=== PATIENT | male | born 1950 | race Caucasian/White ===

== ENCOUNTER 2023-04-08 16:13 | Inpatient (IN) | payer MEDICAID, SELFPAY ==
[2023-04-08] VITALS (58 sets, daily range): BP systolic 104–176; BP diastolic 55–101; PULSE 79–123; RESP 11–35; TEMP 36.7; O2SAT 87–96; BMI 36.9
--- NOTE | 2023-04-08 16:15 | W.ED.ABDPA2 ---
HPI - Abdominal Pain General: Stated Complaint: abd pain,nausea Time Seen by Provider: 04/08/23 16:14 Source: patient Mode of arrival: EMS History of Present Illness: MD elicited complaint: abdominal pain Pertinent past history: none Discharge Plan Discharge Condition: Stable Referrals: Romario Bojorquez, VETERINARY TECHNICIAN INSTRUCTOR-C [Primary Care Provider] - Loco Post MD [Family Provider] - Coding Level of Care Code ED Public Health Engineer for Eli Mishra
--- NOTE | 2023-04-08 16:23 | XRR_ITS ---
PROCEDURE INFORMATION: Exam: XR Left Foot Exam date and time: 04/08/2023 4:48 PM Age: 73 years old Clinical indication: Pain; Foot; Left TECHNIQUE: Imaging protocol: Radiologic exam of the left foot. Views: 3 or more views. COMPARISON: No relevant prior studies available. FINDINGS: Bones/joints: No acute fracture or other acute osseous abnormality. No acute joint abnormality demonstrated. Soft tissues: The soft tissues are unremarkable as demonstrated. XR/XR foot LT min 3V* [id number] IMPRESSION: No acute abnormality demonstrated.
--- NOTE | 2023-04-08 16:41 | W.ED.GENADLT ---
HPI - General Adult General: Chief complaint: General Medical Stated complaint: abd pain,nausea Time Seen by Provider: 04/08/23 16:14 Source: patient Mode of arrival: ambulatory History of Present Illness: 73-year-old male presents to the emergency room via EMS. He has been living in a hotel room for an extended period time he comes in today stating that for the last month he is generally not felt well he has felt numb everywhere. He says he thinks he has mold in his lungs he has an injury to the first and second toes left foot his nails are significantly overgrown. He denies chest or abdominal pain at this time. No fever sweats or chills blood sugar on the field was in excess of 500 Onset (ago): month(s) (1) Associated symptoms: Reports malaise; Deny chest pain, confusion, cough, diaphoresis, decreased appetite, dyspnea, fevers/chills, headache(s), nausea, rash, palpitations, seizures, short of breath, syncope, vomiting or weakness Review of Systems Const: Reports: fatigue and malaise; Denies: fever(s), chills or diaphoresis ENMT: Denies: throat pain, ear or mastoid pain, nasal discharge or nasal congestion Card: Denies: chest pain, palpitations or syncope Resp: Denies: dyspnea GI: Reports: abdominal pain; Denies: nausea or vomiting : Denies: flank pain, dysuria, urinary frequency or urinary urgency Skin/Breast: Denies: rash Neuro: Denies: headache(s) or confusion [facility] ED PFSH: Social History (Updated 04/09/23 @ 06:03 by Roman Calvert DO) Smoking and tobacco status: current every day smoker Physical Exam Const: GENERAL APPEARANCE: cooperative and comfortable ORIENTATION/CONSCIOUSNESS: Yes awake, Yes oriented to person, Yes oriented to place and Yes oriented to time HENMT: COMMON NORMALS: normocephalic, atraumatic and hearing grossly normal bilaterally HEAD & SCALP: normocephalic and atraumatic Resp: COMMON NORMALS: normal respiratory effort, No retractions, No use of accessory muscles and clear to auscultation bilaterally AUSCULTATION: clear to auscultation bilaterally Cardio: COMMON NORMALS: regular rate, regular rhythm and No murmurs present (Cardio) RATE: regular rate RHYTHM: regular rhythm GI: COMMON NORMALS: Soft to palpation and No hepatosplenomegaly present AUSCULTATION: Yes normoactive bowel sounds PALPATION: Yes Soft to palpation, No Tenderness to palpation present (GI), No Guarding due to palpation present (GI) and Yes No hepatosplenomegaly present Extremity: COMMON NORMALS: capillary refill normal, no clubbing, cyanosis or edema, no calf tenderness and no pedal edema OTHER: For second and third toe the left foot are red and inflamed there is some blood coming from underneath the leading edge of the nail. Toenails are significantly hypertrophic. There are some lymphangitic streaking and no diabetic foot ulcers. Neuro: SENSORIUM/ORIENTATION: Yes oriented to person, Yes oriented to place and Yes oriented to time Skin: COMMON NORMALS: no rashes or lesions noted GENERAL SKIN EXAM: no rashes or lesions noted Course Vital Signs: Vital signs: Vital Signs Temperature 98.0 F 04/08/23 22:10 Pulse Rate 66 04/09/23 06:00 Respiratory Rate 17 04/09/23 06:00 Blood Pressure 115/62 04/09/23 06:00 Pulse Oximetry 92 04/09/23 06:00 Oxygen Delivery Me thod Room Air 04/08/23 19:43 MDM - General Adult Medical Decision Making Blood gas does not show acidosis however patient does have ketones in his severe hyperglycemia. He is at the borderline of DKA and has a significant anion gap. Patient will be admitted for DKA he was given fluids here and insulin bolus and drip initiated discussed with hospitalist orders written. Additionally the first second and third toes are indurated reddened show signs of cellulitis will start IV antibiotics no ulcer noted there is some blood underneath the left great toenail Medical Records I reviewed the patient's medical records. Lab Data I reviewed the patient's lab results. 04/09/23 02:39 04/09/23 02:39 Radiology Impressions Foot X-Ray 04/08/23 16:23 IMPRESSION: No acute abnormality demonstrated. Chest X-Ray 04/08/23 17:26 IMPRESSION: 1. The lungs are hyperinflated, consistent with COPD. 2. No acute abnormality demonstrated. Laboratory Results WBC 8.63 10^3/uL (3.29-11.43) 04/08/23 16:37 RBC 4.59 10^6/uL (3.85-5.65) 04/08/23 16:37 Hgb 13.10 g/dL (11.27-16.99) 04/08/23 16:37 Hct 40.1 % (37-53) 04/08/23 16:37 MCV 87.4 fl (82-101) 04/08/23 16:37 MCH 28.5 pg (27-33) 04/08/23 16:37 MCHC 32.7 g/dL (30-55) 04/08/23 16:37 RDW 15.9 % (12.1-15.1) H 04/08/23 16:37 Plt Count 242 10^3/cmm (157-399) 04/08/23 16:37 MPV 11.6 fL (7.4-10.4) H 04/08/23 16:37 Neut % (Auto) 73.3 % 04/08/23 16:37 Lymph % (Auto) 15.9 % 04/08/23 16:37 [place] % (Auto) 8.1 % 04/08/23 16:37 Eos % (Auto) 0.5 % 04/08/23 16:37 Baso % (Auto) 0.9 % 04/08/23 16:37 Neut # (Auto) 6.33 10^3/uL (1.8-7.7) 04/08/23 16:37 Lymph # (Auto) 1.4 10^3/uL (0.8-4.8) 04/08/23 16:37 [place] # (Auto) 0.7 10^3/uL (0.2-0.9) 04/08/23 16:37 Eos # (Auto) 0.0 10^3/uL (0.0-0.8) 04/08/23 16:37 Baso # (Auto) 0.1 10^3/uL (0.0-0.1) 04/08/23 16:37 Nucleated RBC % (auto) 0 % 04/08/23 16:37 Nucleated RBCs # 0.0 /100WBC 04/08/23 16:37 Specimen Type Arterial 04/08/23 16:31 Sample Site Brachial, right 04/08/23 16:31 ABG pH 7.42 (7.35-7.45) 04/08/23 16:31 ABG pCO2 32.6 mmHg (35-45) L 04/08/23 16:31 ABG pO2 73.9 mmHg (80.0-100.0) L 04/08/23 16:31 ABG HCO3 21.2 mmol/L (22-26) L 04/08/23 16:31 ABG O2 Saturation 95.6 04/08/23 16:31 ABG Base Excess -2.5 mmol/L (-2.0-2.0) L 04/08/23 16:31 Neville Test N/a 04/08/23 16:31 A-a O2 Gradient 4.5 mmHg (5-10) L 04/08/23 16:31 Hematocrit 39.9 % (42-52) L 04/08/23 16:31 Hgb O2 Saturation 94.2 % (95-100) L 04/08/23 16:31 Carboxyhemoglobin 1.2 %THgb (0.4-20.1) 04/08/23 16:31 Methemoglobin 0.3 % (0.4-1.5) L 04/08/23 16:31 Total Hemoglobin 13.0 g/dL (14-18) L 04/08/23 16:31 Sodium 133.0 mmol/L (131-143) 04/08/23 16:31 Potassium 4.7 mmol/L (3.5-5.0) 04/08/23 16:31 Glucose 640.0 mg/dL (70-115) H 04/08/23 16:31 Ionized Calcium 1.3 mmol/L (1.1-1.4) 04/08/23 16:31 O2 Delivery Device Room air 04/08/23 16:31 FiO2 21.0 % 04/08/23 16:31 Career Technical Counselor ID glc 04/08/23 16:31 Sodium 129 mmol/L (136-145) L 04/08/23 16:37 Potassium 4.7 mmol/L (3.5-5.1) 04/08/23 16:37 Chloride 85 mmol/L (98-107) L 04/08/23 16:37 Carbon Dioxide 19 mmol/L (22-29) L 04/08/23 16:37 Anion Gap 29.7 (5-19) H 04/08/23 16:37 BUN 27 mg/dL (8-23) H 04/08/23 16:37 Creatinine 1.0 mg/dL (0.7-1.2) 04/08/23 16:37 GFR Calculation Not Reportable 04/08/23 16:37 Glucose 634 mg/dL (65-115) H* 04/08/23 16:37 Estimat Average Glucose 372 04/08/23 16:37 Hemoglobin A1c 14.6 % (4.0-6.0) H 04/08/23 16:37 Calculated Osmolality 303 mOsm/kg (285-295) H 04/08/23 16:37 Lactic Acid 1.8 mmol/L (0.5-2.2) 04/08/23 16:37 Calcium 10.0 mg/dL (8.5-10.5) 04/08/23 16:37 Total Bilirubin 0.5 mg/dL (0.15-1.2) 04/08/23 16:37 AST 12 U/L (0-40) 04/08/23 16:37 ALT 14 U/L (0-41) 04/08/23 16:37 Alkaline Phosphatase 185 U/L (40-130) H 04/08/23 16:37 NT-Pro-B Natriuret Pep 197 pg/mL (0-125) H 04/08/23 16:37 Total Protein 7.9 g/dL (6.6-8.7) 04/08/23 16:37 Albumin 3.8 g/dL (3.5-5.2) 04/08/23 16:37 Globulin 4.1 g/dL (1.3-4.6) 04/08/23 16:37 Lipase 71 U/L (13-60) H 04/08/23 16:37 Urine Color Yellow (Yellow) 04/08/23 17:00 Urine Appearance Clear (CLEAR) 04/08/23 17:00 Urine pH 5 (5-7) 04/08/23 17:00 Ur Specific [place] 1.010 (1.005-1.030) 04/08/23 17:00 Urine Protein Neg (Negative) 04/08/23 17:00 Urine Glucose (UA) 4+ (Normal) H 04/08/23 17:00 Urine Ketones 3+ (Negative) H 04/08/23 17:00 Urine Blood Neg (Negative) 04/08/23 17:00 Urine Nitrate Negative (Negative) 04/08/23 17:00 Urine Bilirubin Neg (Negative) 04/08/23 17:00 Urine Urobilinogen Norm mg/dL (Negative) 04/08/23 17:00 Ur Leukocyte Esterase Negative (Negative) 04/08/23 17:00 Serum Ketones Positive (Negative) H 04/08/23 16:37 Discharge Plan Discharge Patient Disposition: Admitted As Inpatient Admit Provider: Heather Rushing Clinical Impression: Diabetic keto-acidosis, Cellulitis of foot, Uncontrolled diabetes mellitus Condition: Stable Coding Level of Care Code ED Fountain Worker for Eli Mishra
[2023-04-08 16:43] LABS: ABG PCO2 32.6 mmHg (35-45); ABG PH Result 7.42 (7.35-7.45); Alveolar-Arterial Oxygen Gradi 4.5 mmHg (5-10); Arterial Blood Gas Hematocrit 39.9 % (42-52); Base Excess ABG -2.5 mmol/L (-2.0-2.0); Blood Gas Operator Identificat glc; Blood Gas Sample Site Brachial, right; Blood Gas Sample Type Arterial; Carboxyhemoglobin 1.2 %THgb (0.4-20.1); HCO3 ABG 21.2 mmol/L (22-26); HGB O2 Sat 94.2 % (95-100); Ionized Calcium Level - ABG 1.3 mmol/L (1.1-1.4); Methemoglobin 0.3 % (0.4-1.5); Oxygen Device ROOM AIR; Oxygen Saturation ABG 95.6; PO2 ABG 73.9 mmHg (80.0-100.0); Potassium Level - ABG 4.7 mmol/L (3.5-5.0)
[2023-04-08 16:53] LABS: Ketone (Acetest) Serum Positive (Negative)
[2023-04-08 16:55] LABS: Basophils # 0.1 10^3/uL (0.0-0.1); Basophils % 0.9 %; Eosinophils % 0.5 %; Hematocrit 40.1 % (37-53); Lymphocytes # 1.4 10^3/uL (0.8-4.8); Lymphocytes % 15.9 %; Mean Corpuscular HGB Conc 32.7 g/dL (30-55); Mean Corpuscular Hemoglobin 28.5 pg (27-33); Mean Corpuscular Volume 87.4 fl (82-101); Mean Platelet Volume 11.6 fL (7.4-10.4); Monocytes # 0.7 10^3/uL (0.2-0.9); Monocytes % 8.1 %; Neutrophils # 6.33 10^3/uL (1.8-7.7); Neutrophils % 73.3 %; Nucleated Red Blood Cells % 0 %; Platelet Count 242 10^3/cmm (157-399); Red Blood Count 4.59 10^6/uL (3.85-5.65); Red Cell Distribution Width 15.9 % (12.1-15.1); White Blood Count 8.63 10^3/uL (3.29-11.43)
[2023-04-08 17:04] LABS: Lactic Sepsis W/Reflex 1.8 mmol/L (0.5-2.2)
[2023-04-08 17:05] LABS: Add Urine Microscopic? NO; Charge for UA Resulting for Rev
--- NOTE | 2023-04-08 17:10 | ECG_ITS ---
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 Measurements Intervals P[place] Rate: 88 P: 64 CA: 144 QRS: 5 QRSD: 86 T: 61 QT: 357 QTc: 433 Interpretive Statements SINUS RHYTHM LOW QRS VOLTAGE [QRS DEFLECTION < 0.5/1.0 mV IN LIMB/CHEST LEADS] Compared to ECG 02/11/2015 01:18:29 Sinus tachycardia no longer present Electronically Signed On 04-08-2023 21:24:20 CDT by Nehemiah Campbell M.D. [email or web address] [email or web address]/store/[id number]
[2023-04-08 17:14] LABS: Alanine Aminotransferase 14 U/L (0-41); Albumin Level 3.8 g/dL (3.5-5.2); Alkaline Phosphatase 185 U/L (40-130); Anion Gap 29.7 (5-19); Aspartate Amino Transferase 12 U/L (0-40); Blood Urea Nitrogen 27 mg/dL (8-23); Carbon Dioxide 19 mmol/L (22-29); Chloride 85 mmol/L (98-107); Globulin 4.1 g/dL (1.3-4.6); Lipase 71 U/L (13-60); NT Pro B Type Natriuretic Pept 197 pg/mL (0-125); Osmolality Calculated 303 mOsm/kg (285-295); Potassium 4.7 mmol/L (3.5-5.1); Sodium 129 mmol/L (136-145); Total Bilirubin 0.5 mg/dL (0.15-1.2); Total Protein 7.9 g/dL (6.6-8.7)
--- NOTE | 2023-04-08 17:15 | PC.NURSE ---
ems started 1L NS, continued infusion per physician order
[2023-04-08 17:17] LABS: Bilirubin Urine Neg (Negative); Blood Urine Neg (Negative); Glucose Urine UA 4+ (Normal); Ketones Urine 3+ (Negative); Leukocyte Esterase Urine Negative (Negative); Nitrate Urine Negative (Negative); Protein Urine Neg (Negative); Urine Appearance Clear (CLEAR); Urine Color Yellow (Yellow); Urobilinogen Urine Norm (Negative); pH Urine 5 (5-7)
[2023-04-08 17:19] LABS: Glucose 634 mg/dL (65-115)
--- NOTE | 2023-04-08 17:26 | XRR_ITS ---
PROCEDURE INFORMATION: Exam: XR Chest Exam date and time: 04/08/2023 7:14 PM Age: 73 years old Clinical indication: Cough TECHNIQUE: Imaging protocol: Radiologic exam of the chest. Views: 1 view. COMPARISON: No relevant prior studies available. FINDINGS: Lungs: The lungs are hyperinflated, consistent with COPD. No consolidative pulmonary infiltrates are noted. Pleural spaces: No pleural effusion. No pneumothorax. Heart/Mediastinum: No cardiomegaly. Bones/joints: Unremarkable. XR/XR chest 1V portable [id number] IMPRESSION: 1. The lungs are hyperinflated, consistent with COPD. 2. No acute abnormality demonstrated.
--- NOTE | 2023-04-08 17:33 | PM.HP ---
Providers/Chief Complaint Admitting Physician: Heather Rushing MD Primary Care Provider: Romario Bojorquez, GAS TURBINE POWERPLANT MECHANIC-C Chief Complaint: abd pain,nausea History of Present Illness Pillo Dyer Sr is a 73 year old male who denies any known past medical history, however has not seen a physician in over 3 years. He presented to the emergency room today with 2 to 3 weeks of generalized malaise fatigue and a persistent cough. Patient thought he had mold in his lungs as he has been living in a motel which appears to be infested with it. He stubbed his toe 2 to 3 days ago against a wall and it has been bleeding and turning red ever since. In the emergency room he was found to have evidence of DKA with blood glucose greater than 600, anion gap and urine ketones. Denies any known history of diabetes mellitus, but it has never been checked either. Denies any sputum production hemoptysis chest pain or dyspnea. He is saturating 96% on room air. States that his stomach has not been feeling well. Review of Systems General: Reports: 10 or more systems reviewed and unremarkable except in HPI and below Const: Denies: fever(s), chills or body aches Eyes: Denies: change in vision, blurry vision or photophobia ENMT: Reports: hoarseness; Denies: throat pain, enlarged tonsils, odynophagia or nasal congestion Card: Denies: chest pain, palpitations, irregular heart rhythm, edema, swelling of feet/ankles, lightheadedness, pre-syncope, dyspnea on exertion or orthopnea Resp: Denies: dyspnea, productive cough, non-productive cough, wheezing, stridor, pain on inspiration, change in phlegm color, hemoptysis or chest congestion GI: Denies: abdominal pain, nausea, vomiting, hematemesis, coffee ground emesis, dysphagia, heartburn, diarrhea, constipation, GI cramping, change in stool character, hematochezia or melena : Denies: flank pain, dysuria, urinary frequency, urinary urgency, urinary hesitancy or hematuria Musc: Denies: neck pain, back pain, extremity pain, joint swelling, joint warmth or deformity Neuro: Denies: headache(s), numbness in extremities, weakness in extremities, sensory changes, difficulty walking, frequent falls, dizziness, vertigo, behavioral changes, Slurred speech present or seizure-like activity Psych: Denies: anxiety, depression, suicidal ideation or homicidal ideation Endo: Denies: polyuria, polydipsia, tired all the time, cold intolerance or hot flashes Gio/Lymph: Denies: easy bruising or easy bleeding Medications/Allergies Home Medications Medication Instructions Recorded Confirmed Last Taken Type No Known Home Medications 04/09/23 04/09/23 Unknown History Allergies Allergy/AdvReac Type Severity Reaction Status Date / Time No Known Allergies Allergy Verified 04/08/23 16:28 PFSH Acute PFSH: Social History Smoking and tobacco status: current every day smoker Vitals/I&O/Wt Last Vital Signs Temp 98.0 F 04/08/23 16:20 Pulse 85 04/08/23 16:20 Resp 28 H 04/08/23 16:20 BP 146/83 04/08/23 16:20 Pulse Ox 94 04/08/23 16:20 O2 Del Method Room Air 04/08/23 16:20 Weight last 48 hrs Weight 127.006 kg Physical Exam Narrative: General: No acute distress, AO x3 HEENT: PERRLA, pupils bilaterally equal and reactive, pallors not present Chest: Normal vesicular breath sounds, no added sounds, equal good air entry bilaterally CVS: S1-S2 regular, no murmurs, no tachycardia, no gallops, no rubs Abdomen: Soft, nontender, no organomegaly, bowel sounds present Neuro: No focal deficits, no facial deformity, AO x3, power 5/5 in all limbs Data 04/09/23 02:39 04/09/23 08:00 Other data: Radiology Impressions Foot X-Ray 04/08/23 16:23 IMPRESSION: No acute abnormality demonstrated. Chest X-Ray 04/08/23 17:26 IMPRESSION: 1. The lungs are hyperinflated, consistent with COPD. 2. No acute abnormality demonstrated. Laboratory Results WBC 9.92 10^3/uL (3.29-11.43) 04/09/23 02:39 RBC 4.47 10^6/uL (3.85-5.65) 04/09/23 02:39 Hgb 12.70 g/dL (11.27-16.99) 04/09/23 02:39 Hct 39.4 % (37-53) 04/09/23 02:39 MCV 88.1 fl (82-101) 04/09/23 02:39 MCH 28.4 pg (27-33) 04/09/23 02:39 MCHC 32.2 g/dL (30-55) 04/09/23 02:39 RDW 15.9 % (12.1-15.1) H 04/09/23 02:39 Plt Count 226 10^3/cmm (157-399) 04/09/23 02:39 MPV 10.8 fL (7.4-10.4) H 04/09/23 02:39 Neut % (Auto) 71.8 % 04/09/23 02:39 Lymph % (Auto) 17.4 % 04/09/23 02:39 [place] % (Auto) 8.3 % 04/09/23 02:39 Eos % (Auto) 0.8 % 04/09/23 02:39 Baso % (Auto) 0.6 % 04/09/23 02:39 Neut # (Auto) 7.12 10^3/uL (1.8-7.7) 04/09/23 02:39 Lymph # (Auto) 1.7 10^3/uL (0.8-4.8) 04/09/23 02:39 Rich # (Auto) 0.8 10^3/uL (0.2-0.9) 04/09/23 02:39 Eos # (Auto) 0.1 10^3/uL (0.0-0.8) 04/09/23 02:39 Baso # (Auto) 0.1 10^3/uL (0.0-0.1) 04/09/23 02:39 Nucleated RBC % (auto) 0 % 04/09/23 02:39 Nucleated RBCs # 0.0 /100WBC 04/09/23 02:39 Specimen Type Arterial 04/08/23 16:31 Sample Site Brachial, right 04/08/23 16:31 ABG pH 7.42 (7.35-7.45) 04/08/23 16:31 ABG pCO2 32.6 mmHg (35-45) L 04/08/23 16:31 ABG pO2 73.9 mmHg (80.0-100.0) L 04/08/23 16:31 ABG HCO3 21.2 mmol/L (22-26) L 04/08/23 16:31 ABG O2 Saturation 95.6 04/08/23 16:31 ABG Base Excess -2.5 mmol/L (-2.0-2.0) L 04/08/23 16:31 Neville Test N/a 04/08/23 16:31 A-a O2 Gradient 4.5 mmHg (5-10) L 04/08/23 16:31 Hematocrit 39.9 % (42-52) L 04/08/23 16:31 Hgb O2 Saturation 94.2 % (95-100) L 04/08/23 16:31 Carboxyhemoglobin 1.2 %THgb (0.4-20.1) 04/08/23 16:31 Methemoglobin 0.3 % (0.4-1.5) L 04/08/23 16:31 Total Hemoglobin 13.0 g/dL (14-18) L 04/08/23 16:31 Sodium 133.0 mmol/L (131-143) 04/08/23 16:31 Potassium 4.7 mmol/L (3.5-5.0) 04/08/23 16:31 Glucose 640.0 mg/dL (70-115) H 04/08/23 16:31 Ionized Calcium 1.3 mmol/L (1.1-1.4) 04/08/23 16:31 O2 Delivery Device Room air 04/08/23 16:31 FiO2 21.0 % 04/08/23 16:31 Prenatal Genetic Counselor ID glc 04/08/23 16:31 Sodium 139 mmol/L (136-145) 04/09/23 08:00 Potassium 3.2 mmol/L (3.5-5.1) L 04/09/23 08:00 Chloride 102 mmol/L (98-107) 04/09/23 08:00 Carbon Dioxide 25 mmol/L (22-29) 04/09/23 08:00 Anion Gap 15.2 (5-19) 04/09/23 08:00 BUN 18 mg/dL (8-23) 04/09/23 08:00 Creatinine 0.8 mg/dL (0.7-1.2) 04/09/23 08:00 GFR Calculation Not Reportable 04/09/23 08:00 Glucose 160 mg/dL (65-115) H 04/09/23 08:00 POC Glucose 245 mg/dL (70-110) H 04/09/23 08:09 Estimat Average Glucose 372 04/08/23 16:37 Hemoglobin A1c 14.6 % (4.0-6.0) H 04/08/23 16:37 Calculated Osmolality 293 mOsm/kg (285-295) 04/09/23 08:00 Lactic Acid 1.8 mmol/L (0.5-2.2) 04/08/23 16:37 Calcium 8.5 mg/dL (8.5-10.5) 04/09/23 08:00 Phosphorus 2.6 mg/dL (2.5-4.5) 04/09/23 08:00 Magnesium 1.7 mg/dL (1.7-2.3) 04/09/23 08:00 Total Bilirubin 0.4 mg/dL (0.15-1.2) 04/09/23 08:00 AST 16 U/L (0-40) 04/09/23 08:00 ALT 12 U/L (0-41) 04/09/23 08:00 Alkaline Phosphatase 108 U/L (40-130) 04/09/23 08:00 NT-Pro-B Natriuret Pep 197 pg/mL (0-125) H 04/08/23 16:37 Total Protein 6.5 g/dL (6.6-8.7) L 04/09/23 08:00 Albumin 3.3 g/dL (3.5-5.2) L 04/09/23 08:00 Globulin 3.2 g/dL (1.3-4.6) 04/09/23 08:00 Lipase 71 U/L (13-60) H 04/08/23 16:37 Urine Color Yellow (Yellow) 04/08/23 17:00 Urine Appearance Clear (CLEAR) 04/08/23 17:00 Urine pH 5 (5-7) 04/08/23 17:00 Ur Specific [place] 1.010 (1.005-1.030) 04/08/23 17:00 Urine Protein Neg (Negative) 04/08/23 17:00 Urine Glucose (UA) 4+ (Normal) H 04/08/23 17:00 Urine Ketones 3+ (Negative) H 04/08/23 17:00 Urine Blood Neg (Negative) 04/08/23 17:00 Urine Nitrate Negative (Negative) 04/08/23 17:00 Urine Bilirubin Neg (Negative) 04/08/23 17:00 Urine Urobilinogen Norm mg/dL (Negative) 04/08/23 17:00 Ur Leukocyte Esterase Negative (Negative) 04/08/23 17:00 Serum Ketones Positive (Negative) H 04/08/23 16:37 A&P Assessment and plan (1) Diabetic keto-acidosis: Diabetic ketoacidosis: As evidenced by blood glucose more than 600, positive urine ketones, anion gap of 29.7 Start patient on insulin drip as per DKA/HHS protocol with target blood sugars between 100-130 normal saline at 75 cc/h. We will switch to D5 NS once blood sugar less than 250. Monitor BMP every 6 hours. Once potassium less than 4 we will add 20 mg of potassium to IV fluids. Monitor saturations. Maintain over 90%. Transition to sliding scale and long-acting insulin once anion gap resolves. Check HbA1c (2) Cellulitis of foot: After sustaining injury by hitting her foot accidentally against a wall 3 to 4 days ago Currently on vancomycin and Zosyn empirically which we will continue. Monitor for improvement X-ray without any signs of cellulitis Plan Chronic cough: Check CXR , suspect COPD, patient is an ex smoker. No fever. Abx for cellulitis to cover for possible PNA while waiting for CXR Currently living in [facility] ? homeless vs by choice. Case management consult to assess living situation DVT ppx: lovenox PUD ppx: Protonix Attestations Medical Necessity Statement*: Greater than 2 midnight admission is anticipated for management of diabetic ketoacidosis and cellulitis of the foot, need for insulin drip and IV antibiotics Coding Level of Care Code Acute Code for Chg Fwd High MDM includes number and complexity of problems actively addressed during encounter, amount and/or complexity of data reviewed/ordered and described risk of complication, morbidity or mortality of management as documented Diagnoses Diabetic keto-acidosis E11.10 Cellulitis of foot L03.119
[2023-04-08 18:33] LABS: Alanine Aminotransferase 13 U/L (0-41); Albumin Level 3.8 g/dL (3.5-5.2); Alkaline Phosphatase 177 U/L (40-130); Aspartate Amino Transferase 12 U/L (0-40); Blood Urea Nitrogen 26 mg/dL (8-23); Calcium 9.8 mg/dL (8.5-10.5); Carbon Dioxide 21 mmol/L (22-29); Chloride 87 mmol/L (98-107); Osmolality Calculated 304 mOsm/kg (285-295); Sodium 132 mmol/L (136-145); Total Bilirubin 0.5 mg/dL (0.15-1.2); Total Protein 7.8 g/dL (6.6-8.7)
[2023-04-08] MEDS: enoxaparin 40 mg/0.4 mL Syringe SUBCUT (18:33)
[2023-04-08 18:35] LABS: Anion Gap 28.9 (5-19); Potassium 4.9 mmol/L (3.5-5.1)
[2023-04-08 18:36] LABS: Glucose 553 mg/dL (65-115)
[2023-04-08] MEDS: piperacillin-tazobactam 3.375 GM in sodium chloride 0.9% (plus) 50 ML IV (18:36)
[2023-04-08] MEDS: ondansetron 2 mg/ML SDV 2 mL 4 MG IVP ×2 (19:19→20:47)
[2023-04-08] MEDS: insulin regular-human 250 UNIT in sodium chloride 0.9% 250 ML 11.11 UNIT IV (19:41)
[2023-04-08] MEDS: sodium chloride 0.9% 1,000 ML 75 ML IV (20:20)
[2023-04-08] MEDS: vancomycin 1,500 MG/300 ML PIGGYBACK 200 MG IV (20:20)
[2023-04-08 20:28] LABS: Glucose Point of Care 475 mg/dL (70-110)
[2023-04-08 21:50] LABS: Glucose Point of Care 290 mg/dL (70-110)
[2023-04-08 23:06] LABS: Glucose Point of Care 204 mg/dL (70-110)
[2023-04-08 23:16] LABS: Estmated Average Glucose 372; Hemoglobin A1C 14.6 % (4.0-6.0)
[2023-04-08] MEDS: acetaminophen 325 mg Tablet 650 MG PO (23:50)
[2023-04-08] MEDS: promethazine 25 mg/mL SDV 1 mL IM (23:50)
[2023-04-08 23:54] LABS: Glucose Point of Care 556 mg/dL (70-110)
[2023-04-08 23:54] LABS: Glucose Point of Care 478 mg/dL (70-110)
[2023-04-08 23:55] LABS: Glucose Point of Care 87 mg/dL (70-110)
[2023-04-08 23:59] LABS: Blood Urea Nitrogen 23 mg/dL (8-23); Calcium 9.8 mg/dL (8.5-10.5); Carbon Dioxide 23 mmol/L (22-29); Osmolality Calculated 294 mOsm/kg (285-295); Potassium 3.5 mmol/L (3.5-5.1); Sodium 139 mmol/L (136-145)
[2023-04-09] VITALS (110 sets, daily range): BP systolic 97–147; BP diastolic 54–93; PULSE 0–131; RESP 11–28; TEMP 36.7–36.8; O2SAT 79–96
[2023-04-09] MEDS: dextrose 5%-sod chloride 0.45% 1,000 ML 60 ML IV
[2023-04-09 00:07] LABS: Anion Gap 22.5 (5-19); Chloride 97 mmol/L (98-107); Glucose 146 mg/dL (65-115); Phosphorus 2.3 mg/dL (2.5-4.5)
--- NOTE | 2023-04-09 00:10 | PC.NURSE ---
While the time it took to clarify order for dextrose IV fluids, patient sugar dropped to 87. Doctor notified for dextrose order when sugar hit below 250. Dr wanted to start IV dextrose if the patients next sugar was still trending downward. Patients next sugar was 87. Insulin drip paused and D5- 1/2 NS started at 60 mls an hour per doctors orders.
[2023-04-09 00:55] LABS: Glucose Point of Care 108 mg/dL (70-110)
[2023-04-09 01:54] LABS: Glucose Point of Care 272 mg/dL (70-110)
[2023-04-09] MEDS: piperacillin-tazobactam 3.375 GM in sodium chloride 0.9% (plus) 50 ML IV ×3 (02:20→20:22)
[2023-04-09 03:02] LABS: Glucose Point of Care 130 mg/dL (70-110)
[2023-04-09 03:04] LABS: Basophils # 0.1 10^3/uL (0.0-0.1); Basophils % 0.6 %; Eosinophils # 0.1 10^3/uL (0.0-0.8); Eosinophils % 0.8 %; Hematocrit 39.4 % (37-53); Lymphocytes # 1.7 10^3/uL (0.8-4.8); Lymphocytes % 17.4 %; Mean Corpuscular HGB Conc 32.2 g/dL (30-55); Mean Corpuscular Hemoglobin 28.4 pg (27-33); Mean Corpuscular Volume 88.1 fl (82-101); Mean Platelet Volume 10.8 fL (7.4-10.4); Monocytes # 0.8 10^3/uL (0.2-0.9); Monocytes % 8.3 %; Neutrophils # 7.12 10^3/uL (1.8-7.7); Neutrophils % 71.8 %; Nucleated Red Blood Cells % 0 %; Platelet Count 226 10^3/cmm (157-399); Red Blood Count 4.47 10^6/uL (3.85-5.65); Red Cell Distribution Width 15.9 % (12.1-15.1); White Blood Count 9.92 10^3/uL (3.29-11.43)
[2023-04-09 03:25] LABS: Alanine Aminotransferase 13 U/L (0-41); Albumin Level 3.7 g/dL (3.5-5.2); Alkaline Phosphatase 130 U/L (40-130); Anion Gap 20.5 (5-19); Aspartate Amino Transferase 15 U/L (0-40); Blood Urea Nitrogen 22 mg/dL (8-23); Calcium 9.2 mg/dL (8.5-10.5); Carbon Dioxide 24 mmol/L (22-29); Chloride 97 mmol/L (98-107); Globulin 3.6 g/dL (1.3-4.6); Glucose 138 mg/dL (65-115); Magnesium 1.9 mg/dL (1.7-2.3); Osmolality Calculated 292 mOsm/kg (285-295); Phosphorus 3.6 mg/dL (2.5-4.5); Potassium 3.5 mmol/L (3.5-5.1); Sodium 138 mmol/L (136-145); Total Bilirubin 0.3 mg/dL (0.15-1.2); Total Protein 7.3 g/dL (6.6-8.7)
[2023-04-09 03:59] LABS: Glucose Point of Care 119 mg/dL (70-110)
[2023-04-09] MEDS: TRAMadol 50 mg Tablet PO (04:34)
[2023-04-09 05:02] LABS: Glucose Point of Care 182 mg/dL (70-110)
[2023-04-09] MEDS: vancomycin 1,500 MG/300 ML PIGGYBACK 200 MG IV ×2 (05:43→18:04)
[2023-04-09 06:08] LABS: Glucose Point of Care 243 mg/dL (70-110)
[2023-04-09 06:41] LABS: Glucose Point of Care 260 mg/dL (70-110)
[2023-04-09 08:14] LABS: Glucose Point of Care 245 mg/dL (70-110)
[2023-04-09 08:36] LABS: Alanine Aminotransferase 12 U/L (0-41); Albumin Level 3.3 g/dL (3.5-5.2); Alkaline Phosphatase 108 U/L (40-130); Anion Gap 15.2 (5-19); Aspartate Amino Transferase 16 U/L (0-40); Blood Urea Nitrogen 18 mg/dL (8-23); Calcium 8.5 mg/dL (8.5-10.5); Carbon Dioxide 25 mmol/L (22-29); Chloride 102 mmol/L (98-107); Globulin 3.2 g/dL (1.3-4.6); Glucose 160 mg/dL (65-115); Magnesium 1.7 mg/dL (1.7-2.3); Osmolality Calculated 293 mOsm/kg (285-295); Phosphorus 2.6 mg/dL (2.5-4.5); Potassium 3.2 mmol/L (3.5-5.1); Sodium 139 mmol/L (136-145); Total Bilirubin 0.4 mg/dL (0.15-1.2); Total Protein 6.5 g/dL (6.6-8.7)
[2023-04-09 09:59] LABS: Chol HDL Ratio 7.52 mg/dL (1.0-5.00); Cholesterol 203 mg/dL (0-200); HDL Cholesterol 27 mg/dL (60-100); Triglycerides 569 mg/dL (0-150)
[2023-04-09 10:12] LABS: LDL Cholesterol Direct 80 mg/dL (0-100)
[2023-04-09] MEDS: pantoprazole DR 40 mg Tablet PO (11:06)
[2023-04-09] MEDS: lidocaine 1% 5 ML in potassium chloride premix 100 ML 26.25 ML IV (11:06)
[2023-04-09] MEDS: insulin glargine 100 units/1 mL 10 UNIT SUBCUT (11:07)
[2023-04-09] MEDS: ipratropium-albuterol 3 mL Neb INHALATION ×2 (13:18→21:00)
[2023-04-09 13:26] LABS: Glucose Point of Care 157 mg/dL (70-110)
--- NOTE | 2023-04-09 13:49 | PC.NURSE ---
Patient from ICU 04/09/2023 at 1350 Wallet with patient. 3-100.00 dollar bills, 1-20, 1-5, 4-1 dollar bills. Priya put in [employer] system
[2023-04-09 14:42] LABS: SARS Covid-2 Antigen negative (Negative)
--- NOTE | 2023-04-09 14:49 | PM.PN ---
Subjective Subjective: Patient's anion gap has now closed. He continues to complain of overall he is feeling generalized weak. He is afebrile. Hemodynamically stable. Chest x-ray without any consolidation. Medications: Reviewed: Yes Vitals/I&O/Wt Last Vital Signs Temp 98.0 F 04/08/23 22:10 Pulse 72 04/09/23 13:21 Resp 16 04/09/23 13:18 BP 121/75 04/09/23 08:25 Pulse Ox 94 04/09/23 13:18 O2 Del Method Nasal Cannula 04/09/23 13:55 O2 Flow Rate 2 04/09/23 13:18 04/08/23 04/09/23 04/09/23 22:59 06:59 14:59 Intake Total 401.838 / 401.838 360.936 / 762.774 Output Total 400 / 400 400 / 400 Balance 401.838 / 401.838 -39.064 / 362.774 -400 / -400 Weight last 48 hrs Weight 110.677 kg Weight 127.006 kg Physical Exam Narrative: General: No acute distress, AO x3 HEENT: PERRLA, pupils bilaterally equal and reactive, pallors not present Chest: Normal vesicular breath sounds, no added sounds, equal good air entry bilaterally CVS: S1-S2 regular, no murmurs, no tachycardia, no gallops, no rubs Abdomen: Soft, nontender, no organomegaly, bowel sounds present Neuro: No focal deficits, no facial deformity, AO x3, power 5/5 in all limbs Data 04/09/23 02:39 04/09/23 08:00 Micro: Microbiology 04/08/23 18:14 Blood Culture - Preliminary Blood SPECIMEN COLLECTED 04/08/23 17:58 Blood Culture - Preliminary Blood SPECIMEN COLLECTED A&P Assessment and plan (1) Diabetic keto-acidosis: Diabetic ketoacidosis: As evidenced by blood glucose more than 600, positive urine ketones, anion gap of 29.7 Anion gap now resolved transition to lantus 10 U daily and sliding scale start carb consistent diet HbA1c at 14, consitent with uncontrolled DM (2) Cellulitis of foot: After sustaining injury by hitting her foot accidentally against a wall 3 to 4 days ago Currently on vancomycin and Zosyn empirically which we will continue. Monitor for improvement X-ray without any signs of osteomyelitis Plan Chronic cough: CXR , suspect COPD with hyperinflated chest No consolidation patient is an ex smoker. No fever. Start duoneb every 6 hrs schedule, will need inhalers at discharge Transfer out of ICU to medical floor DVT ppx: lovenox PUD ppx: Protonix Attestations Medical Necessity Statement*: transfer to med/surg now that DKA resolved. Continue abx for cellulitis Coding Level of Care Code Acute Code for Chg Fwd Diagnoses Diabetic keto-acidosis E11.10 Cellulitis of foot L03.119
[2023-04-09 15:27] LABS: Troponin(5th) Baseline 21 ng/L (0-15)
--- NOTE | 2023-04-09 15:40 | ECG_ITS ---
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 Measurements Intervals [place] Rate: 85 P: 21 SD: 152 QRS: 80 QRSD: 89 T: 25 QT: 364 QTc: 433 Interpretive Statements SINUS RHYTHM LOW QRS VOLTAGE IN PRECORDIAL LEADS [QRS DEFLECTION < 1.0 mV IN CHEST LEADS] Compared to ECG 04/08/2023 17:10:42 No significant changes Electronically Signed On 04-09-2023 17:21:36 CDT by Nehemiah Campbell M.D. [email or web address] regional hospitalPlanet Labsmarietta [facility].[employer]/store/OM/[id number]
[2023-04-09 16:27] LABS: D Dimer 2.75 ug/mLFEU (0-0.59)
[2023-04-09 16:28] LABS: Troponin 5 2HR 21.34 ng/L (0-15)
[2023-04-09 16:29] LABS: Troponin 5 2HR Delta 0.34 ABS# (0-10)
--- NOTE | 2023-04-09 17:09 | ECG_ITS ---
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 Measurements Intervals [place] Rate: 89 P: 0 [place]: 174 QRS: 85 QRSD: 87 T: 34 QT: 360 QTc: 439 Interpretive Statements SINUS RHYTHM LOW QRS VOLTAGE IN PRECORDIAL LEADS [QRS DEFLECTION < 1.0 mV IN CHEST LEADS] Compared to ECG 04/09/2023 15:40:35 No significant changes Electronically Signed On 04-09-2023 17:24:24 CDT by Nehemiah Campbell M.D. [id number]
[2023-04-09 17:46] LABS: Glucose Point of Care 507 mg/dL (70-110)
[2023-04-09 17:46] LABS: Glucose Point of Care 450 mg/dL (70-110)
[2023-04-09 17:47] LABS: Glucose Point of Care 446 mg/dL (70-110)
[2023-04-09] MEDS: insulin lispro 100 unit/1 mL SUBCUT ×2 (18:03→21:22)
[2023-04-09] MEDS: insulin lispro 100 unit/1 mL 10 UNIT SUBCUT (18:03)
[2023-04-09] MEDS: enoxaparin 40 mg/0.4 mL Syringe SUBCUT (18:04)
[2023-04-09] MEDS: atorvastatin 40 mg Tablet PO (20:21)
[2023-04-09] MEDS: acetaminophen 325 mg Tablet 650 MG PO (20:22)
[2023-04-09 20:47] LABS: Glucose Point of Care 297 mg/dL (70-110)
--- NOTE | 2023-04-09 21:06 | ECG_ITS ---
[facility] Test Date: 2023-04-09 Pat Name: Pillo Dyer Department: Room: 261 Gender: Male [employer]: : 1950 Requested By: Heather Rushing Order Number: [id number] Reading MD: Darren Staton M.D. Measurements Intervals [place] Rate: 81 P: 60 NM: 173 QRS: -19 QRSD: 85 T: 37 QT: 359 QTc: 417 Interpretive Statements SINUS RHYTHM LOW QRS VOLTAGE IN PRECORDIAL LEADS [QRS DEFLECTION < 1.0 mV IN CHEST LEADS] Compared to ECG 04/09/2023 17:09:34 No significant changes Electronically Signed On 04-10-2023 13:59:21 CDT by Darren Staton M.D. [id number]
[2023-04-10] VITALS (17 sets, daily range): BP systolic 112–153; BP diastolic 74–92; PULSE 68–89; RESP 15–20; TEMP 36.3–36.8; O2SAT 82–98
[2023-04-10] MEDS: ipratropium-albuterol 3 mL Neb INHALATION ×4 (01:54→19:43)
[2023-04-10] MEDS: acetaminophen 325 mg Tablet 650 MG PO ×3 (03:06→17:09)
[2023-04-10] MEDS: piperacillin-tazobactam 3.375 GM in sodium chloride 0.9% (plus) 50 ML IV ×3 (03:07→22:31)
[2023-04-10 05:09] LABS: Basophils # 0.1 10^3/uL (0.0-0.1); Basophils % 1.1 %; Eosinophils # 0.2 10^3/uL (0.0-0.8); Eosinophils % 3.3 %; Hematocrit 36.3 % (37-53); Lymphocytes # 1.1 10^3/uL (0.8-4.8); Lymphocytes % 20.8 %; Mean Corpuscular HGB Conc 31.1 g/dL (30-55); Mean Corpuscular Hemoglobin 28.3 pg (27-33); Mean Corpuscular Volume 90.8 fl (82-101); Mean Platelet Volume 10.8 fL (7.4-10.4); Monocytes # 0.6 10^3/uL (0.2-0.9); Monocytes % 11.2 %; Neutrophils # 3.33 10^3/uL (1.8-7.7); Neutrophils % 60.9 %; Nucleated Red Blood Cells % 0 %; Platelet Count 171 10^3/cmm (157-399); Red Cell Distribution Width 16.3 % (12.1-15.1); White Blood Count 5.47 10^3/uL (3.29-11.43)
[2023-04-10 05:30] LABS: Alanine Aminotransferase 11 U/L (0-41); Alkaline Phosphatase 101 U/L (40-130); Anion Gap 15.8 (5-19); Aspartate Amino Transferase 18 U/L (0-40); Blood Urea Nitrogen 15 mg/dL (8-23); Carbon Dioxide 23 mmol/L (22-29); Chloride 102 mmol/L (98-107); Globulin 2.6 g/dL (1.3-4.6); Glucose 294 mg/dL (65-115); Osmolality Calculated 296 mOsm/kg (285-295); Potassium 3.8 mmol/L (3.5-5.1); Sodium 137 mmol/L (136-145); Total Bilirubin 0.3 mg/dL (0.15-1.2); Total Protein 5.6 g/dL (6.6-8.7)
[2023-04-10 05:37] LABS: Vancomycin Trough 17.2 ug/mL (10-15)
[2023-04-10] MEDS: vancomycin 1,500 MG/300 ML PIGGYBACK 200 MG IV ×2 (06:47→17:08)
[2023-04-10 07:11] LABS: Glucose Point of Care 379 mg/dL (70-110)
[2023-04-10] MEDS: pantoprazole DR 40 mg Tablet PO (08:21)
[2023-04-10] MEDS: insulin lispro 100 unit/1 mL SUBCUT ×2 (08:22→11:43)
[2023-04-10] MEDS: insulin glargine 100 units/1 mL 10 UNIT SUBCUT ×2 (08:28→13:23)
[2023-04-10 11:33] LABS: Glucose Point of Care 429 mg/dL (70-110)
--- NOTE | 2023-04-10 13:07 | CTR_ITS ---
PROCEDURE INFORMATION: Exam: CTA Chest With Contrast Exam date and time: 04/10/2023 1:46 PM Age: 73 years old Clinical indication: Shortness of breath; Additional info: Evaluate for pe, chest pain, new oxygen requirement, elevated d dimer TECHNIQUE: Imaging protocol: Computed tomographic angiography of the chest with contrast. Exam focused on the arteries. 3D rendering (Not supervised by radiologist): MIP and/or 3D reconstructed images were created by the technologist. Radiation optimization: All CT scans at this facility use at least one of these dose optimization techniques: automated exposure control; mA and/or kV adjustment per patient size (includes targeted exams where dose is matched to clinical indication); or iterative reconstruction. Contrast material: OMNI 350; Contrast volume: 78 ml; Contrast route: INTRAVENOUS (IV); REPORTING DATA: Count of CT and Cardiac NM exams in prior 12 months: This patient has received 0 known CTs and 0 known cardiac nuclear medicine studies in the 12 months prior to the current study. COMPARISON: CR (CHEST, ) 04/08/2023 7:14 PM RADIATION DOSE METRICS: Total DLP (mGy-cm): 422.41 FINDINGS: Pulmonary arteries: Normal. No pulmonary emboli. Aorta: Unremarkable. No aortic aneurysm. No aortic dissection. Lungs: There is probable atelectasis/scar in the lungs. No lung mass or significant consolidation. Pleural spaces: Unremarkable. No pneumothorax. No pleural effusion. Heart: Unremarkable. No cardiomegaly. No pericardial effusion. Lymph nodes: Unremarkable. No enlarged lymph nodes. Bones/joints: Degenerative change is identified in the spine. There is no evidence for acute fracture or malalignment. Soft tissues: Unremarkable. CT/CT angio chest PE protcl [id number] IMPRESSION: There is no evidence for a pulmonary artery embolus.
[2023-04-10] MEDS: iohexol 350 mg/mL 500 mL Btl (per mL) IV (13:50)
[2023-04-10 16:37] LABS: Glucose Point of Care 357 mg/dL (70-110)
[2023-04-10] MEDS: insulin lispro 100 unit/1 mL 10 UNIT SUBCUT (17:08)
[2023-04-10] MEDS: enoxaparin 40 mg/0.4 mL Syringe SUBCUT (17:08)
--- NOTE | 2023-04-10 17:16 | P.PN_ITS ---
Subjective Subjective: Desats to 88% intermittently. Afebrile, hemodynamically stable. DKA remains resolved but blood sugars continue to be uncontrolled in the 300-400 range. D- dimer returned elevated CTA to evaluate for PE has been ordered Medications: Reviewed: Yes Vitals/I&O/Wt Last Vital Signs Temp 97.6 F 04/10/23 16:48 Pulse 75 04/10/23 16:48 Resp 18 04/10/23 16:48 BP 149/84 04/10/23 16:48 Pulse Ox 97 04/10/23 16:48 O2 Del Method Room Air 04/10/23 16:48 O2 Flow Rate 2 04/10/23 14:51 04/10/23 04/10/23 04/10/23 06:59 14:59 22:59 Intake Total 50 / 1937.48 1310 / 1310 50 / 1360 Output Total 300 / 1300 Balance -250 / 637.48 1310 / 1310 50 / 1360 Weight last 48 hrs Weight 113.2 kg Weight 110.677 kg Physical Exam Narrative: General: No acute distress, AO x3 HEENT: PERRLA, pupils bilaterally equal and reactive, pallors not present Chest: Normal vesicular breath sounds, no added sounds, equal good air entry bilaterally CVS: S1-S2 regular, no murmurs, no tachycardia, no gallops, no rubs Abdomen: Soft, nontender, no organomegaly, bowel sounds present Neuro: No focal deficits, no facial deformity, AO x3, power 5/5 in all limbs Data 04/10/23 04:50 04/10/23 04:50 Micro: Microbiology 04/08/23 18:14 Blood Culture - Preliminary Blood NEGATIVE TO DATE 04/08/23 17:58 Blood Culture - Preliminary Blood NEGATIVE TO DATE A&P Assessment and plan (1) Diabetic keto-acidosis: Diabetic ketoacidosis: As evidenced by blood glucose more than 600, positive urine ketones, anion gap of 29.7 Anion gap now resolved transition to lantus 10 U daily and sliding scale start carb consistent diet HbA1c at 14, consitent with uncontrolled DM (2) Cellulitis of foot: After sustaining injury by hitting her foot accidentally against a wall 3 to 4 days ago Currently on vancomycin and Zosyn empirically which we will continue. Monitor for improvement X-ray without any signs of osteomyelitis Plan Chronic cough: CXR , suspect COPD with hyperinflated chest No consolidation patient is an ex smoker. No fever. Start duoneb every 6 hrs schedule, will need inhalers at discharge. DVT ppx: lovenox PUD ppx: Protonix Plan for today: Patient continues to complain of intermittent chest pain, D- dimer returned elevated, troponin series was without significant delta. check CT A for PE. Increase lantus to 20 U daily, 10 units pre meal insulin. Last 24 hr insulin requirement 56U Attestations Medical Necessity Statement*: Ct today. Increase lantus, add pre emal insulin Coding Level of Care Code Acute Code for Chg Fwd Diagnoses Diabetic keto-acidosis E11.10 Cellulitis of foot L03.119
[2023-04-10] MEDS: calcium carbonate 500 mg Chew Tablet PO (17:57)
[2023-04-10 20:54] LABS: Glucose Point of Care 364 mg/dL (70-110)
[2023-04-10] MEDS: atorvastatin 40 mg Tablet PO (22:32)
[2023-04-11] VITALS (14 sets, daily range): BP systolic 130–168; BP diastolic 78–93; PULSE 68–94; RESP 16–18; TEMP 36.5–36.7; O2SAT 90–98
[2023-04-11] MEDS: acetaminophen 325 mg Tablet 650 MG PO ×2 (02:15→09:30)
[2023-04-11] MEDS: ipratropium-albuterol 3 mL Neb INHALATION ×4 (02:27→19:34)
[2023-04-11] MEDS: vancomycin 1,500 MG/300 ML PIGGYBACK 200 MG IV (06:32)
[2023-04-11 06:44] LABS: Glucose Point of Care 405 mg/dL (70-110)
[2023-04-11 06:44] LABS: Glucose Point of Care > 600 mg/dL (70-110)
[2023-04-11] MEDS: insulin lispro 100 unit/1 mL 10 UNIT SUBCUT (06:54)
[2023-04-11 07:42] LABS: Glucose Point of Care 348 mg/dL (70-110)
[2023-04-11] MEDS: piperacillin-tazobactam 3.375 GM in sodium chloride 0.9% (plus) 50 ML IV (08:56)
[2023-04-11] MEDS: pantoprazole DR 40 mg Tablet PO ×2 (08:56→17:44)
[2023-04-11] MEDS: insulin glargine 100 units/1 mL 20 UNIT SUBCUT (09:27)
[2023-04-11 11:22] LABS: Glucose Point of Care 367 mg/dL (70-110)
[2023-04-11 11:36] LABS: Basophils # 0.1 10^3/uL (0.0-0.1); Basophils % 0.9 %; Eosinophils # 0.2 10^3/uL (0.0-0.8); Eosinophils % 2.2 %; Hematocrit 39.5 % (37-53); Lymphocytes # 1.2 10^3/uL (0.8-4.8); Lymphocytes % 18.4 %; Mean Corpuscular HGB Conc 31.1 g/dL (30-55); Mean Corpuscular Hemoglobin 28.5 pg (27-33); Mean Corpuscular Volume 91.6 fl (82-101); Mean Platelet Volume 11.3 fL (7.4-10.4); Monocytes # 0.7 10^3/uL (0.2-0.9); Monocytes % 10.6 %; Neutrophils # 4.45 10^3/uL (1.8-7.7); Neutrophils % 66.4 %; Nucleated Red Blood Cells % 0 %; Platelet Count 183 10^3/cmm (157-399); Red Blood Count 4.31 10^6/uL (3.85-5.65); Red Cell Distribution Width 16.5 % (12.1-15.1)
[2023-04-11] MEDS: insulin lispro 100 unit/1 mL SUBCUT ×3 (11:36→21:42)
[2023-04-11] MEDS: insulin glargine 100 units/1 mL 10 UNIT SUBCUT (11:37)
[2023-04-11 12:06] LABS: Alanine Aminotransferase 13 U/L (0-41); Albumin Level 3.7 g/dL (3.5-5.2); Alkaline Phosphatase 117 U/L (40-130); Blood Urea Nitrogen 8 mg/dL (8-23); Calcium 8.5 mg/dL (8.5-10.5); Carbon Dioxide 21 mmol/L (22-29); Chloride 100 mmol/L (98-107); Globulin 2.7 g/dL (1.3-4.6); Glucose 339 mg/dL (65-115); Lipase 59 U/L (13-60); Osmolality Calculated 292 mOsm/kg (285-295); Sodium 135 mmol/L (136-145); Total Bilirubin 0.3 mg/dL (0.15-1.2); Total Protein 6.4 g/dL (6.6-8.7)
[2023-04-11 12:12] LABS: Anion Gap 18.1 (5-19); Potassium 4.1 mmol/L (3.5-5.1)
[2023-04-11 12:13] LABS: Aspartate Amino Transferase 18 U/L (0-40)
[2023-04-11] MEDS: morphine 4 mg/mL SDV 1 mL 2 MG IVP ×3 (12:25→21:47)
--- NOTE | 2023-04-11 12:54 | PM.CONSULT ---
Providers/Reason For Consult Consulting Physician/Specialty*: Dr. Quentin Joaquin, DO/General surgery Reason for Consult*: Incarcerated umbilical hernia Attending Physician: Heather Rushing MD Primary Care Provider: DASHA Kahn History of Present Illness History of Present Illness Pillo Dyer Sr is a 73 year old male who originally presented to the hospital in [facility] with cellulitis of his foot. He was found to have an incarcerated umbilical hernia and general surgery was consulted for this. He denies any nausea or emesis. He reports that he has diffuse abdominal pain which has been consistent for the last 3 to 4 years. Palpation makes the pain worse. Nothing makes pain better. The pain does not radiate. Denies any hematochezia and/or melena. He is passing flatus and having bowel movements. He reports that his hernia has been present in its current form for at least 2 to 3 years. Review of Systems General: Reports: 10 or more systems reviewed and unremarkable except in HPI and below Medications/Allergies Home Medications Medication Instructions Recorded Confirmed Last Taken Type No Known Home Medications 04/09/23 04/09/23 Unknown History Allergies Allergy/AdvReac Type Severity Reaction Status Date / Time No Known Allergies Allergy Verified 04/08/23 16:28 Current Medications Generic Name Dose Route Start Last Admin Trade Name Freq PRN Reason Stop Dose Admin Acetaminophen 650 mg 04/08/23 17:26 04/11/23 09:30 Acetaminophen 325 Mg Tablet PO 650 mg Q6H PRN Administration MILD PAIN Albuterol/Ipratropium 3 ml 04/09/23 14:00 04/11/23 07:49 Ipratropium-Albuterol 3 Ml Neb INHALATION 3 ml Q6H.RESP TAYA Administration Atorvastatin Calcium 40 mg 04/09/23 21:00 04/10/23 22:32 Atorvastatin 40 Mg Tablet PO 40 mg BEDTIME TAYA Administration Calcium Carbonate 500 mg 04/10/23 17:37 04/10/23 17:57 Calcium Carbonate 500 Mg Chew Tablet PO 500 mg Q6H PRN Administration INDIGESTION Enoxaparin Sodium 40 mg 04/08/23 17:30 04/10/23 17:08 Enoxaparin 40 Mg/0.4 Ml Syringe SUBCUT 40 mg Q24H TAYA Administration Piperacillin Sod/Tazobactam 50 mls @ 12.5 mls/hr 04/08/23 19:00 04/11/23 08:56 Sod 3.375 gm/ Sodium Chloride IV 12.5 mls/hr Q8H TAYA Administration Protocol Vancomycin/PEG/NADA/Lysine/Water 1,500 mg in 300 mls @ 200 mls/hr 04/09/23 06:00 04/11/23 09:14 Vancocin IV Infused Q12H TAYA Infusion Insulin Human Lispro 0 unit 04/11/23 12:00 04/11/23 11:36 Insulin Lispro 100 Unit/1 Ml SUBCUT 16 unit WM&BEDTIME TAYA Administration Protocol Morphine Sulfate 2 mg 04/11/23 11:07 04/11/23 12:25 Morphine 4 Mg/Ml Sdv 1 Ml IVP 2 mg Q4H PRN Administration SEVERE PAIN Ondansetron HCl 4 mg 04/08/23 17:26 04/08/23 20:47 Ondansetron 2 Mg/Ml Sdv 2 Ml IVP 4 mg Q6H PRN Administration NAUSEA AND VOMITING Promethazine HCl 25 mg 04/08/23 23:45 04/08/23 23:50 Promethazine 25 Mg/Ml Sdv 1 Ml IM 25 mg ONCE PRN Administration NAUSEA PFSH Acute PFSH: Social History Smoking and tobacco status: current every day smoker Vitals/I&O/Wt Last Vital Signs Temp 98.0 F 04/11/23 11:56 Pulse 82 04/11/23 11:56 Resp 16 04/11/23 12:25 BP 167/91 04/11/23 11:56 Pulse Ox 96 04/11/23 11:56 O2 Del Method Nasal Cannula 04/11/23 11:56 O2 Flow Rate 2 04/11/23 08:00 04/10/23 04/11/23 04/11/23 22:59 06:59 14:59 Intake Total 600 / 1910 50 / 1960 1140 / 1140 Output Total 400 / 400 Balance 200 / 1510 50 / 1560 1140 / 1140 Weight last 48 hrs Weight 246 lb 2 oz Weight 249 lb 9 oz Physical Exam Narrative: General : Patient is well developed , no acute distress, oriented x3 Head : Normal cephalic, a-traumatic. Ears : Pinnae and external canal are normal. Hearing is normal. Eyes : PERRLA, Sclera and injection are normal. No conjunctival discharge. Nose : Mucous membranes are without erythema. Throat : buccal mucosa is normal, gums are without significant recession or hypertrophy. Lungs : Equal chest rise bilaterally, no use of accessory muscles, trachea is midline. Cor : Rate and rhythm are normal. Abdomen : Soft, ND, NT, no g/r, there is an incarcerated umbilical hernia containing omentum without overlying erythema or other signs of strangulation Extremities : No edema, no cyanosis or clubbing, dorsalis pedis pulses are present bilaterally, non-tender to palpation of calves. Upper extremities are normal bilaterally. Back : non-tender to palpation, no CVA tenderness. Neuro : CN II - XII intact, Upper and lower extremities have equal and full strength Data 04/11/23 11:28 04/11/23 11:28 A&P Assessment and plan (1) Incarcerated umbilical hernia: Plan He has no signs of bowel obstruction or bowel in his hernia. I recommend follow-up in my office in 2 weeks to schedule elective umbilical hernia repair. Medical management per hospitalist. Coding Level of Care Code 97193 Diagnoses Incarcerated umbilical hernia K42.0
--- NOTE | 2023-04-11 15:20 | PM.PN ---
Subjective Subjective: Fingersticks continue to be uncontrolled. Cellulitis is improved over his foot. He is complaining of abdominal pain today. Initially he said to me that he hurts all over pain is radiating into his back. Noticed today that his umbilical hernia is not able to be reduced. He has been belching. He just reported to the nurse that he used to be taking oxycodone 10 mg 3 times daily for many years but then was lost to follow-up in the pain clinic and has recently been buying medication from the street. Medications: Reviewed: Yes Vitals/I&O/Wt Last Vital Signs Temp 98.0 F 04/11/23 11:56 Pulse 79 04/11/23 14:00 Resp 18 04/11/23 14:00 BP 167/91 04/11/23 11:56 Pulse Ox 98 04/11/23 14:00 O2 Del Method Nasal Cannula 04/11/23 14:00 O2 Flow Rate 2 04/11/23 14:00 04/11/23 04/11/23 04/11/23 06:59 14:59 22:59 Intake Total 50 / 1960 1140 / 1140 Balance 50 / 1560 1140 / 1140 Weight last 48 hrs Weight 111.64 kg Weight 113.2 kg Physical Exam Narrative: General: No acute distress, AO x3 HEENT: PERRLA, pupils bilaterally equal and reactive, pallors not present Chest: Normal vesicular breath sounds, no added sounds, equal good air entry bilaterally CVS: S1-S2 regular, no murmurs, no tachycardia, no gallops, no rubs Abdomen: Soft, nontender, no organomegaly, bowel sounds present Neuro: No focal deficits, no facial deformity, AO x3, power 5/5 in all limbs Data 04/11/23 11:28 04/11/23 11:28 A&P Assessment and plan (1) Diabetic keto-acidosis: DKA, resolved Patient is currently on sliding scale Lantus insulin. Increase Lantus to 30 units at bedtime. Change sliding scale to high-dose insulin Fingetstick still continue to be uncontrolled. Anion gap remains closed. (2) Cellulitis of foot: After sustaining injury by hitting her foot accidentally against a wall 3 to 4 days ago Received treatment with vancomycin and Zosyn empirically X-ray without any signs of osteomyelitis Cellulitis is now resolved, will transition to oral antibiotics to complete course (3) Abdominal pain: Appears to be a somewhat chronic problem, however increased today. Patient relates additional history today that he used to follow with pain management and was on oxycodone 10 mg 3 times a day however was then subsequently lost to follow-up he has been intermittently obtaining oxycodone from other sources. He would like his opiates to be restarted. Lipase has normalized, unlikely pancreatitis Abdominal exam is overall benign except for a previously reducible hernia over the umbilicus with which I am unable to reduce today. We will consult general surgery for the same. (4) Hernia: (5) Chest pain: now resolved CTA negative for PE EKg an dtroponin series not consistent with [place] Chets pain resolved today Plan Chronic cough: CXR , suspect COPD with hyperinflated chest No consolidation patient is an ex smoker. No fever. Start duoneb every 6 hrs schedule, will need inhalers at discharge. DVT ppx: lovenox PUD ppx: Protonix Attestations Medical Necessity Statement*: surgical assessment for hernia, uncontrolled fingerstick Coding Level of Care Code Acute Code for Chg Fwd Diagnoses Diabetic keto-acidosis E11.10 Cellulitis of foot L03.119 Abdominal pain R10.9 Hernia K46.9 Chest pain R07.9
[2023-04-11 16:28] LABS: Glucose Point of Care 377 mg/dL (70-110)
[2023-04-11] MEDS: cefUROXime 250 mg Tablet 500 MG PO (17:43)
[2023-04-11] MEDS: enoxaparin 40 mg/0.4 mL Syringe SUBCUT (17:43)
[2023-04-11 20:53] LABS: Glucose Point of Care 376 mg/dL (70-110)
[2023-04-11] MEDS: atorvastatin 40 mg Tablet PO (21:43)
[2023-04-12] VITALS (20 sets, daily range): BP systolic 101–164; BP diastolic 53–92; PULSE 62–92; RESP 15–18; TEMP 36.3–36.7; O2SAT 90–97
[2023-04-12] MEDS: oxyCODONE 5 mg IR Tab/Cap PO ×4 (00:56→22:16)
[2023-04-12] MEDS: morphine 4 mg/mL SDV 1 mL 2 MG IVP ×2 (02:49→09:46)
[2023-04-12] MEDS: ipratropium-albuterol 3 mL Neb INHALATION ×4 (03:02→19:35)
[2023-04-12 05:40] LABS: Basophils # 0.1 10^3/uL (0.0-0.1); Basophils % 1.6 %; Eosinophils # 0.2 10^3/uL (0.0-0.8); Eosinophils % 3.2 %; Hematocrit 36.8 % (37-53); Lymphocytes # 1.7 10^3/uL (0.8-4.8); Lymphocytes % 29.7 %; Mean Corpuscular Hemoglobin 28.4 pg (27-33); Mean Corpuscular Volume 91.8 fl (82-101); Mean Platelet Volume 10.9 fL (7.4-10.4); Monocytes # 0.6 10^3/uL (0.2-0.9); Monocytes % 11.1 %; Neutrophils # 2.92 10^3/uL (1.8-7.7); Neutrophils % 51.6 %; Nucleated Red Blood Cells % 0 %; Platelet Count 179 10^3/cmm (157-399); Red Blood Count 4.01 10^6/uL (3.85-5.65); Red Cell Distribution Width 16.8 % (12.1-15.1); White Blood Count 5.66 10^3/uL (3.29-11.43)
[2023-04-12 05:59] LABS: Alanine Aminotransferase 11 U/L (0-41); Albumin Level 3.2 g/dL (3.5-5.2); Alkaline Phosphatase 91 U/L (40-130); Anion Gap 12.3 (5-19); Aspartate Amino Transferase 15 U/L (0-40); Blood Urea Nitrogen 7 mg/dL (8-23); Calcium 8.1 mg/dL (8.5-10.5); Carbon Dioxide 25 mmol/L (22-29); Chloride 105 mmol/L (98-107); Globulin 2.8 g/dL (1.3-4.6); Glucose 220 mg/dL (65-115); Osmolality Calculated 293 mOsm/kg (285-295); Potassium 3.3 mmol/L (3.5-5.1); Sodium 139 mmol/L (136-145); Total Bilirubin 0.3 mg/dL (0.15-1.2)
[2023-04-12 06:30] LABS: Glucose Point of Care 253 mg/dL (70-110)
[2023-04-12] MEDS: pantoprazole DR 40 mg Tablet PO ×2 (08:23→17:39)
[2023-04-12] MEDS: cefUROXime 250 mg Tablet 500 MG PO ×2 (08:23→18:16)
[2023-04-12] MEDS: insulin glargine 100 units/1 mL 30 UNIT SUBCUT (08:23)
[2023-04-12] MEDS: insulin lispro 100 unit/1 mL SUBCUT ×4 (08:24→20:57)
[2023-04-12 11:13] LABS: Glucose Point of Care 333 mg/dL (70-110)
--- NOTE | 2023-04-12 11:39 | CT_ITS ---
WS: [id number] CT ABDOMEN AND PELVIS NONCONTRAST HISTORY: abdominal pain, umbilical hernia TECHNIQUE: Imaging performed through the abdomen and pelvis. Coronal and sagittal reformats are submi tted. All CT scans at [facility] use at least one of these dose optimization techniques: auto mated exposure control; mA and/or kV adjustment per patient size (includes targeted exams where dose is matched to clinical indication); or iterative reconstruction. DLP: 1154.75 mGy.cm COMPARISON: None available. Lower thorax: Mild dependent changes at the RIGHT lung base. No pneumonia. Normal size heart. Small h iatal hernia. Liver: Normal size liver. No mass or bile duct dilatation. Gallbladder: Normal gallbladder. No pericholecystic fluid or cholelithiasis. No gallbladder wall thic kening. Pancreas: Several calcifications at the pancreatic head near the common bile duct. There is no upper obstruction of the common bile duct. These are probably related to prior episodes of pancreatitis. No pancreatic duct dilatation. Spleen: Normal. Adrenal glands: Normal. No mass. Right kidney: Normal size kidney with no mass or hydronephrosis. Left kidney: Normal size kidney with no mass or hydronephrosis. Aorta: Atherosclerotic plaque scattered throughout the aorta. 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 Nonrup tured mild aortic aneurysm. No free fluid, intraperitoneal air or significant lymphadenopathy. GI tract: Normal noncontrast imaging of the stomach, small bowel and colon. No obstruction or wall th ickening. Normal appendix. Abdominal wall: Moderate ventral abdominal wall hernia at the level of the umbilicus. Hernia contains fat only. Orifice of the hernia is approximately 2.2 cm. There is a very tiny amount of stranding wi thin the omental fat which could represent some very mild necrosis. No GI tract obstruction. Pelvis: Heavy prostate gland calcifications. No free fluid or adenopathy. Osseous structures: Straightening and slight reversal the normal cervical lordosis. Mild anterior wed ging of L2 and L3. No acute fractures. 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 IMPRESSION: 1. No acute abdominal or pelvic abnormalities. 2. Moderate ventral abdominal wall hernia at the level of the umbilicus. Hernia contains omental fat only. Very mild stranding within the omental fat. This may represent early changes of fat necrosis. 3. No GI tract obstruction. 4. No ascites or adenopathy.
--- NOTE | 2023-04-12 16:04 | P.PN_ITS ---
Subjective Subjective: Patient was seen this morning, he reports diffuse abdominal pain, he does tell me that the area of his umbilical hernia site does not hurt him, but he is hurting more everywhere he tells me, he had a bowel movement last night, no nausea, no vomiting, no fevers, no chills, we had extensive discussion about his living conditions, he lives currently out of a motel, he is newly diagnosed diabetic, we discussed possible placement at shelter facility, he is agreeable if it is in therapies very, we had extensive discussion about his drug use he does report about a week ago he took some pills off the street, he said that they were oxycodone, he also reports IV drug use, roughly about a week ago Vitals/I&O/Wt Last Vital Signs Temp 97.4 F L 04/12/23 15:55 Pulse 76 04/12/23 15:55 Resp 18 04/12/23 15:55 BP 149/81 04/12/23 15:55 Pulse Ox 93 04/12/23 15:55 O2 Del Method Room Air 04/12/23 15:55 O2 Flow Rate 2 04/12/23 03:02 04/12/23 04/12/23 04/12/23 06:59 14:59 22:59 Intake Total 530 / 2390 840 / 840 Output Total 0 / 0 250 / 250 Balance 530 / 2390 590 / 590 Weight last 48 hrs Weight 114.577 kg Weight 111.64 kg Physical Exam Const: COMMON NORMALS: no acute distress and patient oriented x3 Resp: COMMON NORMALS: normal respiratory effort, No retractions, No use of accessory muscles and clear to auscultation bilaterally AUSCULTATION: clear to auscultation bilaterally Cardio: COMMON NORMALS: regular rate, regular rhythm, S1 normal heart sound present and S2 normal heart sound present RATE: regular rate RHYTHM: regular rhythm HEART SOUNDS: S1 normal heart sound present and S2 normal heart sound present GI: COMMON NORMALS: Normal to inspection, nondistended, normoactive bowel sounds present and non-tender OTHER: Abdominal wall hernia, reducible, very scant overlying skin changes Extremity: COMMON NORMALS: no pedal edema Neuro: COMMON NORMALS: patient oriented x3 Psych: COMMON NORMALS: mental status grossly normal Data 04/12/23 05:13 04/12/23 05:13 A&P Assessment and plan (1) Diabetic keto-acidosis: DKA, resolved Patient is currently on sliding scale Lantus insulin. Increase Lantus to 30 units at bedtime. High-dose sliding scale Fingetstick still continue to be uncontrolled. Anion gap remains closed. (2) Cellulitis of foot: After sustaining injury by hitting her foot accidentally against a wall 3 to 4 days ago Received treatment with vancomycin and Zosyn empirically X-ray without any signs of osteomyelitis Cellulitis is now resolved, continue cefuroxime (3) Abdominal pain: Appears to be a somewhat chronic problem, however increased today. Patient relates additional history today that he used to follow with pain management and was on oxycodone 10 mg 3 times a day however was then subsequently lost to follow-up he has been intermittently obtaining oxycodone from other sources. Lipase has normalized, unlikely pancreatitis Abdominal exam is overall benign except for a previously hernia over the umbilicus, able to reduce it, but due to persistent pain order CT scan (4) Hernia: (5) Chest pain: now resolved CTA negative for PE EKg an dtroponin series not consistent with [place] Chets pain resolved today (6) IV drug user: - Patient reports obtaining oxycodone off the street, also reports IV drug use Plan Chronic cough: CXR , suspect COPD with hyperinflated chest No consolidation patient is an ex smoker. No fever. Start duoneb every 6 hrs schedule, will need inhalers at discharge. DVT ppx: lovenox PUD ppx: Protonix Attestations Medical Necessity Statement*: Patient requires hospitalization for hyperglycemia, now with elevated blood sugars requiring blood sugar titration, now with abdominal pain, requiring abdominal CT, has a umbilical hernia Diagnoses Diabetic keto-acidosis E11.10 Cellulitis of foot L03.119 Abdominal pain R10.9 Hernia K46.9 Chest pain R07.9 IV drug user F19.90
[2023-04-12 16:23] LABS: Glucose Point of Care 252 mg/dL (70-110)
[2023-04-12] MEDS: enoxaparin 40 mg/0.4 mL Syringe SUBCUT (17:39)
[2023-04-12 20:27] LABS: Glucose Point of Care 347 mg/dL (70-110)
[2023-04-12] MEDS: atorvastatin 40 mg Tablet PO (20:54)
[2023-04-13] VITALS (18 sets, daily range): BP systolic 120–170; BP diastolic 70–93; PULSE 67–90; RESP 15–22; TEMP 36.4–36.6; O2SAT 92–96
[2023-04-13] MEDS: oxyCODONE 5 mg IR Tab/Cap PO ×3 (04:28→20:18)
[2023-04-13 06:10] LABS: Basophils % 0.8 %; Eosinophils # 0.2 10^3/uL (0.0-0.8); Eosinophils % 3.2 %; Hematocrit 33.8 % (37-53); Lymphocytes # 1.4 10^3/uL (0.8-4.8); Lymphocytes % 28.8 %; Mean Corpuscular Hemoglobin 28.6 pg (27-33); Mean Corpuscular Volume 89.7 fl (82-101); Mean Platelet Volume 11.7 fL (7.4-10.4); Monocytes # 0.7 10^3/uL (0.2-0.9); Monocytes % 14.2 %; Neutrophils # 2.38 10^3/uL (1.8-7.7); Neutrophils % 50.5 %; Nucleated Red Blood Cells % 0 %; Platelet Count 208 10^3/cmm (157-399); Red Blood Count 3.77 10^6/uL (3.85-5.65); White Blood Count 4.72 10^3/uL (3.29-11.43)
[2023-04-13] MEDS: morphine 4 mg/mL SDV 1 mL 2 MG IVP (06:23)
[2023-04-13 06:33] LABS: Anion Gap 12.4 (5-19); Blood Urea Nitrogen 7 mg/dL (8-23); Calcium 8.2 mg/dL (8.5-10.5); Carbon Dioxide 25 mmol/L (22-29); Chloride 103 mmol/L (98-107); Glucose 249 mg/dL (65-115); Osmolality Calculated 290 mOsm/kg (285-295); Potassium 3.4 mmol/L (3.5-5.1); Sodium 137 mmol/L (136-145)
[2023-04-13 06:34] LABS: Glucose Point of Care 286 mg/dL (70-110)
[2023-04-13 07:14] LABS: SARS Covid-2 Antigen negative (Negative)
[2023-04-13] MEDS: ipratropium-albuterol 3 mL Neb INHALATION ×3 (08:18→20:26)
[2023-04-13] MEDS: cefUROXime 250 mg Tablet 500 MG PO ×2 (08:43→17:51)
[2023-04-13] MEDS: insulin glargine 100 units/1 mL 30 UNIT SUBCUT (08:43)
[2023-04-13] MEDS: pantoprazole DR 40 mg Tablet PO ×2 (08:43→17:50)
[2023-04-13] MEDS: insulin lispro 100 unit/1 mL SUBCUT ×3 (08:43→17:49)
--- NOTE | 2023-04-13 11:07 | PM.CONSULT ---
Providers/Reason For Consult Consulting Physician/Specialty*: General surgery Reason for Consult*: Abdominal pain Attending Physician: Sidney Patel MD Primary Care Provider: DASHA Kahn History of Present Illness History of Present Illness Pillo Dyer Sr is a 73 year old male who is known to the surgery service after being evaluated by my colleague Dr. Joaquin for a umbilical hernia. During his evaluation umbilical hernia was reducible and the patient was complaining of abdominal pain on the abdomen and the hernia site. No evidence of obstruction. In the last 24 to 48 hours patient has continued to complain of abdominal pain, he states that the hernia has been there for about 2 to 3 years, he has noted minimal skin changes other than that nothing acute. He states that he does not have nausea, vomiting no changes in bowel movements he still having gas and bowel movements last one this morning. Endorses pain more in the epigastrium region than in the periumbilical region. Medications/Allergies Home Medications Medication Instructions Recorded Confirmed Last Taken Type No Known Home Medications 04/09/23 04/09/23 Unknown History Allergies Allergy/AdvReac Type Severity Reaction Status Date / Time No Known Allergies Allergy Verified 04/08/23 16:28 Current Medications Generic Name Dose Route Start Last Admin Trade Name Freq PRN Reason Stop Dose Admin Acetaminophen 650 mg 04/08/23 17:26 04/11/23 09:30 Acetaminophen 325 Mg Tablet PO 650 mg Q6H PRN Administration MILD PAIN Albuterol/Ipratropium 3 ml 04/09/23 14:00 04/13/23 08:18 Ipratropium-Albuterol 3 Ml Neb INHALATION 3 ml Q6H.RESP TAYA Administration Atorvastatin Calcium 40 mg 04/09/23 21:00 04/12/23 20:54 Atorvastatin 40 Mg Tablet PO 40 mg BEDTIME TAYA Administration Calcium Carbonate 500 mg 04/10/23 17:37 04/10/23 17:57 Calcium Carbonate 500 Mg Chew Tablet PO 500 mg Q6H PRN Administration INDIGESTION Cefuroxime Axetil 500 mg 04/11/23 18:00 04/13/23 08:43 Cefuroxime 250 Mg Tablet PO 500 mg BID TAYA Administration Protocol Enoxaparin Sodium 40 mg 04/08/23 17:30 04/12/23 17:39 Enoxaparin 40 Mg/0.4 Ml Syringe SUBCUT 40 mg Q24H TAYA Administration Insulin Glargine 30 unit 04/12/23 09:00 04/13/23 08:43 Insulin Glargine 100 Units/1 Ml SUBCUT 30 unit DAILY TAYA Administration Insulin Human Lispro 0 unit 04/11/23 12:00 04/13/23 08:43 Insulin Lispro 100 Unit/1 Ml SUBCUT 12 unit WM&BEDTIME TAYA Administration Protocol Ondansetron HCl 4 mg 04/08/23 17:26 04/08/23 20:47 Ondansetron 2 Mg/Ml Sdv 2 Ml IVP 4 mg Q6H PRN Administration NAUSEA AND VOMITING Pantoprazole Sodium 40 mg 04/11/23 18:00 04/13/23 08:[address] 40 Mg Tablet PO 40 mg BID TAYA Administration Promethazine HCl 25 mg 04/08/23 23:45 04/08/23 23:50 Promethazine 25 Mg/Ml Sdv 1 Ml IM 25 mg ONCE PRN Administration NAUSEA PFSH Acute PFSH: Social History Smoking and tobacco status: current every day smoker Vitals/I&O/Wt Last Vital Signs Temp 97.5 F L 04/13/23 08:00 Pulse 81 04/13/23 08:21 Resp 16 04/13/23 08:19 BP 143/82 04/13/23 08:00 Pulse Ox 93 04/13/23 08:19 O2 Del Method Room Air 04/13/23 08:19 O2 Flow Rate 2 04/12/23 20:00 04/12/23 04/13/23 04/13/23 22:59 06:59 14:59 Intake Total 480 / 1320 120 / 1440 480 / 480 Balance 480 / 1070 120 / 1190 480 / 480 Weight last 48 hrs Weight 252 lb 9.6 oz Physical Exam Narrative: Abdominal exam shows a umbilical hernia which appears to contain fat, hernia appears to be incarcerated, the fascial defect appears to measure about 2 cm. Remainder of the abdominal exam is benign, no evidence of peritoneal signs no evidence of any other significant changes. Data 04/13/23 05:09 04/13/23 05:09 A&P Assessment and plan (1) Incarcerated umbilical hernia: This patient was admitted with DKA and poorly controlled diabetes who was noted to have an umbilical hernia and significant abdominal pain. We were asked to evaluate him for this reason. He was recently evaluated by my colleague Dr. Joaquin who stated that no need for additional surgical intervention is needed at this time and recommended follow-up in the clinic. And during my evaluation additional information and inform about CT scan of the abdomen and pelvis has been obtained. CT scan is negative for evidence of intra-abdominal pathology there is a umbilical hernia containing fat, no evidence of bowel in the hernia no evidence of a small bowel obstruction. Physical exam is pretty unremarkable there is tenderness when you try to reduce the hernia which is expected. I have discussed with the patient the multiple possibilities of management including the immediate repair of the hernia, at the time after discussion we have agreed on watchful waiting and monitoring of his abdominal pain, he can receive pain regimen as guided by hospitalist team, if pain is under control he can follow-up in the clinic with Dr. Joaquin for possible umbilical hernia repair as stated in his previous note. I will continue to follow and update the plan as needed. Consider trending lactate levels to ensure they remain stable. Coding Level of Care Code Acute Code for Chg Fwd Diagnoses Incarcerated umbilical hernia K42.0
[2023-04-13 11:19] LABS: Glucose Point of Care 278 mg/dL (70-110)
--- NOTE | 2023-04-13 14:27 | P.PN_ITS ---
Subjective Subjective: Patient was seen this morning, he continues to have abdominal pain, around his umbilicus, in the left lower quadrant, no fevers, no chills, no nausea, no vomiting, reports a bowel movement yesterday, Vitals/I&O/Wt Last Vital Signs Temp 97.7 F 04/13/23 11:45 Pulse 75 04/13/23 13:30 Resp 15 04/13/23 13:30 BP 131/80 04/13/23 11:45 Pulse Ox 96 04/13/23 13:30 O2 Del Method Room Air 04/13/23 13:30 O2 Flow Rate 2 04/12/23 20:00 04/12/23 04/13/23 04/13/23 22:59 06:59 14:59 Intake Total 480 / 1320 120 / 1440 840 / 840 Balance 480 / 1070 120 / 1190 840 / 840 Weight last 48 hrs Weight 114.577 kg Physical Exam Const: COMMON NORMALS: no acute distress and patient oriented x3 Resp: COMMON NORMALS: normal respiratory effort, No retractions, No use of accessory muscles and clear to auscultation bilaterally AUSCULTATION: clear to auscultation bilaterally Cardio: COMMON NORMALS: regular rate, regular rhythm, S1 normal heart sound present and S2 normal heart sound present RATE: regular rate RHYTHM: regular rhythm HEART SOUNDS: S1 normal heart sound present and S2 normal heart sound present GI: COMMON NORMALS: Normal to inspection, nondistended, normoactive bowel sounds present OTHER: abdominal , umbilicus hernia, overlying skin changes, non reducibile Extremity: COMMON NORMALS: no pedal edema Neuro: COMMON NORMALS: patient oriented x3 Psych: COMMON NORMALS: mental status grossly normal Data 04/13/23 05:09 04/13/23 05:09 A&P Assessment and plan (1) Diabetic keto-acidosis: DKA, resolved Patient is currently on sliding scale Lantus insulin. Increase Lantus to 30 units at bedtime. High-dose sliding scale Fingetstick still continue to be uncontrolled. Anion gap remains closed. (2) Cellulitis of foot: After sustaining injury by hitting her foot accidentally against a wall 3 to 4 days ago Received treatment with vancomycin and Zosyn empirically X-ray without any signs of osteomyelitis Cellulitis is now resolved, continue cefuroxime (3) Abdominal pain: Appears to be a somewhat chronic problem, however increased today. Patient relates additional history today that he used to follow with pain management and was on oxycodone 10 mg 3 times a day however was then subsequen tly lost to follow-up he has been intermittently obtaining oxycodone from other sources. Lipase has normalized, unlikely pancreatitis abdominal ct shows IMPRESSION: 1.? No acute abdominal or pelvic abnormalities. 2.? Moderate ventral abdominal wall hernia at the level of the umbilicus. Hernia contains omental fat only. Very mild stranding within the omental fat. This may represent early changes of fat necrosis. 3.? No GI tract obstruction. 4.? No ascites or adenopathy. -patient abdominal hernia has overlying skin changes, is not reducible this am, patient continues to complain of pain, will consult (4) Hernia: (5) Chest pain: now resolved CTA negative for PE EKg an dtroponin series not consistent with [place] Chets pain resolved today (6) IV drug user: - Patient reports obtaining oxycodone off the street, also reports IV drug use Plan Chronic cough: CXR , suspect COPD with hyperinflated chest No consolidation patient is an ex smoker. No fever. Start duoneb every 6 hrs schedule, will need inhalers at discharge. DVT ppx: lovenox PUD ppx: Protonix Attestations Medical Necessity Statement*: patient requires hospitalization for persistent abdominal pain for ventral cesia ia, will consult surgery today, pain control Diagnoses Diabetic keto-acidosis E11.10 Cellulitis of foot L03.119 Abdominal pain R10.9 Hernia K46.9 Chest pain R07.9 IV drug user F19.90
[2023-04-13 15:20] LABS: Lactate (Lactic Acid level) 3.1 mmol/L (0.5-2.2)
[2023-04-13 16:11] LABS: Glucose Point of Care 260 mg/dL (70-110)
[2023-04-13] MEDS: enoxaparin 40 mg/0.4 mL Syringe SUBCUT (17:48)
[2023-04-13] MEDS: sodium chloride 0.9% 1,000 ML 75 ML IV (17:49)
[2023-04-13] MEDS: atorvastatin 40 mg Tablet PO (20:18)
[2023-04-13 21:44] LABS: Glucose Point of Care 186 mg/dL (70-110)
[2023-04-13] MEDS: acetaminophen 325 mg Tablet 650 MG PO (23:16)
[2023-04-14] VITALS (8 sets, daily range): BP systolic 158–166; BP diastolic 80–96; PULSE 65–83; RESP 16–20; TEMP 36.4–36.7; O2SAT 92–95
[2023-04-14] MEDS: ipratropium-albuterol 3 mL Neb INHALATION (01:35)
[2023-04-14] MEDS: oxyCODONE 5 mg IR Tab/Cap PO ×2 (04:00→12:32)
[2023-04-14] MEDS: sodium chloride 0.9% 1,000 ML 75 ML IV (04:01)
[2023-04-14 04:54] LABS: Basophils % 0.9 %; Eosinophils # 0.1 10^3/uL (0.0-0.8); Eosinophils % 2.1 %; Hematocrit 35.7 % (37-53); Lymphocytes # 1.4 10^3/uL (0.8-4.8); Lymphocytes % 29.8 %; Mean Corpuscular HGB Conc 31.4 g/dL (30-55); Mean Corpuscular Hemoglobin 28.9 pg (27-33); Mean Platelet Volume 10.8 fL (7.4-10.4); Monocytes # 0.7 10^3/uL (0.2-0.9); Monocytes % 14.8 %; Neutrophils # 2.36 10^3/uL (1.8-7.7); Neutrophils % 50.7 %; Nucleated Red Blood Cells % 0 %; Platelet Count 223 10^3/cmm (157-399); Red Blood Count 3.88 10^6/uL (3.85-5.65); Red Cell Distribution Width 17.2 % (12.1-15.1); White Blood Count 4.66 10^3/uL (3.29-11.43)
[2023-04-14 05:18] LABS: Anion Gap 13.5 (5-19); Blood Urea Nitrogen 4 mg/dL (8-23); Calcium 8.1 mg/dL (8.5-10.5); Carbon Dioxide 23 mmol/L (22-29); Chloride 104 mmol/L (98-107); Glucose 210 mg/dL (65-115); Osmolality Calculated 287 mOsm/kg (285-295); Potassium 3.5 mmol/L (3.5-5.1); Sodium 137 mmol/L (136-145)
[2023-04-14 05:22] LABS: Lactate (Lactic Acid level) 1.9 mmol/L (0.5-2.2)
[2023-04-14 07:25] LABS: Glucose Point of Care 237 mg/dL (70-110)
[2023-04-14] MEDS: pantoprazole DR 40 mg Tablet PO (08:52)
[2023-04-14] MEDS: cefUROXime 250 mg Tablet 500 MG PO (08:52)
[2023-04-14] MEDS: insulin lispro 100 unit/1 mL SUBCUT ×2 (09:38→11:47)
[2023-04-14] MEDS: insulin glargine 100 units/1 mL 30 UNIT SUBCUT (09:39)
--- NOTE | 2023-04-14 10:06 | PM.PN ---
Vitals/I&O/Wt Last Vital Signs Temp 97.5 F L 04/14/23 07:31 Pulse 71 04/14/23 08:00 Resp 16 04/14/23 08:00 BP 162/80 04/14/23 07:31 Pulse Ox 94 04/14/23 08:00 O2 Del Method Room Air 04/14/23 08:00 O2 Flow Rate 2 04/14/23 08:00 04/13/23 04/14/23 04/14/23 22:59 06:59 14:59 Intake Total 480 / 1320 815 / 2135 Balance 480 / 1320 815 / 2135 Data 04/14/23 04:47 04/14/23 04:47 Micro: Microbiology 04/08/23 18:14 Blood Culture - Final Blood NO GROWTH AFTER 5 DAYS 04/08/23 17:58 Blood Culture - Final Blood NO GROWTH AFTER 5 DAYS Coding Level of Care Code Acute Code for Chg Fwd Diagnoses
--- NOTE | 2023-04-14 10:35 | P.DS_ITS ---
Discharge Providers Date of Admission: 04/08/23 17:28 Date of Discharge: April 14, 2023 Attending Provider at Admission: Heather Rushing MD Attending Provider at Discharge: Sidney Patel MD Primary Care Provider: DASHA Kahn Diagnoses at Discharge Discharge Diagnosis (1) Diabetic keto-acidosis: Status: Acute (2) Cellulitis of foot: Status: Acute (3) Abdominal pain: Status: Acute (4) Hernia: Status: Acute (5) Chest pain: Status: Acute (6) IV drug user: Status: Acute Reason for Visit Reason for Visit: abd pain,nausea Hospital Course Hospital Course Pillo Dyer Sr is a 73 year old male who denies any known past medical history, however has not seen a physician in over 3 years.? He presented to the emergency room today with 2 to 3 weeks of generalized malaise fatigue and a persistent cough.? Patient thought he had mold in his lungs as he has been living in a motel which appears to be infested with it. He stubbed his toe 2 to 3 days ago against a wall and it has been bleeding and turning red ever since. In the emergency room he was found to have evidence of DKA with blood glucose greater than 600, anion gap and urine ketones.? Denies any known history of diabetes mellitus, but it has never been checked either. Denies any sputum production hemoptysis chest pain or dyspnea.? He is saturating 96% on room air.? States that his stomach has not been feeling well. This is a 73-year-old male with newly diagnosed type 2 diabetes mellitus, admitted to [facility] for DKA, managed in ICU, anion gap closed, overall clinically improved, moved to medical floors, discharged on Lantus 30 units every morning, with a low-dose sliding scale, discharged to [facility] facility For his cellulitis of his foot, received IV antibiotics, overall clinically improved, discharged on p.o. antibiotics For his abdominal pain, he was found to have a moderate ventral abdominal wall hernia, CT scan, no obstruction or incarceration, general surgery was consulted, due to recurrent pain, required inpatient monitoring, general surgery who reduced the hernia, pain control, pain overall improved, having bowel movements on discharge, no nausea, no vomiting will be discharged with close follow-up with general surgery as outpatient for surgical consideration. Physical Exam Const: COMMON NORMALS: no acute distress and patient oriented x3 Resp: COMMON NORMALS: normal respiratory effort, No retractions, No use of accessory muscles and clear to auscultation bilaterally AUSCULTATION: clear to auscultation bilaterally Cardio: COMMON NORMALS: regular rate, regular rhythm, S1 normal heart sound present and S2 normal heart sound present RATE: regular rate RHYTHM: regular rhythm HEART SOUNDS: S1 normal heart sound present and S2 normal heart sound present GI: OTHER: Abdomen soft, nondistended, good bowel sounds in all 4 quadrants, no significant tenderness to palpation, umbilical hernia, no overlying skin changes, reducible Extremity: COMMON NORMALS: no pedal edema Neuro: COMMON NORMALS: patient oriented x3 Psych: COMMON NORMALS: mental status grossly normal Discharge Data Studies Completed and Pending Completed Studies During Hospitalization Category Date Time Status CT abdomen pelvis wo con [id number] Stat Cat Scan 04/12/23 11:39 Completed CTA PE [CT angio chest PE protcl [id number]] Routine Cat Scan 04/10/23 13:07 Completed XR chest 1V portable [id number] Routine Exams 04/08/23 17:26 Completed XR foot LT min 3V* [id number] Stat Exams 04/08/23 16:23 Completed Pending at discharge Category Date Time Status Basic Metabolic Panel AM LABS Lab 04/15/23 04:00 Ordered Complete Blood Count w/Auto AM LABS Lab 04/15/23 04:00 Ordered Lactate (Lactic Acid level) AM LABS Lab 04/15/23 04:00 Ordered Lactate (Lactic Acid level) AM LABS Lab 04/16/23 04:00 Ordered Radiology Impressions Foot X-Ray 04/08/23 16:23 IMPRESSION: No acute abnormality demonstrated. Chest X-Ray 04/08/23 17:26 IMPRESSION: 1. The lungs are hyperinflated, consistent with COPD. 2. No acute abnormality demonstrated. Chest CTA 04/10/23 13:07 IMPRESSION: There is no evidence for a pulmonary artery embolus. Laboratory Results WBC 4.66 10^3/uL (3.29-11.43) 04/14/23 04:47 RBC 3.88 10^6/uL (3.85-5.65) 04/14/23 04:47 Hgb 11.20 g/dL (11.27-16.99) L 04/14/23 04:47 Hct 35.7 % (37-53) L 04/14/23 04:47 MCV 92.0 fl (82-101) 04/14/23 04:47 MCH 28.9 pg (27-33) 04/14/23 04:47 MCHC 31.4 g/dL (30-55) 04/14/23 04:47 RDW 17.2 % (12.1-15.1) H 04/14/23 04:47 Plt Count 223 10^3/cmm (157-399) 04/14/23 04:47 MPV 10.8 fL (7.4-10.4) H 04/14/23 04:47 Neut % (Auto) 50.7 % 04/14/23 04:47 Lymph % (Auto) 29.8 % 04/14/23 04:47 [place]oard % (Auto) 14.8 % 04/14/23 04:47 Eos % (Auto) 2.1 % 04/14/23 04:47 Baso % (Auto) 0.9 % 04/14/23 04:47 Neut # (Auto) 2.36 10^3/uL (1.8-7.7) 04/14/23 04:47 Lymph # (Auto) 1.4 10^3/uL (0.8-4.8) 04/14/23 04:47 [place]oard # (Auto) 0.7 10^3/uL (0.2-0.9) 04/14/23 04:47 Eos # (Auto) 0.1 10^3/uL (0.0-0.8) 04/14/23 04:47 Baso # (Auto) 0.0 10^3/uL (0.0-0.1) 04/14/23 04:47 Nucleated RBC % (auto) 0 % 04/14/23 04:47 Nucleated RBCs # 0.0 /100WBC 04/14/23 04:47 D-Dimer 2.75 ug/mLFEU (0-0.59) H 04/09/23 16:03 Specimen Type Arterial 04/08/23 16:31 Sample Site Brachial, right 04/08/23 16:31 ABG pH 7.42 (7.35-7.45) 04/08/23 16:31 ABG pCO2 32.6 mmHg (35-45) L 04/08/23 16:31 ABG pO2 73.9 mmHg (80.0-100.0) L 04/08/23 16:31 ABG HCO3 21.2 mmol/L (22-26) L 04/08/23 16:31 ABG O2 Saturation 95.6 04/08/23 16:31 ABG Base Excess -2.5 mmol/L (-2.0-2.0) L 04/08/23 16:31 Neville Test N/a 04/08/23 16:31 A-a O2 Gradient 4.5 mmHg (5-10) L 04/08/23 16:31 Hematocrit 39.9 % (42-52) L 04/08/23 16:31 Hgb O2 Saturation 94.2 % (95-100) L 04/08/23 16:31 Carboxyhemoglobin 1.2 %THgb (0.4-20.1) 04/08/23 16:31 Methemoglobin 0.3 % (0.4-1.5) L 04/08/23 16:31 Total Hemoglobin 13.0 g/dL (14-18) L 04/08/23 16:31 Sodium 133.0 mmol/L (131-143) 04/08/23 16:31 Potassium 4.7 mmol/L (3.5-5.0) 04/08/23 16:31 Glucose 640.0 mg/dL (70-115) H 04/08/23 16:31 Ionized Calcium 1.3 mmol/L (1.1-1.4) 04/08/23 16:31 O2 Delivery Device Room air 04/08/23 16:31 FiO2 21.0 % 04/08/23 16:31 [employer] ID [email or web address] 04/08/23 16:31 Sodium 137 mmol/L (136-145) 04/14/23 04:47 Potassium 3.5 mmol/L (3.5-5.1) 04/14/23 04:47 Chloride 104 mmol/L (98-107) 04/14/23 04:47 Carbon Dioxide 23 mmol/L (22-29) 04/14/23 04:47 Anion Gap 13.5 (5-19) 04/14/23 04:47 BUN 4 mg/dL (8-23) L 04/14/23 04:47 Creatinine 0.7 mg/dL (0.7-1.2) 04/14/23 04:47 GFR Calculation Not Reportable 04/14/23 04:47 Glucose 210 mg/dL (65-115) H 04/14/23 04:47 POC Glucose 237 mg/dL (70-110) H 04/14/23 06:55 Estimat Average Glucose 372 04/08/23 16:37 Hemoglobin A1c 14.6 % (4.0-6.0) H 04/08/23 16:37 Calculated Osmolality 287 mOsm/kg (285-295) 04/14/23 04:47 Lactic Acid 1.8 mmol/L (0.5-2.2) 04/08/23 16:37 Lactate 1.9 mmol/L (0.5-2.2) 04/14/23 04:47 Calcium 8.1 mg/dL (8.5-10.5) L 04/14/23 04:47 Phosphorus 2.6 mg/dL (2.5-4.5) 04/09/23 08:00 Magnesium 1.7 mg/dL (1.7-2.3) 04/09/23 08:00 Total Bilirubin 0.3 mg/dL (0.15-1.2) 04/12/23 05:13 AST 15 U/L (0-40) 04/12/23 05:13 ALT 11 U/L (0-41) 04/12/23 05:13 Alkaline Phosphatase 91 U/L (40-130) 04/12/23 05:13 Troponin T Baseline 21 ng/L (0-15) H 04/09/23 14:37 Troponin T 120 Minute 21.34 ng/L (0-15) H 04/09/23 16:03 Delta Troponin T 0.34 ABS# (0-10) 04/09/23 16:03 Troponin T Hi Sens 6Hr 23.50 ng/L (0-15) H 04/09/23 20:55 Troponin T Hi Sens 6Hr Delta 2.50 ng/L (0-12) 04/09/23 20:55 NT-Pro-B Natriuret Pep 197 pg/mL (0-125) H 04/08/23 16:37 Total Protein 6.0 g/dL (6.6-8.7) L 04/12/23 05:13 Albumin 3.2 g/dL (3.5-5.2) L 04/12/23 05:13 Globulin 2.8 g/dL (1.3-4.6) 04/12/23 05:13 Triglycerides 569 mg/dL (0-150) H 04/09/23 08:00 Cholesterol 203 mg/dL (0-200) H 04/09/23 08:00 LDL Cholesterol Direct 80 mg/dL (0-100) 04/09/23 08:00 LDL Cholesterol, Calc Not Reportable 04/09/23 08:00 HDL Cholesterol 27 mg/dL (60-100) L 04/09/23 08:00 LDL/HDL Ratio Not Reportable 04/09/23 08:00 Cholesterol/HDL Ratio 7.52 mg/dL (1.0-5.00) H 04/09/23 08:00 Lipase 59 U/L (13-60) 04/11/23 11:28 Urine Color Yellow (Yellow) 04/08/23 17:00 Urine Appearance Clear (CLEAR) 04/08/23 17:00 Urine pH 5 (5-7) 04/08/23 17:00 Ur Specific [place] 1.010 (1.005-1.030) 04/08/23 17:00 Urine Protein Neg (Negative) 04/08/23 17:00 Urine Glucose (UA) 4+ (Normal) H 04/08/23 17:00 Urine Ketones 3+ (Negative) H 04/08/23 17:00 Urine Blood Neg (Negative) 04/08/23 17:00 Urine Nitrate Negative (Negative) 04/08/23 17:00 Urine Bilirubin Neg (Negative) 04/08/23 17:00 Urine Urobilinogen Norm mg/dL (Negative) 04/08/23 17:00 Ur Leukocyte Esterase Negative (Negative) 04/08/23 17:00 Vancomycin Trough 17.2 ug/mL (10-15) H 04/10/23 04:50 Serum Ketones Positive (Negative) H 04/08/23 16:37 SARS-CoV-2 Ag (Rapid) negative (Negative) 04/13/23 06:30 Vitals Last Vital Signs Temp 97.5 F L 04/14/23 07:31 Pulse 71 04/14/23 08:00 Resp 16 04/14/23 08:00 BP 162/80 04/14/23 07:31 Pulse Ox 94 04/14/23 08:00 O2 Del Method Room Air 04/14/23 08:00 O2 Flow Rate 2 04/14/23 08:00 Discharge Plan Discharge Patient Disposition: Xfer SNF Condition: Stable Prescriptions: New atorvastatin 40 mg Tablet 40 mg PO BEDTIME 30 Days Qty: 30 0RF cefuroxime axetil 250 mg Tablet 500 mg PO BID 3 Days Qty: 12 0RF docusate sodium 100 mg Capsule 100 mg PO BID PRN (Reason: constipation) 30 Days Qty: 60 0RF oxycodone 5 mg Tablet 5 mg PO Q8H PRN (Reason: Moderate Pain) 5 Days Qty: 15 0RF Basaglar KwikPen U-100 Insulin 100 unit/mL (3 mL) insulin pen 30 unit SUBCUT QAM 30 Days Qty: 9 0RF Novolog FlexPen U-100 Insulin 100 unit/mL (3 mL) insulin pen See Rx Instructions .ROUTE .COMPLEX Qty: 15 0RF Rx Instructions: inject subcut, three times daily after meals based on sliding scale provided Discharge Orders: Discharge Order (Routine); Ordered 04/14/23 Ordered By: Sidney Patel Other Ambulatory Orders: DME: Oxygen (Order) Location: None Selected Ordered By: Heather Rushing Referrals: [facility] [place]Outside] Quentin Joaquin DO [Physician] - 2 weeks (We have notified your physician's clinic of the need for a follow-up appointment to be scheduled. If you have not heard from them within the next 2 business days, please call them directly. You may also reach out to our territory manager general sales at [phone] and she can assist you.) Carissa Gillette MD [Physician] - 04/15/23 2:00 pm Discharge Diet: Diabetic Discharge Activity: Resume usual activity Patient Instructions: Opioid Safety Activity Restrictions/Additional Instructions: -Okay to discharge you on Lantus 30 units every morning -Please monitor your blood sugars closely -Monitor your blood sugars 3 times daily as after meals -Please record your blood sugars, and a blood sugar log -For your NovoLog -Please inject blood sugar after meals based on sliding scale provided -Do not inject insulin if you do not eat as hypoglycemia kills -This is a NovoLog sliding scale -Insulin sliding ?fingerstick? Insulin ?141-180?0 units/sq 181-220?2 units/sq ?221-260?4 units/sq ?261-300 6 units/sq ?301-350?8 units/sq ?351-400 10 units/sq ?401-450?12 units/sq >450? 14units/sq -If your blood sugar is greater than 500 go to the emergency room -If your blood sugar is less than 60 or at anytime you feel lightheaded or dizzy or diaphoretic or have chest palpitations check your blood sugar, and eat a hard candy or drink orange juice and go immediately to the emergency room -Remember hypoglycemia kills, so if his blood sugar is less than 60 we have to increase it by taking in a sugary meal such as a hard candy or orange juice and go to the emergency room -If you have any questions please call us where here to help Discharge Attestations Time Spent in Discharge Care*: greater than 30 min Quality Metrics Clinical Quality Measures [ No reported AMI, CVA or VTE this stay] Coding Level of Care Code Acute Code for Chg Fwd Diagnoses Diabetic keto-acidosis E11.10 Cellulitis of foot L03.119 Abdominal pain R10.9 Hernia K46.9 Chest pain R07.9 IV drug user F19.90
[2023-04-14] MEDS: acetaminophen 325 mg Tablet 650 MG PO (10:57)
[2023-04-14 11:26] LABS: Glucose Point of Care 252 mg/dL (70-110)
--- NOTE | 2023-04-14 15:28 | PC.NURSE ---
Belongings. Patients plastic bag with his wallet left sealed placed in yellow snf envelope. Pt informed where it is at.
== END 2023-04-14 14:30 | disposition skilled nursing facility (03) | DRG 638 ==
LOC: ER 18:00 → ICU 18:13 → MEDSURG 04-09 13:41
PROVIDERS: Admitting Provider Student in an Organized Health Care Education/Training Program; Emergency Provider Family Medicine; PCP Nurse Practitioner; Visit Provider Family Medicine
DX: E11.10 Type 2 diabetes mellitus with ketoacidosis without coma (principal); K42.0 Umbilical hernia with obstruction, without gangrene; L03.116 Cellulitis of left lower limb; F17.200 Nicotine dependence, unspecified, uncomplicated; J44.9 Chronic obstructive pulmonary disease, unspecified; Z59.01 Sheltered homelessness
CPT/HCPCS: 36415; 36416; 36600; 71045; 71275; 73630; 74176; 80048; 80051; 80053; 80061; 80202; 81003; 82009; 82330; 82805; 82962; 83036; 83605; 83690; 83721; 83735; 83880; 84100; 84484; 85025; 85378; 87040; 87426; 93005; 94640; 94760; 96365; 96372; 96376; 99285; J1650; J1815; J2270; J2405; J2543; J2550; J3370; J3480; J7030; J7050; J7799; Q9967

== ENCOUNTER 2023-10-12 11:07 | Emergency (ER) | payer MEDICAID, SELFPAY ==
[2023-10-12] VITALS (9 sets, daily range): BP systolic 146–196; BP diastolic 84–110; PULSE 66–81; RESP 16; TEMP 36.6; O2SAT 91–99; BMI 45.5
--- NOTE | 2023-10-12 11:09 | ECG_ITS ---
[facility] Test Date: 2023-10-12 Pat Name: Pillo Dyer Department: Room: Gender: Male Data Control Clerk: : 1950 Requested By: Nir Spicer Order Number: [id number] Adrián MD: Nehemiah Campbell M.D. Measurements Intervals [place] Rate: 76 P: 75 DE: 196 QRS: -5 QRSD: 84 T: 63 QT: 396 QTc: 448 Interpretive Statements SINUS RHYTHM WITH OCCASIONAL VENTRICULAR PREMATURE COMPLEXES LOW QRS VOLTAGE IN PRECORDIAL LEADS [QRS DEFLECTION < 1.0 mV IN CHEST LEADS] POSSIBLE ANTERIOR MYOCARDIAL INFARCTION , PROBABLY OLD [30 ms Q WAVE IN V3/V4, OR R < 0.2 mV IN V4] Compared to ECG 04/09/2023 21:06:43 Ventricular premature complex(es) now present Myocardial infarct finding now present Electronically Signed On 10-12-2023 23:05:40 CDT by Nehemiah Campbell M.D. [id number]
--- NOTE | 2023-10-12 11:09 | XRR_ITS ---
PROCEDURE INFORMATION: Exam: XR Chest Exam date and time: 10/12/2023 11:39 AM Age: 73 years old Clinical indication: Other: Pain; Additional info: Chest pain TECHNIQUE: Imaging protocol: Radiologic exam of the chest. Views: 1 view. COMPARISON: CT angio chest PE protcl [id number] 04/10/2023 1:46 PM FINDINGS: Lungs: Unremarkable. No consolidation. Pleural spaces: Unremarkable. No pleural effusion. No pneumothorax. Heart/Mediastinum: Unremarkable. No cardiomegaly. Bones/joints: Mild multilevel spondylosis. A few mild vertebral body compression deformities are not obviously changed. XR/XR chest 1V portable [id number] IMPRESSION: No acute disease.
--- NOTE | 2023-10-12 11:22 | ED_ITS ---
HPI - Chest Pain 2 General: Chief Complaint: Chest Pain Stated Complaint: Chest pain Time Seen by Provider: 10/12/23 11:09 History of Present Illness: Patient presents to the ER by EMS with complaints of chest pain. This is sternal that radiates up to his right neck. Patient said this started about 830 this morning. Patient called EMS they gave him 3 and 24 mg aspirin, 4 mg Zofran and 3 nitros on route which reduced his pain from a 9 to about a 3 upon arrival. Patient was placed on 4 L of oxygen to keep sat up in the 90s. Patient said he does have oxygen that he uses occasionally but not all the time. During my physical exam patient said his pain was 0. Patient is in no acute distress and nontoxic appearance. Pain was reproducible with palpation across the chest wall. Per the patient does not have a cardiac history, has never had a heart attack or no stents. Patient is a insulin-dependent diabetic. Review of Systems 2 General: Reports: 10 or more systems reviewed and unremarkable except in HPI and below PFSH ED 2 PFSH: Social History Smoking and tobacco/nicotine status: current every day tobacco/nicotine user Physical Exam 2 Const: COMMON NORMALS: no acute distress, average body habitus, patient oriented x3, no limitations, healthy appearing, alert and well nourished HENMT: COMMON NORMALS: normocephalic, atraumatic, hearing grossly normal bilaterally, external ears normal, Normal external nose present, moist oral mucous membranes and oropharynx normal HEAD & SCALP: normocephalic and atraumatic NOSE: Normal external nose present EXTERNAL EAR: Yes external ears normal Eye: COMMON NORMALS: Equal, round and reactive pupils present, EOMs intact bilaterally, conjunctivae normal and no scleral icterus CONJUNCTIVA: Yes conjunctivae normal PUPIL: Yes Equal, round and reactive pupils present Neck/C-Spine: COMMON NORMALS: full ROM, no lymphadenopathy, supple, no meningeal signs, no JVD and Thyroid normal THYROID: Thyroid normal Chest: COMMONS NORMALS: normal inspection of the chest; negative for normal palpation of entire chest wall (Reproduce chest pain) Resp: COMMON NORMALS: normal respiratory effort, No use of accessory muscles and clear to auscultation bilaterally AUSCULTATION: clear to auscultation bilaterally Cardio: COMMON NORMALS: no JVD, regular rate, regular rhythm, S1 normal heart sound present, S2 normal heart sound present, No gallops present (Cardio), No clicks present (Cardio), No murmurs present (Cardio) and No rub (Cardio) R ATE: regular rate RHYTHM: regular rhythm HEART SOUNDS: S1 normal heart sound present and S2 normal heart sound present GI: COMMON NORMALS: Normal to inspection, nondistended, normoactive bowel sounds present (Positive umbilical hernia noted), Soft to palpation, non-tender, No hepatosplenomegaly present and no masses PALPATION: Yes Soft to palpation and Yes No hepatosplenomegaly present Extremity: NARRATIVE EXTREMITY EXAM: 1+ bilateral pitting edema Neuro: COMMON NORMALS: patient oriented x3 SENSORIUM/ORIENTATION: Yes alert MENINGEAL SIGNS: Yes no meningeal signs Course 2 Vital Signs: Vital signs: Vital Signs Temperature 97.8 F 10/12/23 11:11 Pulse Rate 80 10/12/23 15:44 Respiratory Rate 16 10/12/23 11:11 Blood Pressure 177/85 10/12/23 15:44 Pulse Oximetry 93 10/12/23 15:44 Oxygen Delivery Me thod Nasal Cannula 10/12/23 15:00 Oxygen Flow Rate 4 10/12/23 11:11 MDM - Chest Pain Medical Decision Making Patient presents to the ED are with complaints of chest pain. Patient was worked up in the chest pain fashion. This included serial EKGs, serial enzymes, lab work chest x-ray, patient's troponins showed a baseline in 9 to hour of 8.5 roughly for delta of 0.5. Patient was given 10 mg of hydralazine and his IV to help bring his blood pressure down. Patient is on 5 mg of amlodipine we will increase this to 10 mg and have them recheck his blood pressure daily at the longterm. Differential Diagnosis Unlikely acute massive pulmonary embolism, acute respiratory failure, acute myocardial infarction, cardiac arrest or sudden cardiac Medical Records I reviewed the patient's medical records. Lab Data I reviewed the patient's lab results. 10/12/23 11:39 10/12/23 11:39 Radiology Impressions Chest X-Ray 10/12/23 11:09 IMPRESSION: No acute disease. Laboratory Results WBC 6.07 10^3/uL (3.29-11.43) 10/12/23 11:39 RBC 4.44 10^6/uL (3.85-5.65) 10/12/23 11:39 Hgb 13.10 g/dL (11.27-16.99) 10/12/23 11:39 Hct 43.0 % (37-53) 10/12/23 11:39 MCV 96.8 fl (82-101) 10/12/23 11:39 MCH 29.5 pg (27-33) 10/12/23 11:39 MCHC 30.5 g/dL (30-55) 10/12/23 11:39 RDW 13.4 % (12.1-15.1) 10/12/23 11:39 Plt Count 211 10^3/cmm (157-399) 10/12/23 11:39 MPV 10.4 fL (7.4-10.4) 10/12/23 11:39 Neut % (Auto) 53.9 % 10/12/23 11:39 Lymph % (Auto) 30.5 % 10/12/23 11:39 [place] % (Auto) 12.5 % 10/12/23 11:39 Eos % (Auto) 2.1 % 10/12/23 11:39 Baso % (Auto) 0.7 % 10/12/23 11:39 Neut # (Auto) 3.27 10^3/uL (1.8-7.7) 10/12/23 11:39 Lymph # (Auto) 1.9 10^3/uL (0.8-4.8) 10/12/23 11:39 [place] # (Auto) 0.8 10^3/uL (0.2-0.9) 10/12/23 11:39 Eos # (Auto) 0.1 10^3/uL (0.0-0.8) 10/12/23 11:39 Baso # (Auto) 0.0 10^3/uL (0.0-0.1) 10/12/23 11:39 Nucleated RBC % (auto) 0 % 10/12/23 11:39 Nucleated RBCs # 0.0 /100WBC 10/12/23 11:39 Sodium 141 mmol/L (136-145) 10/12/23 11:39 Potassium 3.7 mmol/L (3.5-5.1) 10/12/23 11:39 Chloride 104 mmol/L (98-107) 10/12/23 11:39 Carbon Dioxide 28 mmol/L (22-29) 10/12/23 11:39 Anion Gap 12.7 (5-19) 10/12/23 11:39 BUN 16 mg/dL (8-23) 10/12/23 11:39 Creatinine 0.8 mg/dL (0.7-1.2) 10/12/23 11:39 GFR Calculation Not Reportable 10/12/23 11:39 Glucose 106 mg/dL (65-115) 10/12/23 11:39 Calculated Osmolality 294 mOsm/kg (285-295) 10/12/23 11:39 Calcium 8.5 mg/dL (8.5-10.5) 10/12/23 11:39 Total Bilirubin 0.3 mg/dL (0.15-1.2) 10/12/23 11:39 AST 15 U/L (0-40) 10/12/23 11:39 ALT 13 U/L (0-41) 10/12/23 11:39 Alkaline Phosphatase 143 U/L (40-130) H 10/12/23 11:39 Troponin T Baseline 9 ng/L (0-15) 10/12/23 11:39 Troponin T 120 Minute 8.47 ng/L (0-15) 10/12/23 13:47 Delta Troponin T -0.53 ABS# (0-10) L 10/12/23 13:47 Total Protein 7.5 g/dL (6.6-8.7) 10/12/23 11:39 Albumin 3.8 g/dL (3.5-5.2) 10/12/23 11:39 Globulin 3.7 g/dL (1.3-4.6) 10/12/23 11:39 All radiology interpretation(s) finalized by discharge EKG Data EKG 1: I personally reviewed and interpreted this EKG as follows: EKG interpretation date: 10/12/23 EKG interpretation time: 11:12 Interpretation: Ventricular rate 76 bpm, CT interval 196, QRS duration 84, QTc of 427, sinus rhythm occasional PVC EKG 2: I personally reviewed and interpreted this EKG as follows: EKG interpretation date: 10/12/23 EKG interpretation time: 11:48 Prior EKG tracings: available for review Interpretation: Ventricular rate 75 bpm, CT interval 187, QRS duration 94, QTc of 436, sinus rhythm Discharge Plan Discharge Patient Disposition: Home Clinical Impression: Atypical chest pain Hypertension Qualifiers: Hypertension type: unspecified Qualified Code(s): I10 - Essential (primary) hypertension Condition: Stable Prescriptions: New amlodipine 10 mg tablet 10 mg PO DAILY Qty: 30 0RF Discontinued amlodipine 5 mg tablet 5 mg PO DAILY No Action insulin aspart U-100 [Novolog FlexPen U-100 Insulin] 100 unit/mL (3 mL) insulin pen See Rx Instructions .ROUTE .COMPLEX Qty: 15 0RF Rx Instructions: inject subcut, three times daily after meals based on sliding scale: bs 141- 180=0 units, 181-220=2 units, 221-260=4 units, 261-300=6 units, 301-350=8 units, 351-400=10 units, 401-450=12 units, if > 450=14 units. celecoxib 200 mg capsule 200 mg PO BID atorvastatin 40 mg tablet 40 mg PO BEDTIME tramadol 50 mg tablet 100 mg PO TID PRN (Reason: Pain) pantoprazole 40 mg tablet,delayed release (DR/EC) 40 mg PO DAILY trazodone 150 mg tablet 150 mg PO BEDTIME duloxetine 20 mg capsule,delayed release(DR/EC) 20 mg PO DAILY acetaminophen 500 mg Tablet 1,000 mg PO Q6H PRN (Reason: pain or elevated temp) Chloraseptic Aerosol,[place] 5 spray MUCOUS MEMBRANE Q2H PRN (Reason: Sore Throat) docusate sodium 100 mg Capsule 100 mg PO BID PRN (Reason: constipaton) Basaglar KwikPen U-100 Insulin 100 unit/mL (3 mL) insulin pen 30 unit SUBCUT QAM Discharge Orders: Discharge ED (Routine); Ordered 10/12/23 Ordered By: Nir Spicer Referrals: Roamrio Bojorquez, [employer]RO[employer]ING AGENT-C [Nurse Practitioner] - 1 week Patient Instructions: Chest Pain (ED), Hypertension (ED) Activity Restrictions/Additional Instructions: Your chest pain workup in ER did not show any acute coronary cause of your pain. Is thought to be noncardiac in nature. However your blood pressure was extremely high. You are given medicine to bring it down. We will increase your amlodipine from 5 mg to 10 mg. Please have the longterm check your blood pressure at least once a day. If your chest pain returns please feel free to return to the ER. Coding Level of Care Code ED Frame Polisher for Eli Mishra
[2023-10-12 11:46] LABS: Basophils % 0.7 %; Eosinophils # 0.1 10^3/uL (0.0-0.8); Eosinophils % 2.1 %; Lymphocytes # 1.9 10^3/uL (0.8-4.8); Lymphocytes % 30.5 %; Mean Corpuscular HGB Conc 30.5 g/dL (30-55); Mean Corpuscular Hemoglobin 29.5 pg (27-33); Mean Corpuscular Volume 96.8 fl (82-101); Mean Platelet Volume 10.4 fL (7.4-10.4); Monocytes # 0.8 10^3/uL (0.2-0.9); Monocytes % 12.5 %; Neutrophils # 3.27 10^3/uL (1.8-7.7); Neutrophils % 53.9 %; Nucleated Red Blood Cells % 0 %; Platelet Count 211 10^3/cmm (157-399); Red Blood Count 4.44 10^6/uL (3.85-5.65); Red Cell Distribution Width 13.4 % (12.1-15.1); White Blood Count 6.07 10^3/uL (3.29-11.43)
--- NOTE | 2023-10-12 11:48 | ECG_ITS ---
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 Measurements Intervals [place] Rate: 75 P: 78 OK: 187 QRS: -14 QRSD: 94 T: 43 QT: 407 QTc: 455 Interpretive Statements SINUS RHYTHM LOW QRS VOLTAGE IN PRECORDIAL LEADS [QRS DEFLECTION < 1.0 mV IN CHEST LEADS] POSSIBLE ANTERIOR MYOCARDIAL INFARCTION , PROBABLY OLD [30 ms Q WAVE IN V3/V4, OR R < 0.2 mV IN V4] Compared to ECG 10/12/2023 11:12:21 Ventricular premature complex(es) no longer present Myocardial infarct finding still present Electronically Signed On 10-12-2023 23:21:04 CDT by Nehemiah Campbell M.D. [id number]
--- NOTE | 2023-10-12 11:51 | PC.PHAR ---
PT IS FROM [facility]. 10/12/23
[2023-10-12 12:17] LABS: Alanine Aminotransferase 13 U/L (0-41); Albumin Level 3.8 g/dL (3.5-5.2); Alkaline Phosphatase 143 U/L (40-130); Anion Gap 12.7 (5-19); Aspartate Amino Transferase 15 U/L (0-40); Blood Urea Nitrogen 16 mg/dL (8-23); Calcium 8.5 mg/dL (8.5-10.5); Carbon Dioxide 28 mmol/L (22-29); Chloride 104 mmol/L (98-107); Creatinine Clr Calc Pharmacy 126.6554; Globulin 3.7 g/dL (1.3-4.6); Glucose 106 mg/dL (65-115); Osmolality Calculated 294 mOsm/kg (285-295); Potassium 3.7 mmol/L (3.5-5.1); Sodium 141 mmol/L (136-145); Total Bilirubin 0.3 mg/dL (0.15-1.2); Total Protein 7.5 g/dL (6.6-8.7)
[2023-10-12 12:18] LABS: Troponin(5th) Baseline 9 ng/L (0-15)
[2023-10-12] MEDS: ketorolac 30 mg/mL INJ IVP (14:27)
[2023-10-12 14:33] LABS: Troponin 5 2HR 8.47 ng/L (0-15)
[2023-10-12 14:40] LABS: Troponin 5 2HR Delta -0.53 ABS# (0-10)
[2023-10-12] MEDS: hyDRALAzine 20 mg/mL INJ 1 mL 10 MG IVP (15:06)
== END 2023-10-12 17:23 | disposition home or self-care (01) ==
PROVIDERS: Emergency Provider Emergency Medicine; PCP Internal Medicine
DX: R07.89 Other chest pain (principal); I10 Essential (primary) hypertension; Z79.4 Long term (current) use of insulin; Z72.0 Tobacco use
CPT/HCPCS: 36415; 71045; 80053; 84484; 85025; 93005; 96374; 96375; 99285; J0360; J1885

== ENCOUNTER 2023-12-26 09:52 | Inpatient (IN) | payer MEDICARE, MEDICAID, SELFPAY ==
[2023-12-26] VITALS (20 sets, daily range): BP systolic 131–166; BP diastolic 77–89; PULSE 70–96; RESP 17–24; TEMP 36.3–36.6; O2SAT 86–95; BMI 36.9
--- NOTE | 2023-12-26 09:57 | ECG_ITS ---
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 Measurements Intervals [place] Rate: 69 P: 66 HI: 197 QRS: 18 QRSD: 88 T: 43 QT: 402 QTc: 433 Interpretive Statements SINUS RHYTHM LOW QRS VOLTAGE IN PRECORDIAL LEADS [QRS DEFLECTION < 1.0 mV IN CHEST LEADS] POSSIBLE ANTERIOR MYOCARDIAL INFARCTION , PROBABLY OLD [30 ms Q WAVE IN V3/V4, OR R < 0.2 mV IN V4] Compared to ECG 10/12/2023 11:48:34 No significant changes Electronically Signed On 12-27-2023 8:32:52 CDT by Nehemiah Campbell M.D. [id number] f
--- NOTE | 2023-12-26 10:09 | XRR_ITS ---
PROCEDURE INFORMATION: Exam: XR Chest Exam date and time: 12/26/2023 10:50 AM Age: 73 years old Clinical indication: Shortness of breath; Additional info: SOB, hypoxia TECHNIQUE: Imaging protocol: Radiologic exam of the chest. Views: 1 view. COMPARISON: CR (CHEST, ) 10/12/2023 11:39 AM FINDINGS: Lungs: Bibasilar atelectasis. Bilateral apical fibrotic changes. Pleural spaces: Unremarkable. No pleural effusion. No pneumothorax. Heart/Mediastinum: Unremarkable. No cardiomegaly. Vasculature: Unfolding of the thoracic aorta. Bones/joints: Mild degenerative disease of bilateral acromioclavicular joints. Chronic fracture of the posterior arch of the right 7th rib. XR/XR chest 1V portable [id number] IMPRESSION: Bibasilar airspace opacities that might represent atelectasis versus early infiltrates.
--- NOTE | 2023-12-26 10:17 | ED_ITS ---
HPI - SOB/Dyspnea 2 General: Chief Complaint: Shortness of Breath/Dyspnea Stated Complaint: SOB Time Seen by Provider: 12/26/23 09:59 Source: patient, EMS and RN notes reviewed Mode of arrival: EMS Limitations: no limitations History of Present Illness: HPI Narrative: Patient arrives via EMS from [facility]. Complaining of shortness of breath and chest heaviness starting Wednesday and getting worst the past 2 to 3 days. Patient was placed on 4 L nasal cannula yesterday but does not normally wear any O2. He was also given 125 Solu-Medrol and an albuterol treatment and route. Appears he also had a DuoNeb treatment based on senior living documentation before he left there. On arrival here his sats are 86% on room air and he is requiring 10 L simple mask to maintain O2 sat. MD elicited complaint: shortness of breath Related Data: Home oxygen amount: none Review of Systems 2 General: Reports: 10 or more systems reviewed and unremarkable except in HPI and below PFSH ED 2 PFSH: Medical History Insomnia GERD (gastroesophageal reflux disease) Type 2 diabetes mellitus Hyperlipidemia COPD (chronic obstructive pulmonary disease) Social History Smoking and tobacco/nicotine status: current every day tobacco/nicotine user Physical Exam 2 Const: COMMON NORMALS: no acute distress, average body habitus, patient oriented x3, healthy appearing, alert and well nourished GENERAL APPEARANCE: well kempt and well developed HENMT: COMMON NORMALS: normocephalic, atraumatic, external ears normal and moist oral mucous membranes HEAD & SCALP: normocephalic and atraumatic E XTERNAL EAR: Yes external ears normal Eye: COMMON NORMALS: Equal, round and reactive pupils present, EOMs intact bilaterally and conjunctivae normal CONJUNCTIVA: Yes conjunctivae normal P UPIL: Yes Equal, round and reactive pupils present Neck/C-Spine: COMMON NORMALS: full ROM, no lymphadenopathy and supple Chest: CHEST: Yes Symmetrical chest wall rise and No Surgical scars present (Chest) Resp: COMMON NORMALS: No retractions EFFORT & INSPECTION: Yes symmetric chest movement, Yes tachypneic, Yes respiratory distress (mild), Yes labored, Yes Actively coughing and Yes uses accessory muscles AUSCULTATION: other (diminished L base with rales throughout and occasional rhonch,...) OTHER: expiratory wheeze Cardio: COMMON NORMALS: regular rate, regular rhythm, S1 normal heart sound present, S2 normal heart sound present, No gallops present (Cardio), No clicks present (Cardio), No murmurs present (Cardio) and No rub (Cardio) RATE: r egular rate RHYTHM: regular rhythm HEART SOUNDS: S1 normal heart sound present, S2 normal heart sound present and no murmurs PERIPHERAL PULSES: o ther (Radial pulses 2+ and symmetric) GI: COMMON NORMALS: Soft to palpation, non-tender and no masses INSPECTION: No abdominal distension PALPATION: Yes Soft to palpation, No Guarding due to palpation present (GI) and No Rebound tenderness present : COMMON NORMALS: Yes no CVA tenderness BLADDER/KIDNEY EXAM: Yes no CVA tenderness Back/Pelvis: COMMON NORMALS: no CVA tenderness Extremity: COMMON NORMALS: normal to inspection, full ROM, capillary refill normal and no clubbing, cyanosis or edema Neuro: COMMON NORMALS: patient oriented x3 SENSORIUM/ORIENTATION: Yes alert Psych: APPEARANCE: Yes well kempt Skin: COMMON NORMALS: no rashes or lesions noted, no wounds, turgor normal and no jaundice GENERAL SKIN EXAM: no rashes or lesions noted and turgor normal Course 2 Vital Signs: Vital signs: Vital Signs Temperature 97.8 F 12/26/23 21:01 Pulse Rate 84 12/26/23 21:01 Respiratory Rate 22 H 12/26/23 21:01 Blood Pressure 166/84 12/26/23 21:01 Pulse Oximetry 94 12/26/23 21:01 Oxygen Delivery Me thod Nasal Cannula 12/26/23 21:01 Oxygen Flow Rate 10 12/26/23 20:32 Fraction of Inspir ed Oxygen 50 12/26/23 20:35 MDM - SOB/Dyspnea Medical Decision Making Patient having acute hypoxic respiratory failure with cough no known fever. No elevated BNP some infiltrate on x-ray suspect pneumonia however Pro-Chang is negative could be viral etiology. Given age and comorbidities will get D-dimer to rule out PE as well. D-dimer was elevated so CTA PE was done. No PE reviewed on CT on my read. Radiology read concurs. Patient does have bilateral lower lobe atelectasis and possible pneumonia as having increased O2 needs the patient be admitted to the hospital discussed with Dr. Ellie Stevens. Differential Diagnosis Likely acute exacerbation of chronic obstructive airways disease, congestive heart failure, community acquired pneumonia and pulmonary embolism Medical Records I reviewed the patient's medical records. Lab Data I reviewed the patient's lab results. 12/26/23 10:40 12/26/23 10:40 Labs/Radiology: Radiology Impressions Chest X-Ray 12/26/23 10:09 IMPRESSION: Bibasilar airspace opacities that might represent atelectasis versus early infiltrates. Chest CTA 12/26/23 12:53 IMPRESSION: 1. No definite pulmonary embolus. 2. Bilateral lower lobe atelectasis/segmental collapse. Laboratory Results WBC 5.32 10^3/uL (3.29-11.43) 12/26/23 10:40 RBC 4.76 10^6/uL (3.85-5.65) 12/26/23 10:40 Hgb 14.10 g/dL (11.27-16.99) 12/26/23 10:40 Hct 46.4 % (37-53) 12/26/23 10:40 MCV 97.5 fl (82-101) 12/26/23 10:40 MCH 29.6 pg (27-33) 12/26/23 10:40 MCHC 30.4 g/dL (30-55) 12/26/23 10:40 RDW 12.9 % (12.1-15.1) 12/26/23 10:40 Plt Count 144 10^3/cmm (157-399) L 12/26/23 10:40 MPV 11.3 fL (7.4-10.4) H 12/26/23 10:40 Neut % (Auto) 77.0 % 12/26/23 10:40 Lymph % (Auto) 15.2 % 12/26/23 10:40 [place] % (Auto) 6.8 % 12/26/23 10:40 Eos % (Auto) 0.4 % 12/26/23 10:40 Baso % (Auto) 0.4 % 12/26/23 10:40 Neut # (Auto) 4.10 10^3/uL (1.8-7.7) 12/26/23 10:40 Lymph # (Auto) 0.8 10^3/uL (0.8-4.8) 12/26/23 10:40 [place] # (Auto) 0.4 10^3/uL (0.2-0.9) 12/26/23 10:40 Eos # (Auto) 0.0 10^3/uL (0.0-0.8) 12/26/23 10:40 Baso # (Auto) 0.0 10^3/uL (0.0-0.1) 12/26/23 10:40 Nucleated RBC % (auto) 0 % 12/26/23 10:40 Nucleated RBCs # 0.0 /100WBC 12/26/23 10:40 D-Dimer 1.55 ug/mLFEU (0-0.59) H 12/26/23 12:10 Specimen Type Arterial 12/26/23 10:29 Sample Site Radial, left 12/26/23 10:29 ABG pH 7.34 (7.35-7.45) L 12/26/23 10:29 ABG pCO2 55.6 mmHg (35-45) H 12/26/23 10:29 ABG pO2 62.8 mmHg (80.0-100.0) L 12/26/23 10:29 ABG HCO3 30.3 mmol/L (22-26) H 12/26/23 10:29 ABG Base Excess 3.1 mmol/L (-2.0-2.0) H 12/26/23 10:29 Neville Test Pos 12/26/23 10:29 Hematocrit 43.0 % (42-52) 12/26/23 10:29 Hgb O2 Saturation 88.9 % (95-100) L 12/26/23 10:29 Carboxyhemoglobin 0.5 %THgb (0.4-20.1) 12/26/23 10:29 Methemoglobin 0.7 % (0.4-1.5) 12/26/23 10:29 Total Hemoglobin 14.0 g/dL (14-18) 12/26/23 10:29 O2 Delivery Device Oxy mask 12/26/23 10:29 O2 Liters/Min 10.0 % 12/26/23 10:29 Member Services Representative ID Amh 12/26/23 10:29 Sodium 138 mmol/L (136-145) 12/26/23 10:40 Potassium 3.6 mmol/L (3.5-5.1) 12/26/23 10:40 Chloride 101 mmol/L (98-107) 12/26/23 10:40 Carbon Dioxide 22 mmol/L (22-29) 12/26/23 10:40 Anion Gap 18.6 (5-19) 12/26/23 10:40 BUN 11 mg/dL (8-23) 12/26/23 10:40 Creatinine 0.9 mg/dL (0.7-1.2) 12/26/23 10:40 GFR Calculation Not Reportable 12/26/23 10:40 Glucose 200 mg/dL (65-115) H 12/26/23 10:40 Estimat Average Glucose 166 12/26/23 10:40 Hemoglobin A1c 7.4 % (4.0-6.0) H 12/26/23 10:40 Calculated Osmolality 291 mOsm/kg (285-295) 12/26/23 10:40 Lactic Acid 1.8 mmol/L (0.5-2.2) 12/26/23 10:40 Calcium 8.6 mg/dL (8.5-10.5) 12/26/23 10:40 Total Bilirubin 0.2 mg/dL (0.15-1.2) 12/26/23 10:40 AST 21 U/L (0-40) 12/26/23 10:40 ALT 15 U/L (0-41) 12/26/23 10:40 Alkaline Phosphatase 153 U/L (40-130) H 12/26/23 10:40 Troponin T Baseline 9 ng/L (0-15) 12/26/23 10:40 Troponin T 120 Minute 9.33 ng/L (0-15) 12/26/23 12:10 Delta Troponin T 0.33 ABS# (0-10) 12/26/23 12:10 NT-Pro-B Natriuret Pep < 36 pg/mL (0-125) 12/26/23 10:40 Total Protein 7.9 g/dL (6.6-8.7) 12/26/23 10:40 Albumin 3.8 g/dL (3.5-5.2) 12/26/23 10:40 Globulin 4.1 g/dL (1.3-4.6) 12/26/23 10:40 Procalcitonin 0.07 ng/mL (0-0.5) 12/26/23 10:40 All radiology interpretation(s) finalized by discharge ED provider radiology interpretation(s): Chest x-ray reviewed, some basilar infiltrate versus atelectasis possibly. EKG Data EKG 1: I personally reviewed and interpreted this EKG as follows: EKG Interpretation Date: 12/26/23 EKG interpretation time: 10:05 Interpretation: Sinus rate of 69, no prolonged intervals, no ST elevation, very mild ST depression only in lead V2. No conjugate changes. EKG 2: I personally reviewed and interpreted this EKG as follows: EKG Interpretation Date: 12/26/23 EKG interpretation time: 12:30 Prior EKG tracings: available for review Interpretation: Sinus rate 75, no prolonged intervals, no ST elevation or depression. Discharge Plan Discharge Patient Disposition: Admitted As Inpatient Admit Provider: Suzi Stevens Clinical Impression: Acute respiratory failure with hypoxia and hypercapnia, Community acquired pneumonia Condition: Stable Coding Level of Care Code ED Cat Tender for Eli Mishra
[2023-12-26] MEDS: ipratropium-albuterol 3 mL Neb 6 ML INHALATION (10:22)
[2023-12-26 10:40] LABS: ABG PCO2 55.6 mmHg (35-45); ABG PH Result 7.34 (7.35-7.45); Base Excess ABG 3.1 mmol/L (-2.0-2.0); Blood Gas Allen Test Pos; Blood Gas Operator Identificat AMH; Blood Gas Sample Site Radial, left; Blood Gas Sample Type Arterial; Carboxyhemoglobin 0.5 %THgb (0.4-20.1); HCO3 ABG 30.3 mmol/L (22-26); HGB O2 Sat 88.9 % (95-100); Methemoglobin 0.7 % (0.4-1.5); Oxygen Device OXY MASK; PO2 ABG 62.8 mmHg (80.0-100.0)
[2023-12-26 10:46] LABS: Basophils % 0.4 %; Eosinophils % 0.4 %; Hematocrit 46.4 % (37-53); Lymphocytes # 0.8 10^3/uL (0.8-4.8); Lymphocytes % 15.2 %; Mean Corpuscular HGB Conc 30.4 g/dL (30-55); Mean Corpuscular Hemoglobin 29.6 pg (27-33); Mean Corpuscular Volume 97.5 fl (82-101); Mean Platelet Volume 11.3 fL (7.4-10.4); Monocytes # 0.4 10^3/uL (0.2-0.9); Monocytes % 6.8 %; Nucleated Red Blood Cells % 0 %; Platelet Count 144 10^3/cmm (157-399); Red Blood Count 4.76 10^6/uL (3.85-5.65); Red Cell Distribution Width 12.9 % (12.1-15.1); White Blood Count 5.32 10^3/uL (3.29-11.43)
[2023-12-26 11:07] LABS: Slide Review Slide Review Perform; Troponin(5th) Baseline 9 ng/L (0-15)
[2023-12-26 11:11] LABS: Lactic Sepsis W/Reflex 1.8 mmol/L (0.5-2.2)
[2023-12-26 11:20] LABS: NT Pro B Type Natriuretic Pept < 36 pg/mL (0-125); Procalcitonin 0.07 ng/mL (0-0.5)
[2023-12-26 11:31] LABS: Alanine Aminotransferase 15 U/L (0-41); Albumin Level 3.8 g/dL (3.5-5.2); Alkaline Phosphatase 153 U/L (40-130); Aspartate Amino Transferase 21 U/L (0-40); Blood Urea Nitrogen 11 mg/dL (8-23); Calcium 8.6 mg/dL (8.5-10.5); Carbon Dioxide 22 mmol/L (22-29); Chloride 101 mmol/L (98-107); Globulin 4.1 g/dL (1.3-4.6); Glucose 200 mg/dL (65-115); Osmolality Calculated 291 mOsm/kg (285-295); Sodium 138 mmol/L (136-145); Total Bilirubin 0.2 mg/dL (0.15-1.2); Total Protein 7.9 g/dL (6.6-8.7)
[2023-12-26 11:34] LABS: Anion Gap 18.6 (5-19); Potassium 3.6 mmol/L (3.5-5.1)
--- NOTE | 2023-12-26 12:29 | ECG_ITS ---
[facility] Test Date: 2023-12-26 Pat Name: Pillo Dyer Department: Room: Gender: Male Regulatory Assistant: : 1950 Requested By: Royce Richardson Order Number: [id number] Sampson MD: Nehemiah Campbell M.D. Measurements Intervals [place] Rate: 75 P: 0 ME: 0 QRS: 11 QRSD: 91 T: 17 QT: 400 QTc: 449 Interpretive Statements SUPRAVENTRICULAR RHYTHM LOW QRS VOLTAGE IN PRECORDIAL LEADS [QRS DEFLECTION < 1.0 mV IN CHEST LEADS] POSSIBLE ANTERIOR MYOCARDIAL INFARCTION , PROBABLY OLD [30 ms Q WAVE IN V3/V4, OR R < 0.2 mV IN V4] ABNORMAL RHYTHM ECG Compared to ECG 12/26/2023 09:57:01 Supraventricular rhythm now present Sinus rhythm no longer present Myocardial infarct finding still present Electronically Signed On 12-27-2023 8:38:07 CDT by Nehemiah Campbell M.D. [id number]
[2023-12-26 12:39] LABS: D Dimer 1.55 ug/mLFEU (0-0.59)
[2023-12-26 12:44] LABS: Troponin 5 2HR 9.33 ng/L (0-15); Troponin 5 2HR Delta 0.33 ABS# (0-10)
--- NOTE | 2023-12-26 12:53 | CTR_ITS ---
PROCEDURE INFORMATION: Exam: CTA Chest With Contrast Exam date and time: 12/26/2023 1:36 PM Age: 73 years old Clinical indication: Shortness of breath; Additional info: Hypoxia, elevated d-dimer, TECHNIQUE: Imaging protocol: Computed tomographic angiography of the chest with contrast. Exam focused on the arteries. 3D rendering (Not supervised by radiologist): MIP and/or 3D reconstructed images were created by the technologist. Radiation optimization: All CT scans at this facility use at least one of these dose optimization techniques: automated exposure control; mA and/or kV adjustment per patient size (includes targeted exams where dose is matched to clinical indication); or iterative reconstruction. Contrast material: OMNI 350; Contrast volume: 81 ml; Contrast route: INTRAVENOUS (IV); COMPARISON: CT angio chest PE protcl [id number] 04/10/2023 1:46 PM RADIATION DOSE METRICS: Total DLP (mGy-cm): 587.11 FINDINGS: Pulmonary arteries: Normal. No pulmonary emboli. Aorta: Calcified atheromas in the aortic arch. Lungs: Atelectatic changes both lower lobes. No acute infiltrates. Pleural spaces: Unremarkable. No pneumothorax. No pleural effusion. Heart: Unremarkable. No cardiomegaly. No pericardial effusion. Lymph nodes: Unremarkable. No enlarged lymph nodes. Diaphragm: Small hiatal hernia. Bones/joints: Multilevel chronic compression deformities of the thoracic spine vertebrae, unchanged compared to prior study. Fracture deformity of posterior arch of the right 7th rib. Soft tissues: Unremarkable. CT/CT angio chest PE protcl [id number] IMPRESSION: 1. No definite pulmonary embolus. 2. Bilateral lower lobe atelectasis/segmental collapse.
[2023-12-26] MEDS: iohexol 350 mg/mL 500 mL Btl (per mL) IV (13:38)
[2023-12-26] MEDS: piperacillin-tazobactam 3.375 GM in sodium chloride 0.9% (plus) 50 ML IV (14:49)
--- NOTE | 2023-12-26 15:28 | P.HP_ITS ---
Providers/Chief Complaint 2 Admitting Physician: Suzi Stevens MD Primary Care Provider: Iain Nguyễn MD Chief Complaint: SOB History of Present Illness Pillo Dyer Sr is a 73 year old male with COPD, hypertension, hyperlipidemia, type 2 diabetes mellitus, GERD and insomnia presenting with shortness of breath and chest heaviness. His symptoms started on Wednesday and progressively worsened. He does not wear oxygen at baseline and was placed on 4 L/min O2 at his [facility] yesterday. He continues to be hypoxic and was sent to the ER. He is currently on 10 L/min O2. He was given albuterol neb and Solu-Medrol and route. Troponin was normal x 2 and EKG did not show any did not show any acute ischemic changes. His D-dimer was elevated. CTA chest showed no definitive pulmonary embolus and bilateral lower lobe atelectasis/segmental collapse. ABG showed mild hypercarbia. His WBC, lactic acid and procalcitonin were normal. Review of Systems 2 General: Reports: 10 or more systems reviewed and unremarkable except in HPI and below Medications/Allergies Home Medications Medication Instructions Recorded Confirmed Last Taken Type insulin aspart U-100 100 unit/mL See Rx Instructions .Route 04/14/23 10/12/23 Unknown Rx (3 mL) subcutaneous pen (Novolog .COMPLEX #15 mL FlexPen U-100 Insulin aspart) acetaminophen 500 mg tablet 1,000 mg PO Q6H PRN pain or 10/12/23 10/12/23 Unknown History elevated temp amlodipine 10 mg tablet 10 mg PO DAILY #30 tabs 10/12/23 Unknown Rx atorvastatin 40 mg tablet 40 mg PO BEDTIME 10/12/23 10/12/23 Unknown History celecoxib 200 mg capsule 200 mg PO BID 10/12/23 10/12/23 Unknown History docusate sodium 100 mg capsule 100 mg PO BID PRN constipaton 10/12/23 10/12/23 Unknown History duloxetine 20 mg capsule,delayed 20 mg PO DAILY 10/12/23 10/12/23 Unknown History release insulin glargine 100 unit/mL (3 30 unit SUBCUT QAM 10/12/23 10/12/23 Unknown History mL) subcutaneous pen (Basaglar KwikPen U-100 Insulin) pantoprazole 40 mg tablet,delayed 40 mg PO DAILY 10/12/23 10/12/23 Unknown History release phenol-phenolate sodium mucosal 5 spray mucous membrane Q2H PRN 10/12/23 10/12/23 Unknown History aerosol spray Sore Throat tramadol 50 mg tablet 100 mg PO TID PRN Pain 10/12/23 10/12/23 Unknown History trazodone 150 mg tablet 150 mg PO BEDTIME 10/12/23 10/12/23 Unknown History Allergies Allergy/AdvReac Type Severity Reaction Status Date / Time No Known Allergies Allergy Verified 12/26/23 10:05 PFSH Acute 2 PFSH: Medical History Insomnia GERD (gastroesophageal reflux disease) Type 2 diabetes mellitus Hyperlipidemia COPD (chronic obstructive pulmonary disease) Social History Smoking and tobacco/nicotine status: current every day tobacco/nicotine user Vitals/I&O/Wt Last Vital Signs Temp 97.8 F 12/26/23 10:03 Pulse 70 12/26/23 12:08 Resp 20 H 12/26/23 10:50 BP 131/77 12/26/23 12:08 Pulse Ox 92 12/26/23 12:08 O2 Del Method Oxymask 12/26/23 12:08 O2 Flow Rate 10 12/26/23 10:50 Weight last 48 hrs Weight 127.006 kg Physical Exam 2 Narrative: GEN: Respiratory distress Neuro: Alert oriented x 3, no focal neurodeficits HEENT: Normocephalic, atraumatic, PERRLA, EOMI Neck: Supple, no JVD Cardio: S1, S2, regular rate and rhythm, no murmur, rub or gallop Lungs: Increased work of breathing, diminished breath sounds at the bases Abdomen: Soft, nontender, nondistended, normal bowel sounds Extremity: No edema Data 12/26/23 10:40 12/26/23 10:40 A&P Assessment and plan (1) Acute respiratory failure with hypoxia and hypercapnia: (2) COPD exacerbation: (3) Hyperlipidemia: (4) Type 2 diabetes mellitus: (5) GERD (gastroesophageal reflux disease): (6) Insomnia: Plan Acute hypoxic and hypercarbic respiratory failure COPD exacerbation ? He is afebrile and has normal WBC, lactic acid and procalcitonin levels ? CT chest showed Bilateral lower lobe atelectasis/segmental collapse ? No home oxygen; currently on 10 L/min O2 ? Will place on BiPAP ? Solu-Medrol 40 mg every 6 hours, DuoNebs 4 times daily and budesonide every 12 hours ? Monitor O2 sats and wean oxygen as tolerated ? Telemetry monitoring Type 2 diabetes mellitus ? A1c was 14.6% on 04/08/2023; will repeat ? Continue Lantus and sliding scale lispro ? Monitor glucose and adjust regimen as needed Essential hypertension ? BP stable ? Continue home amlodipine Hyperlipidemia ? Continue atorvastatin Chronic insomnia ? Trazodone as needed at bedtime GERD ? Continue Protonix Attestations 2 Medical Necessity Statement*: Patient requires inpatient hospitalization for BiPAP therapy, IV steroids, neb treatments. I expect him to be hospitalized for more than 2 midnights. Coding Level of Care Code 04878 Diagnoses Acute respiratory failure with hypoxia and hypercapnia J96.01; J96.02 COPD exacerbation J44.1 Hyperlipidemia E78.5 Type 2 diabetes mellitus E11.9 GERD (gastroesophageal reflux disease) K21.9 Insomnia G47.00
--- NOTE | 2023-12-26 16:13 | ECG_ITS ---
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 Measurements Intervals [place] Rate: 82 P: 28 ME: 194 QRS: 7 QRSD: 93 T: 41 QT: 392 QTc: 459 Interpretive Statements SINUS RHYTHM LOW QRS VOLTAGE IN PRECORDIAL LEADS [QRS DEFLECTION < 1.0 mV IN CHEST LEADS] POSSIBLE ANTERIOR MYOCARDIAL INFARCTION , PROBABLY OLD [30 ms Q WAVE IN V3/V4, OR R < 0.2 mV IN V4] INFERIOR MYOCARDIAL INFARCTION , PROBABLY OLD [40+ ms Q WAVE AND/OR ST/T ABNORMALITY IN II/aVF] Compared to ECG 12/26/2023 12:29:18 Supraventricular rhythm no longer present Myocardial infarct finding still present Electronically Signed On 12-27-2023 8:38:33 CDT by Nehemiah Campbell M.D. [id number]
[2023-12-26] MEDS: ipratropium-albuterol 3 mL Neb INHALATION ×2 (16:33→20:23)
[2023-12-26 17:09] LABS: Estmated Average Glucose 166; Hemoglobin A1C 7.4 % (4.0-6.0)
[2023-12-26 17:57] LABS: Glucose Point of Care 207 mg/dL (70-110)
--- NOTE | 2023-12-26 18:05 | USCV_ITS ---
ManishaPillo Age: 73 Gender: M : 1950 Exam Date: 12/26/2023 18:48 Ordering Phys: Suzi Stevens MD Technologist: Shan Ragland Exam Location: [facility] Indication: elevated troponin BP: 140 / 87 HR: 91 Rhythm: Sinus Technical Quality: Adequate MEASUREMENTS (Male / Female) Normal Values 2D ECHO LV Diastolic Diameter PLAX 2.5 cm 4.2 - 5.9 / 3.9 - 5.3 cm IVS Diastolic Thickness 1.4 cm 0.6 - 1.0 / 0.6 - 0.9 cm IVS Systolic Thickness 1.3 cm LVPW Diastolic Thickness 2.1 cm 0.6 - 1.0 / 0.6 - 0.9 cm LVPW Systolic Thickness 2.5 cm LVOT Diameter 2.0 cm LV Ejection Fraction 2D Teich 62.0 % LV Ejection Fraction MOD 2C 72.6 % LV Ejection Fraction 2C AL 72.5 % LA Diameter 4.2 cm RA Systolic Volume 4C AL 36.7 ml RA Systolic Volume 4C MOD 38.1 ml LA Sys Volume AL 43.8 cm cubed LA Sys Volume Index AL 16.8 cm cubed/m squared Aorta at Sinotubular Diameter 2.3 cm M-MODE LA Ao Ratio MM 0.9 AV Cusp Separation MM 2.2 cm DOPPLER AV Peak Velocity 145.0 cm/s AV Area Cont Eq vti 2.8 cm squared AV Area Cont Eq pk 2.7 cm squared MV Peak Velocity 133.0 cm/s MV Area PHT 6.1 cm squared Mitral E to A Ratio 0.5 TR Peak Velocity 126.0 cm/s TR Peak Gradient 6.4 mmHg TR Mean Velocity 105.0 cm/s TR Mean Gradient 4.6 mmHg TR Velocity Time Integral 24.3 cm PV Peak Velocity 117.0 cm/s RV Ejection Time 0.3 s FINDINGS Left Ventricle Normal left ventricular size and systolic function, EF 72%.no regional wall motion abnormalities. Grade I/IV diastolic dysfunction (abnormal relaxation filling pattern), normal to mildly elevated filling pressures. Right Ventricle The right ventricle is normal in size and function. Right Atrium The right atrium is normal in size. Left Atrium Mildly increased left atrial size. Mitral Valve No gross abnormalities noted Aortic Valve No gross abnormalities noted Tricuspid Valve No gross abnormalities noted Pulmonic Valve Pulmonic valve not well visualized. Pericardium Normal pericardium without effusion. Aorta Normal ascending aorta dimension. IVC Inferior vena cava not visualized. CONCLUSIONS Normal left ventricular size and systolic function, EF 72%.no regional wall motion abnormalities. Grade I/IV diastolic dysfunction (abnormal relaxation filling pattern), normal to mildly elevated filling pressures. Mildly increased left atrial size. No gross valvular abnormalities noted There is no pericardial effusion. No similar previous studies are available for comparison Dr Nehemiah Campbell MD [facility] (Electronically Signed) Final Date: 27 Dec 2023 10:51 S
[2023-12-26] MEDS: enoxaparin 80 mg/0.8 mL Syringe 130 MG SUBCUT (18:51)
[2023-12-26] MEDS: insulin lispro 100 unit/1 mL SUBCUT ×2 (18:51→21:38)
[2023-12-26] MEDS: methylPREDNISolone sod succ 40 mg/mL INJ IVP ×2 (18:52→23:11)
[2023-12-26] MEDS: aspirin 81 mg Chew Tablet 324 MG PO (18:52)
--- NOTE | 2023-12-26 19:13 | P.CONIM_ITS ---
Providers/Reason For Consult 2 Consulting Physician/Specialty*: KACEY Campbell MD/cardiology Reason for Consult*: Patient with elevated troponin T Requesting Physician: Dr. Stevens Attending Physician: Suzi Stevens MD Primary Care Provider: Iain Nguyễn MD History of Present Illness History of Present Illness Pillo Dyer Sr is a 73 year old male with a history of type 2 diabetes, dyslipidemia, COPD and obesity, he is present with complaints of progressive shortness of breath for last 3 days. He was found to have an elevated troponin T with a Significant delta. Cardiology consult is requested for further cardiac evaluation and recommendations. This patient apparently has no previous history for any coronary disease, myocardial infarction or congestive heart failure. He is a retirement resident for the last 8 months or so. Since last Wednesday, he been having shortness of breath and a dry cough. Occasionally he brings out whitish sputum. The shortness of breath has started to slowly getting worse. He also was found to have oxygen desaturation. He was brought to the emergency room for further evaluation and management. He also has been complaining of tight feeling in the chest intermittently. No chest pain as such. Patient is somewhat vague about this symptom. He has been having no fever or chills. No significant orthopnea or PND. He was recently admitted to hospital with uncontrolled diabetes. He was sent to the retirement for this reason. At the time of my examination, patient is somewhat short of breath. Not any distress. Denies any chest pain. His initial troponin T was 9. The 2-hour delta was 9 and the 6-hour delta was 546. This patient has a history of smoking abuse a pack a day for 50 years or so. He quit smoking few years ago. He has no history for alcohol abuse or any other substance abuse. He may have gained around 80 pounds in the last 5 years. He has been in the retirement for the last 8 months. He has 3 living children but they are estranged. His few years ago. No significant family history of coronary atherosclerotic heart diseas. Review of Systems 2 Narrative: CONSTITUTIONAL: No fever or chills. EYES: No blurring of vision or other visual disturbances lately. ENT: No hoarseness of voice, auditory disturbances or sore throat. CARDIOVASCULAR: As mentioned above. RESPIRATORY: As mentioned above. GASTROINTESTINAL: No hematemesis or melena. GENITOURINARY: No dysuria or hematuria. INTEGUMENTARY: No skin rashes or history of skin cancer. NEURO: No transient ischemic attacks or amaurosis. PSYCHIATRIC: No history of psychosis or major depression. HEMATOLOGIC: No bleeding disorders or significant anemia. ENDOCRINE: Uncontrolled diabetes as mentioned above. MUSCULOSKELETAL: No recent joint pain or swelling. ALLERGY/IMMUNOLOGY: As mentioned above. Medications/Allergies Home Medications Medication Instructions Recorded Confirmed Last Taken Type insulin aspart U-100 100 unit/mL See Rx Instructions .Route 04/14/23 10/12/23 Unknown Rx (3 mL) subcutaneous pen (Novolog .COMPLEX #15 mL FlexPen U-100 Insulin aspart) acetaminophen 500 mg tablet 1,000 mg PO Q6H PRN pain or 10/12/23 10/12/23 Unknown History elevated temp amlodipine 10 mg tablet 10 mg PO DAILY #30 tabs 10/12/23 Unknown Rx atorvastatin 40 mg tablet 40 mg PO BEDTIME 10/12/23 10/12/23 Unknown History celecoxib 200 mg capsule 200 mg PO BID 10/12/23 10/12/23 Unknown History docusate sodium 100 mg capsule 100 mg PO BID PRN constipaton 10/12/23 10/12/23 Unknown History duloxetine 20 mg capsule,delayed 20 mg PO DAILY 10/12/23 10/12/23 Unknown History release insulin glargine 100 unit/mL (3 30 unit SUBCUT QAM 10/12/23 10/12/23 Unknown History mL) subcutaneous pen (Basaglar KwikPen U-100 Insulin) pantoprazole 40 mg tablet,delayed 40 mg PO DAILY 10/12/23 10/12/23 Unknown History release phenol-phenolate sodium mucosal 5 spray mucous membrane Q2H PRN 10/12/23 10/12/23 Unknown History aerosol spray Sore Throat tramadol 50 mg tablet 100 mg PO TID PRN Pain 10/12/23 10/12/23 Unknown History trazodone 150 mg tablet 150 mg PO BEDTIME 10/12/23 10/12/23 Unknown History Allergies Allergy/AdvReac Type Severity Reaction Status Date / Time No Known Allergies Allergy Verified 12/26/23 10:05 Current Medications Generic Name Dose Route Start Last Admin Trade Name Freq PRN Reason Stop Dose Admin Albuterol/Ipratropium 3 ml 12/26/23 16:00 12/26/23 16:33 Ipratropium-Albuterol 3 Ml Neb INHALATION 3 ml QID.RESPIRATORY TAYA Administration Enoxaparin Sodium 130 mg 12/26/23 18:45 12/26/23 18:51 Enoxaparin 80 Mg/0.8 Ml Syringe SUBCUT 130 mg Q12H TAYA Administration Insulin Human Lispro 0 unit 12/26/23 18:00 12/26/23 18:51 Insulin Lispro 100 Unit/1 Ml SUBCUT 8 unit WM&BEDTIME TAYA Administration Protocol Methylprednisolone Sodium Succinate 40 mg 12/26/23 18:00 12/26/23 18:52 Methylprednisolone Sod Succ 40 Mg/Ml Inj IVP 40 mg Q6H TAYA Administration PFSH Acute 2 PFSH: Medical History Insomnia GERD (gastroesophageal reflux disease) Type 2 diabetes mellitus Hyperlipidemia COPD (chronic obstructive pulmonary disease) Social History Smoking and tobacco/nicotine status: current every day tobacco/nicotine user Vitals/I&O/Wt Last Vital Signs Temp 97.3 F L 12/26/23 16:00 Pulse 88 12/26/23 18:00 Resp 17 12/26/23 16:34 BP 140/87 12/26/23 16:00 Pulse Ox 93 12/26/23 18:00 O2 Del Method High Flow Nasal Cannula 12/26/23 18:00 O2 Flow Rate 11 12/26/23 18:00 FiO2 50 12/26/23 17:57 12/26/23 12/26/23 12/26/23 06:59 14:59 22:59 Intake Total 286 / 286 Balance 286 / 286 Weight last 48 hrs Weight 289 lb Weight 280 lb Physical Exam 2 Narrative: GENERAL: The patient is alert and oriented times three. Not in any acute distress. Obese. HEENT: No significant pallor, icterus or lymphadenopathy.Oral cavity: There are no mucous membrane lesions. NECK: Trachea appears to be central. No masses noted. No JVD or thyromegaly appreciated. RESPIRATORY: Chest is symmetrical. No intercostals muscle retraction or any accessory muscle activation. There is no chest wall tenderness. Breath sounds are heard bilaterally. Bilateral coarse crackles with occasional expiratory wheezing. No evidence of consolidation. BREASTS: Deferred. HEART: The heart sounds are normal. No S3 or S4. No significant murmurs. No pericardial rub ABDOMEN: No vessel pulsations or distention. No tenderness. No organomegaly appreciated. Bowel sounds are normally heard. : Deferred. RECTAL: Deferred. LYMPHATIC: No lymphadenopathy noted in the neck. EXTREMITIES: No edema or cyanosis. No clubbing. MUSCULOSKELETAL: No acute joint deformities or swelling SKIN: There are no significant rashes or ecchymosis NEUROPSYCHIATRIC: The patient is alert and oriented x3. Appears to be in a good mood. No tremors or rigidity noted. Data 12/27/23 02:17 12/27/23 02:17 Other Labs: Laboratory Last Values WBC 5.32 10^3/uL (3.29-11.43) 12/26/23 10:40 RBC 4.76 10^6/uL (3.85-5.65) 12/26/23 10:40 Hgb 14.10 g/dL (11.27-16.99) 12/26/23 10:40 Hct 46.4 % (37-53) 12/26/23 10:40 MCV 97.5 fl (82-101) 12/26/23 10:40 MCH 29.6 pg (27-33) 12/26/23 10:40 MCHC 30.4 g/dL (30-55) 12/26/23 10:40 RDW 12.9 % (12.1-15.1) 12/26/23 10:40 Plt Count 144 10^3/cmm (157-399) L 12/26/23 10:40 MPV 11.3 fL (7.4-10.4) H 12/26/23 10:40 Neut % (Auto) 77.0 % 12/26/23 10:40 Lymph % (Auto) 15.2 % 12/26/23 10:40 [place] % (Auto) 6.8 % 12/26/23 10:40 Eos % (Auto) 0.4 % 12/26/23 10:40 Baso % (Auto) 0.4 % 12/26/23 10:40 Neut # (Auto) 4.10 10^3/uL (1.8-7.7) 12/26/23 10:40 Lymph # (Auto) 0.8 10^3/uL (0.8-4.8) 12/26/23 10:40 [place] # (Auto) 0.4 10^3/uL (0.2-0.9) 12/26/23 10:40 Eos # (Auto) 0.0 10^3/uL (0.0-0.8) 12/26/23 10:40 Baso # (Auto) 0.0 10^3/uL (0.0-0.1) 12/26/23 10:40 Nucleated RBC % (auto) 0 % 12/26/23 10:40 Nucleated RBCs # 0.0 /100WBC 12/26/23 10:40 D-Dimer 1.55 ug/mLFEU (0-0.59) H 12/26/23 12:10 Specimen Type Arterial 12/26/23 10:29 Sample Site Radial, left 12/26/23 10:29 ABG pH 7.34 (7.35-7.45) L 12/26/23 10:29 ABG pCO2 55.6 mmHg (35-45) H 12/26/23 10:29 ABG pO2 62.8 mmHg (80.0-100.0) L 12/26/23 10:29 ABG HCO3 30.3 mmol/L (22-26) H 12/26/23 10:29 ABG Base Excess 3.1 mmol/L (-2.0-2.0) H 12/26/23 10:29 [place]ille Test Pos 12/26/23 10:29 Hematocrit 43.0 % (42-52) 12/26/23 10:29 Hgb O2 Saturation 88.9 % (95-100) L 12/26/23 10:29 Carboxyhemoglobin 0.5 %THgb (0.4-20.1) 12/26/23 10:29 Methemoglobin 0.7 % (0.4-1.5) 12/26/23 10:29 Total Hemoglobin 14.0 g/dL (14-18) 12/26/23 10:29 O2 Delivery Device Oxy mask 12/26/23 10:29 O2 Liters/Min 10.0 % 12/26/23 10:29 Stranding Supervisor ID [id number] 12/26/23 10:29 Sodium 138 mmol/L (136-145) 12/26/23 10:40 Potassium 3.6 mmol/L (3.5-5.1) 12/26/23 10:40 Chloride 101 mmol/L (98-107) 12/26/23 10:40 Carbon Dioxide 22 mmol/L (22-29) 12/26/23 10:40 Anion Gap 18.6 (5-19) 12/26/23 10:40 BUN 11 mg/dL (8-23) 12/26/23 10:40 Creatinine 0.9 mg/dL (0.7-1.2) 12/26/23 10:40 GFR Calculation Not Reportable 12/26/23 10:40 Glucose 200 mg/dL (65-115) H 12/26/23 10:40 POC Glucose 207 mg/dL (70-110) H 12/26/23 16:37 Estimat Average Glucose 166 12/26/23 10:40 Hemoglobin A1c 7.4 % (4.0-6.0) H 12/26/23 10:40 Calculated Osmolality 291 mOsm/kg (285-295) 12/26/23 10:40 Lactic Acid 1.8 mmol/L (0.5-2.2) 12/26/23 10:40 Calcium 8.6 mg/dL (8.5-10.5) 12/26/23 10:40 Total Bilirubin 0.2 mg/dL (0.15-1.2) 12/26/23 10:40 AST 21 U/L (0-40) 12/26/23 10:40 ALT 15 U/L (0-41) 12/26/23 10:40 Alkaline Phosphatase 153 U/L (40-130) H 12/26/23 10:40 Troponin T Baseline 9 ng/L (0-15) 12/26/23 10:40 Troponin T 120 Minute 9.33 ng/L (0-15) 12/26/23 12:10 Delta Troponin T 0.33 ABS# (0-10) 12/26/23 12:10 Troponin T Hi Sens 6Hr 555.0 ng/L (0-15) H 12/26/23 16:51 Troponin T Hi Sens 6Hr Delta 546.0 ng/L (0-12) H* 12/26/23 16:51 NT-Pro-B Natriuret Pep < 36 pg/mL (0-125) 12/26/23 10:40 Total Protein 7.9 g/dL (6.6-8.7) 12/26/23 10:40 Albumin 3.8 g/dL (3.5-5.2) 12/26/23 10:40 Globulin 4.1 g/dL (1.3-4.6) 12/26/23 10:40 Procalcitonin 0.07 ng/mL (0-0.5) 12/26/23 10:40 EKG 1: My Interpretation: Normal sinus rhythm with poor R wave progression. Features of old inferior wall myocardial infarction. Some nonspecific ST-T changes. A&P Assessment and plan (1) Elevated troponin: Patient is a. Features consistent with a non-ST elevation myocardial infarction. Hemodynamically seems to be stable. An echocardiogram would be helpful to evaluate LV function and rule out any other pathology. Patient may be treated with subcu Lovenox, beta-rafael, aspirin, statin drugs and other symptomatic measures. (2) Hyperlipidemia: He was started on Lipitor 40 mg p.o. now and daily. Qualifiers: Hyperlipidemia type: mixed hyperlipidemia Qualified Code(s): E78.2 - Mixed hyperlipidemia (3) Type 2 diabetes mellitus: The blood sugar is elevated. Management as per the primary. Qualifiers: Diabetes mellitus complication status: without complication Diabetes mellitus fpc insulin use: without superintendent [employer] use Qualified Code(s): E11.9 - Type 2 diabetes mellitus without complications (4) Acute respiratory failure with hypoxia and hypercapnia: Patient is on bronchodilator treatment. Management as per the primary. (5) Elevated blood pressure reading: Metoprolol 25 mg p.o. twice daily. Also may be started on Nitropaste 1 inch every 6 hours 20 chest wall. Plan I may start the patient on a Plavix 300 mg p.o. now followed by 75 mg p.o. daily. Patient may benefit from a cardiac catheterization. However we would like to see his respiratory status stable before going ahead with the angiogram. Based on the clinical progress and the results of the above, further recommendations will be made Thank you for the opportunity to evaluate this patient and make these recommendations Consult Attestations 2 Medical Necessity Statement: Patient requires continued hospital stay for close monitoring and further management Coding Level of Care Code 68472 Diagnoses Elevated troponin R79.89 Mixed hyperlipidemia E78.2 Hyperlipidemia type: mixed hyperlipidemia Type 2 diabetes mellitus without complication, without long-term current use of insulin E11.9 Diabetes mellitus complication status: without complication Diabetes mellitus fpc insulin use: without fpc use Acute respiratory failure with hypoxia and hypercapnia J96.01; J96.02 Elevated blood pressure reading R03.0
[2023-12-26] MEDS: atorvastatin 40 mg Tablet PO (20:57)
[2023-12-26] MEDS: TRAMadol 50 mg Tablet 100 MG PO (20:57)
[2023-12-26] MEDS: FUROsemide 10 mg/mL SDV 4mL 40 MG IVP (20:57)
[2023-12-26] MEDS: potassium chloride ER 20 mEq Tablet PO (20:57)
[2023-12-26 20:59] LABS: Glucose Point of Care 277 mg/dL (70-110)
[2023-12-26] MEDS: morphine 4 mg/mL SDV 1 mL IVP (23:11)
[2023-12-27] VITALS (14 sets, daily range): BP systolic 121–157; BP diastolic 71–89; PULSE 74–105; RESP 15–22; TEMP 36.3–36.9; O2SAT 90–99; BMI 37.2
[2023-12-27 03:56] LABS: Basophils % 0.3 %; Eosinophils % 0.3 %; Lymphocytes # 0.5 10^3/uL (0.8-4.8); Lymphocytes % 13.5 %; Mean Corpuscular HGB Conc 32.2 g/dL (30-55); Mean Corpuscular Hemoglobin 29.9 pg (27-33); Mean Corpuscular Volume 92.8 fl (82-101); Mean Platelet Volume 11.7 fL (7.4-10.4); Monocytes # 0.1 10^3/uL (0.2-0.9); Monocytes % 2.8 %; Neutrophils # 3.27 10^3/uL (1.8-7.7); Neutrophils % 82.8 %; Nucleated Red Blood Cells % 0 %; Platelet Count 101 10^3/cmm (157-399); Red Blood Count 6.25 10^6/uL (3.85-5.65); Red Cell Distribution Width 12.8 % (12.1-15.1); White Blood Count 3.94 10^3/uL (3.29-11.43)
[2023-12-27 04:14] LABS: Albumin Level 4.3 g/dL (3.5-5.2); Blood Urea Nitrogen 16 mg/dL (8-23); Calcium 9.6 mg/dL (8.5-10.5); Carbon Dioxide 25 mmol/L (22-29); Chloride 101 mmol/L (98-107); Magnesium 2.3 mg/dL (1.7-2.3); Sodium 142 mmol/L (136-145)
[2023-12-27 04:43] LABS: Anion Gap 19.7 (5-19); Potassium 4.7 mmol/L (3.5-5.1)
[2023-12-27 04:44] LABS: Phosphorus 1.8 mg/dL (2.5-4.5)
[2023-12-27 04:54] LABS: Glucose 155 mg/dL (65-115)
[2023-12-27] MEDS: enoxaparin 80 mg/0.8 mL Syringe 130 MG SUBCUT ×2 (05:42→17:44)
[2023-12-27] MEDS: methylPREDNISolone sod succ 40 mg/mL INJ IVP ×3 (05:43→20:37)
[2023-12-27] MEDS: insulin glargine 100 units/1 mL 30 UNIT SUBCUT (05:43)
[2023-12-27] MEDS: TRAMadol 50 mg Tablet 100 MG PO (06:03)
[2023-12-27] MEDS: acetaminophen 325 mg Tablet 650 MG PO (06:03)
[2023-12-27 06:20] LABS: Glucose Point of Care 179 mg/dL (70-110)
--- NOTE | 2023-12-27 07:32 | P.PN_ITS ---
Subjective 2 Subjective: Patient is still requiring high flow oxygen of 11 L. No chest pain. Shortness of breath is slightly improving. No fever or chills. No chest pain. No significant arrhythmias on the monitor. Medications: Medication Review Details: Current Medications Acetaminophen (Acetaminophen 325 Mg Tablet) 650 mg PO Q6H PRN PRN Reason: MILD PAIN Last Admin: 12/27/23 06:03 Dose: 650 mg Acetaminophen (Acetaminophen 650 Mg Supp) 650 mg ND Q6H PRN PRN Reason: FEVER Albuterol/Ipratropium (Ipratropium-Albuterol 3 Ml Neb) 3 ml INHALATION QID.RESPIRATORY [facility] Last Admin: 12/26/23 20:23 Dose: 3 ml Amlodipine Besylate (Amlodipine 10 Mg Tablet) 10 mg PO DAILY [facility] Aspirin (Aspirin 81 Mg Ec Tablet) 81 mg PO DAILY [facility] Atorvastatin Calcium (Atorvastatin 40 Mg Tablet) 40 mg PO BEDTIME [facility] Last Admin: 12/26/23 20:57 Dose: 40 mg Clopidogrel Bisulfate (Clopidogrel 300 Mg Tablet) 300 mg PO ONCE ONE Stop: 12/27/23 07:31 Clopidogrel Bisulfate (Clopidogrel 75 Mg Tablet) 75 mg PO DAILY [facility] Docusate Sodium (Docusate Sodium 100 Mg Capsule) 100 mg PO BID PRN PRN Reason: constipaton Duloxetine HCl (Duloxetine 20 Mg Capsule) 20 mg PO DAILY [facility] Enoxaparin Sodium (Enoxaparin 80 Mg/0.8 Ml Syringe) 130 mg SUBCUT Q12H [facility] Last Admin: 12/27/23 05:42 Dose: 130 mg Dextrose (D5w) 500 mls @ 0 mls/hr IV ONCE PRN; Protocol PRN Reason: Adult Acute Hypoglycemia Prot Dextrose (D10w) 125 mls @ 750 mls/hr IV PRN PRN; Protocol PRN Reason: Adult Acute Hypoglycemia Nursing Protocol Dextrose (D10w) 250 mls @ 1,000 mls/hr IV PRN PRN; Protocol PRN Reason: Adult Acute Hypoglycemia Nursing Protocol Insulin Glargine (Insulin Glargine 100 Units/1 Ml) 30 unit SUBCUT QAM [facility] Last Admin: 12/27/23 05:43 Dose: 30 unit Insulin Human Lispro (Insulin Lispro 100 Unit/1 Ml) 0 unit SUBCUT WM&BEDTIME [facility]; Protocol Last Admin: 12/26/23 21:38 Dose: 12 unit Methylprednisolone Sodium Succinate (Methylprednisolone Sod Succ 40 Mg/Ml Inj) 40 mg IVP Q6H [facility] Last Admin: 12/27/23 05:43 Dose: 40 mg Pantoprazole Sodium (Pantoprazole Dr 40 Mg Tablet) 40 mg PO DAILY [facility] Tramadol HCl (Tramadol 50 Mg Tablet) 100 mg PO TID PRN PRN Reason: Pain Last Admin: 12/27/23 06:03 Dose: 100 mg Trazodone HCl (Trazodone 150 Mg Tablet) 150 mg PO BEDTIME PRN PRN Reason: sleep Vitals/I&O/Wt Last Vital Signs Temp 97.3 F L 12/27/23 03:56 Pulse 85 12/27/23 06:00 Resp 21 H 12/27/23 00:00 BP 145/88 12/27/23 03:56 Pulse Ox 99 12/27/23 03:56 O2 Del Method Nasal Cannula 12/27/23 03:56 O2 Flow Rate 10 12/26/23 20:32 FiO2 50 12/26/23 20:35 12/26/23 12/27/23 12/27/23 22:59 06:59 14:59 Intake Total 286 / 286 Output Total 400 / 400 700 / 1100 Balance -114 / -114 -700 / -814 Weight last 48 hrs Weight 282 lb Weight 282 lb Weight 289 lb Weight 280 lb Physical Exam 2 Narrative: GENERAL: The patient is alert and oriented times three. Not in any acute distress. Obese. HEENT: No significant pallor, icterus or lymphadenopathy.Oral cavity: There are no mucous membrane lesions. NECK: Trachea appears to be central. No masses noted. No JVD or thyromegaly appreciated. RESPIRATORY: Chest is symmetrical. No intercostals muscle retraction or any accessory muscle activation. There is no chest wall tenderness. Breath sounds are heard bilaterally. Bilateral coarse crackles with occasional expiratory wheezing. No evidence of consolidation. BREASTS: Deferred. HEART: The heart sounds are normal. No S3 or S4. No significant murmurs. No pericardial rub ABDOMEN: No vessel pulsations or distention. No tenderness. No organomegaly appreciated. Bowel sounds are normally heard. : Deferred. RECTAL: Deferred. LYMPHATIC: No lymphadenopathy noted in the neck. EXTREMITIES: No edema or cyanosis. No clubbing. MUSCULOSKELETAL: No acute joint deformities or swelling SKIN: There are no significant rashes or ecchymosis NEUROPSYCHIATRIC: The patient is alert and oriented x3. Appears to be in a good mood. No tremors or rigidity noted. Data 12/27/23 02:17 12/27/23 02:17 Other Labs: Laboratory Last Values WBC 3.94 10^3/uL (3.29-11.43) 12/27/23 02:17 RBC 6.25 10^6/uL (3.85-5.65) H 12/27/23 02:17 Hgb 18.70 g/dL (11.27-16.99) H D 12/27/23 02:17 Hct 58.0 % (37-53) H 12/27/23 02:17 MCV 92.8 fl (82-101) 12/27/23 02:17 MCH 29.9 pg (27-33) 12/27/23 02:17 MCHC 32.2 g/dL (30-55) D 12/27/23 02:17 RDW 12.8 % (12.1-15.1) 12/27/23 02:17 Plt Count 101 10^3/cmm (157-399) L 12/27/23 02:17 MPV 11.7 fL (7.4-10.4) H 12/27/23 02:17 Neut % (Auto) 82.8 % 12/27/23 02:17 Lymph % (Auto) 13.5 % 12/27/23 02:17 Barnes % (Auto) 2.8 % 12/27/23 02:17 Eos % (Auto) 0.3 % 12/27/23 02:17 Baso % (Auto) 0.3 % 12/27/23 02:17 Neut # (Auto) 3.27 10^3/uL (1.8-7.7) 12/27/23 02:17 Lymph # (Auto) 0.5 10^3/uL (0.8-4.8) L 12/27/23 02:17 Barnes # (Auto) 0.1 10^3/uL (0.2-0.9) L 12/27/23 02:17 Eos # (Auto) 0.0 10^3/uL (0.0-0.8) 12/27/23 02:17 Baso # (Auto) 0.0 10^3/uL (0.0-0.1) 12/27/23 02:17 Nucleated RBC % (auto) 0 % 12/27/23 02:17 Nucleated RBCs # 0.0 /100WBC 12/27/23 02:17 D-Dimer 1.55 ug/mLFEU (0-0.59) H 12/26/23 12:10 Specimen Type Arterial 12/26/23 10:29 Sample Site Radial, left 12/26/23 10:29 ABG pH 7.34 (7.35-7.45) L 12/26/23 10:29 ABG pCO2 55.6 mmHg (35-45) H 12/26/23 10:29 ABG pO2 62.8 mmHg (80.0-100.0) L 12/26/23 10:29 ABG HCO3 30.3 mmol/L (22-26) H 12/26/23 10:29 ABG Base Excess 3.1 mmol/L (-2.0-2.0) H 12/26/23 10:29 Neville Test Pos 12/26/23 10:29 Hematocrit 43.0 % (42-52) 12/26/23 10:29 Hgb O2 Saturation 88.9 % (95-100) L 12/26/23 10:29 Carboxyhemoglobin 0.5 %THgb (0.4-20.1) 12/26/23 10:29 Methemoglobin 0.7 % (0.4-1.5) 12/26/23 10:29 Total Hemoglobin 14.0 g/dL (14-18) 12/26/23 10:29 O2 Delivery Device Oxy mask 12/26/23 10:29 O2 Liters/Min 10.0 % 12/26/23 10:29 Entry Level Mechanical Engineer ID [id number] 12/26/23 10:29 Sodium 142 mmol/L (136-145) 12/27/23 02:17 Potassium 4.7 mmol/L (3.5-5.1) 12/27/23 02:17 Chloride 101 mmol/L (98-107) 12/27/23 02:17 Carbon Dioxide 25 mmol/L (22-29) 12/27/23 02:17 Anion Gap 19.7 (5-19) H 12/27/23 02:17 BUN 16 mg/dL (8-23) 12/27/23 02:17 Creatinine 1.1 mg/dL (0.7-1.2) 12/27/23 02:17 GFR Calculation Not Reportable 12/27/23 02:17 Glucose 155 mg/dL (65-115) H 12/27/23 02:17 POC Glucose 179 mg/dL (70-110) H 12/27/23 06:16 Estimat Average Glucose 166 12/26/23 10:40 Hemoglobin A1c 7.4 % (4.0-6.0) H 12/26/23 10:40 Calculated Osmolality 291 mOsm/kg (285-295) 12/26/23 10:40 Lactic Acid 1.8 mmol/L (0.5-2.2) 12/26/23 10:40 Calcium 9.6 mg/dL (8.5-10.5) 12/27/23 02:17 Phosphorus 1.8 mg/dL (2.5-4.5) L 12/27/23 02:17 Magnesium 2.3 mg/dL (1.7-2.3) 12/27/23 02:17 Total Bilirubin 0.2 mg/dL (0.15-1.2) 12/26/23 10:40 AST 21 U/L (0-40) 12/26/23 10:40 ALT 15 U/L (0-41) 12/26/23 10:40 Alkaline Phosphatase 153 U/L (40-130) H 12/26/23 10:40 Troponin T Baseline 9 ng/L (0-15) 12/26/23 10:40 Troponin T 120 Minute 9.33 ng/L (0-15) 12/26/23 12:10 Delta Troponin T 0.33 ABS# (0-10) 12/26/23 12:10 Troponin T Hi Sens 6Hr 555.0 ng/L (0-15) H 12/26/23 16:51 Troponin T Hi Sens 6Hr Delta 546.0 ng/L (0-12) H* 12/26/23 16:51 NT-Pro-B Natriuret Pep < 36 pg/mL (0-125) 12/26/23 10:40 Total Protein 7.9 g/dL (6.6-8.7) 12/26/23 10:40 Albumin 4.3 g/dL (3.5-5.2) 12/27/23 02:17 Globulin 4.1 g/dL (1.3-4.6) 12/26/23 10:40 Procalcitonin 0.07 ng/mL (0-0.5) 12/26/23 10:40 A&P Assessment and plan (1) Elevated troponin: Most likely related to [id number] myocardial infarction, type I. Hemodynamically seems to be stable. Currently has no chest pain. Will continue the Lovenox aspirin and Plavix. Other medications also may be continued. (2) Hyperlipidemia: May continue on the current dose of the Lipitor. Qualifiers: Hyperlipidemia type: mixed hyperlipidemia Qualified Code(s): E78.2 - Mixed hyperlipidemia (3) Type 2 diabetes mellitus: The blood sugar seems to be under control. May continue on the current management. Qualifiers: Diabetes mellitus complication status: without complication Diabetes mellitus usp insulin use: without watermelon harvesting supervisor use Qualified Code(s): E11.9 - Type 2 diabetes mellitus without complications (4) Acute respiratory failure with hypoxia and hypercapnia: Patient is on bronchodilator treatment. Management as per the primary. (5) Elevated blood pressure reading: The blood pressure is slightly elevated today. May continue on the metoprolol. I may add isosorbide mononitrate 30 mg p.o. now 1 day Continue on the other medications Plan Based on the clinical progress, further recommendations will be made. Patient may benefit from a cardiac catheterization. We will wait till the respiratory status becomes stable. Attestations 2 Medical Necessity Statement*: Patient requires continued hospital stay for close monitoring and further management Coding Level of Care Code 33997 Diagnoses Elevated troponin R79.89 Mixed hyperlipidemia E78.2 Hyperlipidemia type: mixed hyperlipidemia Type 2 diabetes mellitus without complication, without long-term current use of insulin E11.9 Diabetes mellitus complication status: without complication Diabetes mellitus watermelon harvesting supervisor insulin use: without watermelon harvesting supervisor use Acute respiratory failure with hypoxia and hypercapnia J96.01; J96.02 Elevated blood pressure reading R03.0
[2023-12-27] MEDS: ipratropium-albuterol 3 mL Neb INHALATION ×4 (07:36→20:16)
[2023-12-27] MEDS: clopidogrel 300 mg Tablet PO (08:24)
[2023-12-27] MEDS: duloxetine 20 mg Capsule PO (08:25)
[2023-12-27] MEDS: aspirin 81 mg EC Tablet PO (08:25)
[2023-12-27] MEDS: pantoprazole DR 40 mg Tablet PO (08:25)
[2023-12-27] MEDS: amlodipine 10 mg Tablet PO (08:25)
[2023-12-27] MEDS: insulin lispro 100 unit/1 mL SUBCUT ×4 (08:26→21:46)
[2023-12-27 11:31] LABS: Glucose Point of Care 254 mg/dL (70-110)
[2023-12-27] MEDS: metoprolol tartrate 25 mg Tablet PO ×2 (11:40→20:37)
--- NOTE | 2023-12-27 16:22 | P.PN_ITS ---
Subjective 2 Subjective: Denies any chest pain today. Noted to have bilateral wheezing on exam. Oxygen requirement at 8 L/min today. Medications: Reviewed: Yes Medication Review Details: Current Medications Acetaminophen (Acetaminophen 325 Mg Tablet) 650 mg PO Q6H PRN PRN Reason: MILD PAIN Last Admin: 12/27/23 06:03 Dose: 650 mg Acetaminophen (Acetaminophen 650 Mg Supp) 650 mg IA Q6H PRN PRN Reason: FEVER Albuterol/Ipratropium (Ipratropium-Albuterol 3 Ml Neb) 3 ml INHALATION QID.RESPIRATORY [facility] Last Admin: 12/26/23 20:23 Dose: 3 ml Amlodipine Besylate (Amlodipine 10 Mg Tablet) 10 mg PO DAILY [facility] Aspirin (Aspirin 81 Mg Ec Tablet) 81 mg PO DAILY [facility] Atorvastatin Calcium (Atorvastatin 40 Mg Tablet) 40 mg PO BEDTIME [facility] Last Admin: 12/26/23 20:57 Dose: 40 mg Clopidogrel Bisulfate (Clopidogrel 300 Mg Tablet) 300 mg PO ONCE ONE Stop: 12/27/23 07:31 Clopidogrel Bisulfate (Clopidogrel 75 Mg Tablet) 75 mg PO DAILY [facility] Docusate Sodium (Docusate Sodium 100 Mg Capsule) 100 mg PO BID PRN PRN Reason: constipaton Duloxetine HCl (Duloxetine 20 Mg Capsule) 20 mg PO DAILY [facility] Enoxaparin Sodium (Enoxaparin 80 Mg/0.8 Ml Syringe) [address] [facility] Last Admin: 12/27/23 05:42 Dose: 130 mg Dextrose (D5w) 500 mls @ 0 mls/hr IV ONCE PRN; Protocol PRN Reason: Adult Acute Hypoglycemia Prot Dextrose (D10w) 125 mls @ 750 mls/hr IV PRN PRN; Protocol PRN Reason: Adult Acute Hypoglycemia Nursing Protocol Dextrose (D10w) 250 mls @ 1,000 mls/hr IV PRN PRN; Protocol PRN Reason: Adult Acute Hypoglycemia Nursing Protocol Insulin Glargine (Insulin Glargine 100 Units/1 Ml) [address] [facility] Last Admin: 12/27/23 05:43 Dose: 30 unit Insulin Human Lispro (Insulin Lispro 100 Unit/1 Ml) 0 unit SUBCUT WM&BEDTIME [facility]; Protocol Last Admin: 12/26/23 21:38 Dose: 12 unit Methylprednisolone Sodium Succinate (Methylprednisolone Sod Succ 40 Mg/Ml Inj) 40 mg IVP Q6H [facility] Last Admin: 12/27/23 05:43 Dose: 40 mg Pantoprazole Sodium (Pantoprazole Dr 40 Mg Tablet) 40 mg PO DAILY [facility] Tramadol HCl (Tramadol 50 Mg Tablet) 100 mg PO TID PRN PRN Reason: Pain Last Admin: 12/27/23 06:03 Dose: 100 mg Trazodone HCl (Trazodone 150 Mg Tablet) 150 mg PO BEDTIME PRN PRN Reason: sleep Vitals/I&O/Wt Last Vital Signs Temp 97.8 F 12/27/23 11:21 Pulse 94 12/27/23 16:10 Resp 18 12/27/23 16:10 BP 140/81 12/27/23 11:21 Pulse Ox 93 12/27/23 16:10 O2 Del Method High Flow Nasal Cannula 12/27/23 16:10 O2 Flow Rate 8 12/27/23 16:10 FiO2 50 12/26/23 20:35 12/27/23 12/27/23 12/27/23 06:59 14:59 22:59 Intake Total 476 / 476 Output Total 980 / 1380 770 / 770 Balance -980 / -1094 -294 / -294 Weight last 48 hrs Weight 127.913 kg Weight 127.913 kg Weight 131.088 kg Weight 127.006 kg Physical Exam 2 Narrative: General: No acute distress, AO x3 HEENT: PERRLA, pupils bilaterally equal and reactive, pallors not present Chest: Scattered wheezing to auscultation bilaterally all areas. CVS: S1-S2 regular, no murmurs, no tachycardia, no gallops, no rubs Abdomen: Soft, nontender, no organomegaly, bowel sounds present Neuro: No focal deficits, no facial deformity, AO x3, power 5/5 in all limbs Extremities: Healthy surgical dressing present on the right hip, mild tenderness, soft no erythema. Data 12/27/23 02:17 12/27/23 02:17 A&P Assessment and plan (1) Acute respiratory failure with hypoxia and hypercapnia: (2) COPD exacerbation: (3) Hyperlipidemia: Qualifiers: Hyperlipidemia type: mixed hyperlipidemia Qualified Code(s): E78.2 - Mixed hyperlipidemia (4) Type 2 diabetes mellitus: Qualifiers: Diabetes mellitus dedicated intermodal truck driver insulin use: without dedicated intermodal truck driver use Diabetes mellitus complication status: without complication Qualified Code(s): E11.9 - Type 2 diabetes mellitus without complications (5) GERD (gastroesophageal reflux disease): (6) Insomnia: Plan Acute hypoxic and hypercarbic respiratory failure COPD exacerbation ? He is afebrile and has normal WBC, lactic acid and procalcitonin levels ? CT chest showed Bilateral lower lobe atelectasis/segmental collapse ? No home oxygen; currently on 10 L/min O2 ? Will place on BiPAP ? Solu-Medrol 40 mg every 6 hours, DuoNebs 4 times daily and budesonide every 12 hours ? Monitor O2 sats and wean oxygen as tolerated ? Telemetry monitoring Type 2 diabetes mellitus ? A1c was 14.6% on 04/08/2023; will repeat ? Continue Lantus and sliding scale lispro ? Monitor glucose and adjust regimen as needed Essential hypertension ? BP stable ? Continue home amlodipine Hyperlipidemia ? Continue atorvastatin Chronic insomnia ? Trazodone as needed at bedtime GERD ? Continue Protonix Plan for today December 27, 2023. Oxygen requirement slightly improved at 8 L/min today. Continues to have scattered bilateral wheezing. Steroids dose adjusted to 40 mg IV every 8 hours from IV every 6 hours. Add budesonide inhalation twice daily. Lasix 20 mg IV today. Per review of snf records patient takes Lasix 20 mg p.o. every day, will resume home dosing currently. Plan for cardiac cath tentatively tomorrow if he is able to tolerate laying flat and improved from a respiratory standpoint. Add Imdur 30 mg p.o. daily for better blood pressure management. Currently blood pressure ranging between 1 40-1 66 systolic. Attestations 2 Medical Necessity Statement*: Plan coronary angiogram once stable from a respiratory standpoint. Add Imdur for better blood pressure management. Add budesonide and IV diuresis today. Coding Level of Care Code Acute Code for Chg Fwd High MDM includes number and complexity of problems actively addressed during encounter, amount and/or complexity of data reviewed/ordered and described risk of complication, morbidity or mortality of management as documented Diagnoses Acute respiratory failure with hypoxia and hypercapnia J96.01; J96.02 COPD exacerbation J44.1 Mixed hyperlipidemia E78.2 Hyperlipidemia type: mixed hyperlipidemia Type 2 diabetes mellitus without complication, without long-term current use of insulin E11.9 Diabetes mellitus intermediate insulin use: without dedicated intermodal truck driver use Diabetes mellitus complication status: without complication GERD (gastroesophageal reflux disease) K21.9 Insomnia G47.00
[2023-12-27] MEDS: calcium carbonate 500 mg Chew Tablet 1000 MG PO (16:40)
[2023-12-27] MEDS: isosorbide mononitrate ER 30 mg Tablet PO (16:41)
[2023-12-27] MEDS: morphine 4 mg/mL SDV 1 mL 2 MG IVP (16:41)
[2023-12-27] MEDS: FUROsemide 10 mg/mL SDV 2mL 20 MG IVP (16:41)
[2023-12-27 16:51] LABS: Glucose Point of Care 184 mg/dL (70-110)
[2023-12-27] MEDS: budesonide 0.5 mg/2 mL Neb INHALATION (20:16)
[2023-12-27] MEDS: atorvastatin 40 mg Tablet PO (20:37)
[2023-12-27 21:28] LABS: Glucose Point of Care 193 mg/dL (70-110)
[2023-12-28] VITALS (16 sets, daily range): BP systolic 121–142; BP diastolic 74–77; PULSE 65–103; RESP 16–22; TEMP 36.5–37.2; O2SAT 90–97
[2023-12-28 03:28] LABS: Basophils % 0.1 %; Hematocrit 41.2 % (37-53); Lymphocytes # 0.8 10^3/uL (0.8-4.8); Lymphocytes % 5.9 %; Mean Corpuscular HGB Conc 31.3 g/dL (30-55); Mean Corpuscular Hemoglobin 29.7 pg (27-33); Mean Corpuscular Volume 94.7 fl (82-101); Mean Platelet Volume 11.2 fL (7.4-10.4); Monocytes # 0.7 10^3/uL (0.2-0.9); Monocytes % 4.9 %; Neutrophils # 12.24 10^3/uL (1.8-7.7); Neutrophils % 88.7 %; Nucleated Red Blood Cells % 0 %; Platelet Count 229 10^3/cmm (157-399); Red Blood Count 4.35 10^6/uL (3.85-5.65); Red Cell Distribution Width 13.2 % (12.1-15.1)
[2023-12-28 03:57] LABS: Alanine Aminotransferase 13 U/L (0-41); Albumin Level 3.9 g/dL (3.5-5.2); Alkaline Phosphatase 118 U/L (40-130); Anion Gap 14.2 (5-19); Aspartate Amino Transferase 13 U/L (0-40); Blood Urea Nitrogen 31 mg/dL (8-23); Calcium 8.8 mg/dL (8.5-10.5); Carbon Dioxide 29 mmol/L (22-29); Chloride 104 mmol/L (98-107); Creatinine Clr Calc Pharmacy 75.7054; Globulin 3.8 g/dL (1.3-4.6); Glucose 144 mg/dL (65-115); Osmolality Calculated 305 mOsm/kg (285-295); Potassium 4.2 mmol/L (3.5-5.1); Sodium 143 mmol/L (136-145); Total Bilirubin 0.2 mg/dL (0.15-1.2); Total Protein 7.7 g/dL (6.6-8.7)
[2023-12-28] MEDS: methylPREDNISolone sod succ 40 mg/mL INJ IVP ×2 (05:12→13:32)
[2023-12-28] MEDS: enoxaparin 80 mg/0.8 mL Syringe 130 MG SUBCUT (06:12)
[2023-12-28] MEDS: insulin glargine 100 units/1 mL 30 UNIT SUBCUT (06:13)
[2023-12-28] MEDS: budesonide 0.5 mg/2 mL Neb INHALATION ×2 (07:33→20:40)
[2023-12-28] MEDS: ipratropium-albuterol 3 mL Neb INHALATION ×4 (07:34→20:40)
[2023-12-28 07:49] LABS: Glucose Point of Care 168 mg/dL (70-110)
--- NOTE | 2023-12-28 08:23 | P.PN_ITS ---
Subjective 2 Subjective: Patient is complaining of nausea and vomiting this morning. Not feeling that well. Shortness of breath is somewhat better. Currently he is on oxygen, 6 L/min by nasal cannula. Still has no chest pain. No fever or chills. Medications: Medication Review Details: Current Medications Acetaminophen (Acetaminophen 650 Mg Supp) 650 mg [place] Q6H PRN PRN Reason: FEVER Albuterol/Ipratropium (Ipratropium-Albuterol 3 Ml Neb) 3 ml INHALATION QID.RESPIRATORY TAYA Last Admin: 12/28/23 07:34 Dose: 3 ml Amlodipine Besylate (Amlodipine 10 Mg Tablet) 10 mg PO DAILY TAYA Last Admin: 12/27/23 08:25 Dose: 10 mg Aspirin (Aspirin 81 Mg Ec Tablet) 81 mg PO DAILY TAYA Last Admin: 12/27/23 08:25 Dose: 81 mg Atorvastatin Calcium (Atorvastatin 40 Mg Tablet) 40 mg PO BEDTIME TAYA Last Admin: 12/27/23 20:37 Dose: 40 mg Budesonide (Budesonide 0.5 Mg/2 Ml Neb) 0.5 mg INHALATION BID.RESPIRATORY [facility] Last Admin: 12/28/23 07:33 Dose: 0.5 mg Calcium Carbonate (Calcium Carbonate 500 Mg Chew Tablet) 1,000 mg PO Q6H PRN PRN Reason: INDIGESTION Last Admin: 12/27/23 16:40 Dose: 1,000 mg Clopidogrel Bisulfate (Clopidogrel 75 Mg Tablet) 75 mg PO DAILY [facility] Docusate Sodium (Docusate Sodium 100 Mg Capsule) 100 mg PO BID PRN PRN Reason: constipaton Duloxetine HCl (Duloxetine 20 Mg Capsule) 20 mg PO DAILY [facility] Last Admin: 12/27/23 08:25 Dose: 20 mg Enoxaparin Sodium (Enoxaparin 80 Mg/0.8 Ml Syringe) 130 mg SUBCUT Q12H TAYA Last Admin: 12/28/23 06:12 Dose: 130 mg Furosemide (Furosemide 20 Mg Tablet) 20 mg PO DAILY@0800 TAYA Dextrose (D5w) 500 mls @ 0 mls/hr IV ONCE PRN; Protocol PRN Reason: Adult Acute Hypoglycemia Prot Dextrose (D10w) 125 mls @ 750 mls/hr IV PRN PRN; Protocol PRN Reason: Adult Acute Hypoglycemia Nursing Protocol Dextrose (D10w) 250 mls @ 1,000 mls/hr IV PRN PRN; Protocol PRN Reason: Adult Acute Hypoglycemia Nursing Protocol Insulin Glargine (Insulin Glargine 100 Units/1 Ml) 30 unit SUBCUT QAM [facility] Last Admin: 12/28/23 06:13 Dose: 30 unit Insulin Human Lispro (Insulin Lispro 100 Unit/1 Ml) 0 unit SUBCUT WM&BEDTIME [facility]; Protocol Last Admin: 12/27/23 21:46 Dose: 8 unit Isosorbide Mononitrate (Isosorbide Mononitrate Er 30 Mg Tablet) 30 mg PO DAILY [facility] Last Admin: 12/27/23 16:41 Dose: 30 mg Methylprednisolone Sodium Succinate (Methylprednisolone Sod Succ 40 Mg/Ml Inj) 40 mg IVP Q8H [facility] Last Admin: 12/28/23 05:12 Dose: 40 mg Metoprolol Tartrate (Metoprolol Tartrate 25 Mg Tablet) 25 mg PO BID@0900,2100 [facility] Last Admin: 12/27/23 20:37 Dose: 25 mg Morphine Sulfate (Morphine 4 Mg/Ml Sdv 1 Ml) 2 mg IVP Q4H PRN PRN Reason: SEVERE PAIN Last Admin: 12/27/23 16:41 Dose: 2 mg Pantoprazole Sodium (Pantoprazole Dr 40 Mg Tablet) 40 mg PO DAILY [facility] Last Admin: 12/27/23 08:25 Dose: 40 mg Tramadol HCl (Tramadol 50 Mg Tablet) 100 mg PO TID PRN PRN Reason: Pain Last Admin: 12/27/23 06:03 Dose: 100 mg Trazodone HCl (Trazodone 150 Mg Tablet) 150 mg PO BEDTIME PRN PRN Reason: sleep Vitals/I&O/Wt Last Vital Signs Temp 97.7 F 12/28/23 07:50 Pulse 77 12/28/23 07:50 Resp 20 H 12/28/23 07:50 BP 142/76 12/28/23 07:50 Pulse Ox 92 12/28/23 07:50 O2 Del Method Nasal Cannula 12/28/23 07:50 O2 Flow Rate 7 12/28/23 07:34 FiO2 50 12/26/23 20:35 12/27/23 12/28/23 12/28/23 22:59 06:59 14:59 Intake Total 540 / 1016 100 / 1116 Output Total 650 / 1420 200 / 1620 Balance -110 / -404 -100 / -504 Weight last 48 hrs Weight 280 lb Weight 280 lb Weight 282 lb Weight 282 lb Weight 289 lb Weight 280 lb Physical Exam 2 Narrative: GENERAL: The patient is alert and oriented times three. Not in any acute distress. Obese. HEENT: No significant pallor, icterus or lymphadenopathy.Oral cavity: There are no mucous membrane lesions. NECK: Trachea appears to be central. No masses noted. No JVD or thyromegaly appreciated. RESPIRATORY: Chest is symmetrical. No intercostals muscle retraction or any accessory muscle activation. There is no chest wall tenderness. Breath sounds are heard bilaterally. Bilateral coarse crackles with occasional expiratory wheezing. No evidence of consolidation. BREASTS: Deferred. HEART: The heart sounds are normal. No S3 or S4. No significant murmurs. No pericardial rub ABDOMEN: No vessel pulsations or distention. No tenderness. No organomegaly appreciated. Bowel sounds are normally heard. : Deferred. RECTAL: Deferred. LYMPHATIC: No lymphadenopathy noted in the neck. EXTREMITIES: No edema or cyanosis. No clubbing. MUSCULOSKELETAL: No acute joint deformities or swelling SKIN: There are no significant rashes or ecchymosis NEUROPSYCHIATRIC: The patient is alert and oriented x3. Appears to be in a good mood. No tremors or rigidity noted. Data 12/28/23 02:26 12/28/23 02:26 Micro: Laboratory Last Values WBC 13.80 10^3/uL (3.29-11.43) H 12/28/23 02: RBC 4.35 10^6/uL (3.85-5.65) 12/28/23 02:26 Hgb 12.90 g/dL (11.27-16.99) 12/28/23 02:26 Hct 41.2 % (37-53) 12/28/23 02: MCV 94.7 fl (82-101) 12/28/23 02: MCH 29.7 pg (27-33) 12/28/23 02: MCHC 31.3 g/dL (30-55) 12/28/23 02: RDW 13.2 % (12.1-15.1) 12/28/23 02:26 Plt Count 229 10^3/cmm (157-399) D 12/28/23 02:26 MPV 11.2 fL (7.4-10.4) H 12/28/23 02: Neut % (Auto) 88.7 % 12/28/23 02: Lymph % (Auto) 5.9 % 12/28/23 02: Wallace % (Auto) 4.9 % 12/28/23 02: Eos % (Auto) 0.0 % 12/28/23 02: Baso % (Auto) 0.1 % 12/28/23 02: Neut # (Auto) 12.24 10^3/uL (1.8-7.7) H 12/28/23 02: Lymph # (Auto) 0.8 10^3/uL (0.8-4.8) 12/28/23 02: Wallace # (Auto) 0.7 10^3/uL (0.2-0.9) 12/28/23 02: Eos # (Auto) 0.0 10^3/uL (0.0-0.8) 12/28/23 02: Baso # (Auto) 0.0 10^3/uL (0.0-0.1) 12/28/23 02: Nucleated RBC % (auto) 0 % 12/28/23 02: Nucleated RBCs # 0.0 /100WBC 12/28/23 02: D-Dimer 1.55 ug/mLFEU (0-0.59) H 12/26/23 12:10 Specimen Type Arterial 12/26/23 10:29 Sample Site Radial, left 12/26/23 10:29 ABG pH 7.34 (7.35-7.45) L 12/26/23 10:29 ABG pCO2 55.6 mmHg (35-45) H 12/26/23 10:29 ABG pO2 62.8 mmHg (80.0-100.0) L 12/26/23 10:29 ABG HCO3 30.3 mmol/L (22-26) H 12/26/23 10:29 ABG Base Excess 3.1 mmol/L (-2.0-2.0) H 12/26/23 10:29 Neville Test Pos 12/26/23 10:29 Hematocrit 43.0 % (42-52) 12/26/23 10:29 Hgb O2 Saturation 88.9 % (95-100) L 12/26/23 10:29 Carboxyhemoglobin 0.5 %THgb (0.4-20.1) 12/26/23 10:29 Methemoglobin 0.7 % (0.4-1.5) 12/26/23 10:29 Total Hemoglobin 14.0 g/dL (14-18) 12/26/23 10:29 O2 Delivery Device Oxy mask 12/26/23 10:29 O2 Liters/Min 10.0 % 12/26/23 10:29 Press Operator Apprentice ID Amh 12/26/23 10:29 Sodium 143 mmol/L (136-145) 12/28/23 02:26 Potassium 4.2 mmol/L (3.5-5.1) 12/28/23 02:26 Chloride 104 mmol/L (98-107) 12/28/23 02:26 Carbon Dioxide 29 mmol/L (22-29) 12/28/23 02:26 Anion Gap 14.2 (5-19) 12/28/23 02:26 BUN 31 mg/dL (8-23) H 12/28/23 02:26 Creatinine 1.2 mg/dL (0.7-1.2) 12/28/23 02:26 GFR Calculation Not Reportable 12/28/23 02:26 Glucose 144 mg/dL (65-115) H 12/28/23 02:26 POC Glucose 168 mg/dL (70-110) H 12/28/23 07:44 Estimat Average Glucose 166 12/26/23 10:40 Hemoglobin A1c 7.4 % (4.0-6.0) H 12/26/23 10:40 Calculated Osmolality 305 mOsm/kg (285-295) H 12/28/23 02:26 Lactic Acid 1.8 mmol/L (0.5-2.2) 12/26/23 10:40 Calcium 8.8 mg/dL (8.5-10.5) 12/28/23 02:26 Phosphorus 1.8 mg/dL (2.5-4.5) L 12/27/23 02:17 Magnesium 2.3 mg/dL (1.7-2.3) 12/27/23 02:17 Total Bilirubin 0.2 mg/dL (0.15-1.2) 12/28/23 02:26 AST 13 U/L (0-40) 12/28/23 02:26 ALT 13 U/L (0-41) 12/28/23 02:26 Alkaline Phosphatase 118 U/L (40-130) 12/28/23 02:26 Troponin T Baseline 9 ng/L (0-15) 12/26/23 10:40 Troponin T 120 Minute 9.33 ng/L (0-15) 12/26/23 12:10 Delta Troponin T 0.33 ABS# (0-10) 12/26/23 12:10 Troponin T Hi Sens 6Hr 555.0 ng/L (0-15) H 12/26/23 16:51 Troponin T Hi Sens 6Hr Delta 546.0 ng/L (0-12) H* 12/26/23 16:51 NT-Pro-B Natriuret Pep < 36 pg/mL (0-125) 12/26/23 10:40 Total Protein 7.7 g/dL (6.6-8.7) 12/28/23 02:26 Albumin 3.9 g/dL (3.5-5.2) 12/28/23 02:26 Globulin 3.8 g/dL (1.3-4.6) 12/28/23 02:26 Procalcitonin 0.07 ng/mL (0-0.5) 12/26/23 10:40 A&P Assessment and plan (1) Elevated troponin: Patient has a history nonresolution myocardial infarction. Clinically seems to be stable. No chest pain. Shortness of breath seems to be improving (2) Hyperlipidemia: May continue on the current dose of the Lipitor. Qualifiers: Hyperlipidemia type: mixed hyperlipidemia Qualified Code(s): E78.2 - Mixed hyperlipidemia (3) Type 2 diabetes mellitus: The blood sugar seems to be under control. May continue on the current management. Qualifiers: Diabetes mellitus complication status: without complication Diabetes mellitus mcc insulin use: without mcc use Qualified Code(s): E11.9 - Type 2 diabetes mellitus without complications (4) Acute respiratory failure with hypoxia and hypercapnia: Patient is on bronchodilator treatment. Management as per the primary. (5) Elevated blood pressure reading: The blood pressure is in the normal range. Plan We may wait till the respiratory and the GI complaints are properly addressed. Patient has no chest pain. Hemodynamically seems to be stable. 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
[2023-12-28] MEDS: aspirin 81 mg EC Tablet PO (08:51)
[2023-12-28] MEDS: amlodipine 10 mg Tablet PO (08:52)
[2023-12-28] MEDS: insulin lispro 100 unit/1 mL SUBCUT ×3 (08:52→21:52)
[2023-12-28] MEDS: pantoprazole DR 40 mg Tablet PO ×2 (08:52→17:44)
[2023-12-28] MEDS: clopidogrel 75 mg Tablet PO (08:52)
[2023-12-28] MEDS: FUROsemide 20 mg Tablet PO (08:52)
[2023-12-28] MEDS: duloxetine 20 mg Capsule PO (08:52)
[2023-12-28] MEDS: isosorbide mononitrate ER 30 mg Tablet PO (08:52)
[2023-12-28] MEDS: metoprolol tartrate 25 mg Tablet PO ×2 (08:52→21:10)
--- NOTE | 2023-12-28 09:18 | PC.CHAP ---
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 compressor station operator visit [] Patient/Family/Request visit [] Outpatient visit [] Follow-up visit [] Physician referral [] Code/Alert [] Routine visit [] Staff referral [] Actively dying [x] Patient sleeping [] Family support [] [] Out of room [] Palliative care [] [] Receiving care in room [] Pre-surgical visit [] Trauma [] Long length of stay [] ICU visit [] Other: Relational/Emotional Strength [] Patient feels connected with others/family/visitors/staff [] Distress [] Loneliness/isolation [] Abandonment Spirituality of Patient [] Person of Cathryn [] Attends Alevism of their Cathryn [] Believes in Prayer [] Reads Bible or Confucianist materials [] There are Spiritual issues to be addressed [place] Interventions [] Prayer [] Active listening [] Non-anxious presence [] Spiritual/emotional support [] Crisis/trauma care [] Spiritual counseling [] Bereavement support [] Provided bereavement packet [] Provided Bible/devotional materials [] Provided toy/stuffed animal, coloring book to patient or family member [] Provided Communion [] Anointing/[place] [] Salvation [] Completed spiritual assessment [] Other: Impact on Illness or Injury [] Angry [] Fearful [] Anxious [] Often cries [] Exhaustion [] Unable to work [] Unable to attend oriental orthodox [] Unable to walk/stand [] Unable to read [] Unable to drive [] Unable to eat/drink [] Unable to sleep [] Unable to be with family [] Patient intubated [] Other: Summary Time spent with patient
[2023-12-28 09:46] LABS: Troponin T (5th) Once 8 ng/L (0-15)
[2023-12-28] MEDS: calcium carbonate 500 mg Chew Tablet 1000 MG PO (09:56)
[2023-12-28] MEDS: morphine 4 mg/mL SDV 1 mL 2 MG IVP ×3 (11:14→21:10)
[2023-12-28 12:18] LABS: Glucose Point of Care 172 mg/dL (70-110)
[2023-12-28] MEDS: ondansetron 2 mg/ML SDV 2 mL 4 MG IVP ×2 (12:24→13:31)
--- NOTE | 2023-12-28 15:10 | CTR_ITS ---
PROCEDURE INFORMATION: Exam: CT Abdomen And Pelvis Without Contrast Exam date and time: 12/28/2023 4:00 PM Age: 73 years old Clinical indication: Vomiting; Abdominal pain; Generalized; Additional info: Abdominal pain, abdominal pain, vomiting, increased distension - concern for TECHNIQUE: Imaging protocol: Computed tomography of the abdomen and pelvis without contrast. Radiation optimization: All CT scans at this facility use at least one of these dose optimization techniques: automated exposure control; mA and/or kV adjustment per patient size (includes targeted exams where dose is matched to clinical indication); or iterative reconstruction. COMPARISON: CT abdomen pelvis con [id number] 04/12/2023 11:57 AM RADIATION DOSE METRICS: Total DLP (mGy-cm): 1258 FINDINGS: Lungs: Mild centrilobular opacities in the right lower lobe. Left base atelectasis. Liver: Normal. No mass. Gallbladder and bile ducts: Small stones in the gallbladder. No visible wall thickening. The bile ducts are normal. Pancreas: Benign coarse calcifications in the pancreas, consistent with prior calcific pancreatitis. No evidence of acute pancreatitis. Spleen: Normal. No splenomegaly. Adrenal glands: Normal. No mass. Kidneys and ureters: Small right renal cyst, Hounsfield units less than 20. No follow-up imaging is recommended. The kidneys are otherwise unremarkable. No calculus or hydronephrosis. Stomach and bowel: Unremarkable. No obstruction. No mucosal thickening. Appendix: The appendix is not visualized. No secondary signs of appendicitis. Intraperitoneal space: Unremarkable. No free air. No significant fluid collection. Vasculature: Mild calcified arterial plaque. 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 Lymph nodes: Unremarkable. No enlarged lymph nodes. Urinary bladder: Unremarkable as visualized. Reproductive: Coarse prostate calcifications. Bones/joints: Degenerative changes and curvature of the thoracolumbar spine. Stable chronic T9, T10, L1, L2, and L3 compression fractures. No acute fracture. Old left rib fractures. Soft tissues: Small fat containing right inguinal hernia. 7.6 cm fat containing umbilical hernia. Multiple regions of stranding and gas bubbles in the anterior abdominal wall, consistent with medication injection sites. CT/CT abdomen pelvis con [id number] IMPRESSION: 1. No acute findings. 2. Cholelithiasis. 3. Mild centrilobular opacities in the right lung base could represent infectious bronchiolitis. COMMENTS: Consistent with the [employer]'s Incidental Findings Committee white paper (J Am Lionel Radiol 2018): Any incidental renal lesion less than 1 cm or classified as too small to characterize, or any incidental cystic renal lesion characterized as simple-appearing, is likely benign. No follow-up imaging is recommended for these lesions per consensus recommendations based on imaging criteria.
[2023-12-28] MEDS: lidocaine 2% viscous 15 ML, aluminum-mag hydrox-simethicon 30 ML, sucralfate oral liq 1 GM PO (15:32)
--- NOTE | 2023-12-28 16:17 | PC.NURSE ---
off unit to ct scan
--- NOTE | 2023-12-28 16:46 | P.PN_ITS ---
Subjective 2 Subjective: Oxygen requirement down to 6 L/min. This afternoon developed acute onset abdominal pain with multiple episodes of nausea. Denies any chest pain. Increasing leukocytosis, suspect that this is related to high-dose steroid use. No fever or chills. Medications: Reviewed: Yes Medication Review Details: Current Medications Acetaminophen (Acetaminophen 650 Mg Supp) 650 mg [place] Q6H PRN PRN Reason: FEVER Albuterol/Ipratropium (Ipratropium-Albuterol 3 Ml Neb) 3 ml INHALATION QID.RESPIRATORY TAYA Last Admin: 12/28/23 07:34 Dose: 3 ml Amlodipine Besylate (Amlodipine 10 Mg Tablet) 10 mg PO DAILY TAYA Last Admin: 12/27/23 08:25 Dose: 10 mg Aspirin (Aspirin 81 Mg Ec Tablet) 81 mg PO DAILY [facility]AYA Last Admin: 12/27/23 08:25 Dose: 81 mg Atorvastatin Calcium (Atorvastatin 40 Mg Tablet) 40 mg PO BEDTIME TAYA Last Admin: 12/27/23 20:37 Dose: 40 mg Budesonide (Budesonide 0.5 Mg/2 Ml Neb) 0.5 mg INHALATION BID.RESPIRATORY [facility] Last Admin: 12/28/23 07:33 Dose: 0.5 mg Calcium Carbonate (Calcium Carbonate 500 Mg Chew Tablet) 1,000 mg PO Q6H PRN PRN Reason: INDIGESTION Last Admin: 12/27/23 16:40 Dose: 1,000 mg Clopidogrel Bisulfate (Clopidogrel 75 Mg Tablet) 75 mg PO DAILY [facility] Docusate Sodium (Docusate Sodium 100 Mg Capsule) 100 mg PO BID PRN PRN Reason: constipaton Duloxetine HCl (Duloxetine 20 Mg Capsule) 20 mg PO DAILY [facility] Last Admin: 12/27/23 08:25 Dose: 20 mg Enoxaparin Sodium (Enoxaparin 80 Mg/0.8 Ml Syringe) 130 mg SUBCUT Q12H TAYA Last Admin: 12/28/23 06:12 Dose: 130 mg Furosemide (Furosemide 20 Mg Tablet) 20 mg PO DAILY@0800 TAYA Dextrose (D5w) 500 mls @ 0 mls/hr IV ONCE PRN; Protocol PRN Reason: Adult Acute Hypoglycemia Prot Dextrose (D10w) 125 mls @ 750 mls/hr IV PRN PRN; Protocol PRN Reason: Adult Acute Hypoglycemia Nursing Protocol Dextrose (D10w) 250 mls @ 1,000 mls/hr IV PRN PRN; Protocol PRN Reason: Adult Acute Hypoglycemia Nursing Protocol Insulin Glargine (Insulin Glargine 100 Units/1 Ml) 30 unit SUBCUT QAM [facility] Last Admin: 12/28/23 06:13 Dose: 30 unit Insulin Human Lispro (Insulin Lispro 100 Unit/1 Ml) 0 unit SUBCUT WM&BEDTIME [facility]; Protocol Last Admin: 12/27/23 21:46 Dose: 8 unit Isosorbide Mononitrate (Isosorbide Mononitrate Er 30 Mg Tablet) 30 mg PO DAILY [facility] Last Admin: 12/27/23 16:41 Dose: 30 mg Methylprednisolone Sodium Succinate (Methylprednisolone Sod Succ 40 Mg/Ml Inj) 40 mg IVP Q8H [facility] Last Admin: 12/28/23 05:12 Dose: 40 mg Metoprolol Tartrate (Metoprolol Tartrate 25 Mg Tablet) 25 mg PO BID@0900,2100 [facility] Last Admin: 12/27/23 20:37 Dose: 25 mg Morphine Sulfate (Morphine 4 Mg/Ml Sdv 1 Ml) 2 mg IVP Q4H PRN PRN Reason: SEVERE PAIN Last Admin: 12/27/23 16:41 Dose: 2 mg Pantoprazole Sodium (Pantoprazole Dr 40 Mg Tablet) 40 mg PO DAILY [facility] Last Admin: 12/27/23 08:25 Dose: 40 mg Tramadol HCl (Tramadol 50 Mg Tablet) 100 mg PO TID PRN PRN Reason: Pain Last Admin: 12/27/23 06:03 Dose: 100 mg Trazodone HCl (Trazodone 150 Mg Tablet) 150 mg PO BEDTIME PRN PRN Reason: sleep Vitals/I&O/Wt Last Vital Signs Temp 98.3 F 12/28/23 11:41 Pulse 74 12/28/23 15:20 Resp 19 H 12/28/23 15:17 BP 130/77 12/28/23 11:41 Pulse Ox 94 12/28/23 15:20 O2 Del Method BiPAP 12/28/23 15:17 O2 Flow Rate 5 12/28/23 11:22 FiO2 50 12/28/23 15:20 12/28/23 12/28/23 12/28/23 06:59 14:59 22:59 Intake Total 100 / 1116 352 / 352 Output Total 200 / 1620 Balance -100 / -504 352 / 352 Weight last 48 hrs Weight 127.006 kg Weight 127.006 kg Weight 127.913 kg Weight 127.913 kg Physical Exam 2 Narrative: General: No acute distress, AO x3 HEENT: PERRLA, pupils bilaterally equal and reactive, pallors not present Chest: Scattered wheezing to auscultation bilaterally all areas. CVS: S1-S2 regular, no murmurs, no tachycardia, no gallops, no rubs Abdomen: Soft, nontender, no organomegaly, bowel sounds present Neuro: No focal deficits, no facial deformity, AO x3, power 5/5 in all limbs Extremities: Healthy surgical dressing present on the right hip, mild tenderness, soft no erythema. Data 12/28/23 02:26 12/28/23 02:26 A&P Assessment and plan (1) Acute respiratory failure with hypoxia and hypercapnia: (2) COPD exacerbation: (3) Hyperlipidemia: Qualifiers: Hyperlipidemia type: mixed hyperlipidemia Qualified Code(s): E78.2 - Mixed hyperlipidemia (4) Type 2 diabetes mellitus: Qualifiers: Diabetes mellitus assisted insulin use: without terminal operations supervisor use Diabetes mellitus complication status: without complication Qualified Code(s): E11.9 - Type 2 diabetes mellitus without complications (5) GERD (gastroesophageal reflux disease): (6) Insomnia: Plan Acute hypoxic and hypercarbic respiratory failure COPD exacerbation ? He is afebrile and has normal WBC, lactic acid and procalcitonin levels ? CT chest showed Bilateral lower lobe atelectasis/segmental collapse ? No home oxygen; currently on 10 L/min O2 ? Will place on BiPAP ? Solu-Medrol 40 mg every 6 hours, DuoNebs 4 times daily and budesonide every 12 hours ? Monitor O2 sats and wean oxygen as tolerated ? Telemetry monitoring Type 2 diabetes mellitus ? A1c was 14.6% on 04/08/2023; will repeat ? Continue Lantus and sliding scale lispro ? Monitor glucose and adjust regimen as needed Essential hypertension ? BP stable ? Continue home amlodipine Hyperlipidemia ? Continue atorvastatin Chronic insomnia ? Trazodone as needed at bedtime GERD ? Continue Protonix Plan for today December 27, 2023. Oxygen requirement slightly improved at 8 L/min today. Continues to have scattered bilateral wheezing. Steroids dose adjusted to 40 mg IV every 8 hours from IV every 6 hours. Add budesonide inhalation twice daily. Lasix 20 mg IV today. Per review of correction records patient takes Lasix 20 mg p.o. every day, will resume home dosing currently. Plan for cardiac cath tentatively tomorrow if he is able to tolerate laying flat and improved from a respiratory standpoint. Add Imdur 30 mg p.o. daily for better blood pressure management. Currently blood pressure ranging between 1 40-1 66 systolic. Plan for today December 28, 2023. Oxygen requirement improving at 6 L/min today. Complaining of abdominal pain. States that he has been belching more than usual. Liver function stable today. Mildly tender to palpation in the left lower quadrant. No diarrhea. He was constipated earlier. Also had a few episodes of vomiting this afternoon. CT of the abdomen and pelvis has been ordere to assess for Sbo. He has an umbilical hernia, no signs of incarceration or strangulation currently. It is easily reducible. No pain to palpation over the hernia site. Interim development of leukocytosis with suspected is related to use of high-dose steroids. Reduced dose of steroids to methylprednisolone 40 mg IV every 24 hours today. No localizing signs or symptoms of infection at this time. CTA chest taken on December 25 was negative for any PE. There was some bilateral lower lobe atelectasis noted. No gross pneumonia. Will check UA and blood culture to complete infectious evaluation given leukocytosis. Cardiac cath unable to be proceeded with today. Continue Lovenox, aspirin, Plavix for medical management in the interim. Attestations 2 Medical Necessity Statement*: CT of the abdomen and pelvis today given abdominal pain. Evaluate for any possible underlying infection given leukocytosis. Still pending cardiac cath. Taper down steroids. 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
[2023-12-28 17:58] LABS: Glucose Point of Care 162 mg/dL (70-110)
[2023-12-28] MEDS: enoxaparin 150 mg/mL Syringe 130 MG SUBCUT (18:20)
[2023-12-28] MEDS: atorvastatin 40 mg Tablet PO (21:10)
[2023-12-28 21:34] LABS: Glucose Point of Care 191 mg/dL (70-110)
[2023-12-28] MEDS: TRAMadol 50 mg Tablet 100 MG PO (21:56)
[2023-12-29] VITALS (16 sets, daily range): BP systolic 91–143; BP diastolic 68–84; PULSE 62–100; RESP 17–26; TEMP 36.6–36.9; O2SAT 89–98
[2023-12-29] MEDS: morphine 4 mg/mL SDV 1 mL 2 MG IVP ×4 (01:30→20:47)
[2023-12-29 04:16] LABS: Basophils % 0.1 %; Hematocrit 38.4 % (37-53); Lymphocytes # 0.9 10^3/uL (0.8-4.8); Lymphocytes % 7.3 %; Mean Corpuscular HGB Conc 31.3 g/dL (30-55); Mean Corpuscular Hemoglobin 29.8 pg (27-33); Mean Corpuscular Volume 95.3 fl (82-101); Monocytes % 7.8 %; Neutrophils # 10.84 10^3/uL (1.8-7.7); Neutrophils % 84.3 %; Nucleated Red Blood Cells % 0 %; Platelet Count 230 10^3/cmm (157-399); Red Blood Count 4.03 10^6/uL (3.85-5.65); Red Cell Distribution Width 13.2 % (12.1-15.1); White Blood Count 12.87 10^3/uL (3.29-11.43)
[2023-12-29 04:45] LABS: Alanine Aminotransferase 11 U/L (0-41); Albumin Level 3.9 g/dL (3.5-5.2); Alkaline Phosphatase 106 U/L (40-130); Anion Gap 15.2 (5-19); Aspartate Amino Transferase 16 U/L (0-40); Blood Urea Nitrogen 33 mg/dL (8-23); Calcium 9.2 mg/dL (8.5-10.5); Carbon Dioxide 29 mmol/L (22-29); Chloride 105 mmol/L (98-107); Creatinine Clr Calc Pharmacy 82.2853; Glucose 106 mg/dL (65-115); Osmolality Calculated 308 mOsm/kg (285-295); Potassium 4.2 mmol/L (3.5-5.1); Sodium 145 mmol/L (136-145); Total Bilirubin 0.3 mg/dL (0.15-1.2); Total Protein 6.9 g/dL (6.6-8.7)
[2023-12-29] MEDS: enoxaparin 150 mg/mL Syringe 130 MG SUBCUT ×2 (06:10→17:46)
[2023-12-29] MEDS: insulin glargine 100 units/1 mL 30 UNIT SUBCUT (06:10)
[2023-12-29 06:21] LABS: Glucose Point of Care 117 mg/dL (70-110)
[2023-12-29] MEDS: budesonide 0.5 mg/2 mL Neb INHALATION ×2 (08:16→20:33)
[2023-12-29] MEDS: ipratropium-albuterol 3 mL Neb INHALATION ×4 (08:16→20:33)
[2023-12-29] MEDS: FUROsemide 20 mg Tablet PO (09:56)
[2023-12-29] MEDS: metoprolol tartrate 25 mg Tablet PO ×2 (09:56→20:48)
[2023-12-29] MEDS: isosorbide mononitrate ER 30 mg Tablet PO (09:56)
[2023-12-29] MEDS: aspirin 81 mg EC Tablet PO (09:56)
[2023-12-29] MEDS: pantoprazole DR 40 mg Tablet PO ×2 (09:56→17:47)
[2023-12-29] MEDS: amlodipine 10 mg Tablet PO (09:56)
[2023-12-29] MEDS: clopidogrel 75 mg Tablet PO (09:56)
[2023-12-29] MEDS: duloxetine 20 mg Capsule PO (09:56)
--- NOTE | 2023-12-29 10:28 | PC.CHAP ---
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 [] Patient/Family/Request visit [] Outpatient visit [] Follow-up visit [] Physician referral [] Code/Alert [] Routine visit [] Staff referral [] Actively dying [] Patient sleeping [] Family support [] [] Out of room [] Palliative care [] [] Receiving care in room [] Pre-surgical visit [] Trauma [] Long length of stay [] ICU visit [] Other: Relational/Emotional Strength [] Patient feels connected with others/family/visitors/staff [] Distress [] Loneliness/isolation [] Abandonment Spirituality of Patient [] Person of Cathryn [] Attends Mormonism of their Cathryn [] Believes in Prayer [] Reads Bible or Shinto materials [] There are Spiritual issues to be addressed [place] Interventions [x] Prayer [] Active listening [] Non-anxious presence [] Spiritual/emotional support [] Crisis/trauma care [] Spiritual counseling [] Bereavement support [] Provided bereavement packet [] Provided Bible/devotional materials [] Provided toy/stuffed animal, coloring book to patient or family member [] Provided Communion [] Anointing/[place] [] Salvation [] Completed spiritual assessment [] Other: Impact on Illness or Injury [] Angry [] Fearful [] Anxious [] Often cries [] Exhaustion [] Unable to work [] Unable to attend anglican [] Unable to walk/stand [] Unable to read [] Unable to drive [] Unable to eat/drink [] Unable to sleep [] Unable to be with family [] Patient intubated [] Other: Summary Time spent with patient 1 min
[2023-12-29 12:00] LABS: Glucose Point of Care 101 mg/dL (70-110)
--- NOTE | 2023-12-29 12:05 | PC.SOCIAL ---
IMM Update pg 2 of IMM updated and reviewed w/ patient. Copy provided and copy dated, initialed and placed in chart.
--- NOTE | 2023-12-29 12:54 | PM.PN ---
Subjective Subjective: Patient has some improvement of the symptoms today. He was tested positive for metapneumovirus. Denies any chest pain. Continues to have some shortness of breath. Medications: Medication Review Details: Current Medications Acetaminophen (Acetaminophen 650 Mg Supp) 650 mg SD Q6H PRN PRN Reason: FEVER Albuterol/Ipratropium (Ipratropium-Albuterol 3 Ml Neb) 3 ml INHALATION QID.RESPIRATORY [facility] Last Admin: 12/29/23 11:47 Dose: 3 ml Amlodipine Besylate (Amlodipine 10 Mg Tablet) 10 mg PO DAILY [facility] Last Admin: 12/29/23 09:56 Dose: 10 mg Aspirin (Aspirin 81 Mg Ec Tablet) 81 mg PO DAILY [facility] Last Admin: 12/29/23 09:56 Dose: 81 mg Atorvastatin Calcium (Atorvastatin 40 Mg Tablet) 40 mg PO BEDTIME [facility] Last Admin: 12/28/23 21:10 Dose: 40 mg Budesonide (Budesonide 0.5 Mg/2 Ml Neb) 0.5 mg INHALATION BID.RESPIRATORY [facility] Last Admin: 12/29/23 08:16 Dose: 0.5 mg Calcium Carbonate (Calcium Carbonate 500 Mg Chew Tablet) 1,000 mg PO Q6H PRN PRN Reason: INDIGESTION Last Admin: 12/28/23 09:56 Dose: 1,000 mg Clopidogrel Bisulfate (Clopidogrel 75 Mg Tablet) 75 mg PO DAILY [facility] Last Admin: 12/29/23 09:56 Dose: 75 mg Docusate Sodium (Docusate Sodium 100 Mg Capsule) 100 mg PO BID PRN PRN Reason: constipaton Duloxetine HCl (Duloxetine 20 Mg Capsule) 20 mg PO DAILY [facility] Last Admin: 12/29/23 09:56 Dose: 20 mg Enoxaparin Sodium (Enoxaparin 150 Mg/Ml Syringe) 130 mg SUBCUT Q12H [facility] Last Admin: 12/29/23 06:10 Dose: 130 mg Furosemide (Furosemide 20 Mg Tablet) 20 mg PO DAILY@0800 [facility] Last Admin: 12/29/23 09:56 Dose: 20 mg Dextrose (D5w) 500 mls @ 0 mls/hr IV ONCE PRN; Protocol PRN Reason: Adult Acute Hypoglycemia Prot Dextrose (D10w) 125 mls @ 750 mls/hr IV PRN PRN; Protocol PRN Reason: Adult Acute Hypoglycemia Nursing Protocol Dextrose (D10w) 250 mls @ 1,000 mls/hr IV PRN PRN; Protocol PRN Reason: Adult Acute Hypoglycemia Nursing Protocol Insulin Glargine (Insulin Glargine 100 Units/1 Ml) 30 unit SUBCUT QAM [facility] Last Admin: 12/29/23 06:10 Dose: 30 unit Insulin Human Lispro (Insulin Lispro 100 Unit/1 Ml) 0 unit SUBCUT WM&BEDTIME [facility]; Protocol Last Admin: 12/29/23 12:20 Dose: Not Given Isosorbide Mononitrate (Isosorbide Mononitrate Er 30 Mg Tablet) 30 mg PO DAILY [facility] Last Admin: 12/29/23 09:56 Dose: 30 mg Methylprednisolone Sodium Succinate (Methylprednisolone Sod Succ 40 Mg/Ml Inj) 40 mg IVP Q24H [facility] Metoprolol Tartrate (Metoprolol Tartrate 25 Mg Tablet) 25 mg PO BID@0900,2100 [facility] Last Admin: 12/29/23 09:56 Dose: 25 mg Morphine Sulfate (Morphine 4 Mg/Ml Sdv 1 Ml) 2 mg IVP Q4H PRN PRN Reason: SEVERE PAIN Last Admin: 12/29/23 11:23 Dose: 2 mg Pantoprazole Sodium (Pantoprazole Dr 40 Mg Tablet) 40 mg PO BID [facility] Last Admin: 12/29/23 09:56 Dose: 40 mg Tramadol HCl (Tramadol 50 Mg Tablet) 100 mg PO TID PRN PRN Reason: Pain Last Admin: 12/28/23 21:56 Dose: 100 mg Trazodone HCl (Trazodone 150 Mg Tablet) 150 mg PO BEDTIME PRN PRN Reason: sleep Vitals/I&O/Wt Last Vital Signs Temp 97.9 F 12/29/23 11:28 Pulse 62 12/29/23 11:50 Resp 22 H 12/29/23 11:50 BP 116/68 12/29/23 11:28 Pulse Ox 92 12/29/23 11:50 O2 Del Method Nasal Cannula 12/29/23 11:50 O2 Flow Rate 5 12/29/23 11:50 FiO2 50 12/28/23 15:20 12/28/23 12/29/23 12/29/23 22:59 06:59 14:59 Intake Total 236 / 588 Output Total 300 / 300 700 / 1000 200 / 200 Balance -64 / 288 -700 / -412 -200 / -200 Weight last 48 hrs Weight 278 lb 7 oz Weight 280 lb Weight 280 lb Physical Exam Narrative: GENERAL: The patient is alert and oriented times three. Not in any acute distress. Obese. HEENT: No significant pallor, icterus or lymphadenopathy.Oral cavity: There are no mucous membrane lesions. NECK: Trachea appears to be central. No masses noted. No JVD or thyromegaly appreciated. RESPIRATORY: Chest is symmetrical. No intercostals muscle retraction or any accessory muscle activation. There is no chest wall tenderness. Breath sounds are heard bilaterally. Bilateral coarse crackles with occasional expiratory wheezing. No evidence of consolidation. BREASTS: Deferred. HEART: The heart sounds are normal. No S3 or S4. No significant murmurs. No pericardial rub ABDOMEN: No vessel pulsations or distention. No tenderness. No organomegaly appreciated. Bowel sounds are normally heard. : Deferred. RECTAL: Deferred. LYMPHATIC: No lymphadenopathy noted in the neck. EXTREMITIES: No edema or cyanosis. No clubbing. MUSCULOSKELETAL: No acute joint deformities or swelling SKIN: There are no significant rashes or ecchymosis NEUROPSYCHIATRIC: The patient is alert and oriented x3. Appears to be in a good mood. No tremors or rigidity noted. Data 12/29/23 03:39 12/29/23 03:39 Other Labs: Laboratory Last Values WBC 12.87 10^3/uL (3.29-11.43) H 12/29/23 03:39 RBC 4.03 10^6/uL (3.85-5.65) 12/29/23 03:39 Hgb 12.00 g/dL (11.27-16.99) 12/29/23 03:39 Hct 38.4 % (37-53) 12/29/23 03:39 MCV 95.3 fl (82-101) 12/29/23 03:39 MCH 29.8 pg (27-33) 12/29/23 03:39 MCHC 31.3 g/dL (30-55) 12/29/23 03:39 RDW 13.2 % (12.1-15.1) 12/29/23 03:39 Plt Count 230 10^3/cmm (157-399) 12/29/23 03:39 MPV 11.0 fL (7.4-10.4) H 12/29/23 03:39 Neut % (Auto) 84.3 % 12/29/23 03:39 Lymph % (Auto) 7.3 % 12/29/23 03:39 Swisher % (Auto) 7.8 % 12/29/23 03:39 Eos % (Auto) 0.0 % 12/29/23 03:39 Baso % (Auto) 0.1 % 12/29/23 03:39 Neut # (Auto) 10.84 10^3/uL (1.8-7.7) H 12/29/23 03:39 Lymph # (Auto) 0.9 10^3/uL (0.8-4.8) 12/29/23 03:39 Swisher # (Auto) 1.0 10^3/uL (0.2-0.9) H 12/29/23 03:39 Eos # (Auto) 0.0 10^3/uL (0.0-0.8) 12/29/23 03:39 Baso # (Auto) 0.0 10^3/uL (0.0-0.1) 12/29/23 03:39 Nucleated RBC % (auto) 0 % 12/29/23 03:39 Nucleated RBCs # 0.0 /100WBC 12/29/23 03:39 D-Dimer 1.55 ug/mLFEU (0-0.59) H 12/26/23 12:10 Specimen Type Arterial 12/26/23 10:29 Sample Site Radial, left 12/26/23 10:29 ABG pH 7.34 (7.35-7.45) L 12/26/23 10:29 ABG pCO2 55.6 mmHg (35-45) H 12/26/23 10:29 ABG pO2 62.8 mmHg (80.0-100.0) L 12/26/23 10:29 ABG HCO3 30.3 mmol/L (22-26) H 12/26/23 10:29 ABG Base Excess 3.1 mmol/L (-2.0-2.0) H 12/26/23 10:29 Neville Test Pos 12/26/23 10:29 Hematocrit 43.0 % (42-52) 12/26/23 10:29 Hgb O2 Saturation 88.9 % (95-100) L 12/26/23 10:29 Carboxyhemoglobin 0.5 %THgb (0.4-20.1) 12/26/23 10:29 Methemoglobin 0.7 % (0.4-1.5) 12/26/23 10:29 Total Hemoglobin 14.0 g/dL (14-18) 12/26/23 10:29 O2 Delivery Device Oxy mask 12/26/23 10:29 O2 Liters/Min 10.0 % 12/26/23 10:29 Hand Box Folder ID [id number] 12/26/23 10:29 Sodium 145 mmol/L (136-145) 12/29/23 03:39 Potassium 4.2 mmol/L (3.5-5.1) 12/29/23 03:39 Chloride 105 mmol/L (98-107) 12/29/23 03:39 Carbon Dioxide 29 mmol/L (22-29) 12/29/23 03:39 Anion Gap 15.2 (5-19) 12/29/23 03:39 BUN 33 mg/dL (8-23) H 12/29/23 03:39 Creatinine 1.1 mg/dL (0.7-1.2) 12/29/23 03:39 GFR Calculation Not Reportable 12/29/23 03:39 Glucose 106 mg/dL (65-115) 12/29/23 03:39 POC Glucose 101 mg/dL (70-110) 12/29/23 11:26 Estimat Average Glucose 166 12/26/23 10:40 Hemoglobin A1c 7.4 % (4.0-6.0) H 12/26/23 10:40 Calculated Osmolality 308 mOsm/kg (285-295) H 12/29/23 03:39 Lactic Acid 1.8 mmol/L (0.5-2.2) 12/26/23 10:40 Calcium 9.2 mg/dL (8.5-10.5) 12/29/23 03:39 Phosphorus 1.8 mg/dL (2.5-4.5) L 12/27/23 02:17 Magnesium 2.3 mg/dL (1.7-2.3) 12/27/23 02:17 Total Bilirubin 0.3 mg/dL (0.15-1.2) 12/29/23 03:39 AST 16 U/L (0-40) 12/29/23 03:39 ALT 11 U/L (0-41) 12/29/23 03:39 Alkaline Phosphatase 106 U/L (40-130) 12/29/23 03:39 Troponin T 5th Gen ng/L 8 ng/L (0-15) 12/28/23 02:26 Troponin T Baseline 9 ng/L (0-15) 12/26/23 10:40 Troponin T 120 Minute 9.33 ng/L (0-15) 12/26/23 12:10 Delta Troponin T 0.33 ABS# (0-10) 12/26/23 12:10 Troponin T Hi Sens 6Hr 555.0 ng/L (0-15) H 12/26/23 16:51 Troponin T Hi Sens 6Hr Delta 546.0 ng/L (0-12) H* 12/26/23 16:51 NT-Pro-B Natriuret Pep < 36 pg/mL (0-125) 12/26/23 10:40 Total Protein 6.9 g/dL (6.6-8.7) 12/29/23 03:39 Albumin 3.9 g/dL (3.5-5.2) 12/29/23 03:39 Globulin 3.0 g/dL (1.3-4.6) 12/29/23 03:39 Procalcitonin 0.07 ng/mL (0-0.5) 12/26/23 10:40 Micro: Microbiology 12/29/23 03:39 Blood Culture - Preliminary Blood SPECIMEN COLLECTED 12/29/23 03:35 Blood Culture - Preliminary Blood SPECIMEN COLLECTED A&P Assessment and plan (1) Elevated troponin: We may consider cardiac catheterization tomorrow. Continue on the current medication for the time being. (2) Hyperlipidemia: May continue on the current dose of the Lipitor. Qualifiers: Hyperlipidemia type: mixed hyperlipidemia Qualified Code(s): E78.2 - Mixed hyperlipidemia (3) Type 2 diabetes mellitus: The blood sugar seems to be under control. May continue on the current management. Qualifiers: Diabetes mellitus complication status: without complication Diabetes mellitus fpc insulin use: without superintendent [employer] use Qualified Code(s): E11.9 - Type 2 diabetes mellitus without complications (4) Acute respiratory failure with hypoxia and hypercapnia: Overall status seems to be stable. Oxygenation has significantly improved. Will reevaluate in the morning. Consider possible cardiac catheterization tomorrow. (5) Elevated blood pressure reading: The blood pressure is in the normal range. May continue on the current medications. Plan Based on the patient clinical progress and evaluation in the morning, we will make a decision on the angiogram timing. Attestations Medical Necessity Statement*: Patient requires continued hospital stay for close monitoring and further management Coding Level of Care Code Acute Code for Chg Fwd Diagnoses Elevated troponin R79.89 Mixed hyperlipidemia E78.2 Hyperlipidemia type: mixed hyperlipidemia Type 2 diabetes mellitus without complication, without long-term current use of insulin E11.9 Diabetes mellitus complication status: without complication Diabetes mellitus fpc insulin use: without fpc use Acute respiratory failure with hypoxia and hypercapnia J96.01; J96.02 Elevated blood pressure reading R03.0
--- NOTE | 2023-12-29 13:23 | PC.NURSE ---
Provider ordered lidocaine patch for patients back pain.
[2023-12-29] MEDS: lidocaine 5% Patch 1 PATCH TOPICAL ×2 (13:45→20:53)
[2023-12-29] MEDS: methylPREDNISolone sod succ 40 mg/mL INJ IVP (13:45)
[2023-12-29 14:43] LABS: Adenovirus Not Detected (NOT DETECT); Chlamydia Pneumoniae Not Detected (NOT DETECT); Coronavirus 229E,HKU1,NL63,OC4 Not Detected (NOT DETECT); Human Metapneumovirus Detected (NOT DETECT); Human Rhinovirus/Enterovirus Not Detected (NOT DETECT); Influenza A Not Detected (NOT DETECT); Influenza A H1 Not Detected (NOT DETECT); Influenza A H1-2009 Not Detected (NOT DETECT); Influenza A H3 Not Detected (NOT DETECT); Influenza B Not Detected (NOT DETECT); Mycoplasma Pneumoniae Not Detected (NOT DETECT); Parainfluenza Virus Type 1 Not Detected (NOT DETECT); Parainfluenza Virus Type 2 Not Detected (NOT DETECT); Parainfluenza Virus Type 3 Not Detected (NOT DETECT); Parainfluenza Virus Type 4 Not Detected (NOT DETECT); Respiratory Syncytial Virus A Not Detected (NOT DETECT); Respiratory Syncytial Virus B Not Detected (NOT DETECT); SARS-COV-2 Not Detected (NOT DETECT)
[2023-12-29 16:41] LABS: Glucose Point of Care 127 mg/dL (70-110)
--- NOTE | 2023-12-29 17:17 | P.PN_ITS ---
Subjective 2 Subjective: RVP obtained today showed + metapneumovirus which would explain payient's symptom severity. CT Abd/pelvis no acute pathology. abdominal pain and nausea resolved today Medications: Reviewed: Yes Medication Review Details: Current Medications Acetaminophen (Acetaminophen 650 Mg Supp) 650 mg SC Q6H PRN PRN Reason: FEVER Albuterol/Ipratropium (Ipratropium-Albuterol 3 Ml Neb) 3 ml INHALATION QID.RESPIRATORY [facility] Last Admin: 12/29/23 11:47 Dose: 3 ml Amlodipine Besylate (Amlodipine 10 Mg Tablet) 10 mg PO DAILY [facility] Last Admin: 12/29/23 09:56 Dose: 10 mg Aspirin (Aspirin 81 Mg Ec Tablet) 81 mg PO DAILY [facility] Last Admin: 12/29/23 09:56 Dose: 81 mg Atorvastatin Calcium (Atorvastatin 40 Mg Tablet) 40 mg PO BEDTIME [facility] Last Admin: 12/28/23 21:10 Dose: 40 mg Budesonide (Budesonide 0.5 Mg/2 Ml Neb) 0.5 mg INHALATION BID.RESPIRATORY [facility] Last Admin: 12/29/23 08:16 Dose: 0.5 mg Calcium Carbonate (Calcium Carbonate 500 Mg Chew Tablet) 1,000 mg PO Q6H PRN PRN Reason: INDIGESTION Last Admin: 12/28/23 09:56 Dose: 1,000 mg Clopidogrel Bisulfate (Clopidogrel 75 Mg Tablet) 75 mg PO DAILY [facility] Last Admin: 12/29/23 09:56 Dose: 75 mg Docusate Sodium (Docusate Sodium 100 Mg Capsule) 100 mg PO BID PRN PRN Reason: constipaton Duloxetine HCl (Duloxetine 20 Mg Capsule) 20 mg PO DAILY [facility] Last Admin: 12/29/23 09:56 Dose: 20 mg Enoxaparin Sodium (Enoxaparin 150 Mg/Ml Syringe) 130 mg SUBCUT Q12H [facility] Last Admin: 12/29/23 06:10 Dose: 130 mg Furosemide (Furosemide 20 Mg Tablet) 20 mg PO DAILY@0800 [facility] Last Admin: 12/29/23 09:56 Dose: 20 mg Dextrose (D5w) 500 mls @ 0 mls/hr IV ONCE PRN; Protocol PRN Reason: Adult Acute Hypoglycemia Prot Dextrose (D10w) 125 mls @ 750 mls/hr IV PRN PRN; Protocol PRN Reason: Adult Acute Hypoglycemia Nursing Protocol Dextrose (D10w) 250 mls @ 1,000 mls/hr IV PRN PRN; Protocol PRN Reason: Adult Acute Hypoglycemia Nursing Protocol Insulin Glargine (Insulin Glargine 100 Units/1 Ml) 30 unit SUBCUT QAM [facility] Last Admin: 12/29/23 06:10 Dose: 30 unit Insulin Human Lispro (Insulin Lispro 100 Unit/1 Ml) 0 unit SUBCUT WM&BEDTIME [facility]; Protocol Last Admin: 12/29/23 12:20 Dose: Not Given Isosorbide Mononitrate (Isosorbide Mononitrate Er 30 Mg Tablet) 30 mg PO DAILY [facility] Last Admin: 12/29/23 09:56 Dose: 30 mg Methylprednisolone Sodium Succinate (Methylprednisolone Sod Succ 40 Mg/Ml Inj) 40 mg IVP Q24H [facility] Metoprolol Tartrate (Metoprolol Tartrate 25 Mg Tablet) 25 mg PO BID@0900,2100 [facility] Last Admin: 12/29/23 09:56 Dose: 25 mg Morphine Sulfate (Morphine 4 Mg/Ml Sdv 1 Ml) 2 mg IVP Q4H PRN PRN Reason: SEVERE PAIN Last Admin: 12/29/23 11:23 Dose: 2 mg Pantoprazole Sodium (Pantoprazole Dr 40 Mg Tablet) 40 mg PO BID [facility] Last Admin: 12/29/23 09:56 Dose: 40 mg Tramadol HCl (Tramadol 50 Mg Tablet) 100 mg PO TID PRN PRN Reason: Pain Last Admin: 12/28/23 21:56 Dose: 100 mg Trazodone HCl (Trazodone 150 Mg Tablet) 150 mg PO BEDTIME PRN PRN Reason: sleep Vitals/I&O/Wt Last Vital Signs Temp 98.1 F 12/29/23 16:00 Pulse 70 12/29/23 16:00 Resp 26 H 12/29/23 16:19 BP 91/78 12/29/23 16:00 Pulse Ox 90 12/29/23 16:19 O2 Del Method Nasal Cannula 12/29/23 16:00 O2 Flow Rate 5 12/29/23 15:58 FiO2 50 12/28/23 15:20 12/29/23 12/29/23 12/29/23 06:59 14:59 22:59 Intake Total 240 / 240 Output Total 700 / 1000 200 / 200 Balance -700 / -412 40 / 40 Weight last 48 hrs Weight 126.297 kg Weight 127.006 kg Weight 127.006 kg Physical Exam 2 Narrative: General: No acute distress, AO x3 HEENT: PERRLA, pupils bilaterally equal and reactive, pallors not present Chest: Scattered wheezing to auscultation bilaterally all areas. CVS: S1-S2 regular, no murmurs, no tachycardia, no gallops, no rubs Abdomen: Soft, nontender, no organomegaly, bowel sounds present Neuro: No focal deficits, no facial deformity, AO x3, power 5/5 in all limbs Data 12/30/23 04:00 12/30/23 04:00 Micro: Microbiology 12/29/23 03:39 Blood Culture - Preliminary Blood SPECIMEN COLLECTED 12/29/23 03:35 Blood Culture - Preliminary Blood SPECIMEN COLLECTED A&P Assessment and plan (1) Acute respiratory failure with hypoxia and hypercapnia: (2) COPD exacerbation: (3) Hyperlipidemia: Qualifiers: Hyperlipidemia type: mixed hyperlipidemia Qualified Code(s): E78.2 - Mixed hyperlipidemia (4) Type 2 diabetes mellitus: Qualifiers: Diabetes mellitus intermodal customer service insulin use: without intermodal customer service use Diabetes mellitus complication status: without complication Qualified Code(s): E11.9 - Type 2 diabetes mellitus without complications (5) GERD (gastroesophageal reflux disease): (6) Insomnia: Plan Acute hypoxic and hypercarbic respiratory failure COPD exacerbation ? He is afebrile and has normal WBC, lactic acid and procalcitonin levels ? CT chest showed Bilateral lower lobe atelectasis/segmental collapse ? No home oxygen; currently on 10 L/min O2 ? Will place on BiPAP ? Solu-Medrol 40 mg every 6 hours, DuoNebs 4 times daily and budesonide every 12 hours ? Monitor O2 sats and wean oxygen as tolerated ? Telemetry monitoring Type 2 diabetes mellitus ? A1c was 14.6% on 04/08/2023; will repeat ? Continue Lantus and sliding scale lispro ? Monitor glucose and adjust regimen as needed Essential hypertension ? BP stable ? Continue home amlodipine Hyperlipidemia ? Continue atorvastatin Chronic insomnia ? Trazodone as needed at bedtime GERD ? Continue Protonix Plan for today December 27, 2023. Oxygen requirement slightly improved at 8 L/min today. Continues to have scattered bilateral wheezing. Steroids dose adjusted to 40 mg IV every 8 hours from IV every 6 hours. Add budesonide inhalation twice daily. Lasix 20 mg IV today. Per review of fpc records patient takes Lasix 20 mg p.o. every day, will resume home dosing currently. Plan for cardiac cath tentatively tomorrow if he is able to tolerate laying flat and improved from a respiratory standpoint. Add Imdur 30 mg p.o. daily for better blood pressure management. Currently blood pressure ranging between 1 40-1 66 systolic. Plan for today December 28, 2023. Oxygen requirement improving at 6 L/min today. Complaining of abdominal pain. States that he has been belching more than usual. Liver function stable today. Mildly tender to palpation in the left lower quadrant. No diarrhea. He was constipated earlier. Also had a few episodes of vomiting this afternoon. CT of the abdomen and pelvis has been ordere to assess for Sbo. He has an umbilical hernia, no signs of incarceration or strangulation currently. It is easily reducible. No pain to palpation over the hernia site. Interim development of leukocytosis with suspected is related to use of high-dose steroids. Reduced dose of steroids to methylprednisolone 40 mg IV every 24 hours today. No localizing signs or symptoms of infection at this time. CTA chest taken on December 25 was negative for any PE. There was some bilateral lower lobe atelectasis noted. No gross pneumonia. Will check UA and blood culture to complete infectious evaluation given leukocytosis. Cardiac cath unable to be proceeded with today. Continue Lovenox, aspirin, Plavix for medical management in the interim. Plan for today December 29, 2023 02 requirements improving to between 4-5 lpm. Abdominal pain and nausea resolved today. CT abd/pelvis without acute pathology- notes cholelithiasis which may be symptomatic- outpatient surgical referral in a few months for the same.CT chest additionally shows bronchiolitis. Checked RVP today- positive for hMPV- this would explain patient's severity of symptoms. COPD ex likely trigerred by acute viral illness. Currently improving 02 requirements- start ceftriaxone and azithromycin for probablity of superadded bacterial infection.Reduce steroids to prednisone 40mg po daily. Cath deferred today. continued medical mgmt for NSTEMI for now. Attestations 2 Medical Necessity Statement*: add abx, CT with bronchiolitis, taper steroids. Coding Level of Care Code Acute Code for Chg Fwd High MDM includes number and complexity of problems actively addressed during encounter, amount and/or complexity of data reviewed/ordered and described risk of complication, morbidity or mortality of management as documented Diagnoses Acute respiratory failure with hypoxia and hypercapnia J96.01; J96.02 COPD exacerbation J44.1 Mixed hyperlipidemia E78.2 Hyperlipidemia type: mixed hyperlipidemia Type 2 diabetes mellitus without complication, without long-term current use of insulin E11.9 Diabetes mellitus intermodal customer service insulin use: without m[facility]p use Diabetes mellitus complication status: without complication GERD (gastroesophageal reflux disease) K21.9 Insomnia G47.00
[2023-12-29] MEDS: cefTRIAXone 1,000 MG in sodium chloride 0.9% (plus) 50 ML 100 MG IV (17:47)
[2023-12-29 18:14] LABS: Add Urine Microscopic? NO; Charge for UA Resulting for Rev
[2023-12-29 18:20] LABS: Bilirubin Urine Neg (Negative); Blood Urine Neg (Negative); Glucose Urine UA Norm (Normal); Ketones Urine Negative (Negative); Leukocyte Esterase Urine Negative (Negative); Nitrate Urine Negative (Negative); Protein Urine Neg (Negative); Specific Gravity, Urine 1.015 (1.005-1.030); Urine Appearance Clear (CLEAR); Urine Color Yellow (Yellow); Urobilinogen Urine Norm (Negative); pH Urine 6 (5-7)
[2023-12-29] MEDS: acetaminophen 325 mg Tablet 650 MG PO (19:15)
[2023-12-29] MEDS: TRAMadol 50 mg Tablet 100 MG PO (19:16)
[2023-12-29 20:25] LABS: Glucose Point of Care 273 mg/dL (70-110)
[2023-12-29] MEDS: trazodone 150 mg Tablet PO (20:47)
[2023-12-29] MEDS: atorvastatin 40 mg Tablet PO (20:47)
[2023-12-29] MEDS: insulin lispro 100 unit/1 mL SUBCUT (20:48)
[2023-12-30] VITALS (20 sets, daily range): BP systolic 116–132; BP diastolic 67–75; PULSE 49–68; RESP 16–24; TEMP 36.6–36.7; O2SAT 90–94
[2023-12-30] MEDS: morphine 4 mg/mL SDV 1 mL 2 MG IVP ×6 (00:44→23:36)
[2023-12-30 04:31] LABS: Basophils % 0.1 %; Hematocrit 39.3 % (37-53); Lymphocytes # 0.9 10^3/uL (0.8-4.8); Lymphocytes % 9.5 %; Mean Corpuscular HGB Conc 30.5 g/dL (30-55); Mean Corpuscular Hemoglobin 29.4 pg (27-33); Mean Corpuscular Volume 96.3 fl (82-101); Mean Platelet Volume 10.7 fL (7.4-10.4); Monocytes # 0.8 10^3/uL (0.2-0.9); Monocytes % 9.3 %; Neutrophils # 7.22 10^3/uL (1.8-7.7); Neutrophils % 80.5 %; Nucleated Red Blood Cells % 0 %; Platelet Count 203 10^3/cmm (157-399); Red Blood Count 4.08 10^6/uL (3.85-5.65); Red Cell Distribution Width 13.1 % (12.1-15.1); White Blood Count 8.96 10^3/uL (3.29-11.43)
[2023-12-30 04:52] LABS: Alkaline Phosphatase 98 U/L (40-130)
[2023-12-30 05:03] LABS: Potassium 3.8 mmol/L (3.5-5.1); Sodium 141 mmol/L (136-145)
[2023-12-30 05:04] LABS: Anion Gap 12.8 (5-19); Blood Urea Nitrogen 27 mg/dL (8-23); Carbon Dioxide 29 mmol/L (22-29); Chloride 103 mmol/L (98-107); Glucose 91 mg/dL (65-115); Osmolality Calculated 297 mOsm/kg (285-295)
[2023-12-30 05:05] LABS: Alanine Aminotransferase 18 U/L (0-41); Aspartate Amino Transferase 27 U/L (0-40); Calcium 8.2 mg/dL (8.5-10.5); Total Bilirubin 0.2 mg/dL (0.15-1.2); Total Protein 6.7 g/dL (6.6-8.7)
[2023-12-30 05:06] LABS: Albumin Level 3.6 g/dL (3.5-5.2); Globulin 3.1 g/dL (1.3-4.6)
[2023-12-30] MEDS: insulin glargine 100 units/1 mL 30 UNIT SUBCUT (05:20)
--- NOTE | 2023-12-30 06:08 | XACV_ITS ---
Exam Room: 2 Ht: 185 cm Wt: 126 kg BSA: 2.59 m2 Gender: Male : 1950 Any Known Allergies: No known allergies Exam Priority: Routine Procedure(s): Procedure Description: Diagnostic procedure Procedure Description: Left Heart Catheterization Procedure Description: Left ventriculography Procedure Description: Coronary Angiography Adrian WOODS; Diagnostic Cath Status: Urgent Diagnostic Findings * The left main is a medium caliber vessel with no significant stenotic lesions. * The left anterior descending artery is a medium caliber vessel which appears to wraparound the LV apex minimally. The proximal left anterior descending artery was found to have 30 to 50% eccentric narrowing with ulcerated plaque. The mid segment of the artery was found to have an extrinsic compression causing around 60% stenosis. The first diagonal branch was found ostially 70% stenosis. This is a small to medium caliber vessel. Moderate calcification was noted in the proximal segment of the artery. The second diagonal branches was found to have around 30% narrowing in the proximal segment. The artery appears to be of equal caliber as the LAD.. * The left circumflex artery is a medium caliber nondominant vessel with minimal intimal irregularities in the proximal segment. No severe stenotic lesions. * The right coronary artery is a medium to large caliber dominant vessel, found to be very tortuous in the midsegment. 20 to 30% diffuse irregular narrowing are noted in the proximal segment of the artery. No other significant stenotic lesions. The PDA and the PLV branches were found to have minimal intimal irregularities. Moderate calcification was noted in the proximal the right coronary artery. Conclusions 1. 73-year-old white male with multiple risk factors for coronary artery disease, presented with pneumonia, hypoxemia, respiratory distress. Found to have elevated troponin T suggesting a non-ST elevation myocardial infarction. For further evaluation of the coronary status, a cardiac catheterization was recommended. Patient underwent left heart catheterization with left and right coronary angiogram and LV angiogram today. The findings are as follows. 2. 1. 3. No severe disease in the left main. Ulcerated elongated eccentric plaque in the proximal segment of the left anterior descending artery. 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 70% ostial narrowing in the first diagonal branch. Mild diffuse disease in the other vessels. Dominant right coronary artery. LV ejection fraction of 55% with an LVEDP of 21 mmHg. Moderate calcification in the proximal segments of the left and descending artery and right coronary artery. 4. I reviewed and discussed the cardiac catheterization data with the Dr. Staton. The LAD lesion was thought to be the culprit. Based on the angiogram findings, it was opted to treat him medically. Diagnostic RX Recommendation: medical therapy and/or counseling LV EDP: 21 mmHg Ventriculography Ejection Fraction: 55.0 % Left Ventriculography Findings: * The LV gram was performed in the WOLF projection. The LV cavity appears to be normal size. LV ejection fraction was around 55%. No filling defects are noted. No significant mitral valve prolapse or mitral regurgitation. The LVEDP was 21 mmHg. Pressures Phase:Rest AO : 89 / 67 ( 79 ) @ 5:49:00 PM 108 / 60 ( 81 ) @ 5:57:00 PM 108 / 49 ( 74 ) @ 6:04:00 PM 113 / 41 ( 68 ) @ 6:04:00 PM LV : 144 / -2 / 21 @ 6:03:00 PM 125 / -23 / 4 @ 6:04:00 PM 123 / -19 / 9 @ 6:04:00 PM Valves Phase:DefaultPhase AV : 15.0 @ 5:15:32 PM AV Mean Gradient: 15.0 @ 5:15:32 PM Clinical Evaluation EBL: 5mL-10mL Procedural Details Procedure Consent Obtained. Pre-Procedure Time Out. Identified patient by full name and date of as verbalized by the patient/guarantor. Does the consent match the physician's order: Yes. Accurate & Complete Informed Consent: Yes. Inpatient/Outpatient History & Physical on Chart: Yes. If H&P is completed, is and addenduem needed: Yes; If yes, is the addendum complete: Yes. Visualize and Verify Site with Patient/Guarantor: N/A. Relevant Radiology Images available: Yes. The risks, benefits, and alternatives of sedation and/or procedure were discussed by physician. The patient agrees to continue. Procedure started. [facility] Clinical Fraility Score: 4: Vulnerable. Train Brake Operator Indications: ACS <= 24 hours/NSTEMI. Chest Pain Symptom Assessment: Typical Angina Symptoms. Cardiovascular Instability: No. Correct patient, site and procedure confirmed by cath team. PERRLA. Strong, equal hand assistant banquet manager bilaterally. Lungs clear x 5 lobes. IV Site on Arrival: 20 gauge in the right forearm. IV Fluids: 0.9% NaCl at KVO. 0 mL infused prior to labor relations officer. Pre Procedural Pulses: bilateral dorsalis pedis was 3+. Pre Procedural Pulses: bilateral posterior tibial was 3+. Pre Procedural Pulses: bilateral radial was 3+. Oxygen started at 4liters/min via nasal canula. right groin was prepped with chloroprep then draped in the usual sterile fashion. right radial was prepped with chloroprep then draped in the usual sterile fashion. Physician notified. Baseline sample Acquired. HR: 66 BPM. Patient's family unavailable. Equipment: 6F - Radial. Cardiac Cath Pack. ACIST Manifold Kit Model BT 2000. Heparinized Saline (2 units/mL), 1000 mL bag. Physician arrived. Physician scrubbed in. Immediate Pre-Procedure Time Out. Correct Patient: Yes; Correct Procedure: Yes; Correct Site: Yes; Correct Patient Position: Yes; Correct Supplies: Yes; Dried Flammable Prep: Yes; Blood Products Available: N/A;. Lidocaine 1% infiltrated to the right radial. Arterial access obtained. A 5 spanish Compa catheter in over the exchange J wire. Multiple views taken of left coronary artery. Catheter redirected to the RCA. Unable to cannulate the RCA, removed over the exchange J wire. A 5 spanish JR4 catheter in over the exchange J wire. Multiple views taken of right coronary artery. Dr. Staton called to view cineography. Catheter removed over the exchange J wire. A 5 spanish Angled Pig catheter in over the exchange J wire. EDP Sample taken: LV 144/-3,21; HR: 84 BPM; SpO2: 91%. LV gram performed in WOLF @ 10 mL/second for a total of 30 mL. EDP Sample taken: LV 125/-24,4; HR: 74 BPM; SpO2: 91%. Pullback taken: LV 123/-20,9; AO 108/49(74); Mean: 15mmHg, Peak to Peak: 15mmHg, SEP: 23sec/min; HR: 74 BPM; SpO2: 91%. Dr. Staton here. Catheter removed over the exchange J wire. Dr. Campbell scrubbed out. A TR Band was successful obtaining hemostatsis at the Right Radial artery insertion site. Post Procedure: Pulses reassessed and unchanged. PERRLA. Strong, equal hand assistant banquet manager bilaterally. No VTE prophylaxis required. Medication's Wasted: Lidocaine 1% = 17 mL. Medication's Wasted: Nitro = 49.8 mg. Medication's Wasted: Heparin = 1000 Units. Medication's Wasted: Other = Fentanyl 50 mcg. Total IV fluids: 250 mL. Post-op diagnosis: non-obstructive CAD. Complications: none. Estimated blood loss: 5mL-10mL. Responsiveness - Normal response to verbal stimuli; alert and oriented, PERRLA. Airway - Unaffected, no intervention required; spontaneous ventilation. Circulation: W/N/L, pulses unchanged. Nausea/Vomiting: No. Procedure completed. Patient transferred by bed to 1st floor. Vital chart was stopped. Access Site Site: Right Radial artery Sheath Size: 6 Fr Hemostasis Method: TR Band Hemostasis Success: Successful Procedure Medications Start: 4:42 PM Stop: 4:42 PM Medication: Versed Amount: 1 mg Route: I.V. Start: 4:42 PM Stop: 4:42 PM Medication: Fentanyl Amount: 25 mcg Route: I.V. Start: 4:43 PM Stop: 4:43 PM Medication: Versed Amount: 1 mg Route: I.V. Start: 4:46 PM Stop: 4:46 PM Medication: Verapamil Amount: 5 mg Route: I.A. Start: 4:46 PM Stop: 4:46 PM Medication: Nitrogylcerin Amount: 200 mcg Route: I.A. Start: 4:48 PM Stop: 4:48 PM Medication: Heparin Amount: 5000 units Route: I.V. Start: 4:57 PM Stop: 4:57 PM Medication: 0.9% Saline Amount: 250 ml Route: I.V. bolus Start: 5:01 PM Stop: 5:01 PM Medication: Fentanyl Amount: 25 mcg Route: I.V. I, the attending physician, have reviewed and verified all procedure medications. Yes, all medications given per verbal order History/Risk Factors Hypertension: Yes Dyslipidemia: Yes Peripheral Arterial Disease (PAD): No Myocardial Infarction (KS): No Obesity: Yes Renal Disease: No Tobacco Use: Current/Recent(w/in 1 year) Prior Interventions PCI: No CABG: No Valve Surgery: No Report Signatures Finalized by Dr Nehemiah Campbell MD [facility] on 12/30/2023 09:13 PM
[2023-12-30 06:10] LABS: Glucose Point of Care 27 mg/dL (70-110)
[2023-12-30 06:10] LABS: Glucose Point of Care 29 mg/dL (70-110)
[2023-12-30] MEDS: dextrose 10% 250 ML 1000 ML IV (06:19)
--- NOTE | 2023-12-30 06:32 | PC.NURSE ---
Patient BG was 27, re drawn and was 29. Dr canales was notified and first bag of D10W was started per hypoglycemic protocol. Dr canales ordered for D10W to be ran continuos 30mls/hr.
[2023-12-30 06:38] LABS: Glucose Point of Care 137 mg/dL (70-110)
[2023-12-30] MEDS: ipratropium-albuterol 3 mL Neb INHALATION ×4 (07:25→20:54)
[2023-12-30] MEDS: budesonide 0.5 mg/2 mL Neb INHALATION ×2 (07:25→20:54)
[2023-12-30] MEDS: glucagon 1 mg/mL KIT 1 mL IM (08:19)
[2023-12-30 08:23] LABS: Glucose Point of Care 65 mg/dL (70-110)
--- NOTE | 2023-12-30 08:40 | PC.NURSE ---
Provider is notified that patients POC glucose is 65 at 0805. He is currently NPO for cath procedure. He is also on D10 at 30ml/hr. Provider ordered to give a bolus of D10 and a glucagon.
--- NOTE | 2023-12-30 08:51 | PM.PN ---
Subjective Subjective: Patient that he is feeling okay. He had an hypoglycemic episode this morning. Responded to IV glucose appropriately. Currently he seems to be doing okay. No chest pain or shortness of breath. Medications: Medication Review Details: Current Medications Acetaminophen (Acetaminophen 650 Mg Supp) 650 mg AR Q6H PRN PRN Reason: FEVER Acetaminophen (Acetaminophen 325 Mg Tablet) 650 mg PO Q6H PRN PRN Reason: MILD PAIN Last Admin: 12/29/23 19:15 Dose: 650 mg Albuterol/Ipratropium (Ipratropium-Albuterol 3 Ml Neb) 3 ml INHALATION QID.RESPIRATORY TAYA Last Admin: 12/30/23 07:25 Dose: 3 ml Amlodipine Besylate (Amlodipine 10 Mg Tablet) 10 mg PO DAILY TAYA Last Admin: 12/29/23 09:56 Dose: 10 mg Aspirin (Aspirin 81 Mg Ec Tablet) 81 mg PO DAILY TAYA Last Admin: 12/29/23 09:56 Dose: 81 mg Atorvastatin Calcium (Atorvastatin 40 Mg Tablet) 40 mg PO BEDTIME TAYA Last Admin: 12/29/23 20:47 Dose: 40 mg Azithromycin (Azithromycin 250 Mg Tablet) 500 mg PO DAILY TAYA; Protocol Stop: 01/02/24 08:59 Budesonide (Budesonide 0.5 Mg/2 Ml Neb) 0.5 mg INHALATION BID.RESPIRATORY TAYA Last Admin: 12/30/23 07:25 Dose: 0.5 mg Calcium Carbonate (Calcium Carbonate 500 Mg Chew Tablet) 1,000 mg PO Q6H PRN PRN Reason: INDIGESTION Last Admin: 12/28/23 09:56 Dose: 1,000 mg Clopidogrel Bisulfate (Clopidogrel 75 Mg Tablet) 75 mg PO DAILY TAYA Last Admin: 12/29/23 09:56 Dose: 75 mg Docusate Sodium (Docusate Sodium 100 Mg Capsule) 100 mg PO BID PRN PRN Reason: constipaton Duloxetine HCl (Duloxetine 20 Mg Capsule) 20 mg PO DAILY [facility] Last Admin: 12/29/23 09:56 Dose: 20 mg Enoxaparin Sodium (Enoxaparin 150 Mg/Ml Syringe) 130 mg SUBCUT Q12H TAYA Last Admin: 12/30/23 06:32 Dose: Not Given Furosemide (Furosemide 20 Mg Tablet) 20 mg PO DAILY@0800 TAYA Last Admin: 12/29/23 09:56 Dose: 20 mg Dextrose (D5w) 500 mls @ 0 mls/hr IV ONCE PRN; Protocol PRN Reason: Adult Acute Hypoglycemia Prot Dextrose (D10w) 125 mls @ 750 mls/hr IV PRN PRN; Protocol PRN Reason: Adult Acute Hypoglycemia Nursing Protocol Dextrose (D10w) 250 mls @ 1,000 mls/hr IV PRN PRN; Protocol PRN Reason: Adult Acute Hypoglycemia Nursing Protocol Last Admin: 12/30/23 06:19 Dose: 1,000 mls/hr Ceftriaxone Sodium 1,000 mg/ (Sodium Chloride) 50 mls @ 100 mls/hr IV Q24H [facility]; Protocol Last Infusion: 12/29/23 18:45 Dose: Infused Dextrose (D10w) 1,000 mls @ 30 mls/hr IV .Q24H [facility] Insulin Glargine (Insulin Glargine 100 Units/1 Ml) 30 unit SUBCUT QAM [facility] Last Admin: 12/30/23 05:20 Dose: 30 unit Insulin Human Lispro (Insulin Lispro 100 Unit/1 Ml) 0 unit SUBCUT WM&BEDTIME [facility]; Protocol Last Admin: 12/29/23 20:48 Dose: 12 unit Isosorbide Mononitrate (Isosorbide Mononitrate Er 30 Mg Tablet) 30 mg PO DAILY [facility] Last Admin: 12/29/23 09:56 Dose: 30 mg Lidocaine (Lidocaine 5% Patch) 1 patch TOPICAL [id number] [facility] Last Admin: 12/29/23 20:53 Dose: 1 patch Metoprolol Tartrate (Metoprolol Tartrate 25 Mg Tablet) 25 mg PO BID@0900,2100 [facility] Last Admin: 12/29/23 20:48 Dose: 25 mg Morphine Sulfate (Morphine 4 Mg/Ml Sdv 1 Ml) 2 mg IVP Q4H PRN PRN Reason: SEVERE PAIN Last Admin: 12/30/23 05:21 Dose: 2 mg Pantoprazole Sodium (Pantoprazole Dr 40 Mg Tablet) 40 mg PO BID [facility] Last Admin: 12/29/23 17:47 Dose: 40 mg Prednisone (Prednisone 20 Mg Tablet) 40 mg PO DAILY [facility] Tramadol HCl (Tramadol 50 Mg Tablet) 100 mg PO TID PRN PRN Reason: Pain Last Admin: 12/29/23 19:16 Dose: 100 mg Trazodone HCl (Trazodone 150 Mg Tablet) 150 mg PO BEDTIME PRN PRN Reason: sleep Last Admin: 12/29/23 20:47 Dose: 150 mg Vitals/I&O/Wt Last Vital Signs Temp 98.1 F 12/30/23 07:45 Pulse 66 12/30/23 07:45 Resp 22 H 12/30/23 07:45 BP 132/71 12/30/23 07:45 Pulse Ox 92 12/30/23 07:45 O2 Del Method Nasal Cannula 12/30/23 07:45 O2 Flow Rate 5 12/30/23 07:25 FiO2 50 12/28/23 15:20 12/29/23 12/30/23 12/30/23 22:59 06:59 14:59 Intake Total 290 / 530 Output Total 875 / 1075 275 / 1350 450 / 450 Balance -585 / -545 -275 / -820 -450 / -450 Weight last 48 hrs Weight 278 lb 7 oz Weight 278 lb 7 oz Physical Exam Narrative: GENERAL: The patient is alert and oriented times three. Not in any acute distress. Obese. HEENT: No significant pallor, icterus or lymphadenopathy.Oral cavity: There are no mucous membrane lesions. NECK: Trachea appears to be central. No masses noted. No JVD or thyromegaly appreciated. RESPIRATORY: Chest is symmetrical. No intercostals muscle retraction or any accessory muscle activation. There is no chest wall tenderness. Breath sounds are heard bilaterally. Bilateral scattered crackles. No evidence of consolidation. BREASTS: Deferred. HEART: The heart sounds are normal. No S3 or S4. No significant murmurs. No pericardial rub ABDOMEN: No vessel pulsations or distention. No tenderness. No organomegaly appreciated. Bowel sounds are normally heard. : Deferred. RECTAL: Deferred. LYMPHATIC: No lymphadenopathy noted in the neck. EXTREMITIES: No edema or cyanosis. No clubbing. MUSCULOSKELETAL: No acute joint deformities or swelling SKIN: There are no significant rashes or ecchymosis NEUROPSYCHIATRIC: The patient is alert and oriented x3. Appears to be in a good mood. No tremors or rigidity noted. Data 12/30/23 04:00 12/30/23 09:10 Other Labs: Laboratory Last Values WBC 8.96 10^3/uL (3.29-11.43) 12/30/23 04:00 RBC 4.08 10^6/uL (3.85-5.65) 12/30/23 04:00 Hgb 12.00 g/dL (11.27-16.99) 12/30/23 04:00 Hct 39.3 % (37-53) 12/30/23 04:00 MCV 96.3 fl (82-101) 12/30/23 04:00 MCH 29.4 pg (27-33) 12/30/23 04:00 MCHC 30.5 g/dL (30-55) 12/30/23 04:00 RDW 13.1 % (12.1-15.1) 12/30/23 04:00 Plt Count 203 10^3/cmm (157-399) 12/30/23 04:00 MPV 10.7 fL (7.4-10.4) H 12/30/23 04:00 Neut % (Auto) 80.5 % 12/30/23 04:00 Lymph % (Auto) 9.5 % 12/30/23 04:00 [place] % (Auto) 9.3 % 12/30/23 04:00 Eos % (Auto) 0.0 % 12/30/23 04:00 Baso % (Auto) 0.1 % 12/30/23 04:00 Neut # (Auto) 7.22 10^3/uL (1.8-7.7) 12/30/23 04:00 Lymph # (Auto) 0.9 10^3/uL (0.8-4.8) 12/30/23 04:00 [place] # (Auto) 0.8 10^3/uL (0.2-0.9) 12/30/23 04:00 Eos # (Auto) 0.0 10^3/uL (0.0-0.8) 12/30/23 04:00 Baso # (Auto) 0.0 10^3/uL (0.0-0.1) 12/30/23 04:00 Nucleated RBC % (auto) 0 % 12/30/23 04:00 Nucleated RBCs # 0.0 /100WBC 12/30/23 04:00 D-Dimer 1.55 ug/mLFEU (0-0.59) H 12/26/23 12:10 Specimen Type Arterial 12/26/23 10:29 Sample Site Radial, left 12/26/23 10:29 ABG pH 7.34 (7.35-7.45) L 12/26/23 10:29 ABG pCO2 55.6 mmHg (35-45) H 12/26/23 10:29 ABG pO2 62.8 mmHg (80.0-100.0) L 12/26/23 10:29 ABG HCO3 30.3 mmol/L (22-26) H 12/26/23 10:29 ABG Base Excess 3.1 mmol/L (-2.0-2.0) H 12/26/23 10:29 Neville Test Pos 12/26/23 10:29 Hematocrit 43.0 % (42-52) 12/26/23 10:29 Hgb O2 Saturation 88.9 % (95-100) L 12/26/23 10:29 Carboxyhemoglobin 0.5 %THgb (0.4-20.1) 12/26/23 10:29 Methemoglobin 0.7 % (0.4-1.5) 12/26/23 10:29 Total Hemoglobin 14.0 g/dL (14-18) 12/26/23 10:29 O2 Delivery Device Oxy mask 12/26/23 10:29 O2 Liters/Min 10.0 % 12/26/23 10:29 Oil Processing Technician ID Amh 12/26/23 10:29 Sodium 141 mmol/L (136-145) 12/30/23 04:00 Potassium 3.8 mmol/L (3.5-5.1) 12/30/23 04:00 Chloride 103 mmol/L (98-107) 12/30/23 04:00 Carbon Dioxide 29 mmol/L (22-29) 12/30/23 04:00 Anion Gap 12.8 (5-19) 12/30/23 04:00 BUN 27 mg/dL (8-23) H 12/30/23 04:00 Creatinine 1.1 mg/dL (0.7-1.2) 12/30/23 04:00 GFR Calculation Not Reportable 12/30/23 04:00 Glucose 91 mg/dL (65-115) 12/30/23 04:00 POC Glucose 65 mg/dL (70-110) L 12/30/23 08:05 Estimat Average Glucose 166 12/26/23 10:40 Hemoglobin A1c 7.4 % (4.0-6.0) H 12/26/23 10:40 Calculated Osmolality 297 mOsm/kg (285-295) H 12/30/23 04:00 Lactic Acid 1.8 mmol/L (0.5-2.2) 12/26/23 10:40 Calcium 8.2 mg/dL (8.5-10.5) L 12/30/23 04:00 Phosphorus 1.8 mg/dL (2.5-4.5) L 12/27/23 02:17 Magnesium 2.3 mg/dL (1.7-2.3) 12/27/23 02:17 Total Bilirubin 0.2 mg/dL (0.15-1.2) 12/30/23 04:00 AST 27 U/L (0-40) 12/30/23 04:00 ALT 18 U/L (0-41) 12/30/23 04:00 Alkaline Phosphatase 98 U/L (40-130) 12/30/23 04:00 Troponin T 5th Gen ng/L 8 ng/L (0-15) 12/28/23 02:26 Troponin T Baseline 9 ng/L (0-15) 12/26/23 10:40 Troponin T 120 Minute 9.33 ng/L (0-15) 12/26/23 12:10 Delta Troponin T 0.33 ABS# (0-10) 12/26/23 12:10 Troponin T Hi Sens 6Hr 555.0 ng/L (0-15) H 12/26/23 16:51 Troponin T Hi Sens 6Hr Delta 546.0 ng/L (0-12) H* 12/26/23 16:51 NT-Pro-B Natriuret Pep < 36 pg/mL (0-125) 12/26/23 10:40 Total Protein 6.7 g/dL (6.6-8.7) 12/30/23 04:00 Albumin 3.6 g/dL (3.5-5.2) 12/30/23 04:00 Globulin 3.1 g/dL (1.3-4.6) 12/30/23 04:00 Procalcitonin 0.07 ng/mL (0-0.5) 12/26/23 10:40 Urine Color Yellow (Yellow) 12/29/23 18:00 Urine Appearance Clear (CLEAR) 12/29/23 18:00 Urine pH 6 (5-7) 12/29/23 18:00 Ur Specific [place] 1.015 (1.005-1.030) 12/29/23 18:00 Urine Protein Neg (Negative) 12/29/23 18:00 Urine Glucose (UA) Norm (Normal) 12/29/23 18:00 Urine Ketones Negative (Negative) 12/29/23 18:00 Urine Blood Neg (Negative) 12/29/23 18:00 Urine Nitrate Negative (Negative) 12/29/23 18:00 Urine Bilirubin Neg (Negative) 12/29/23 18:00 Urine Urobilinogen Norm mg/dL (Negative) 12/29/23 18:00 Ur Leukocyte Esterase Negative (Negative) 12/29/23 18:00 Adenovirus (PCR) Not detected (NOT DETECT) 12/29/23 12:40 C. pneumoniae DNA (PCR) Not detected (NOT DETECT) 12/29/23 12:40 Coronavirus 229E (PCR) Not detected (NOT DETECT) 12/29/23 12:40 Human Metapneumovir PCR Detected (NOT DETECT) A 12/29/23 12:40 Influenza A (H1) PCR Not detected (NOT DETECT) 12/29/23 12:40 Influ A (H1/09) PCR Not detected (NOT DETECT) 12/29/23 12:40 Influenza A (H3) PCR Not detected (NOT DETECT) 12/29/23 12:40 Influenza Type A (PCR) Not detected (NOT DETECT) 12/29/23 12:40 Influenza Type B (PCR) Not detected (NOT DETECT) 12/29/23 12:40 M. pneumoniae (PCR) Not detected (NOT DETECT) 12/29/23 12:40 Parainfluenza 1 (PCR) Not detected (NOT DETECT) 12/29/23 12:40 Parainfluenza 2 (PCR) Not detected (NOT DETECT) 12/29/23 12:40 Parainfluenza 3 (PCR) Not detected (NOT DETECT) 12/29/23 12:40 Parainfluenza 4 (PCR) Not detected (NOT DETECT) 12/29/23 12:40 RSV Type A (PCR) Not detected (NOT DETECT) 12/29/23 12:40 RSV Type B (PCR) Not detected (NOT DETECT) 12/29/23 12:40 Entero/Rhino (PCR) Not detected (NOT DETECT) 12/29/23 12:40 SARS-CoV-2 (PCR) Not detected (NOT DETECT) 12/29/23 12:40 Micro: Microbiology 12/29/23 03:39 Blood Culture - Preliminary Blood NEGATIVE TO DATE 12/29/23 03:35 Blood Culture - Preliminary Blood NEGATIVE TO DATE A&P Assessment and plan (1) Elevated troponin: Patient has features of a nonocclusive myocardial infarction. To further evaluate his coronary status, a cardiac catheterization would be appropriate. Risk and benefits were discussed with the patient. The risk of bleeding, hematoma, vascular injury, myocardial infarction, myocardial perforation, malignant cardiac arrhythmias ,CVA, renal failure and other concomitant complications were explained in detail. Patient understood this well and consented to proceed. I may go ahead and schedule the procedure this afternoon. Based on the angiogram findings, further management decisions will be made (2) Hyperlipidemia: May continue on the current dose of the Lipitor. Qualifiers: Hyperlipidemia type: mixed hyperlipidemia Qualified Code(s): E78.2 - Mixed hyperlipidemia (3) Type 2 diabetes mellitus: The blood sugar seems to be under control. May continue on the current management. Qualifiers: Diabetes mellitus complication status: without complication Diabetes mellitus custodial insulin use: without emt intermediate use Qualified Code(s): E11.9 - Type 2 diabetes mellitus without complications (4) Acute respiratory failure with hypoxia and hypercapnia: Overall status seems to be stable. Oxygenation has significantly improved. Continue on the current management (5) Elevated blood pressure reading: The blood pressure is in the normal range. May continue on the current medications. Plan The Lovenox is held this morning. Cardiac catheterization is scheduled for 4:30 PM Based on the angiogram findings further management decisions will be made Attestations Medical Necessity Statement*: Patient requires continued hospital stay for close monitoring and further management Coding Level of Care Code 79816 Diagnoses Elevated troponin R79.89 Mixed hyperlipidemia E78.2 Hyperlipidemia type: mixed hyperlipidemia Type 2 diabetes mellitus without complication, without long-term current use of insulin E11.9 Diabetes mellitus complication status: without complication Diabetes mellitus emt intermediate insulin use: without emt intermediate use Acute respiratory failure with hypoxia and hypercapnia J96.01; J96.02 Elevated blood pressure reading R03.0
[2023-12-30 08:52] LABS: Glucose Point of Care 169 mg/dL (70-110)
[2023-12-30] MEDS: pantoprazole DR 40 mg Tablet PO ×2 (08:55→18:22)
[2023-12-30] MEDS: predniSONE 20 mg Tablet 40 MG PO (08:55)
[2023-12-30] MEDS: metoprolol tartrate 25 mg Tablet PO (08:55)
[2023-12-30] MEDS: azithromycin 250 mg Tablet 500 MG PO (08:55)
[2023-12-30] MEDS: clopidogrel 75 mg Tablet PO (08:56)
[2023-12-30] MEDS: duloxetine 20 mg Capsule PO (08:56)
[2023-12-30] MEDS: amlodipine 10 mg Tablet PO (08:56)
[2023-12-30] MEDS: aspirin 81 mg EC Tablet PO (08:56)
[2023-12-30] MEDS: FUROsemide 20 mg Tablet PO (08:56)
[2023-12-30 09:43] LABS: Glucose 192 mg/dL (65-115)
[2023-12-30 11:40] LABS: Glucose Point of Care 208 mg/dL (70-110)
--- NOTE | 2023-12-30 13:51 | W.PM.OPSUD ---
Surgery/Procedure H&P Update DATE OF PROCEDURE: December 30, 2023 DATE H&P PERFORMED: 12/26/23 H&P UPDATE INFORMATION: I have reviewed H&P completed within last 30 days, I have examined patient prior to procedure and Changes to prior documentation as noted here (Occasional crackles in the chest.) PREOP DIAGNOSIS: Atherosclerotic heart disease PRIMARY INDICATION FOR PROCEDURE: Non-ST elevation myocardial infarction/ PLANNED PROCEDURE: Operation Date: 12/30/23 10:50 Proposed Procedures p Cardiac Catheterization(Not Applicable) - Nehemiah Campbell MD PATIENT REASSESSED PRIOR TO SEDATION, WITH NO CHANGE NOTED: Yes PHYSICAL EXAM: alert, oriented x 3, clear to auscultation bilaterally (Bilateral scattered crackles) and regular rate & rhythm AIRWAY EVAL/ANESTHESIA PLAN: normal airway, see other exam findings, ASA III, Monitored Anesthesia, Local Anesthesia, Risks, benefits & alternatives of sedation and/or procedure discussed and Patient agrees to continue as planned
[2023-12-30 15:06] LABS: Glucose Point of Care 123 mg/dL (70-110)
[2023-12-30] MEDS: diphenhydrAMINE 50 mg Capsule PO (15:49)
[2023-12-30] MEDS: aspirin 325 mg Tablet PO (15:49)
[2023-12-30] MEDS: sodium chloride 0.9% 1,000 ML 50 ML IV (15:52)
--- NOTE | 2023-12-30 16:52 | P.PN_ITS ---
Subjective 2 Subjective: Oxygen requirements remained stable to improving at 4 L/min. Patient developed hypoglycemia this morning with blood sugar down to 29. He did end up receiving his Lantus this morning. Holding insulin for now. He has been n.p.o. Plan cath today. Medications: Reviewed: Yes Medication Review Details: Current Medications Acetaminophen (Acetaminophen 650 Mg Supp) 650 mg IL Q6H PRN PRN Reason: FEVER Acetaminophen (Acetaminophen 325 Mg Tablet) 650 mg PO Q6H PRN PRN Reason: MILD PAIN Last Admin: 12/29/23 19:15 Dose: 650 mg Albuterol/Ipratropium (Ipratropium-Albuterol 3 Ml Neb) 3 ml INHALATION QID.RESPIRATORY TAYA Last Admin: 12/30/23 07:25 Dose: 3 ml Amlodipine Besylate (Amlodipine 10 Mg Tablet) 10 mg PO DAILY TAYA Last Admin: 12/29/23 09:56 Dose: 10 mg Aspirin (Aspirin 81 Mg Ec Tablet) 81 mg PO DAILY TAYA Last Admin: 12/29/23 09:56 Dose: 81 mg Atorvastatin Calcium (Atorvastatin 40 Mg Tablet) 40 mg PO BEDTIME TAYA Last Admin: 12/29/23 20:47 Dose: 40 mg Azithromycin (Azithromycin 250 Mg Tablet) 500 mg PO DAILY [facility]; Protocol Stop: 01/02/24 08:59 Budesonide (Budesonide 0.5 Mg/2 Ml Neb) 0.5 mg INHALATION BID.RESPIRATORY TAYA Last Admin: 12/30/23 07:25 Dose: 0.5 mg Calcium Carbonate (Calcium Carbonate 500 Mg Chew Tablet) 1,000 mg PO Q6H PRN PRN Reason: INDIGESTION Last Admin: 12/28/23 09:56 Dose: 1,000 mg Clopidogrel Bisulfate (Clopidogrel 75 Mg Tablet) 75 mg PO DAILY TAYA Last Admin: 12/29/23 09:56 Dose: 75 mg Docusate Sodium (Docusate Sodium 100 Mg Capsule) 100 mg PO BID PRN PRN Reason: constipaton Duloxetine HCl (Duloxetine 20 Mg Capsule) 20 mg PO DAILY [facility] Last Admin: 12/29/23 09:56 Dose: 20 mg Enoxaparin Sodium (Enoxaparin 150 Mg/Ml Syringe) 130 mg SUBCUT Q12H TAYA Last Admin: 12/30/23 06:32 Dose: Not Given Furosemide (Furosemide 20 Mg Tablet) 20 mg PO DAILY@0800 TAYA Last Admin: 05/29/24 09:56 Dose: 20 mg Dextrose (D5w) 500 mls @ 0 mls/hr IV ONCE PRN; Protocol PRN Reason: Adult Acute Hypoglycemia Prot Dextrose (D10w) 125 mls @ 750 mls/hr IV PRN PRN; Protocol PRN Reason: Adult Acute Hypoglycemia Nursing Protocol Dextrose (D10w) 250 mls @ 1,000 mls/hr IV PRN PRN; Protocol PRN Reason: Adult Acute Hypoglycemia Nursing Protocol Last Admin: 12/30/23 06:19 Dose: 1,000 mls/hr Ceftriaxone Sodium 1,000 mg/ (Sodium Chloride) 50 mls @ 100 mls/hr IV Q24H [facility]; Protocol Last Infusion: 12/29/23 18:45 Dose: Infused Dextrose (D10w) 1,000 mls @ 30 mls/hr IV .Q24H [facility] Insulin Glargine (Insulin Glargine 100 Units/1 Ml) 30 unit SUBCUT QAM [facility] Last Admin: 12/30/23 05:20 Dose: 30 unit Insulin Human Lispro (Insulin Lispro 100 Unit/1 Ml) 0 unit SUBCUT WM&BEDTIME [facility]; Protocol Last Admin: 12/29/23 20:48 Dose: 12 unit Isosorbide Mononitrate (Isosorbide Mononitrate Er 30 Mg Tablet) 30 mg PO DAILY [facility] Last Admin: 12/29/23 09:56 Dose: 30 mg Lidocaine (Lidocaine 5% Patch) 1 patch TOPICAL [id number] [facility] Last Admin: 12/29/23 20:53 Dose: 1 patch Metoprolol Tartrate (Metoprolol Tartrate 25 Mg Tablet) 25 mg PO BID@0900,2100 [facility] Last Admin: 12/29/23 20:48 Dose: 25 mg Morphine Sulfate (Morphine 4 Mg/Ml Sdv 1 Ml) 2 mg IVP Q4H PRN PRN Reason: SEVERE PAIN Last Admin: 12/30/23 05:21 Dose: 2 mg Pantoprazole Sodium (Pantoprazole Dr 40 Mg Tablet) 40 mg PO BID [facility] Last Admin: 12/29/23 17:47 Dose: 40 mg Prednisone (Prednisone 20 Mg Tablet) 40 mg PO DAILY [facility] Tramadol HCl (Tramadol 50 Mg Tablet) 100 mg PO TID PRN PRN Reason: Pain Last Admin: 12/29/23 19:16 Dose: 100 mg Trazodone HCl (Trazodone 150 Mg Tablet) 150 mg PO BEDTIME PRN PRN Reason: sleep Last Admin: 12/29/23 20:47 Dose: 150 mg Vitals/I&O/Wt Last Vital Signs Temp 98.0 F 12/30/23 12:00 Pulse 58 L 12/30/23 15:58 Resp 18 12/30/23 15:51 BP 123/71 12/30/23 12:00 Pulse Ox 93 12/30/23 15:51 O2 Del Method Nasal Cannula 12/30/23 15:51 O2 Flow Rate 4 12/30/23 15:51 FiO2 50 12/28/23 15:20 12/30/23 12/30/23 12/30/23 06:59 14:59 22:59 Output Total 275 / 1350 700 / 700 375 / 1075 Balance -275 / -820 -700 / -700 -375 / -1075 Weight last 48 hrs Weight 126.297 kg Weight 126.297 kg Physical Exam 2 Narrative: General: No acute distress, AO x3 HEENT: PERRLA, pupils bilaterally equal and reactive, pallors not present Chest: Scattered wheezing to auscultation bilaterally all areas. CVS: S1-S2 regular, no murmurs, no tachycardia, no gallops, no rubs Abdomen: Soft, nontender, no organomegaly, bowel sounds present Neuro: No focal deficits, no facial deformity, AO x3, power 5/5 in all limbs Data 12/30/23 04:00 12/30/23 09:10 Micro: Microbiology 12/29/23 03:39 Blood Culture - Preliminary Blood NEGATIVE TO DATE 12/29/23 03:35 Blood Culture - Preliminary Blood NEGATIVE TO DATE A&P Assessment and plan (1) Acute respiratory failure with hypoxia and hypercapnia: (2) COPD exacerbation: (3) Hyperlipidemia: Qualifiers: Hyperlipidemia type: mixed hyperlipidemia Qualified Code(s): E78.2 - Mixed hyperlipidemia (4) Type 2 diabetes mellitus: Qualifiers: 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 He is afebrile and has normal WBC, lactic acid and procalcitonin levels ? CT chest showed Bilateral lower lobe atelectasis/segmental collapse ? No home oxygen; currently on 10 L/min O2 ? Will place on BiPAP ? Solu-Medrol 40 mg every 6 hours, DuoNebs 4 times daily and budesonide every 12 hours ? Monitor O2 sats and wean oxygen as tolerated ? Telemetry monitoring Type 2 diabetes mellitus ? A1c was 14.6% on 04/08/2023; will repeat ? Continue Lantus and sliding scale lispro ? Monitor glucose and adjust regimen as needed Essential hypertension ? BP stable ? Continue home amlodipine Hyperlipidemia ? Continue atorvastatin Chronic insomnia ? Trazodone as needed at bedtime GERD ? Continue Protonix Plan for today December 27, 2023. Oxygen requirement slightly improved at 8 L/min today. Continues to have scattered bilateral wheezing. Steroids dose adjusted to 40 mg IV every 8 hours from IV every 6 hours. Add budesonide inhalation twice daily. Lasix 20 mg IV today. Per review of [facility] records patient takes Lasix 20 mg p.o. every day, will resume home dosing currently. Plan for cardiac cath tentatively tomorrow if he is able to tolerate laying flat and improved from a respiratory standpoint. Add Imdur 30 mg p.o. daily for better blood pressure management. Currently blood pressure ranging between 1 40-1 66 systolic. Plan for today December 28, 2023. Oxygen requirement improving at 6 L/min today. Complaining of abdominal pain. States that he has been belching more than usual. Liver function stable today. Mildly tender to palpation in the left lower quadrant. No diarrhea. He was constipated earlier. Also had a few episodes of vomiting this afternoon. CT of the abdomen and pelvis has been ordere to assess for Sbo. He has an umbilical hernia, no signs of incarceration or strangulation currently. It is easily reducible. No pain to palpation over the hernia site. Interim development of leukocytosis with suspected is related to use of high-dose steroids. Reduced dose of steroids to methylprednisolone 40 mg IV every 24 hours today. No localizing signs or symptoms of infection at this time. CTA chest taken on December 25 was negative for any PE. There was some bilateral lower lobe atelectasis noted. No gross pneumonia. Will check UA and blood culture to complete infectious evaluation given leukocytosis. Cardiac cath unable to be proceeded with today. Continue Lovenox, aspirin, Plavix for medical management in the interim. Plan for today December 29, 2023 02 requirements improving to between 4-5 lpm. Abdominal pain and nausea resolved today. CT abd/pelvis without acute pathology- notes cholelithiasis which may be symptomatic- outpatient surgical referral in a few months for the same.CT chest additionally shows bronchiolitis. Checked RVP today- positive for hMPV- this would explain patient's severity of symptoms. COPD ex likely trigerred by acute viral illness. Currently improving 02 requirements- start ceftriaxone and azithromycin for probablity of superadded bacterial infection.Reduce steroids to prednisone 40mg po daily. Cath deferred today. continued medical mgmt for NSTEMI for now. Plan for today December 30, 2023. Oxygen requirement stable at 4 L/min. Hypoglycemic this morning. Likely related to n.p.o. status but receiving insulin. Insulin placed on hold now. Last A1c reviewed at 7.4. Currently on D10 infusion for hypoglycemia. Additionally received glucagon this afternoon. Plan for cardiac cath at 4:30 PM. He is hungry wants to eat. Alert awake oriented. Noted to have bradycardia down to 49 recently initiated. Reduce dose of metoprolol 25/12.5 mg from 25 mg p.o. twice daily. Improving well from a respiratory standpoint. Continue prednisone and IV antibiotics. Attestations 2 Medical Necessity Statement*: continued admission for angiogram today Coding Level of Care Code Acute Code for Chg Fwd Diagnoses Acute respiratory failure with hypoxia and hypercapnia J96.01; J96.02 COPD exacerbation J44.1 Mixed hyperlipidemia E78.2 Hyperlipidemia type: mixed hyperlipidemia Type 2 diabetes mellitus without complication, without long-term current use of insulin E11.9 Diabetes mellitus usp insulin use: without usp use Diabetes mellitus complication status: without complication GERD (gastroesophageal reflux disease) K21.9 Insomnia G47.00
--- NOTE | 2023-12-30 17:35 | PC.NURSE ---
Patient returned to [facility] from [employer] at 1720 with a right radial TR-band. No hematoma noted.
[2023-12-30] MEDS: cefTRIAXone 1,000 MG in sodium chloride 0.9% (plus) 50 ML 100 MG IV (18:23)
[2023-12-30] MEDS: metoprolol tartrate 25 mg Tablet 12.5 MG PO (18:28)
[2023-12-30 21:50] LABS: Glucose Point of Care 189 mg/dL (70-110)
[2023-12-30] MEDS: atorvastatin 40 mg Tablet PO (22:04)
[2023-12-30] MEDS: lidocaine 5% Patch 1 PATCH TOPICAL (22:07)
--- NOTE | 2023-12-30 23:17 | PC.NURSE ---
Patient BG was [address] Hameed was notified to see if he would like to resume scheduled humalog and Lantus for patient since he was no longer NPO. Dr Hameed ordered to keep holding insulins at this time.
[2023-12-30] MEDS: temazepam 15 mg Capsule PO (23:43)
[2023-12-31] VITALS (15 sets, daily range): BP systolic 125–151; BP diastolic 79–86; PULSE 52–122; RESP 18–27; TEMP 36.4–37.1; O2SAT 91–95; BMI 37.0
[2023-12-31] MEDS: ketorolac 30 mg/mL INJ 15 MG IVP (02:41)
[2023-12-31 04:28] LABS: Basophils % 0.1 %; Hematocrit 42.8 % (37-53); Lymphocytes # 1.5 10^3/uL (0.8-4.8); Lymphocytes % 17.4 %; Mean Corpuscular HGB Conc 31.1 g/dL (30-55); Mean Corpuscular Hemoglobin 29.4 pg (27-33); Mean Corpuscular Volume 94.5 fl (82-101); Mean Platelet Volume 10.6 fL (7.4-10.4); Monocytes # 0.9 10^3/uL (0.2-0.9); Monocytes % 10.5 %; Neutrophils # 5.94 10^3/uL (1.8-7.7); Neutrophils % 70.8 %; Nucleated Red Blood Cells % 0 %; Platelet Count 223 10^3/cmm (157-399); Red Blood Count 4.53 10^6/uL (3.85-5.65); White Blood Count 8.39 10^3/uL (3.29-11.43)
[2023-12-31 05:00] LABS: Alanine Aminotransferase 21 U/L (0-41); Albumin Level 3.9 g/dL (3.5-5.2); Alkaline Phosphatase 106 U/L (40-130); Aspartate Amino Transferase 21 U/L (0-40); Blood Urea Nitrogen 17 mg/dL (8-23); Calcium 8.5 mg/dL (8.5-10.5); Carbon Dioxide 28 mmol/L (22-29); Chloride 103 mmol/L (98-107); Creatinine Clr Calc Pharmacy 100.2821; Globulin 3.2 g/dL (1.3-4.6); Glucose 85 mg/dL (65-115); Osmolality Calculated 297 mOsm/kg (285-295); Sodium 143 mmol/L (136-145); Total Bilirubin 0.3 mg/dL (0.15-1.2); Total Protein 7.1 g/dL (6.6-8.7)
[2023-12-31 05:12] LABS: Anion Gap 15.9 (5-19); Potassium 3.9 mmol/L (3.5-5.1)
[2023-12-31 05:18] LABS: Glucose Point of Care 83 mg/dL (70-110)
[2023-12-31 06:46] LABS: Glucose Point of Care 95 mg/dL (70-110)
[2023-12-31] MEDS: ipratropium-albuterol 3 mL Neb INHALATION ×4 (07:47→21:00)
[2023-12-31] MEDS: budesonide 0.5 mg/2 mL Neb INHALATION ×2 (07:47→21:00)
[2023-12-31] MEDS: amlodipine 10 mg Tablet PO (09:42)
[2023-12-31] MEDS: duloxetine 20 mg Capsule PO (09:43)
[2023-12-31] MEDS: pantoprazole DR 40 mg Tablet PO ×2 (09:43→16:59)
[2023-12-31] MEDS: clopidogrel 75 mg Tablet PO (09:43)
[2023-12-31] MEDS: predniSONE 20 mg Tablet 40 MG PO (09:43)
[2023-12-31] MEDS: FUROsemide 20 mg Tablet PO (09:43)
[2023-12-31] MEDS: aspirin 81 mg EC Tablet PO (09:43)
[2023-12-31] MEDS: azithromycin 250 mg Tablet 500 MG PO (09:43)
--- NOTE | 2023-12-31 09:46 | PC.SOCIAL ---
IMM Update pg 2 of IMM updated and reviewed w/ patient. Copy provided and copy in chart dated, and initialed.
[2023-12-31] MEDS: morphine 4 mg/mL SDV 1 mL 2 MG IVP ×3 (09:50→22:32)
[2023-12-31] MEDS: lidocaine 5% Patch 1 PATCH TOPICAL ×2 (09:54→21:40)
--- NOTE | 2023-12-31 09:56 | PC.NURSE ---
dr lackey contacted regarding pt's heart rate through the night (low)...and the 25 mg of metoprolol due now.dr stated to hold metoprolol
--- NOTE | 2023-12-31 11:28 | PM.PN ---
Subjective Subjective: Patient is feeling okay. No chest pain or any specific cardiac symptoms. Shortness of breath is improving. Oxygen saturation is much better. No fever or chills. No cough. Medications: Medication Review Details: Current Medications Acetaminophen (Acetaminophen 650 Mg Supp) 650 mg ID Q6H PRN PRN Reason: FEVER Acetaminophen (Acetaminophen 325 Mg Tablet) 650 mg PO Q6H PRN PRN Reason: MILD PAIN Last Admin: 12/29/23 19:15 Dose: 650 mg Al Hydrox/Mg Hydrox/Simethicone (Mhbk-[id number]-Yufqdused-Simba 30 Ml Udc) 30 ml PO Q15M PRN PRN Reason: INDIGESTION Albuterol/Ipratropium (Ipratropium-Albuterol 3 Ml Neb) 3 ml INHALATION QID.RESPIRATORY TAYA Last Admin: 12/31/23 07:47 Dose: 3 ml Amlodipine Besylate (Amlodipine 10 Mg Tablet) 10 mg PO DAILY TAYA Last Admin: 12/31/23 09:42 Dose: 10 mg Aspirin (Aspirin 81 Mg Ec Tablet) 81 mg PO DAILY TAYA Last Admin: 12/31/23 09:43 Dose: 81 mg Atorvastatin Calcium (Atorvastatin 40 Mg Tablet) 40 mg PO BEDTIME TAYA Last Admin: 12/30/23 22:04 Dose: 40 mg Atropine Sulfate (Atropine 1 Mg/Ml Sdv 1 Ml) 0.5 mg IVP PRN PRN PRN Reason: Symptomatic bradycardia Azithromycin (Azithromycin 250 Mg Tablet) 500 mg PO DAILY [facility]; Protocol Stop: 01/02/24 08:59 Last Admin: 12/31/23 09:43 Dose: 500 mg Budesonide (Budesonide 0.5 Mg/2 Ml Neb) 0.5 mg INHALATION BID.RESPIRATORY TAYA Last Admin: 12/31/23 07:47 Dose: 0.5 mg Calcium Carbonate (Calcium Carbonate 500 Mg Chew Tablet) 1,000 mg PO Q6H PRN PRN Reason: INDIGESTION Last Admin: 12/28/23 09:56 Dose: 1,000 mg Clopidogrel Bisulfate (Clopidogrel 75 Mg Tablet) 75 mg PO DAILY TAYA Last Admin: 12/31/23 09:43 Dose: 75 mg Docusate Sodium (Docusate Sodium 100 Mg Capsule) 100 mg PO BID PRN PRN Reason: constipaton Duloxetine HCl (Duloxetine 20 Mg Capsule) 20 mg PO DAILY [facility] Last Admin: 12/31/23 09:43 Dose: 20 mg Furosemide (Furosemide 20 Mg Tablet) 20 mg PO DAILY@0800 [facility] Last Admin: 12/31/23 09:43 Dose: 20 mg Dextrose (D5w) 500 mls @ 0 mls/hr IV ONCE PRN; Protocol PRN Reason: Adult Acute Hypoglycemia Prot Dextrose (D10w) 125 mls @ 750 mls/hr IV PRN PRN; Protocol PRN Reason: Adult Acute Hypoglycemia Nursing Protocol Dextrose (D10w) 250 mls @ 1,000 mls/hr IV PRN PRN; Protocol PRN Reason: Adult Acute Hypoglycemia Nursing Protocol Last Admin: 12/30/23 06:19 Dose: 1,000 mls/hr Ceftriaxone Sodium 1,000 mg/ (Sodium Chloride) 50 mls @ 100 mls/hr IV Q24H [facility]; Protocol Last Infusion: 12/30/23 19:22 Dose: Infused Dextrose (D10w) 1,000 mls @ 30 mls/hr IV .Q24H [facility] Last Admin: 12/31/23 06:04 Dose: Not Given Insulin Glargine (Insulin Glargine 100 Units/1 Ml) 30 unit SUBCUT QAM [facility] Last Admin: 12/30/23 05:20 Dose: 30 unit Insulin Human Lispro (Insulin Lispro 100 Unit/1 Ml) 0 unit SUBCUT WM&BEDTIME [facility]; Protocol Last Admin: 12/29/23 20:48 Dose: 12 unit Isosorbide Mononitrate (Isosorbide Mononitrate Er 30 Mg Tablet) 30 mg PO DAILY [facility] Last Admin: 12/29/23 09:56 Dose: 30 mg Lidocaine (Lidocaine 5% Patch) 1 patch TOPICAL [id number] [facility] Last Admin: 12/31/23 09:54 Dose: 1 patch Magnesium Hydroxide (Magnesium Hydroxide 30 Ml Udc) 30 ml PO DAILY PRN PRN Reason: CONSTIPATION Metoprolol Tartrate (Metoprolol Tartrate 25 Mg Tablet) 25 mg PO DAILY [facility] Last Admin: 12/31/23 09:54 Dose: Not Given Metoprolol Tartrate (Metoprolol Tartrate 25 Mg Tablet) 12.5 mg PO QPM [facility] Last Admin: 12/30/23 18:28 Dose: 12.5 mg Morphine Sulfate (Morphine 4 Mg/Ml Sdv 1 Ml) 2 mg IVP Q4H PRN PRN Reason: SEVERE PAIN Last Admin: 12/31/23 09:50 Dose: 2 mg Naloxone HCl (Naloxone 0.4 Mg/Ml Sdv) 0.1 mg IVP Q2M PRN PRN Reason: RESPIRATORY RATE < 8/MIN Nitroglycerin (Nitroglycerin 0.4 Mg Sublingual Tablet) 0.4 mg SUBLINGUAL Q5M PRN PRN Reason: CHEST PAIN Pantoprazole Sodium (Pantoprazole Dr 40 Mg Tablet) 40 mg PO BID [facility] Last Admin: 12/31/23 09:43 Dose: 40 mg Prednisone (Prednisone 20 Mg Tablet) 40 mg PO DAILY [facility] Last Admin: 12/31/23 09:43 Dose: 40 mg Temazepam (Temazepam 15 Mg Capsule) 15 mg PO BEDTIME PRN PRN Reason: INSOMNIA Last Admin: 12/30/23 23:43 Dose: 15 mg Trazodone HCl (Trazodone 150 Mg Tablet) 150 mg PO BEDTIME PRN PRN Reason: sleep Last Admin: 12/29/23 20:47 Dose: 150 mg Vitals/I&O/Wt Last Vital Signs Temp 97.5 F L 12/31/23 08:00 Pulse 63 12/31/23 08:00 Resp 18 12/31/23 09:50 BP 147/84 12/31/23 08:00 Pulse Ox 92 12/31/23 09:50 O2 Del Method High Flow Nasal Cannula 12/31/23 08:00 O2 Flow Rate 4 12/31/23 08:00 FiO2 50 12/28/23 15:20 12/30/23 12/31/23 12/31/23 22:59 06:59 14:59 Intake Total 290 / 290 Output Total 1075 / 1775 325 / 2100 Balance -785 / -1485 -325 / -1810 Weight last 48 hrs Weight 281 lb 4 oz Weight 278 lb 7 oz Physical Exam Narrative: GENERAL: The patient is alert and oriented times three. Not in any acute distress. Obese. HEENT: No significant pallor, icterus or lymphadenopathy.Oral cavity: There are no mucous membrane lesions. NECK: Trachea appears to be central. No masses noted. No JVD or thyromegaly appreciated. RESPIRATORY: Chest is symmetrical. No intercostals muscle retraction or any accessory muscle activation. There is no chest wall tenderness. Breath sounds are heard bilaterally. Bilateral scattered crackles. No evidence of consolidation. BREASTS: Deferred. HEART: The heart sounds are normal. No S3 or S4. No significant murmurs. No pericardial rub ABDOMEN: No vessel pulsations or distention. No tenderness. No organomegaly appreciated. Bowel sounds are normally heard. : Deferred. RECTAL: Deferred. LYMPHATIC: No lymphadenopathy noted in the neck. EXTREMITIES: No hematoma bleeding from the right radial arterial puncture site MUSCULOSKELETAL: No acute joint deformities or swelling SKIN: There are no significant rashes or ecchymosis NEUROPSYCHIATRIC: The patient is alert and oriented x3. Appears to be in a good mood. No tremors or rigidity noted. Data 12/31/23 04:15 12/31/23 04:15 Other Labs: Laboratory Last Values WBC 8.39 10^3/uL (3.29-11.43) 12/31/23 04:15 RBC 4.53 10^6/uL (3.85-5.65) 12/31/23 04:15 Hgb 13.30 g/dL (11.27-16.99) 12/31/23 04:15 Hct 42.8 % (37-53) 12/31/23 04:15 MCV 94.5 fl (82-101) 12/31/23 04:15 MCH 29.4 pg (27-33) 12/31/23 04:15 MCHC 31.1 g/dL (30-55) 12/31/23 04:15 RDW 13.0 % (12.1-15.1) 12/31/23 04:15 Plt Count 223 10^3/cmm (157-399) 12/31/23 04:15 MPV 10.6 fL (7.4-10.4) H 12/31/23 04:15 Neut % (Auto) 70.8 % 12/31/23 04:15 Lymph % (Auto) 17.4 % 12/31/23 04:15 [place] % (Auto) 10.5 % 12/31/23 04:15 Eos % (Auto) 0.0 % 12/31/23 04:15 Baso % (Auto) 0.1 % 12/31/23 04:15 Neut # (Auto) 5.94 10^3/uL (1.8-7.7) 12/31/23 04:15 Lymph # (Auto) 1.5 10^3/uL (0.8-4.8) 12/31/23 04:15 [place] # (Auto) 0.9 10^3/uL (0.2-0.9) 12/31/23 04:15 Eos # (Auto) 0.0 10^3/uL (0.0-0.8) 12/31/23 04:15 Baso # (Auto) 0.0 10^3/uL (0.0-0.1) 12/31/23 04:15 Nucleated RBC % (auto) 0 % 12/31/23 04:15 Nucleated RBCs # 0.0 /100WBC 12/31/23 04:15 D-Dimer 1.55 ug/mLFEU (0-0.59) H 12/26/23 12:10 Specimen Type Arterial 12/26/23 10:29 Sample Site Radial, left 12/26/23 10:29 ABG pH 7.34 (7.35-7.45) L 12/26/23 10:29 ABG pCO2 55.6 mmHg (35-45) H 12/26/23 10:29 ABG pO2 62.8 mmHg (80.0-100.0) L 12/26/23 10:29 ABG HCO3 30.3 mmol/L (22-26) H 12/26/23 10:29 ABG Base Excess 3.1 mmol/L (-2.0-2.0) H 12/26/23 10:29 Neville Test Pos 12/26/23 10:29 Hematocrit 43.0 % (42-52) 12/26/23 10:29 Hgb O2 Saturation 88.9 % (95-100) L 12/26/23 10:29 Carboxyhemoglobin 0.5 %THgb (0.4-20.1) 12/26/23 10:29 Methemoglobin 0.7 % (0.4-1.5) 12/26/23 10:29 Total Hemoglobin 14.0 g/dL (14-18) 12/26/23 10:29 O2 Delivery Device Oxy mask 12/26/23 10:29 O2 Liters/Min 10.0 % 12/26/23 10:29 Foam Rubber Fabricator ID Amh 12/26/23 10:29 Sodium 143 mmol/L (136-145) 12/31/23 04:15 Potassium 3.9 mmol/L (3.5-5.1) 12/31/23 04:15 Chloride 103 mmol/L (98-107) 12/31/23 04:15 Carbon Dioxide 28 mmol/L (22-29) 12/31/23 04:15 Anion Gap 15.9 (5-19) 12/31/23 04:15 BUN 17 mg/dL (8-23) 12/31/23 04:15 Creatinine 0.9 mg/dL (0.7-1.2) 12/31/23 04:15 GFR Calculation Not Reportable 12/31/23 04:15 Glucose 85 mg/dL (65-115) 12/31/23 04:15 POC Glucose 244 mg/dL (70-110) H 12/31/23 16:42 Estimat Average Glucose 166 12/26/23 10:40 Hemoglobin A1c 7.4 % (4.0-6.0) H 12/26/23 10:40 Calculated Osmolality 297 mOsm/kg (285-295) H 12/31/23 04:15 Lactic Acid 1.8 mmol/L (0.5-2.2) 12/26/23 10:40 Calcium 8.5 mg/dL (8.5-10.5) 12/31/23 04:15 Phosphorus 1.8 mg/dL (2.5-4.5) L 12/27/23 02:17 Magnesium 2.3 mg/dL (1.7-2.3) 12/27/23 02:17 Total Bilirubin 0.3 mg/dL (0.15-1.2) 12/31/23 04:15 AST 21 U/L (0-40) 12/31/23 04:15 ALT 21 U/L (0-41) 12/31/23 04:15 Alkaline Phosphatase 106 U/L (40-130) 12/31/23 04:15 Troponin T 5th Gen ng/L 8 ng/L (0-15) 12/28/23 02:26 Troponin T Baseline 9 ng/L (0-15) 12/26/23 10:40 Troponin T 120 Minute 9.33 ng/L (0-15) 12/26/23 12:10 Delta Troponin T 0.33 ABS# (0-10) 12/26/23 12:10 Troponin T Hi Sens 6Hr 555.0 ng/L (0-15) H 12/26/23 16:51 Troponin T Hi Sens 6Hr Delta 546.0 ng/L (0-12) H* 12/26/23 16:51 NT-Pro-B Natriuret Pep < 36 pg/mL (0-125) 12/26/23 10:40 Total Protein 7.1 g/dL (6.6-8.7) 12/31/23 04:15 Albumin 3.9 g/dL (3.5-5.2) 12/31/23 04:15 Globulin 3.2 g/dL (1.3-4.6) 12/31/23 04:15 Procalcitonin 0.07 ng/mL (0-0.5) 12/26/23 10:40 Urine Color Yellow (Yellow) 12/29/23 18:00 Urine Appearance Clear (CLEAR) 12/29/23 18:00 Urine pH 6 (5-7) 12/29/23 18:00 Ur Specific [place] 1.015 (1.005-1.030) 12/29/23 18:00 Urine Protein Neg (Negative) 12/29/23 18:00 Urine Glucose (UA) Norm (Normal) 12/29/23 18:00 Urine Ketones Negative (Negative) 12/29/23 18:00 Urine Blood Neg (Negative) 12/29/23 18:00 Urine Nitrate Negative (Negative) 12/29/23 18:00 Urine Bilirubin Neg (Negative) 12/29/23 18:00 Urine Urobilinogen Norm mg/dL (Negative) 12/29/23 18:00 Ur Leukocyte Esterase Negative (Negative) 12/29/23 18:00 Adenovirus (PCR) Not detected (NOT DETECT) 12/29/23 12:40 C. pneumoniae DNA (PCR) Not detected (NOT DETECT) 12/29/23 12:40 Coronavirus 229E (PCR) Not detected (NOT DETECT) 12/29/23 12:40 Human Metapneumovir PCR Detected (NOT DETECT) A 12/29/23 12:40 Influenza A (H1) PCR Not detected (NOT DETECT) 12/29/23 12:40 Influ A (H1/09) PCR Not detected (NOT DETECT) 12/29/23 12:40 Influenza A (H3) PCR Not detected (NOT DETECT) 12/29/23 12:40 Influenza Type A (PCR) Not detected (NOT DETECT) 12/29/23 12:40 Influenza Type B (PCR) Not detected (NOT DETECT) 12/29/23 12:40 M. pneumoniae (PCR) Not detected (NOT DETECT) 12/29/23 12:40 Parainfluenza 1 (PCR) Not detected (NOT DETECT) 12/29/23 12:40 Parainfluenza 2 (PCR) Not detected (NOT DETECT) 12/29/23 12:40 Parainfluenza 3 (PCR) Not detected (NOT DETECT) 12/29/23 12:40 Parainfluenza 4 (PCR) Not detected (NOT DETECT) 12/29/23 12:40 RSV Type A (PCR) Not detected (NOT DETECT) 12/29/23 12:40 RSV Type B (PCR) Not detected (NOT DETECT) 12/29/23 12:40 Entero/Rhino (PCR) Not detected (NOT DETECT) 12/29/23 12:40 SARS-CoV-2 (PCR) Not detected (NOT DETECT) 12/29/23 12:40 Other data: Laboratory Last Values WBC 8.39 10^3/uL (3.29-11.43) 12/31/23 04:15 RBC 4.53 10^6/uL (3.85-5.65) 12/31/23 04:15 Hgb 13.30 g/dL (11.27-16.99) 12/31/23 04:15 Hct 42.8 % (37-53) 12/31/23 04:15 MCV 94.5 fl (82-101) 12/31/23 04:15 MCH 29.4 pg (27-33) 12/31/23 04:15 MCHC 31.1 g/dL (30-55) 12/31/23 04:15 RDW 13.0 % (12.1-15.1) 12/31/23 04:15 Plt Count 223 10^3/cmm (157-399) 12/31/23 04:15 MPV 10.6 fL (7.4-10.4) H 12/31/23 04:15 Neut % (Auto) 70.8 % 12/31/23 04:15 Lymph % (Auto) 17.4 % 12/31/23 04:15 [place] % (Auto) 10.5 % 12/31/23 04:15 Eos % (Auto) 0.0 % 12/31/23 04:15 Baso % (Auto) 0.1 % 12/31/23 04:15 Neut # (Auto) 5.94 10^3/uL (1.8-7.7) 12/31/23 04:15 Lymph # (Auto) 1.5 10^3/uL (0.8-4.8) 12/31/23 04:15 [place] # (Auto) 0.9 10^3/uL (0.2-0.9) 12/31/23 04:15 Eos # (Auto) 0.0 10^3/uL (0.0-0.8) 12/31/23 04:15 Baso # (Auto) 0.0 10^3/uL (0.0-0.1) 12/31/23 04:15 Nucleated RBC % (auto) 0 % 12/31/23 04:15 Nucleated RBCs # 0.0 /100WBC 12/31/23 04:15 D-Dimer 1.55 ug/mLFEU (0-0.59) H 12/26/23 12:10 Specimen Type Arterial 12/26/23 10:29 Sample Site Radial, left 12/26/23 10:29 ABG pH 7.34 (7.35-7.45) L 12/26/23 10:29 ABG pCO2 55.6 mmHg (35-45) H 12/26/23 10:29 ABG pO2 62.8 mmHg (80.0-100.0) L 12/26/23 10:29 ABG HCO3 30.3 mmol/L (22-26) H 12/26/23 10:29 ABG Base Excess 3.1 mmol/L (-2.0-2.0) H 12/26/23 10:29 [place] Test Pos 12/26/23 10:29 Hematocrit 43.0 % (42-52) 12/26/23 10:29 Hgb O2 Saturation 88.9 % (95-100) L 12/26/23 10:29 Carboxyhemoglobin 0.5 %THgb (0.4-20.1) 12/26/23 10:29 Methemoglobin 0.7 % (0.4-1.5) 12/26/23 10:29 Total Hemoglobin 14.0 g/dL (14-18) 12/26/23 10:29 O2 Delivery Device Oxy mask 12/26/23 10:29 O2 Liters/Min 10.0 % 12/26/23 10:29 Foam Rubber Fabricator ID Amh 12/26/23 10:29 Sodium 143 mmol/L (136-145) 12/31/23 04:15 Potassium 3.9 mmol/L (3.5-5.1) 12/31/23 04:15 Chloride 103 mmol/L (98-107) 12/31/23 04:15 Carbon Dioxide 28 mmol/L (22-29) 12/31/23 04:15 Anion Gap 15.9 (5-19) 12/31/23 04:15 BUN 17 mg/dL (8-23) 12/31/23 04:15 Creatinine 0.9 mg/dL (0.7-1.2) 12/31/23 04:15 GFR Calculation Not Reportable 12/31/23 04:15 Glucose 85 mg/dL (65-115) 12/31/23 04:15 POC Glucose 95 mg/dL (70-110) 12/31/23 06:30 Estimat Average Glucose 166 12/26/23 10:40 Hemoglobin A1c 7.4 % (4.0-6.0) H 12/26/23 10:40 Calculated Osmolality 297 mOsm/kg (285-295) H 12/31/23 04:15 Lactic Acid 1.8 mmol/L (0.5-2.2) 12/26/23 10:40 Calcium 8.5 mg/dL (8.5-10.5) 12/31/23 04:15 Phosphorus 1.8 mg/dL (2.5-4.5) L 12/27/23 02:17 Magnesium 2.3 mg/dL (1.7-2.3) 12/27/23 02:17 Total Bilirubin 0.3 mg/dL (0.15-1.2) 12/31/23 04:15 AST 21 U/L (0-40) 12/31/23 04:15 ALT 21 U/L (0-41) 12/31/23 04:15 Alkaline Phosphatase 106 U/L (40-130) 12/31/23 04:15 Troponin T 5th Gen ng/L 8 ng/L (0-15) 12/28/23 02:26 Troponin T Baseline 9 ng/L (0-15) 12/26/23 10:40 Troponin T 120 Minute 9.33 ng/L (0-15) 12/26/23 12:10 Delta Troponin T 0.33 ABS# (0-10) 12/26/23 12:10 Troponin T Hi Sens 6Hr 555.0 ng/L (0-15) H 12/26/23 16:51 Troponin T Hi Sens 6Hr Delta 546.0 ng/L (0-12) H* 12/26/23 16:51 NT-Pro-B Natriuret Pep < 36 pg/mL (0-125) 12/26/23 10:40 Total Protein 7.1 g/dL (6.6-8.7) 12/31/23 04:15 Albumin 3.9 g/dL (3.5-5.2) 12/31/23 04:15 Globulin 3.2 g/dL (1.3-4.6) 12/31/23 04:15 Procalcitonin 0.07 ng/mL (0-0.5) 12/26/23 10:40 Urine Color Yellow (Yellow) 12/29/23 18:00 Urine Appearance Clear (CLEAR) 12/29/23 18:00 Urine pH 6 (5-7) 12/29/23 18:00 Ur Specific [place] 1.015 (1.005-1.030) 12/29/23 18:00 Urine Protein Neg (Negative) 12/29/23 18:00 Urine Glucose (UA) Norm (Normal) 12/29/23 18:00 Urine Ketones Negative (Negative) 12/29/23 18:00 Urine Blood Neg (Negative) 12/29/23 18:00 Urine Nitrate Negative (Negative) 12/29/23 18:00 Urine Bilirubin Neg (Negative) 12/29/23 18:00 Urine Urobilinogen Norm mg/dL (Negative) 12/29/23 18:00 Ur Leukocyte Esterase Negative (Negative) 12/29/23 18:00 Adenovirus (PCR) Not detected (NOT DETECT) 12/29/23 12:40 C. pneumoniae DNA (PCR) Not detected (NOT DETECT) 12/29/23 12:40 Coronavirus 229E (PCR) Not detected (NOT DETECT) 12/29/23 12:40 Human Metapneumovir PCR Detected (NOT DETECT) A 12/29/23 12:40 Influenza A (H1) PCR Not detected (NOT DETECT) 12/29/23 12:40 Influ A (H1/09) PCR Not detected (NOT DETECT) 12/29/23 12:40 Influenza A (H3) PCR Not detected (NOT DETECT) 12/29/23 12:40 Influenza Type A (PCR) Not detected (NOT DETECT) 12/29/23 12:40 Influenza Type B (PCR) Not detected (NOT DETECT) 12/29/23 12:40 M. pneumoniae (PCR) Not detected (NOT DETECT) 12/29/23 12:40 Parainfluenza 1 (PCR) Not detected (NOT DETECT) 12/29/23 12:40 Parainfluenza 2 (PCR) Not detected (NOT DETECT) 12/29/23 12:40 Parainfluenza 3 (PCR) Not detected (NOT DETECT) 12/29/23 12:40 Parainfluenza 4 (PCR) Not detected (NOT DETECT) 12/29/23 12:40 RSV Type A (PCR) Not detected (NOT DETECT) 12/29/23 12:40 RSV Type B (PCR) Not detected (NOT DETECT) 12/29/23 12:40 Entero/Rhino (PCR) Not detected (NOT DETECT) 12/29/23 12:40 SARS-CoV-2 (PCR) Not detected (NOT DETECT) 12/29/23 12:40 A&P Assessment and plan (1) Elevated troponin: Patient status post cardiac catheterization. 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 It was decided to treat him medically. May continue the Plavix and baby aspirin for a month (2) Hyperlipidemia: May continue on the current dose of the Lipitor. Qualifiers: Hyperlipidemia type: mixed hyperlipidemia Qualified Code(s): E78.2 - Mixed hyperlipidemia (3) Type 2 diabetes mellitus: The blood sugar seems to be under control. May continue on the current management. Qualifiers: Diabetes mellitus complication status: without complication Diabetes mellitus watermaster insulin use: without retirement use Qualified Code(s): E11.9 - Type 2 diabetes mellitus without complications (4) Acute respiratory failure with hypoxia and hypercapnia: Has marked improvement. Management as per the primary (5) Elevated blood pressure reading: The blood pressure is in the normal range. May continue on the current medications. Plan The Lovenox is discontinued. Continue on the aspirin and Plavix. May discontinue the aspirin after a month. Continue the other medications as it is Please make an appointment to be seen in the office in 1 to 2 weeks. I will be seeing him in the office in 3 months Disposition as per the primary Attestations Medical Necessity Statement*: Deferred to the primary Coding Level of Care Code 75121 Diagnoses Elevated troponin R79.89 Mixed hyperlipidemia E78.2 Hyperlipidemia type: mixed hyperlipidemia Type 2 diabetes mellitus without complication, without long-term current use of insulin E11.9 Diabetes mellitus complication status: without complication Diabetes mellitus retirement insulin use: without watermaster use Acute respiratory failure with hypoxia and hypercapnia J96.01; J96.02 Elevated blood pressure reading R03.0
[2023-12-31 11:41] LABS: Glucose Point of Care 145 mg/dL (70-110)
[2023-12-31] MEDS: HYDROcodone-acetaminophen 5-325 mg Tablet 1 TAB PO ×2 (12:27→20:50)
--- NOTE | 2023-12-31 14:08 | P.PN_ITS ---
Subjective 2 Subjective: Stable oxygen requirements at 4 L/min today. Insulin remains on hold. Blood sugars are better in the 80s today. Status post angiogram yesterday, no stents indicated. 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 Medical management is recommended. Metoprolol held due to bradycardia. Patient states he is starting to feel better today, however had a lot of back pain overnight. Medications: Reviewed: Yes Medication Review Details: Current Medications Acetaminophen (Acetaminophen 650 Mg Supp) 650 mg UT Q6H PRN PRN Reason: FEVER Acetaminophen (Acetaminophen 325 Mg Tablet) 650 mg PO Q6H PRN PRN Reason: MILD PAIN Last Admin: 12/29/23 19:15 Dose: 650 mg Al Hydrox/Mg Hydrox/Simethicone (Pvsq-Tak-Xeasrhzvo-Simba 30 Ml Udc) 30 ml PO Q15M PRN PRN Reason: INDIGESTION Albuterol/Ipratropium (Ipratropium-Albuterol 3 Ml Neb) 3 ml INHALATION QID.RESPIRATORY TAYA Last Admin: 12/31/23 07:47 Dose: 3 ml Amlodipine Besylate (Amlodipine 10 Mg Tablet) 10 mg PO DAILY TAYA Last Admin: 12/31/23 09:42 Dose: 10 mg Aspirin (Aspirin 81 Mg Ec Tablet) 81 mg PO DAILY TAYA Last Admin: 12/31/23 09:43 Dose: 81 mg Atorvastatin Calcium (Atorvastatin 40 Mg Tablet) 40 mg PO BEDTIME TAYA Last Admin: 12/30/23 22:04 Dose: 40 mg Atropine Sulfate (Atropine 1 Mg/Ml Sdv 1 Ml) 0.5 mg IVP PRN PRN PRN Reason: Symptomatic bradycardia Azithromycin (Azithromycin 250 Mg Tablet) 500 mg PO DAILY TAYA; Protocol Stop: 01/02/24 08:59 Last Admin: 12/31/23 09:43 Dose: 500 mg Budesonide (Budesonide 0.5 Mg/2 Ml Neb) 0.5 mg INHALATION BID.RESPIRATORY TAYA Last Admin: 12/31/23 07:47 Dose: 0.5 mg Calcium Carbonate (Calcium Carbonate 500 Mg Chew Tablet) 1,000 mg PO Q6H PRN PRN Reason: INDIGESTION Last Admin: 12/28/23 09:56 Dose: 1,000 mg Clopidogrel Bisulfate (Clopidogrel 75 Mg Tablet) 75 mg PO DAILY TAYA Last Admin: 12/31/23 09:43 Dose: 75 mg Docusate Sodium (Docusate Sodium 100 Mg Capsule) 100 mg PO BID PRN PRN Reason: constipaton Duloxetine HCl (Duloxetine 20 Mg Capsule) 20 mg PO DAILY [facility] Last Admin: 12/31/23 09:43 Dose: 20 mg Furosemide (Furosemide 20 Mg Tablet) 20 mg PO DAILY@0800 [facility] Last Admin: 12/31/23 09:43 Dose: 20 mg Dextrose (D5w) 500 mls @ 0 mls/hr IV ONCE PRN; Protocol PRN Reason: Adult Acute Hypoglycemia Prot Dextrose (D10w) 125 mls @ 750 mls/hr IV PRN PRN; Protocol PRN Reason: Adult Acute Hypoglycemia Nursing Protocol Dextrose (D10w) 250 mls @ 1,000 mls/hr IV PRN PRN; Protocol PRN Reason: Adult Acute Hypoglycemia Nursing Protocol Last Admin: 12/30/23 06:19 Dose: 1,000 mls/hr Ceftriaxone Sodium 1,000 mg/ (Sodium Chloride) 50 mls @ 100 mls/hr IV Q24H [facility]; Protocol Last Infusion: 12/30/23 19:22 Dose: Infused Dextrose (D10w) 1,000 mls @ 30 mls/hr IV .Q24H [facility] Last Admin: 12/31/23 06:04 Dose: Not Given Insulin Glargine (Insulin Glargine 100 Units/1 Ml) 30 unit SUBCUT QAM [facility] Last Admin: 12/30/23 05:20 Dose: 30 unit Insulin Human Lispro (Insulin Lispro 100 Unit/1 Ml) 0 unit SUBCUT WM&BEDTIME [facility]; Protocol Last Admin: 12/29/23 20:48 Dose: 12 unit Isosorbide Mononitrate (Isosorbide Mononitrate Er 30 Mg Tablet) 30 mg PO DAILY [facility] Last Admin: 12/29/23 09:56 Dose: 30 mg Lidocaine (Lidocaine 5% Patch) 1 patch TOPICAL [id number] [facility] Last Admin: 12/31/23 09:54 Dose: 1 patch Magnesium Hydroxide (Magnesium Hydroxide 30 Ml Udc) 30 ml PO DAILY PRN PRN Reason: CONSTIPATION Metoprolol Tartrate (Metoprolol Tartrate 25 Mg Tablet) 25 mg PO DAILY [facility] Last Admin: 12/31/23 09:54 Dose: Not Given Metoprolol Tartrate (Metoprolol Tartrate 25 Mg Tablet) 12.5 mg PO QPM [facility] Last Admin: 12/30/23 18:28 Dose: 12.5 mg Morphine Sulfate (Morphine 4 Mg/Ml Sdv 1 Ml) 2 mg IVP Q4H PRN PRN Reason: SEVERE PAIN Last Admin: 12/31/23 09:50 Dose: 2 mg Naloxone HCl (Naloxone 0.4 Mg/Ml Sdv) 0.1 mg IVP Q2M PRN PRN Reason: RESPIRATORY RATE < 8/MIN Nitroglycerin (Nitroglycerin 0.4 Mg Sublingual Tablet) 0.4 mg SUBLINGUAL Q5M PRN PRN Reason: CHEST PAIN Pantoprazole Sodium (Pantoprazole Dr 40 Mg Tablet) 40 mg PO BID [facility] Last Admin: 12/31/23 09:43 Dose: 40 mg Prednisone (Prednisone 20 Mg Tablet) 40 mg PO DAILY [facility] Last Admin: 12/31/23 09:43 Dose: 40 mg Temazepam (Temazepam 15 Mg Capsule) 15 mg PO BEDTIME PRN PRN Reason: INSOMNIA Last Admin: 12/30/23 23:43 Dose: 15 mg Trazodone HCl (Trazodone 150 Mg Tablet) 150 mg PO BEDTIME PRN PRN Reason: sleep Last Admin: 12/29/23 20:47 Dose: 150 mg Vitals/I&O/Wt Last Vital Signs Temp 97.5 F L 12/31/23 11:48 Pulse 64 12/31/23 11:59 Resp 20 H 12/31/23 11:59 BP 128/80 12/31/23 11:48 Pulse Ox 92 12/31/23 11:59 O2 Del Method High Flow Nasal Cannula 12/31/23 11:59 O2 Flow Rate 4 12/31/23 11:59 FiO2 50 12/28/23 15:20 12/30/23 12/31/23 12/31/23 22:59 06:59 14:59 Intake Total 290 / 290 240 / 240 Output Total 1075 / 1775 325 / 2100 Balance -785 / -1485 -325 / -1810 240 / 240 Weight last 48 hrs Weight 127.573 kg Weight 126.297 kg Physical Exam 2 Narrative: General: No acute distress, AO x3 HEENT: PERRLA, pupils bilaterally equal and reactive, pallors not present Chest: Normal vesicular breath sounds, no added sounds, equal good air entry bilaterally CVS: S1-S2 regular, no murmurs, no tachycardia, no gallops, no rubs Abdomen: Soft, nontender, no organomegaly, bowel sounds present Neuro: No focal deficits, no facial deformity, AO x3, power 5/5 in all limbs Extremities: no edema or cyanosis Data 12/31/23 04:15 12/31/23 04:15 A&P Assessment and plan (1) Acute respiratory failure with hypoxia and hypercapnia: (2) COPD exacerbation: (3) Hyperlipidemia: Qualifiers: Hyperlipidemia type: mixed hyperlipidemia Qualified Code(s): E78.2 - Mixed hyperlipidemia (4) Type 2 diabetes mellitus: Qualifiers: Diabetes mellitus intermodal dispatcher insulin use: without intermodal dispatcher use Diabetes mellitus complication status: without complication Qualified Code(s): E11.9 - Type 2 diabetes mellitus without complications (5) GERD (gastroesophageal reflux disease): (6) Insomnia: (7) Human metapneumovirus (hMPV) pneumonia: (8) Bronchiolitis: (9) Acute bronchitis and bronchiolitis: Plan Acute hypoxic and hypercarbic respiratory failure COPD exacerbation ? He is afebrile and has normal WBC, lactic acid and procalcitonin levels ? CT chest showed Bilateral lower lobe atelectasis/segmental collapse ? No home oxygen; currently on 10 L/min O2 ? Will place on BiPAP ? Solu-Medrol 40 mg every 6 hours, DuoNebs 4 times daily and budesonide every 12 hours ? Monitor O2 sats and wean oxygen as tolerated ? Telemetry monitoring Type 2 diabetes mellitus ? A1c was 14.6% on 04/08/2023; will repeat ? Continue Lantus and sliding scale lispro ? Monitor glucose and adjust regimen as needed Essential hypertension ? BP stable ? Continue home amlodipine Hyperlipidemia ? Continue atorvastatin Chronic insomnia ? Trazodone as needed at bedtime GERD ? Continue Protonix Plan for today December 27, 2023. Oxygen requirement slightly improved at 8 L/min today. Continues to have scattered bilateral wheezing. Steroids dose adjusted to 40 mg IV every 8 hours from IV every 6 hours. Add budesonide inhalation twice daily. Lasix 20 mg IV today. Per review of longterm records patient takes Lasix 20 mg p.o. every day, will resume home dosing currently. Plan for cardiac cath tentatively tomorrow if he is able to tolerate laying flat and improved from a respiratory standpoint. Add Imdur 30 mg p.o. daily for better blood pressure management. Currently blood pressure ranging between 1 40-1 66 systolic. Plan for today December 28, 2023. Oxygen requirement improving at 6 L/min today. Complaining of abdominal pain. States that he has been belching more than usual. Liver function stable today. Mildly tender to palpation in the left lower quadrant. No diarrhea. He was constipated earlier. Also had a few episodes of vomiting this afternoon. CT of the abdomen and pelvis has been ordere to assess for Sbo. He has an umbilical hernia, no signs of incarceration or strangulation currently. It is easily reducible. No pain to palpation over the hernia site. Interim development of leukocytosis with suspected is related to use of high-dose steroids. Reduced dose of steroids to methylprednisolone 40 mg IV every 24 hours today. No localizing signs or symptoms of infection at this time. CTA chest taken on December 25 was negative for any PE. There was some bilateral lower lobe atelectasis noted. No gross pneumonia. Will check UA and blood culture to complete infectious evaluation given leukocytosis. Cardiac cath unable to be proceeded with today. Continue Lovenox, aspirin, Plavix for medical management in the interim. Plan for today December 29, 2023 02 requirements improving to between 4-5 lpm. Abdominal pain and nausea resolved today. CT abd/pelvis without acute pathology- notes cholelithiasis which may be symptomatic- outpatient surgical referral in a few months for the same.CT chest additionally shows bronchiolitis. Checked RVP today- positive for hMPV- this would explain patient's severity of symptoms. COPD ex likely trigerred by acute viral illness. Currently improving 02 requirements- start ceftriaxone and azithromycin for probablity of superadded bacterial infection.Reduce steroids to prednisone 40mg po daily. Cath deferred today. continued medical mgmt for NSTEMI for now. Plan for today December 30, 2023. Oxygen requirement stable at 4 L/min. Hypoglycemic this morning. Likely related to n.p.o. status but receiving insulin. Insulin placed on hold now. Last A1c reviewed at 7.4. Currently on D10 infusion for hypoglycemia. Additionally received glucagon this afternoon. Plan for cardiac cath at 4:30 PM. He is hungry wants to eat. Alert awake oriented. Noted to have bradycardia down to 49 recently initiated. Reduce dose of metoprolol 25/12.5 mg from 25 mg p.o. twice daily. Improving well from a respiratory standpoint. Continue prednisone and IV antibiotics. Plan for today December 31, 2023 Oxygen requirement remained stable at 4 L/min. Hypoglycemia now resolving. Insulin remains on hold. Had a lot of back pain overnight. Hydrocodone APAP q8h prn ordered. metoprolol held overnight due to bradycardia down to 39.s/p angiogram yesterday- found to have plaque, no stentable lesions. On medical management with ASA/plavix. Anticipate discharge in the upcoming 24 hrs f contineus to do well. Continue iv abx for viral and bacterial bronchiolitis Attestations 2 Medical Necessity Statement*: continue iv antibiotics, hold metoprolol, monitor next 24 hrs, anticipating discharge tomorrow Coding Level of Care Code Acute Code for Chg Fwd High MDM includes number and complexity of problems actively addressed during encounter, amount and/or complexity of data reviewed/ordered and described risk of complication, morbidity or mortality of management as documented Diagnoses Acute respiratory failure with hypoxia and hypercapnia J96.01; J96.02 COPD exacerbation J44.1 Mixed hyperlipidemia E78.2 Hyperlipidemia type: mixed hyperlipidemia Type 2 diabetes mellitus without complication, without long-term current use of insulin E11.9 Diabetes mellitus fdc insulin use: without fdc use Diabetes mellitus complication status: without complication GERD (gastroesophageal reflux disease) K21.9 Insomnia G47.00 Human metapneumovirus (hMPV) pneumonia J12.3 Bronchiolitis J21.9 Acute bronchitis and bronchiolitis J20.9; J21.9
[2023-12-31 16:45] LABS: Glucose Point of Care 244 mg/dL (70-110)
[2023-12-31] MEDS: cefTRIAXone 1,000 MG in sodium chloride 0.9% (plus) 50 ML 100 MG IV (16:59)
[2023-12-31] MEDS: atorvastatin 40 mg Tablet PO (20:49)
[2023-12-31 21:21] LABS: Glucose Point of Care 253 mg/dL (70-110)
[2023-12-31] MEDS: trazodone 150 mg Tablet PO (22:43)
[2024-01-01] VITALS (10 sets, daily range): BP systolic 108–146; BP diastolic 71–89; PULSE 66–77; RESP 16–26; TEMP 36.6–36.9; O2SAT 91–97; BMI 37.0
[2024-01-01] MEDS: morphine 4 mg/mL SDV 1 mL 2 MG IVP ×3 (02:40→11:01)
[2024-01-01 06:38] LABS: Glucose Point of Care 127 mg/dL (70-110)
[2024-01-01] MEDS: budesonide 0.5 mg/2 mL Neb INHALATION (07:33)
[2024-01-01] MEDS: ipratropium-albuterol 3 mL Neb INHALATION ×2 (07:33→11:21)
[2024-01-01] MEDS: FUROsemide 20 mg Tablet PO (08:18)
[2024-01-01] MEDS: amlodipine 10 mg Tablet PO (08:18)
[2024-01-01] MEDS: aspirin 81 mg EC Tablet PO (08:18)
[2024-01-01] MEDS: duloxetine 20 mg Capsule PO (08:18)
[2024-01-01] MEDS: pantoprazole DR 40 mg Tablet PO (08:18)
[2024-01-01] MEDS: clopidogrel 75 mg Tablet PO (08:18)
[2024-01-01] MEDS: predniSONE 20 mg Tablet 40 MG PO (08:19)
[2024-01-01] MEDS: azithromycin 250 mg Tablet 500 MG PO (08:19)
--- NOTE | 2024-01-01 08:23 | P.PN_ITS ---
Subjective 2 Subjective: Pillo is 73 and lives in a half-way. He was admitted on the with a respiratory illness. His troponin was elevated. This prompted an echo which was normal. That then prompted coronary angiography 2 days ago which revealed a 50% proximal LAD stenosis and is 99% stenosis of the ostium of a very small proximal diagonal branch. Medical therapy was recommended. He is a diabetic which has not been in good control. He has obesity and dyslipidemia. He is a remote tobacco abuser. He cannot take care of himself at home and so he lives in a half-way. He seems to be getting better. He has never had any chest pain. No prior known history of heart disease. Vitals/I&O/Wt Last Vital Signs Temp 98.0 F 01/01/24 07:57 Pulse 74 01/01/24 07:57 Resp 22 H 01/01/24 07:57 BP 146/89 01/01/24 07:57 Pulse Ox 97 01/01/24 07:57 O2 Del Method Nasal Cannula 01/01/24 07:57 O2 Flow Rate 4 01/01/24 07:37 FiO2 50 12/28/23 15:20 12/31/23 01/01/24 01/01/24 22:59 06:59 14:59 Intake Total 410 / 650 240 / 890 Output Total 550 / 550 600 / 1150 Balance -140 / 100 -360 / -260 Weight last 48 hrs Weight 280 lb 7 oz Weight 281 lb 4 oz Physical Exam 2 Narrative: GENERAL: In general he is awake and alert eating breakfast HEENT: Exam within normal limits. NECK: Supple without jugular vein distention. The carotid upstroke is normal without bruits. BACK: Exam normal. LUNGS: Clear. HEART: Regular rate and rhythm. ABDOMEN: Benign without organomegaly or tenderness. EXTREMITIES: No edema. NEUROLOGIC: Exam normal. SKIN: Unremarkable. Data 12/31/23 04:15 12/31/23 04:15 A&P Assessment and plan (1) Hyperlipidemia: Qualifiers: Hyperlipidemia type: mixed hyperlipidemia Qualified Code(s): E78.2 - Mixed hyperlipidemia (2) Elevated troponin: (3) Elevated blood pressure reading: (4) Uncontrolled diabetes mellitus: (5) Acute respiratory failure with hypoxia and hypercapnia: (6) Community acquired pneumonia: Qualifiers: Laterality: unspecified laterality Qualified Code(s): J18.9 - Pneumonia, unspecified organism (7) COPD exacerbation: Plan He seems to be improving slowly. From a cardiac standpoint he can be discharged today. No lifting over 5 pounds for 2 days with the right arm. Attestations 2 Medical Necessity Statement*: Hospitalization for management of respiratory failure and Moderate Time for a total of 35 minutes, includes reviewing past or interval history, examining/interviewing patient, counseling patient/family/other support, updating patient/family/other support, discussing plan of care with staff, communicating with other healthcare providers and documenting encounter Diagnoses Mixed hyperlipidemia E78.2 Hyperlipidemia type: mixed hyperlipidemia Elevated troponin R79.89 Elevated blood pressure reading R03.0 Uncontrolled diabetes mellitus Acute respiratory failure with hypoxia and hypercapnia J96.01; J96.02 Community acquired pneumonia J18.9 Laterality: unspecified laterality COPD exacerbation J44.1
--- NOTE | 2024-01-01 11:02 | P.DS_ITS ---
Discharge Providers Date of Admission: 12/26/23 14:22 Date of Discharge: January 01, 2024 Attending Provider at Admission: Suzi Stevens MD Attending Provider at Discharge: Heather Rushing MD Primary Care Provider: Iain Nguyễn MD Diagnoses at Discharge Discharge Diagnosis (1) Hyperlipidemia: Status: Acute Qualifiers: Hyperlipidemia type: mixed hyperlipidemia Qualified Code(s): E78.2 - Mixed hyperlipidemia (2) Elevated troponin: Status: Acute (3) Elevated blood pressure reading: Status: Acute (4) Uncontrolled diabetes mellitus: Status: Acute (5) Acute respiratory failure with hypoxia and hypercapnia: Status: Acute (6) Community acquired pneumonia: Status: Acute Qualifiers: Laterality: unspecified laterality Qualified Code(s): J18.9 - Pneumonia, unspecified organism (7) COPD exacerbation: Status: Acute Reason for Visit Reason for Visit: SOB Hospital Course Hospital Course Pillo Dyer Sr is a 73 year old male with COPD, hypertension, hyperlipidemia, type 2 diabetes mellitus, GERD and insomnia who was admitted to the hospital on December 26, 2023 after presenting from half-way with shortness of breath and chest heaviness. Patient typically does not wear any oxygen at baseline. In the hospital his oxygen demand quickly escalated from 4 L/min to 10 to 12 L/min supplemental O2 on admission. CTA chest showed no definitive pulmonary embolus and bilateral lower lobe atelectasis/segmental collapse. ABG showed hypoxic hypercapnic respiratory failure with pH 7.34/CO2 55.6/O2 62.8/bicarb 30.3 on 10 L oxi mask. He was subsequently diagnosed with human metapneumovirus infection for which she tested positive on a respiratory viral panel on 12/29/2023. This would explain the severity of his symptoms. CT chest on admission showed atel ectasis without significant consolidation or mass, however subsequently by 12/[address] abdomen, the lungs were incidentally additionally showing findings consistent with bronchiolitis. Overall clinical impression is that of acute bronchitis and bronchiolitis triggered by human metapneumovirus infection resulting also in a COPD exacerbation. There were interval development of centrilobular opacities in the right lung base and patient had mild leukocytosis, raising concern for superadded bacterial infection for which she was started on treatment with ceftriaxone and azithromycin. This has been transitioned to oral Augmentin for remaining 3 days at the time of discharge. Additionally he received treatment with scheduled nebulization every 6 hours with DuoNeb, budesonide every 12 hours during hospital stay. This has been transitioned to salmeterol/fluticasone and tiotropium inhalers at the time of discharge. He received IV steroids during admission course, these have been tapered down to prednisone 20 mg daily which she can continue for another 5 days and then discontinue. At the time of discharge his oxygen requirements are improving to 4 L/min. Hospital course was also complicated by NSTEMI for which patient was treated with anticoagulation with Lovenox aspirin and Plavix. He underwent coronary angiogram on December 30, 2023 with findings of moderate disease in the proximal left anterior descending artery with features of ulcerated plaque. It was decided to treat him medically. Echocardiogram showed EF of 72%, no regional wall motion abnormalities and grade 1 diastolic dysfunction. No gross valvular abnormalities. Patient is being discharged with recommendations to continue aspirin 81 mg daily, Plavix 75 mg p.o. daily, atorvastatin 40 mg p.o. daily and metoprolol XL 25 mg daily. Of note patient was initially on metoprolol tartrate 25 mg p.o. twice daily which had resulted in bradycardia. Metoprolol has been dose adjusted at discharge to metoprolol succinate 25 mg daily. Please monitor patient's heart rate at the half-way as any recent bradycardia may need further readjustment of the doses of metoprolol. He developed abdominal pain on 12/25/2023 along with excessive belching. CT of the abdomen was performed to evaluate for possible cholecystitis versus colitis. CT was negative for either of these possibilities however did show cholelithiasis which may be symptomatic. Can consider general surgery referral as an outpatient if continues to be symptomatic in this regard. Patient also developed hypoglycemia on the night of 12/25/2023 when he was n.p.o. for cardiac cath. He had been receiving his regular home dose of 30 units of Lantus in the morning along with sliding scale. His hemoglobin appears to have improved from 14 in to 7.4 on 12/26/2023. Possible that he may need readjustment in the dose of Lantus. Lantus has been on hold since the hypoglycemic event and patient has only been continued on sliding scale insulin. It is being held at discharge, please reassess once patient returns to half-way based on fingerstick trends at the facility. Physical Exam Narrative: General: No acute distress, AO x3 HEENT: PERRLA, pupils bilaterally equal and reactive, pallors not present Chest: Normal vesicular breath sounds, no added sounds, equal good air entry bilaterally CVS: S1-S2 regular, no murmurs, no tachycardia, no gallops, no rubs Abdomen: Soft, nontender, no organomegaly, bowel sounds present Neuro: No focal deficits, no facial deformity, AO x3, power 5/5 in all limbs Discharge Data Studies Completed and Pending Completed Studies During Hospitalization Category Date Time Status CT abdomen pelvis wo con [id number] Routine Cat Scan 12/28/23 15:10 Completed CTA PE [CT angio chest PE protcl [id number]] Stat Cat Scan 12/26/23 12:53 Completed [facility] request for service Routine Exams 12/30/23 06:08 Completed XR chest 1V portable [id number] Stat Exams 12/26/23 10:09 Completed CV. echo complete* [id number] Stat Ultrasound 12/26/23 18:05 Completed Pending at discharge Category Date Time Status Blood Culture AM LABS Lab 12/29/23 03:39 Results Radiology Impressions Chest X-Ray 12/26/23 10:09 IMPRESSION: Bibasilar airspace opacities that might represent atelectasis versus early infiltrates. Chest CTA 12/26/23 12:53 IMPRESSION: 1. No definite pulmonary embolus. 2. Bilateral lower lobe atelectasis/segmental collapse. Abdomen/Pelvis CT 12/28/23 15:10 IMPRESSION: 1. No acute findings. 2. Cholelithiasis. 3. Mild centrilobular opacities in the right lung base could represent infectious bronchiolitis. COMMENTS: Consistent with the [employer]'s Incidental Findings Committee white paper (J Am Lionel Radiol 2018): Any incidental renal lesion less than 1 cm or classified as too small to characterize, or any incidental cystic renal lesion characterized as simple-appearing, is likely benign. No follow-up imaging is recommended for these lesions per consensus recommendations based on imaging criteria. Laboratory Results WBC 8.39 10^3/uL (3.29-11.43) 12/31/23 04:15 RBC 4.53 10^6/uL (3.85-5.65) 12/31/23 04:15 Hgb 13.30 g/dL (11.27-16.99) 12/31/23 04:15 Hct 42.8 % (37-53) 12/31/23 04:15 MCV 94.5 fl (82-101) 12/31/23 04:15 MCH 29.4 pg (27-33) 12/31/23 04:15 MCHC 31.1 g/dL (30-55) 12/31/23 04:15 RDW 13.0 % (12.1-15.1) 12/31/23 04:15 Plt Count 223 10^3/cmm (157-399) 12/31/23 04:15 MPV 10.6 fL (7.4-10.4) H 12/31/23 04:15 Neut % (Auto) 70.8 % 12/31/23 04:15 Lymph % (Auto) 17.4 % 12/31/23 04:15 [place] % (Auto) 10.5 % 12/31/23 04:15 Eos % (Auto) 0.0 % 12/31/23 04:15 Baso % (Auto) 0.1 % 12/31/23 04:15 Neut # (Auto) 5.94 10^3/uL (1.8-7.7) 12/31/23 04:15 Lymph # (Auto) 1.5 10^3/uL (0.8-4.8) 12/31/23 04:15 [place] # (Auto) 0.9 10^3/uL (0.2-0.9) 12/31/23 04:15 Eos # (Auto) 0.0 10^3/uL (0.0-0.8) 12/31/23 04:15 Baso # (Auto) 0.0 10^3/uL (0.0-0.1) 12/31/23 04:15 Nucleated RBC % (auto) 0 % 12/31/23 04:15 Nucleated RBCs # 0.0 /100WBC 12/31/23 04:15 D-Dimer 1.55 ug/mLFEU (0-0.59) H 12/26/23 12:10 Specimen Type Arterial 12/26/23 10:29 Sample Site Radial, left 12/26/23 10:29 ABG pH 7.34 (7.35-7.45) L 12/26/23 10:29 ABG pCO2 55.6 mmHg (35-45) H 12/26/23 10:29 ABG pO2 62.8 mmHg (80.0-100.0) L 12/26/23 10:29 ABG HCO3 30.3 mmol/L (22-26) H 12/26/23 10:29 ABG Base Excess 3.1 mmol/L (-2.0-2.0) H 12/26/23 10:29 Neville Test Pos 12/26/23 10:29 Hematocrit 43.0 % (42-52) 12/26/23 10:29 Hgb O2 Saturation 88.9 % (95-100) L 12/26/23 10:29 Carboxyhemoglobin 0.5 %THgb (0.4-20.1) 12/26/23 10:29 Methemoglobin 0.7 % (0.4-1.5) 12/26/23 10:29 Total Hemoglobin 14.0 g/dL (14-18) 12/26/23 10:29 O2 Delivery Device Oxy mask 12/26/23 10:29 O2 Liters/Min 10.0 % 12/26/23 10:29 [employer] Professor ID [facility] 12/26/23 10:29 Sodium 143 mmol/L (136-145) 12/31/23 04:15 Potassium 3.9 mmol/L (3.5-5.1) 12/31/23 04:15 Chloride 103 mmol/L (98-107) 12/31/23 04:15 Carbon Dioxide 28 mmol/L (22-29) 12/31/23 04:15 Anion Gap 15.9 (5-19) 12/31/23 04:15 BUN 17 mg/dL (8-23) 12/31/23 04:15 Creatinine 0.9 mg/dL (0.7-1.2) 12/31/23 04:15 GFR Calculation Not Reportable 12/31/23 04:15 Glucose 85 mg/dL (65-115) 12/31/23 04:15 POC Glucose 127 mg/dL (70-110) H 01/01/24 06:25 Estimat Average Glucose 166 12/26/23 10:40 Hemoglobin A1c 7.4 % (4.0-6.0) H 12/26/23 10:40 Calculated Osmolality 297 mOsm/kg (285-295) H 12/31/23 04:15 Lactic Acid 1.8 mmol/L (0.5-2.2) 12/26/23 10:40 Calcium 8.5 mg/dL (8.5-10.5) 12/31/23 04:15 Phosphorus 1.8 mg/dL (2.5-4.5) L 12/27/23 02:17 Magnesium 2.3 mg/dL (1.7-2.3) 12/27/23 02:17 Total Bilirubin 0.3 mg/dL (0.15-1.2) 12/31/23 04:15 AST 21 U/L (0-40) 12/31/23 04:15 ALT 21 U/L (0-41) 12/31/23 04:15 Alkaline Phosphatase 106 U/L (40-130) 12/31/23 04:15 Troponin T 5th Gen ng/L 8 ng/L (0-15) 12/28/23 02:26 Troponin T Baseline 9 ng/L (0-15) 12/26/23 10:40 Troponin T 120 Minute 9.33 ng/L (0-15) 12/26/23 12:10 Delta Troponin T 0.33 ABS# (0-10) 12/26/23 12:10 Troponin T Hi Sens 6Hr 555.0 ng/L (0-15) H 12/26/23 16:51 Troponin T Hi Sens 6Hr Delta 546.0 ng/L (0-12) H* 12/26/23 16:51 NT-Pro-B Natriuret Pep < 36 pg/mL (0-125) 12/26/23 10:40 Total Protein 7.1 g/dL (6.6-8.7) 12/31/23 04:15 Albumin 3.9 g/dL (3.5-5.2) 12/31/23 04:15 Globulin 3.2 g/dL (1.3-4.6) 12/31/23 04:15 Procalcitonin 0.07 ng/mL (0-0.5) 12/26/23 10:40 Urine Color Yellow (Yellow) 12/29/23 18:00 Urine Appearance Clear (CLEAR) 12/29/23 18:00 Urine pH 6 (5-7) 12/29/23 18:00 Ur Specific [place] 1.015 (1.005-1.030) 12/29/23 18:00 Urine Protein Neg (Negative) 12/29/23 18:00 Urine Glucose (UA) Norm (Normal) 12/29/23 18:00 Urine Ketones Negative (Negative) 12/29/23 18:00 Urine Blood Neg (Negative) 12/29/23 18:00 Urine Nitrate Negative (Negative) 12/29/23 18:00 Urine Bilirubin Neg (Negative) 12/29/23 18:00 Urine Urobilinogen Norm mg/dL (Negative) 12/29/23 18:00 Ur Leukocyte Esterase Negative (Negative) 12/29/23 18:00 Adenovirus (PCR) Not detected (NOT DETECT) 12/29/23 12:40 C. pneumoniae DNA (PCR) Not detected (NOT DETECT) 12/29/23 12:40 Coronavirus 229E (PCR) Not detected (NOT DETECT) 12/29/23 12:40 Human Metapneumovir PCR Detected (NOT DETECT) A 12/29/23 12:40 Influenza A (H1) PCR Not detected (NOT DETECT) 12/29/23 12:40 Influ A (H1/09) PCR Not detected (NOT DETECT) 12/29/23 12:40 Influenza A (H3) PCR Not detected (NOT DETECT) 12/29/23 12:40 Influenza Type A (PCR) Not detected (NOT DETECT) 12/29/23 12:40 Influenza Type B (PCR) Not detected (NOT DETECT) 12/29/23 12:40 M. pneumoniae (PCR) Not detected (NOT DETECT) 12/29/23 12:40 Parainfluenza 1 (PCR) Not detected (NOT DETECT) 12/29/23 12:40 Parainfluenza 2 (PCR) Not detected (NOT DETECT) 12/29/23 12:40 Parainfluenza 3 (PCR) Not detected (NOT DETECT) 12/29/23 12:40 Parainfluenza 4 (PCR) Not detected (NOT DETECT) 12/29/23 12:40 RSV Type A (PCR) Not detected (NOT DETECT) 12/29/23 12:40 RSV Type B (PCR) Not detected (NOT DETECT) 12/29/23 12:40 Entero/Rhino (PCR) Not detected (NOT DETECT) 12/29/23 12:40 SARS-CoV-2 (PCR) Not detected (NOT DETECT) 12/29/23 12:40 Vitals Last Vital Signs Temp 98.0 F 01/01/24 07:57 Pulse 74 01/01/24 07:57 Resp 26 H 01/01/24 11:01 BP 146/89 01/01/24 07:57 Pulse Ox 91 01/01/24 11:01 O2 Del Method Nasal Cannula 01/01/24 07:57 O2 Flow Rate 4 01/01/24 07:37 FiO2 50 12/28/23 15:20 Discharge Plan Discharge Patient Disposition: Xfer [facility] Condition: Stable Prescriptions: New prednisone 20 mg Tablet 20 mg PO DAILY 5 Days Qty: 5 0RF clopidogrel 75 mg Tablet 75 mg PO DAILY 30 Days Qty: 30 0RF aspirin 81 mg Tablet,Delayed Release (Dr/Ec) 81 mg PO DAILY 30 Days Qty: 30 0RF amoxicillin-pot clavulanate 875-125 mg tablet 1 tab PO Q12H 3 Days Qty: 6 0RF Wixela Inhub 500-50 mcg/dose blister with device 1 inh inhalation BID 30 Days Qty: 60 0RF Spiriva with HandiHaler 18 mcg capsule, w/inhalation device 1 cap inhalation DAILY 30 Days Qty: 30 0RF Rx Instructions: puncture 1 cap using device; one dose = 2 inhalations metoprolol succinate 25 mg tablet extended release 24 hr 25 mg PO DAILY 30 Days Qty: 30 0RF Continued insulin aspart U-100 [Novolog FlexPen U-100 Insulin] 100 unit/mL (3 mL) insulin pen See Rx Instructions .ROUTE .COMPLEX Qty: 15 0RF Rx Instructions: inject subcut, three times daily after meals based on sliding scale: bs 141- 180=0 units, 181-220=2 units, 221-260=4 units, 261-300=6 units, 301-350=8 units, 351-400=10 units, 401-450=12 units, if > 450=14 units. atorvastatin 40 mg tablet 40 mg PO BEDTIME tramadol 50 mg tablet 100 mg PO TID PRN (Reason: Pain) pantoprazole 40 mg tablet,delayed release (DR/EC) 40 mg PO QAM trazodone 150 mg tablet 150 mg PO BEDTIME duloxetine 20 mg capsule,delayed release(DR/EC) 20 mg PO QAM acetaminophen 500 mg Tablet 1,000 mg PO Q6H PRN (Reason: pain or elevated temp) phenol-phenolate sodium Aerosol,[place] 5 spray MUCOUS MEMBRANE Q2H PRN (Reason: Sore Throat) docusate sodium 100 mg Capsule 100 mg PO BID PRN (Reason: constipaton) amlodipine 10 mg tablet 10 mg PO DAILY Qty: 30 0RF furosemide 20 mg tablet 20 mg PO QAM melatonin 5 mg Tablet 10 mg PO BEDTIME Changed celecoxib 200 mg capsule 200 mg PO BID PRN (Reason: pain) Qty: 1 0RF Discontinued insulin glargine [Basaglar KwikPen U-100 Insulin] 100 unit/mL (3 mL) insulin pen 30 unit SUBCUT QAM Discharge Orders: Discharge Order (Routine); Ordered 01/01/24 Ordered By: Heather Rushing Referrals: [facility] [Outside] Iain Nguyễn MD [Primary Care Provider] - Carey Duron FNP [Nurse Practitioner] - 01/27/24 2:30 pm Discharge Diet: Cardiac Discharge Activity: Resume usual activity and Increase activity as tolerated Patient Instructions: Prednisone (By mouth) (predniSONE Intensol, Prednicot, Deltasone, [place]), Aspirin (By mouth) (Pilar Extra Strength, Pilar Aspirin Children's,..., Amoxicillin/Clavulanate Potassium (By mouth) (Augmentin, Augmentin..., Fluticasone (By breathing) (Arnuity Ellipta, Flovent Diskus,..., Clopidogrel (By mouth) (Plavix), Tiotropium (By breathing) (Spiriva, Spiriva Respimat), Coronary Angioplasty (DC), Opioid Safety, Post Angiogram Home Care Instructions Discharge Attestations Time Spent in Discharge Care*: greater than 30 min Quality Metrics Clinical Quality Measures [ Acute Myocardial Infaction { Clinical Trial Participant: No; Contraindication to aspirin: None; Aspirin prescribed; Contraindication to statin: None; Statin prescribed; Contraindication to PCI: None; PCI performed;}] Coding Level of Care Code Acute Code for Chg Fwd Diagnoses Mixed hyperlipidemia E78.2 Hyperlipidemia type: mixed hyperlipidemia Elevated troponin R79.89 Elevated blood pressure reading R03.0 Uncontrolled diabetes mellitus Acute respiratory failure with hypoxia and hypercapnia J96.01; J96.02 Community acquired pneumonia J18.9 Laterality: unspecified laterality COPD exacerbation J44.1
[2024-01-01 11:26] LABS: Glucose Point of Care 183 mg/dL (70-110)
[2024-01-01] MEDS: metoprolol succinate ER (24 HR) 25 mg Tablet PO (11:31)
--- NOTE | 2024-01-01 12:27 | PC.NURSE ---
Report is called to [facility], to [place] PEREZ. [facility].
[2024-01-01 12:32] LABS: SARS Covid-2 Antigen negative (Negative)
== END 2024-01-01 14:53 | disposition skilled nursing facility (03) | DRG 193 ==
LOC: ER 14:27 → CSU 15:22
PROVIDERS: Internal Medicine; Internal Medicine Cardiovascular Disease; Admitting Provider Student in an Organized Health Care Education/Training Program; Emergency Provider Emergency Medicine; PCP Internal Medicine; Visit Provider Student in an Organized Health Care Education/Training Program
DX: J12.3 Human metapneumovirus pneumonia (principal); I21.4 Non-ST elevation (NSTEMI) myocardial infarction; J96.01 Acute respiratory failure with hypoxia; J96.02 Acute respiratory failure with hypercapnia; J44.1 Chronic obstructive pulmonary disease with (acute) exacerbation; J44.0 Chronic obstructive pulmonary disease with (acute) lower respiratory infection; J20.9 Acute bronchitis, unspecified; I10 Essential (primary) hypertension; E78.2 Mixed hyperlipidemia; E11.649 Type 2 diabetes mellitus with hypoglycemia without coma; K21.9 Gastro-esophageal reflux disease without esophagitis; G47.00 Insomnia, unspecified; Z87.891 Personal history of nicotine dependence; E66.9 Obesity, unspecified; K42.9 Umbilical hernia without obstruction or gangrene; K59.00 Constipation, unspecified; Z68.37 Body mass index [BMI] 37.0-37.9, adult; Z11.52 Encounter for screening for COVID-19; Z79.4 Long term (current) use of insulin
CPT/HCPCS: 36415; 36416; 36600; 71045; 71275; 74176; 80053; 80069; 81003; 82805; 82947; 82962; 83036; 83605; 83735; 83880; 84145; 84484; 85025; 85378; 87040; 87426; 87486; 87581; 87633; 93005; 93306; 93458; 94640; 94660; 94664; 96365; 96372; 96374; 96375; 96376; 99152; 99285; C1769; C1887; C1894; J0696; J1610; J1644; J1650; J1815; J1885; J1940; J2250; J2270; J2405; J2543; J2919; J3010; J3490; J7030; J7512; J7626; J7799; Q0144; Q0163; Q9967

== ENCOUNTER → 2024-01-27 13:40 | Outpatient (BNVA) | payer MEDICARE, MEDICAID, SELFPAY | PROVIDERS: PCP Internal Medicine; Visit Provider Nurse Practitioner Family | DX: I25.10 Atherosclerotic heart disease of native coronary artery without angina pectoris (principal) | CPT/HCPCS: 80048; 99214 ==

== ENCOUNTER 2024-03-18 11:37 | Emergency (ER) | payer MEDICARE, MEDICAID, SELFPAY ==
[2024-03-18 11:50] VITALS: BP 144/87; PULSE 102; RESP 24; TEMP 36.9; O2SAT 91; BMI 36.9
--- NOTE | 2024-03-18 12:05 | CTR_ITS ---
PROCEDURE INFORMATION: Exam: CT Abdomen And Pelvis With Contrast Exam date and time: 03/18/2024 2:22 PM Age: 74 years old Clinical indication: Abdominal pain; Generalized; Patient HX: Abd pain; Umbilical hernia; No known trauma TECHNIQUE: Imaging protocol: Computed tomography of the abdomen and pelvis with contrast. Radiation optimization: All CT scans at this facility use at least one of these dose optimization techniques: automated exposure control; mA and/or kV adjustment per patient size (includes targeted exams where dose is matched to clinical indication); or iterative reconstruction. Contrast material: OMNIPAQUE 350; Contrast volume: 100 ml; Contrast route: INTRAVENOUS (IV); COMPARISON: CT abdomen pelvis wo con [id number] 12/28/2023 4:00 PM RADIATION DOSE METRICS: Total DLP (mGy-cm): 1293.43 FINDINGS: Lungs: Atelectatic changes in the left lower lobe. Diaphragm: Small hiatal hernia. Liver: Normal. No mass. Gallbladder and biliary ducts: Normal. No calcified stones. No ductal dilation. Pancreas: Calcifications in the pancreas, likely from prior pancreatitis. Minimal fat stranding surrounding the pancreas. Spleen: Normal. No splenomegaly. Adrenal glands: Normal. No mass. Kidneys and ureters: Simple cyst in the interpolar region of the right kidney measuring 1.7 cm. There is a 6 mm simple cyst in the lower pole of the left kidney. No hydronephrosis on either side. Stomach and bowel: Unremarkable. No obstruction. No mucosal thickening. Appendix: No evidence of appendicitis. Intraperitoneal space: Unremarkable. No free air. No significant fluid collection. Vasculature: Aortic calcifications. Mild ectasia of the abdominal aorta measuring 3 cm. Lymph nodes: Unremarkable. No enlarged lymph nodes. Urinary bladder: Unremarkable as visualized. Reproductive: Prostate gland calcifications. Bones/joints: Mild degenerative disease of the symphysis pubis and bilateral sacroiliac joints. Mild curvature of the lumbar spine convex to the right. Moderate degenerative disease of both hip joints. Mild compression deformity of the L1, L2 and L3 vertebral bodies, unchanged compared to prior study. Mild compression deformity of the T10 vertebral body. Multilevel bilateral facet joint arthropathy of the lumbar spine. Soft tissues: Fat containing umbilical hernia. CT/CT abdomen pelvis w con* [id number] IMPRESSION: Minimal fat stranding surrounding the pancreas that can be seen with early pancreatitis to be correlated with laboratory studies. COMMENTS: Consistent with the [employer]'s Incidental Findings Committee white paper (J Am Lionel Radiol 2018): Any incidental renal lesion less than 1 cm or classified as too small to characterize, or any incidental cystic renal lesion characterized as simple-appearing, is likely benign. No follow-up imaging is recommended for these lesions per consensus recommendations based on imaging criteria.
--- NOTE | 2024-03-18 12:23 | ED_ITS ---
HPI - Abdominal Pain 2 General: Chief Complaint: Abdominal Pain Stated Complaint: ABD PAIN Time Seen by Provider: 03/18/24 12:03 Source: patient and EMS Mode of arrival: EMS Limitations: no limitations History of Present Illness: 74-year-old male who states that he has been having epigastric abdominal pain since states pains been a sharp pain in his upper abdomen does have a history of reflux although hiatal hernia he denies any vomiting denies any fevers he denies any worse improved factors states the pain is currently a 6 out of 10. Associated Symptoms: Denies chills, diarrhea, fever(s), nausea and vomiting Related Data Home Medications Medication Instructions Recorded Confirmed acetaminophen 500 mg tablet 1,000 mg PO Q6H PRN pain or 10/12/23 01/27/24 elevated temp atorvastatin 40 mg tablet 40 mg PO BEDTIME 10/12/23 01/27/24 docusate sodium 100 mg capsule 100 mg PO BID PRN constipaton 10/12/23 01/27/24 duloxetine 20 mg capsule,delayed 20 mg PO QAM 10/12/23 01/27/24 release pantoprazole 40 mg tablet,delayed 40 mg PO QAM 10/12/23 01/27/24 release phenol-phenolate sodium mucosal 5 spray mucous membrane Q2H PRN 10/12/23 01/27/24 aerosol spray Sore Throat tramadol 50 mg tablet 100 mg PO TID PRN Pain 10/12/23 01/27/24 trazodone 150 mg tablet 150 mg PO BEDTIME 10/12/23 01/27/24 furosemide 20 mg tablet 20 mg PO QAM 12/27/23 01/27/24 melatonin 5 mg tablet 10 mg PO BEDTIME Insomnia 12/27/23 01/27/24 Previous Rx's Medication Instructions Recorded insulin aspart U-100 100 unit/mL See Rx Instructions .Route 04/14/23 (3 mL) subcutaneous pen (Novolog .COMPLEX #15 mL FlexPen U-100 Insulin aspart) celecoxib 200 mg capsule 200 mg PO BID PRN pain #1 cap 12/31/23 ondansetron 4 mg disintegrating 4 mg PO Q6H PRN nausea and 03/18/24 tablet vomiting #14 tabs Allergies Allergy/AdvReac Type Severity Reaction Status Date / Time No Known Allergies Allergy Verified 01/27/24 14:23 Review of Systems 2 Const: Denies: fever(s), chills, body aches or change in appetite ENMT: Denies: throat pain or dental pain Card: Denies: chest pain Resp: Denies: dyspnea GI: Reports: abdominal pain; Denies: nausea, vomiting or diarrhea Musc: Denies: neck pain or back pain Skin/Breast: Denies: rash Neuro: Denies: headache(s) PFSH ED 2 PFSH: Medical History (Updated 03/18/24 @ 15:21 by Demian oBnilla MD) Atherosclerosis of [place] coronary artery without angina pectoris Insomnia GERD (gastroesophageal reflux disease) Type 2 diabetes mellitus Hyperlipidemia COPD (chronic obstructive pulmonary disease) Social History Smoking and tobacco/nicotine status: former use of tobacco/nicotine Physical Exam 2 Const: COMMON NORMALS: no acute distress, patient oriented x3 and healthy appearing HENMT: COMMON NORMALS: normocephalic and atraumatic HEAD & SCALP: n ormocephalic and atraumatic Eye: COMMON NORMALS: conjunctivae normal CONJUNCTIVA: Yes conjunctivae normal Neck/C-Spine: COMMON NORMALS: full ROM and supple Chest: COMMONS NORMALS: normal inspection of the chest Resp: COMMON NORMALS: normal respiratory effort, No retractions, No use of accessory muscles and clear to auscultation bilaterally AUSCULTATION: clear to auscultation bilaterally Cardio: COMMON NORMALS: regular rate, regular rhythm and No murmurs present (Cardio) RATE: regular rate RHYTHM: regular rhythm GI: COMMON NORMALS: Normal to inspection, nondistended, normoactive bowel sounds present and Soft to palpation PALPATION: Yes Soft to palpation O THER: Epigastric tenderness noted he does have a umbilical hernia Extremity: COMMON NORMALS: normal to inspection and full ROM Neuro: COMMON NORMALS: patient oriented x3, moves all extremities and no focal motor deficits Psych: COMMON NORMALS: mental status grossly normal, Normal thought process present and cooperative THOUGHT PROCESS: Normal thought process present Skin: COMMON NORMALS: no rashes or lesions noted and no wounds GENERAL SKIN EXAM: no rashes or lesions noted Course 2 Vital Signs: Vital signs: Vital Signs Temperature 98.4 F 03/18/24 11:50 Pulse Rate 90 03/18/24 15:45 Respiratory Rate 16 03/18/24 15:45 Blood Pressure 162/100 03/18/24 15:45 Pulse Oximetry 95 03/18/24 15:45 Oxygen Delivery Me thod Room Air 03/18/24 13:37 MDM - Abdominal Pain Medical Decision Making Patient presents here with abdominal pain his pain is much improved here his exam at discharge is benign CT showed no acute findings but for possible early pancreatitis he has no pain currently his lipase is normal no signs of a pancreatitis he is to do a liquid diet over the next 2 days follow-up with PCP return if worsening he understands agrees to plan Medical Records I reviewed the patient's medical records. Lab Data I reviewed the patient's lab results. 03/18/24 13:32 03/18/24 13:13 Labs/Radiology: Radiology Impressions Abdomen/Pelvis CT 03/18/24 12:05 IMPRESSION: Minimal fat stranding surrounding the pancreas that can be seen with early pancreatitis to be correlated with laboratory studies. COMMENTS: Consistent with the [employer]'s Incidental Findings Committee white paper (J Am Lionel Radiol 2018): Any incidental renal lesion less than 1 cm or classified as too small to characterize, or any incidental cystic renal lesion characterized as simple-appearing, is likely benign. No follow-up imaging is recommended for these lesions per consensus recommendations based on imaging criteria. Laboratory Results WBC 11.25 10^3/uL (3.29-11.43) 03/18/24 13:32 Corrected WBC Cancelled 03/18/24 13:13 RBC 4.14 10^6/uL (3.85-5.65) 03/18/24 13:32 Hgb 12.60 g/dL (11.27-16.99) 03/18/24 13:32 Hct 39.4 % (37-53) 03/18/24 13:32 MCV 95.2 fl (82-101) 03/18/24 13:32 MCH 30.4 pg (27-33) 03/18/24 13:32 MCHC 32.0 g/dL (30-55) 03/18/24 13:32 RDW 13.2 % (12.1-15.1) 03/18/24 13:32 Plt Count 228 10^3/cmm (157-399) 03/18/24 13:32 MPV 10.1 fL (7.4-10.4) 03/18/24 13:32 Gran % Cancelled 03/18/24 13:13 Neut % (Auto) 78.4 % 03/18/24 13:32 Lymph % (Auto) 11.2 % 03/18/24 13:32 [place] % (Auto) 8.7 % 03/18/24 13:32 Eos % (Auto) 1.1 % 03/18/24 13:32 Baso % (Auto) 0.2 % 03/18/24 13:32 Neut # (Auto) 8.83 10^3/uL (1.8-7.7) H 03/18/24 13:32 Lymph # (Auto) 1.3 10^3/uL (0.8-4.8) 03/18/24 13:32 [place] # (Auto) 1.0 10^3/uL (0.2-0.9) H 03/18/24 13:32 Eos # (Auto) 0.1 10^3/uL (0.0-0.8) 03/18/24 13:32 Baso # (Auto) 0.0 10^3/uL (0.0-0.1) 03/18/24 13:32 Absolute Gran (auto) Cancelled 03/18/24 13:13 Nucleated RBC % (auto) 0 % 03/18/24 13:32 Nucleated RBCs # 0.0 /100WBC 03/18/24 13:32 Sodium 140 mmol/L (136-145) 03/18/24 13:13 Potassium 4.6 mmol/L (3.5-5.1) 03/18/24 13:13 Chloride 103 mmol/L (98-107) 03/18/24 13:13 Carbon Dioxide 24 mmol/L (22-29) 03/18/24 13:13 Anion Gap 17.6 (5-19) 03/18/24 13:13 BUN 12 mg/dL (8-23) 03/18/24 13:13 Creatinine 0.9 mg/dL (0.7-1.2) 03/18/24 13:13 GFR Calculation Not Reportable 03/18/24 13:13 Glucose 154 mg/dL (65-115) H 03/18/24 13:13 Calculated Osmolality 293 mOsm/kg (285-295) 03/18/24 13:13 Calcium 8.9 mg/dL (8.5-10.5) 03/18/24 13:13 Total Bilirubin 0.3 mg/dL (0.15-1.2) 03/18/24 13:13 AST 13 U/L (0-40) 03/18/24 13:13 ALT 11 U/L (0-41) 03/18/24 13:13 Alkaline Phosphatase 133 U/L (40-130) H 03/18/24 13:13 Total Protein 7.9 g/dL (6.6-8.7) 03/18/24 13:13 Albumin 3.9 g/dL (3.5-5.2) 03/18/24 13:13 Globulin 4.0 g/dL (1.3-4.6) 03/18/24 13:13 Lipase 54 U/L (13-60) 03/18/24 13:13 All radiology interpretation(s) finalized by discharge EKG Data EKG 1: I personally reviewed and interpreted this EKG as follows: EKG interpretation date: 03/18/24 EKG interpretation time: 12:01 Interpretation: nsr hr [address] or t wave abnormalities qrs 86 qtc 392 EKG 2: I personally reviewed and interpreted this EKG as follows: EKG interpretation date: 03/18/24 EKG interpretation time: 13:49 Interpretation: nsr hr [address] or t wave abnormalities qrs 95 qtc 417 Discharge Plan Discharge Patient Disposition: Home Clinical Impression: Abdominal pain Condition: Stable Prescriptions: New ondansetron 4 mg tablet,disintegrating 4 mg PO Q6H PRN (Reason: nausea and vomiting) Qty: 14 0RF No Action insulin aspart U-100 [Novolog FlexPen U-100 Insulin] 100 unit/mL (3 mL) insulin pen See Rx Instructions .ROUTE .COMPLEX Qty: 15 0RF Rx Instructions: inject subcut, three times daily after meals based on sliding scale: bs 141- 180=0 units, 181-220=2 units, 221-260=4 units, 261-300=6 units, 301-350=8 units, 351-400=10 units, 401-450=12 units, if > 450=14 units. atorvastatin 40 mg tablet 40 mg PO BEDTIME tramadol 50 mg tablet 100 mg PO TID PRN (Reason: Pain) pantoprazole 40 mg tablet,delayed release (DR/EC) 40 mg PO QAM trazodone 150 mg tablet 150 mg PO BEDTIME duloxetine 20 mg capsule,delayed release(DR/EC) 20 mg PO QAM acetaminophen 500 mg Tablet 1,000 mg PO Q6H PRN (Reason: pain or elevated temp) phenol-phenolate sodium Aerosol,[place] 5 spray MUCOUS MEMBRANE Q2H PRN (Reason: Sore Throat) docusate sodium 100 mg Capsule 100 mg PO BID PRN (Reason: constipaton) furosemide 20 mg tablet 20 mg PO QAM melatonin 5 mg Tablet 10 mg PO BEDTIME celecoxib 200 mg capsule 200 mg PO BID PRN (Reason: pain) Qty: 1 0RF Discharge Orders: Discharge ED (Routine); Ordered 03/18/24 Ordered By: Demian Bonilla Referrals: Iain Nguyễn MD [Primary Care Provider] - 4-7 days Discharge Diet: Clear Liquid Discharge Activity: Resume usual activity Patient Instructions: Abdominal Pain (ED) Activity Restrictions/Additional Instructions: liquid diet x 2days Coding Level of Care Code ED Watch Band Assembler for Eli Mishra
[2024-03-18] MEDS: ondansetron 2 mg/ML SDV 2 mL 4 MG IVP (13:20)
[2024-03-18 13:21] VITALS: RESP 20
[2024-03-18] MEDS: HYDROmorphone 1 mg/mL INJ 1 mL 0.5 MG IVP (13:21)
[2024-03-18] MEDS: LORazepam 2 mg/mL INJ 1 mL 0.5 MG IVP (13:23)
[2024-03-18] MEDS: sodium chloride 0.9% 1,000 ML 999 ML IV (13:24)
[2024-03-18] MEDS: lidocaine 2% viscous 15 ML, aluminum-mag hydrox-simethicon 30 ML, sucralfate oral liq 1 GM PO (13:33)
[2024-03-18 13:36] LABS: Basophils % 0.2 %; Eosinophils # 0.1 10^3/uL (0.0-0.8); Eosinophils % 1.1 %; Hematocrit 39.4 % (37-53); Lymphocytes # 1.3 10^3/uL (0.8-4.8); Lymphocytes % 11.2 %; Mean Corpuscular Hemoglobin 30.4 pg (27-33); Mean Corpuscular Volume 95.2 fl (82-101); Mean Platelet Volume 10.1 fL (7.4-10.4); Monocytes % 8.7 %; Neutrophils # 8.83 10^3/uL (1.8-7.7); Neutrophils % 78.4 %; Nucleated Red Blood Cells % 0 %; Platelet Count 228 10^3/cmm (157-399); Red Blood Count 4.14 10^6/uL (3.85-5.65); Red Cell Distribution Width 13.2 % (12.1-15.1); White Blood Count 11.25 10^3/uL (3.29-11.43)
[2024-03-18 13:37] VITALS: BP 123/83; PULSE 76; RESP 20; O2SAT 94
[2024-03-18 13:37] LABS: Alanine Aminotransferase 11 U/L (0-41); Albumin Level 3.9 g/dL (3.5-5.2); Alkaline Phosphatase 133 U/L (40-130); Blood Urea Nitrogen 12 mg/dL (8-23); Calcium 8.9 mg/dL (8.5-10.5); Carbon Dioxide 24 mmol/L (22-29); Chloride 103 mmol/L (98-107); Creatinine Clr Calc Pharmacy 99.0472; Glucose 154 mg/dL (65-115); Lipase 54 U/L (13-60); Osmolality Calculated 293 mOsm/kg (285-295); Sodium 140 mmol/L (136-145); Total Bilirubin 0.3 mg/dL (0.15-1.2); Total Protein 7.9 g/dL (6.6-8.7)
[2024-03-18 13:40] LABS: Anion Gap 17.6 (5-19); Aspartate Amino Transferase 13 U/L (0-40); Potassium 4.6 mmol/L (3.5-5.1)
--- NOTE | 2024-03-18 13:49 | ECG_ITS ---
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
[2024-03-18] MEDS: iohexol 350 mg/mL 500 mL Btl (per mL) IV (14:24)
[2024-03-18 15:45] VITALS: BP 162/100; PULSE 90; RESP 16; O2SAT 95
[2024-03-18 17:03] VITALS: BP 162/100; PULSE 90; RESP 16; TEMP 36.9; O2SAT 95
== END 2024-03-18 17:15 | disposition home or self-care (01) ==
PROVIDERS: Emergency Provider Emergency Medicine; PCP Internal Medicine
DX: R10.13 Epigastric pain (principal); K21.9 Gastro-esophageal reflux disease without esophagitis; E11.9 Type 2 diabetes mellitus without complications; E78.5 Hyperlipidemia, unspecified
CPT/HCPCS: 36415; 74177; 80053; 83690; 85025; 93005; 96374; 96375; 99285; J1170; J2060; J2405; J7030; Q9967

== ENCOUNTER → 2024-04-26 09:49 | Outpatient (BNVA) | payer MEDICARE, MEDICAID, SELFPAY | PROVIDERS: PCP Internal Medicine; Visit Provider Internal Medicine Cardiovascular Disease | DX: I25.10 Atherosclerotic heart disease of native coronary artery without angina pectoris (principal); E78.2 Mixed hyperlipidemia; E11.9 Type 2 diabetes mellitus without complications; R03.0 Elevated blood-pressure reading, without diagnosis of hypertension; Z87.891 Personal history of nicotine dependence | CPT/HCPCS: 99214 ==

== ENCOUNTER 2024-05-21 09:02 | Emergency (ER) | payer MEDICARE, MEDICAID, SELFPAY ==
[2024-05-21 09:03] VITALS: BP 123/77; PULSE 63; RESP 20; TEMP 36.5; O2SAT 91
--- NOTE | 2024-05-21 09:07 | CTR_ITS ---
PROCEDURE INFORMATION: Exam: CT Head Without Contrast Exam date and time: 05/21/2024 9:39 AM Age: 74 years old Clinical indication: Altered mental status/memory loss; Confusion or disorientation; Additional info: AMS TECHNIQUE: Imaging protocol: Computed tomography of the head without contrast. Radiation optimization: All CT scans at this facility use at least one of these dose optimization techniques: automated exposure control; mA and/or kV adjustment per patient size (includes targeted exams where dose is matched to clinical indication); or iterative reconstruction. COMPARISON: No relevant prior studies available. RADIATION DOSE METRICS: Total DLP (mGy-cm): 1184.28 FINDINGS: Brain: No acute intracranial hemorrhage, mass effect or midline shift. 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 Cerebral ventricles: Ex vacuo expansion of the ventricles due to volume loss. Paranasal sinuses: Left maxillary sinus mucosal thickening. No air-fluid levels. Mastoid air cells: Visualized mastoid air cells are well aerated. Bones: No acute bony findings. Soft tissues: Unremarkable. CT/CT head wo con* [id number] IMPRESSION: No acute intracranial findings.
--- NOTE | 2024-05-21 09:07 | XRR_ITS ---
PROCEDURE INFORMATION: Exam: XR Chest Exam date and time: 05/21/2024 9:15 AM Age: 74 years old Clinical indication: Other: Weakness; Additional info: AMS TECHNIQUE: Imaging protocol: Radiologic exam of the chest. Views: 1 view. COMPARISON: CT angio chest PE protcl [id number] 12/26/2023 1:36 PM FINDINGS: Lungs: No consolidation. Similar bibasilar atelectasis. Pleural spaces: No pleural effusion. No pneumothorax. Heart/Mediastinum: Stable cardiac contour. Bones/joints: No acute findings. XR/XR chest 1V portable [id number] IMPRESSION: No acute findings.
--- NOTE | 2024-05-21 09:08 | ECG_ITS ---
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 [employer] House: : 1950 Requested By: Demian Bonilla Order Number: [id number] Reading MD: SKYE FUENTES Measurements Intervals [place] Rate: 58 P: 152 CO: 190 QRS: -19 QRSD: 88 T: 123 QT: 394 QTc: 388 Interpretive Statements SINUS BRADYCARDIA LOW QRS VOLTAGE [QRS DEFLECTION < 0.5/1.0 mV IN LIMB/CHEST LEADS] POSSIBLE ANTERIOR MYOCARDIAL INFARCTION , PROBABLY OLD [30 ms Q WAVE IN V3/V4, OR R < 0.2 mV IN V4] Compared to ECG 03/18/2024 13:49:19 Myocardial infarct finding now present Electronically Signed On 05-23-2024 21:04:01 CDT by SKYE FUENTES [id number]
[2024-05-21 09:20] LABS: ABG PCO2 48.4 mmHg (35-45); ABG PH Result 7.39 (7.35-7.45); Arterial Blood Gas Hematocrit 38.6 % (42-52); Base Excess ABG 3.6 mmol/L (-2.0-2.0); Blood Gas Allen Test Pos; Blood Gas Operator Identificat WALCI; Blood Gas Sample Site Radial, left; Blood Gas Sample Type Arterial; HCO3 ABG 29.4 mmol/L (22-26); HGB O2 Sat 88.1 % (95-100); Methemoglobin 1.1 % (0.4-1.5); Oxygen Device NC; PO2 ABG 59.2 mmHg (80.0-100.0); Total Hemoglobin 12.6 g/dL (14-18)
--- NOTE | 2024-05-21 09:36 | ED_ITS ---
HPI - Weakness 2 General: Chief complaint: Weakness Stated complaint: weakness Time Seen by Provider: 05/21/24 09:03 Source: patient and EMS Mode of arrival: EMS Limitations: no limitations History of Present Illness: 74-year-old male who states that he just does not feel right today. Giving vague complaints he states that he just feels off and is having some generalized weakness he denies any slurred speech he states he has chronic back and leg pain no new symptoms there he denies any fever denies any chest pain denies any dysuria. He had no slurred speech he is answer my questions appropriately Associated symptoms: Denies chest pain, chills, fever(s), headache(s), nausea or vomiting Review of Systems 2 Const: Reports: fatigue and malaise; Denies: fever(s), chills, body aches or change in appetite ENMT: Denies: throat pain or dental pain Card: Denies: chest pain Resp: Denies: dyspnea GI: Denies: abdominal pain, nausea, vomiting or diarrhea Musc: Denies: neck pain or back pain Skin/Breast: Denies: rash Neuro: Denies: headache(s) PFSH ED 2 PFSH: Medical History Atherosclerosis of [place] coronary artery without angina pectoris Insomnia GERD (gastroesophageal reflux disease) Type 2 diabetes mellitus Hyperlipidemia COPD (chronic obstructive pulmonary disease) Social History Smoking and tobacco/nicotine status: former use of tobacco/nicotine Physical Exam 2 Const: COMMON NORMALS: no acute distress, patient oriented x3 and healthy appearing HENMT: COMMON NORMALS: normocephalic and atraumatic HEAD & SCALP: n ormocephalic and atraumatic Eye: COMMON NORMALS: Equal, round and reactive pupils present and EOMs intact bilaterally PUPIL: Yes Equal, round and reactive pupils present Neck/C-Spine: COMMON NORMALS: full ROM and supple Chest: COMMONS NORMALS: normal inspection of the chest and normal palpation of entire chest wall Resp: COMMON NORMALS: normal respiratory effort, No retractions, No use of accessory muscles and clear to auscultation bilaterally AUSCULTATION: clear to auscultation bilaterally Cardio: COMMON NORMALS: regular rate, regular rhythm and No murmurs present (Cardio) RATE: regular rate RHYTHM: regular rhythm GI: COMMON NORMALS: Normal to inspection, nondistended, normoactive bowel sounds present, Soft to palpation, non-tender and no masses PALPATION: Yes Soft to palpation Extremity: COMMON NORMALS: normal to inspection and full ROM Neuro: COMMON NORMALS: patient oriented x3, moves all extremities and no focal motor deficits Psych: COMMON NORMALS: mental status grossly normal, Normal thought process present and cooperative THOUGHT PROCESS: Normal thought process present Skin: COMMON NORMALS: no rashes or lesions noted and no wounds GENERAL SKIN EXAM: no rashes or lesions noted Course 2 Vital Signs: Vital signs: Vital Signs Temperature 97.7 F 05/21/24 09:03 Pulse Rate 63 05/21/24 09:03 Respiratory Rate 20 H 05/21/24 09:03 Blood Pressure 123/77 05/21/24 09:03 Pulse Oximetry 91 05/21/24 09:03 Oxygen Delivery Me thod Nasal Cannula 05/21/24 09:03 Oxygen Flow Rate 2 05/21/24 09:03 MDM - Weakness Medical Decision Making Patient presents here with generalized weakness he has been well-appearing here is ambulatory here no stroke blood work here normal he stable for discharge follow-up PCP return if worsening. Medical Records I reviewed the patient's medical records. Lab Data I reviewed the patient's lab results. 05/21/24 09:33 05/21/24 09:33 Radiology Impressions Chest X-Ray 05/21/24 09:07 IMPRESSION: No acute findings. Head CT 05/21/24 09:07 IMPRESSION: No acute intracranial findings. Laboratory Results WBC 6.42 10^3/uL (3.29-11.43) 05/21/24 09:33 RBC 4.38 10^6/uL (3.85-5.65) 05/21/24 09:33 Hgb 13.10 g/dL (11.27-16.99) 05/21/24 09:33 Hct 41.8 % (37-53) 05/21/24 09:33 MCV 95.4 fl (82-101) 05/21/24 09:33 MCH 29.9 pg (27-33) 05/21/24 09:33 MCHC 31.3 g/dL (30-55) 05/21/24 09:33 RDW 13.1 % (12.1-15.1) 05/21/24 09:33 Plt Count 278 10^3/cmm (157-399) 05/21/24 09:33 MPV 10.0 fL (7.4-10.4) 05/21/24 09:33 Neut % (Auto) 59.8 % 05/21/24 09:33 Lymph % (Auto) 26.5 % 05/21/24 09:33 [place] % (Auto) 10.4 % 05/21/24 09:33 Eos % (Auto) 2.2 % 05/21/24 09:33 Baso % (Auto) 0.8 % 05/21/24 09:33 Neut # (Auto) 3.84 10^3/uL (1.8-7.7) 05/21/24 09:33 Lymph # (Auto) 1.7 10^3/uL (0.8-4.8) 05/21/24 09:33 [place] # (Auto) 0.7 10^3/uL (0.2-0.9) 05/21/24 09:33 Eos # (Auto) 0.1 10^3/uL (0.0-0.8) 05/21/24 09:33 Baso # (Auto) 0.1 10^3/uL (0.0-0.1) 05/21/24 09:33 Nucleated RBC % (auto) 0 % 05/21/24 09: Nucleated RBCs # 0.0 /100WBC 05/21/24 09:33 PT 12.50 SECONDS (12.1-14.9) 05/21/24 09:33 INR 0.91 (0.8-1.2) 05/21/24 09:33 Specimen Type Arterial 05/21/24 09:08 Sample Site Radial, left 05/21/24 09:08 ABG pH 7.39 (7.35-7.45) 05/21/24 09:08 ABG pCO2 48.4 mmHg (35-45) H 05/21/24 09:08 ABG pO2 59.2 mmHg (80.0-100.0) L 05/21/24 09:08 ABG HCO3 29.4 mmol/L (22-26) H 05/21/24 09:08 ABG Base Excess 3.6 mmol/L (-2.0-2.0) H 05/21/24 09:08 [place] Test Pos 05/21/24 09:08 Hematocrit 38.6 % (42-52) L 05/21/24 09:08 Hgb O2 Saturation 88.1 % (95-100) L 05/21/24 09:08 Carboxyhemoglobin 1.0 %THgb (0.4-20.1) 05/21/24 09:08 Methemoglobin 1.1 % (0.4-1.5) 05/21/24 09:08 Total Hemoglobin 12.6 g/dL (14-18) L 05/21/24 09:08 O2 Delivery Device Nc 05/21/24 09:08 O2 Liters/Min 1.0 % 05/21/24 09:08 Burn Nurse ID [place] 05/21/24 09:08 Sodium 141 mmol/L (136-145) 05/21/24 09:33 Potassium 3.8 mmol/L (3.5-5.1) 05/21/24 09:33 Chloride 104 mmol/L (98-107) 05/21/24 09:33 Carbon Dioxide 26 mmol/L (22-29) 05/21/24 09:33 Anion Gap 14.8 (5-19) 05/21/24 09:33 BUN 10 mg/dL (8-23) 05/21/24 09:33 Creatinine 0.9 mg/dL (0.7-1.2) 05/21/24 09:33 GFR Calculation Not Reportable 05/21/24 09:33 Glucose 138 mg/dL (65-115) H 05/21/24 09:33 Calculated Osmolality 293 mOsm/kg (285-295) 05/21/24 09:33 Calcium 8.8 mg/dL (8.5-10.5) 05/21/24 09:33 Magnesium 2.0 mg/dL (1.7-2.3) 05/21/24 09:33 Total Bilirubin 0.3 mg/dL (0.15-1.2) 05/21/24 09:33 AST 16 U/L (0-40) 05/21/24 09:33 ALT 14 U/L (0-41) 05/21/24 09:33 Alkaline Phosphatase 151 U/L (40-130) H 05/21/24 09:33 Total Protein 7.3 g/dL (6.6-8.7) 05/21/24 09:33 Albumin 4.3 g/dL (3.5-5.2) 05/21/24 09:33 Globulin 3.0 g/dL (1.3-4.6) 05/21/24 09:33 TSH 3.82 uIU/mL (0.27-4.20) 05/21/24 09:33 Urine Color Yellow (Yellow) 05/21/24 09:53 Urine Appearance Clear (CLEAR) 05/21/24 09:53 Urine pH 6.5 (5-7) 05/21/24 09:53 Ur Specific [place] 1.010 (1.005-1.030) 05/21/24 09:53 Urine Protein Negative (Negative) 05/21/24 09:53 Urine Glucose (UA) Negative (Normal) 05/21/24 09:53 Urine Ketones Negative (Negative) 05/21/24 09:53 Urine Blood Negative (Negative) 05/21/24 09:53 Urine Nitrate Negative (Negative) 05/21/24 09:53 Urine Bilirubin Negative (Negative) 05/21/24 09:53 Urine Urobilinogen 0.2 mg/dL (Negative) 05/21/24 09:53 Ur Leukocyte Esterase Trace (Negative) A 05/21/24 09:53 Urine RBC 0-2 /hpf (0-2) 05/21/24 09:53 Urine WBC 0-5 /hpf (0-5) 05/21/24 09:53 Ur Squamous Epith Cells 0-5 /hpf (0-5) 05/21/24 09:53 Amorphous Sediment Not Reportable 05/21/24 09:53 Urine Bacteria None seen /hpf (NONE) 05/21/24 09:53 Hyaline Casts 0-4 /lpf H 05/21/24 09:53 All radiology interpretation(s) finalized by discharge EKG Data EKG 1: I personally reviewed and interpreted this EKG as follows: EKG interpretation date: 05/21/24 EKG interpretation time: 09:48 Interpretation: sinus yuval hr [address] elevation qrs 88 qtc 391 Discharge Plan Discharge Patient Disposition: Home Clinical Impression: Generalized weakness Condition: Stable Prescriptions: No Action insulin aspart U-100 [Novolog FlexPen U-100 Insulin] 100 unit/mL (3 mL) insulin pen See Rx Instructions .ROUTE .COMPLEX Qty: 15 0RF Rx Instructions: inject subcut, three times daily after meals based on sliding scale: bs 141- 180=0 units, 181-220=2 units, 221-260=4 units, 261-300=6 units, 301-350=8 units, 351-400=10 units, 401-450=12 units, if > 450=14 units. atorvastatin 40 mg tablet 40 mg PO BEDTIME tramadol 50 mg tablet 100 mg PO TID PRN (Reason: Pain) pantoprazole 40 mg tablet,delayed release (DR/EC) 40 mg PO QAM trazodone 150 mg tablet 150 mg PO BEDTIME duloxetine 20 mg capsule,delayed release(DR/EC) 20 mg PO QAM acetaminophen 500 mg Tablet 1,000 mg PO Q6H PRN (Reason: pain or elevated temp) phenol-phenolate sodium Aerosol,[place] 5 spray MUCOUS MEMBRANE Q2H PRN (Reason: Sore Throat) docusate sodium 100 mg Capsule 100 mg PO BID PRN (Reason: constipaton) furosemide 20 mg tablet 20 mg PO QAM melatonin 5 mg Tablet 10 mg PO BEDTIME celecoxib 200 mg capsule 200 mg PO BID PRN (Reason: pain) Qty: 1 0RF ondansetron 4 mg tablet,disintegrating 4 mg PO Q6H PRN (Reason: nausea and vomiting) Qty: 14 0RF Discharge Orders: Discharge ED (Routine); Ordered 05/21/24 Ordered By: Demian Bonilla Referrals: Iain Nguyễn MD [Primary Care Provider] - 4-7 days Discharge Diet: Advance as tolerated Discharge Activity: Resume usual activity Patient Instructions: Weakness (Generalized) Coding Level of Care Code ED Reinsurance Claims Analyst for Chg Fwd Related Data Home Medications Medication Instructions Recorded Confirmed acetaminophen 500 mg tablet 1,000 mg PO Q6H PRN pain or 10/12/23 01/27/24 elevated temp atorvastatin 40 mg tablet 40 mg PO BEDTIME 10/12/23 01/27/24 docusate sodium 100 mg capsule 100 mg PO BID PRN constipaton 10/12/23 01/27/24 duloxetine 20 mg capsule,delayed 20 mg PO QAM 10/12/23 01/27/24 release pantoprazole 40 mg tablet,delayed 40 mg PO QAM 10/12/23 01/27/24 release phenol-phenolate sodium mucosal 5 spray mucous membrane Q2H PRN 10/12/23 01/27/24 aerosol spray Sore Throat tramadol 50 mg tablet 100 mg PO TID PRN Pain 10/12/23 01/27/24 trazodone 150 mg tablet 150 mg PO BEDTIME 10/12/23 01/27/24 furosemide 20 mg tablet 20 mg PO QAM 12/27/23 01/27/24 melatonin 5 mg tablet 10 mg PO BEDTIME Insomnia 12/27/23 01/27/24 Previous Rx's Medication Instructions Recorded insulin aspart U-100 100 unit/mL See Rx Instructions .Route 04/14/23 (3 mL) subcutaneous pen (Novolog .COMPLEX #15 mL FlexPen U-100 Insulin aspart) celecoxib 200 mg capsule 200 mg PO BID PRN pain #1 cap 12/31/23 ondansetron 4 mg disintegrating 4 mg PO Q6H PRN nausea and 03/18/24 tablet vomiting #14 tabs Allergies Allergy/AdvReac Type Severity Reaction Status Date / Time No Known Allergies Allergy Verified 04/26/24 10:13
[2024-05-21 09:39] LABS: Basophils # 0.1 10^3/uL (0.0-0.1); Basophils % 0.8 %; Eosinophils # 0.1 10^3/uL (0.0-0.8); Eosinophils % 2.2 %; Hematocrit 41.8 % (37-53); Lymphocytes # 1.7 10^3/uL (0.8-4.8); Lymphocytes % 26.5 %; Mean Corpuscular HGB Conc 31.3 g/dL (30-55); Mean Corpuscular Hemoglobin 29.9 pg (27-33); Mean Corpuscular Volume 95.4 fl (82-101); Monocytes # 0.7 10^3/uL (0.2-0.9); Monocytes % 10.4 %; Neutrophils # 3.84 10^3/uL (1.8-7.7); Neutrophils % 59.8 %; Nucleated Red Blood Cells % 0 %; Platelet Count 278 10^3/cmm (157-399); Red Blood Count 4.38 10^6/uL (3.85-5.65); Red Cell Distribution Width 13.1 % (12.1-15.1); White Blood Count 6.42 10^3/uL (3.29-11.43)
[2024-05-21 09:50] LABS: INR 0.91 (0.8-1.2)
[2024-05-21 10:01] LABS: Bilirubin Urine Negative (Negative); Blood Urine Negative (Negative); Glucose Urine UA Negative (Normal); Ketones Urine Negative (Negative); Leukocyte Esterase Urine Trace (Negative); Nitrate Urine Negative (Negative); Protein Urine Negative (Negative); Urine Appearance Clear (CLEAR); Urine Color Yellow (Yellow); Urobilinogen Urine 0.2 mg/dL (Negative); pH Urine 6.5 (5-7)
[2024-05-21 10:03] LABS: Add Urine Microscopic? YES; Bacteria Urine None Seen /hpf; Hyaline Casts Urine 0-4 /lpf; RBC Urine 0-2 /hpf (0-2); Squamous Epithelial Cell Urine 0-5 /hpf (0-5); WBC Urine 0-5 /hpf (0-5)
[2024-05-21 10:16] LABS: Alanine Aminotransferase 14 U/L (0-41); Albumin Level 4.3 g/dL (3.5-5.2); Alkaline Phosphatase 151 U/L (40-130); Anion Gap 14.8 (5-19); Aspartate Amino Transferase 16 U/L (0-40); Blood Urea Nitrogen 10 mg/dL (8-23); Calcium 8.8 mg/dL (8.5-10.5); Carbon Dioxide 26 mmol/L (22-29); Chloride 104 mmol/L (98-107); Creatinine Clr Calc Pharmacy 98.6832; Glucose 138 mg/dL (65-115); Osmolality Calculated 293 mOsm/kg (285-295); Potassium 3.8 mmol/L (3.5-5.1); Sodium 141 mmol/L (136-145); Thyroid Stimulating Hormone 3.82 uIU/mL (0.27-4.20); Total Bilirubin 0.3 mg/dL (0.15-1.2); Total Protein 7.3 g/dL (6.6-8.7)
[2024-05-21 12:08] VITALS: BP 122/68; PULSE 67; O2SAT 93
[2024-05-21 12:09] VITALS: BP 122/68; PULSE 68; O2SAT 98
== END 2024-05-21 12:11 | disposition home or self-care (01) ==
PROVIDERS: Emergency Provider Emergency Medicine; PCP Internal Medicine
DX: R53.1 Weakness (principal); Z79.4 Long term (current) use of insulin; I25.10 Atherosclerotic heart disease of native coronary artery without angina pectoris; E11.9 Type 2 diabetes mellitus without complications; E78.5 Hyperlipidemia, unspecified; J44.9 Chronic obstructive pulmonary disease, unspecified; Z87.891 Personal history of nicotine dependence
CPT/HCPCS: 36415; 36600; 70450; 71045; 80053; 81001; 82805; 83735; 84443; 85025; 85610; 93005; 99285

== ENCOUNTER 2024-09-26 12:06 | Emergency (ER) | payer MEDICARE, MEDICAID, SELFPAY ==
[2024-09-26 12:09] VITALS: BP 131/72; PULSE 68; RESP 20; TEMP 36.6; O2SAT 96
--- NOTE | 2024-09-26 12:10 | CT_ITS ---
WS: [id number] CT ABDOMEN PELVIS TECHNIQUE: Contrast-enhanced CT of the abdomen and pelvis with coronal and sagittal reformatted images. CLINICAL INFORMATION: abd pain COMPARISON: CT 03/18/2024 DLP: 1363.[address] scans at [facility] use at least one of these dose optimization techniques: automated exposure control; mA and/or kV adjustment per patient size (includes targeted exams where dose is matched to clinical indication); or iterative reconstruction. FINDINGS: Interval postoperative changes repair of the fat-containing umbilical hernia. Peripherally enhancing fluid collection in the subcutaneous fat at the surgical site with air and fluid measures approximately 4.9 x 6.1 cm. Tiny underlying connection to the abdominal wall. This appears separate from the underlying bowel with contrast. No evidence of small or large bowel obstruction. Diffuse fatty infiltration of the liver. Normal gallbladder. Slightly prominent common bile duct unchanged since 03/18/2024. Recommend correlation biliary function studies. Small esophageal hiatal hernia. Chronic appearing compression deformities at T9 and T10 L1, L2 and L3. Tortuous infrarenal abdominal aorta. Slightly ectatic infrarenal abdominal aorta measuring 3.0 x 3.1 cm AP by transverse. Normal colon. Bibasilar atelectasis. Fatty atrophy of the pancreas. Adrenal glands are normal. Normal renal parenchyma enhancement. Small bilateral renal cysts. CT/CT abdomen pelvis w con* [id number] IMPRESSION: 1. Recent postoperative changes umbilical hernia repair with fluid collection in the subcutaneous soft tissues with peripheral enhancement. Associated fluid and air. Findings compatible with postoperative fluid and possibly developing a bscess. Recommend correlation for infection. 2. Fluid collection appears separate from the underlying small bowel. 3. Small esophageal hiatal hernia. 4. Slightly prominent common bile duct unchanged from 2023. Recommend correlat ion biliary function studies. 5. No other acute findings Notified Roman Calvert DO at 09/26/2024 2:34 PM.
[2024-09-26 12:20] VITALS: BP 131/72; PULSE 71; RESP 20; O2SAT 96
--- NOTE | 2024-09-26 12:23 | PC.PHAR ---
patient is from [facility]
[2024-09-26 12:41] LABS: Basophils % 0.3 %; Eosinophils # 0.1 10^3/uL (0.0-0.8); Eosinophils % 1.5 %; Hematocrit 40.6 % (37-53); Lymphocytes # 1.2 10^3/uL (0.8-4.8); Lymphocytes % 16.4 %; Mean Corpuscular Hemoglobin 29.3 pg (27-33); Mean Corpuscular Volume 94.4 fl (82-101); Mean Platelet Volume 10.1 fL (7.4-10.4); Monocytes # 0.7 10^3/uL (0.2-0.9); Monocytes % 10.4 %; Neutrophils # 5.04 10^3/uL (1.8-7.7); Neutrophils % 70.8 %; Nucleated Red Blood Cells % 0 %; Platelet Count 316 10^3/cmm (157-399); Red Cell Distribution Width 13.7 % (12.1-15.1); White Blood Count 7.12 10^3/uL (3.29-11.43)
--- NOTE | 2024-09-26 12:45 | W.ED.WOUNDLC ---
HPI - Wound/Laceration General: Chief Complaint: Wound/Laceration Stated Complaint: Hernia Time Seen by Provider: 09/26/24 12:10 History of Present Illness: 74-year-old [facility] emergency room via EMS with complaints of swelling at his abdominal hernia site. He had an umbilical hernia repair 5 days ago at an outpatient surgery center. He is not pain now with bulging at the site obvious pressures noted however kristin Rushing. He has not had any fever sweats chills no vomiting he continues to have regular bowel movements. No dysuria urgency or frequency Associated symptoms: Denies chills or fever(s) Related Data Home Medications ?Medication ?Instructions ?Recorded ?Confirmed acetaminophen 500 mg tablet 1,000 mg PO Q6H PRN pain or 10/12/23 09/26/24 elevated temp atorvastatin 40 mg tablet 40 mg PO BEDTIME 10/12/23 09/26/24 docusate sodium 100 mg capsule 100 mg PO BID PRN constipaton 10/12/23 09/26/24 duloxetine 20 mg capsule,delayed 20 mg PO QAM 10/12/23 09/26/24 release pantoprazole 40 mg tablet,delayed 40 mg PO QAM 10/12/23 09/26/24 release tramadol 50 mg tablet 100 mg PO TID PRN Pain 10/12/23 09/26/24 furosemide 20 mg tablet 20 mg PO QAM 12/27/23 09/26/24 melatonin 5 mg tablet 5 mg PO BEDTIME Insomnia 12/27/23 09/26/24 acyclovir 800 mg tablet 800 mg PO DAILY 09/26/24 09/26/24 aspirin 81 mg tablet,delayed 81 mg PO DAILY 09/26/24 09/26/24 release carboxymethylcellulose sodium 1 % 1 drp ophthalmic (eye) BID 09/26/24 09/26/24 eye liquid gel drops (Refresh Liquigel) clopidogrel 75 mg tablet 75 mg PO DAILY 09/26/24 09/26/24 fluticasone 500 mcg-salmeterol 50 1 ea inhalation BID 09/26/24 09/26/24 mcg/dose blistr powdr for inhalation fluticasone propionate 50 1 spray intranasal QPM 09/26/24 09/26/24 mcg/actuation nasal spray,suspension guaifenesin 100 mg/5 mL oral 300 mg PO Q4H PRN Cough 09/26/24 09/26/24 liquid (Sarika-Tussin) guaifenesin 600 mg tablet, 600 mg PO BID 09/26/24 09/26/24 extended release 12 hr (Mucinex) hydrocodone 5 mg-acetaminophen 325 2 tab PO Q6H 09/26/24 09/26/24 mg tablet insulin aspart See Rx Instructions .Route .COMPLEX 09/26/24 09/26/24 (niacinamide)(U-100) 100 unit/mL(3 mL) subcutaneous pen (Fiasp FlexTouch U-100 Insulin) insulin glargine 100 unit/mL (3 30 unit SUBCUT DAILY 09/26/24 09/26/24 mL) subcutaneous pen (Basaglar KwikPen U-100 Insulin) latanoprost 0.005 % eye drops 1 drp ophthalmic (eye) QPM 09/26/24 09/26/24 loperamide 2 mg tablet 2 mg PO PRN PRN Constipation 09/26/24 09/26/24 loratadine 10 mg tablet (Claritin) 10 mg PO QPM PRN ALLERGIES 09/26/24 09/26/24 metoprolol succinate 25 mg 25 mg PO DAILY 09/26/24 09/26/24 tablet,extended release 24 hr nifedipine 60 mg tablet,extended 60 mg PO DAILY 09/26/24 09/26/24 release 24 hr phenol 0.5 % mucosal aerosol spray 5 spray mucous membrane Q2H PRN 09/26/24 09/26/24 Sore Throat trazodone 100 mg tablet 100 mg PO DAILY 09/26/24 09/26/24 Previous Rx's ?Medication ?Instructions ?Recorded celecoxib 200 mg capsule 200 mg PO BID PRN pain #1 cap 12/31/23 ondansetron 4 mg disintegrating 4 mg PO Q6H PRN nausea and 03/18/24 tablet vomiting #14 tabs Allergies Allergy/AdvReac Type Severity Reaction Status Date / Time No Known Allergies Allergy Verified 04/26/24 10:13 Review of Systems Const: Denies: fever(s) or chills Card: Denies: chest pain Resp: Denies: dyspnea GI: Denies: abdominal pain : Denies: dysuria, urinary frequency or urinary urgency Musc: Denies: neck pain or back pain Skin/Breast: Denies: rash [facility] ED PFSH: Medical History Atherosclerosis of [place] coronary artery without angina pectoris Insomnia GERD (gastroesophageal reflux disease) Type 2 diabetes mellitus Hyperlipidemia COPD (chronic obstructive pulmonary disease) Social History Smoking and tobacco/nicotine status: former use of tobacco/nicotine Physical Exam Const: GENERAL APPEARANCE: cooperative ORIENTATION/CONSCIOUSNESS: Yes awake, Yes oriented to person, Yes oriented to place and Yes oriented to time HENMT: COMMON NORMALS: normocephalic, atraumatic and hearing grossly normal bilaterally HEAD & SCALP: normocephalic and atraumatic Resp: COMMON NORMALS: normal respiratory effort, No retractions, No use of accessory muscles and clear to auscultation bilaterally AUSCULTATION: clear to auscultation bilaterally Cardio: COMMON NORMALS: regular rate, regular rhythm and No murmurs present (Cardio) RATE: regular rate RHYTHM: regular rhythm GI: COMMON NORMALS: Soft to palpation and No hepatosplenomegaly present AUSCULTATION: Yes normoactive bowel sounds PALPATION: Yes Soft to palpation, No Tenderness to palpation present (GI), No Guarding due to palpation present (GI) and Yes No hepatosplenomegaly present OTHER: 5-day-old bruising around the umbilicus consistent with his recent surgery. Steri-Strips in place were removed there is a little bit of dehiscence very superficial on the left side of the incision some skin breakdown with Steri-Strips coming off there was some slight denuding superficially of the skin no signs of any abscess or perforation no skin induration. There is obvious protrusion of the large umbilical hernia. Extremity: COMMON NORMALS: normal to inspection, capillary refill normal, no clubbing, cyanosis or edema, no calf tenderness and no pedal edema Neuro: SENSORIUM/ORIENTATION: Yes oriented to person, Yes oriented to place and Yes oriented to time Skin: COMMON NORMALS: no rashes or lesions noted GENERAL SKIN EXAM: no rashes or lesions noted Course Vital Signs: Vital signs: Vital Signs Temperature 97.9 F 09/26/24 12:09 Pulse Rate 77 09/26/24 16:13 Respiratory Rate 20 H 09/26/24 12:20 Blood Pressure 142/81 09/26/24 16:13 Pulse Oximetry 96 09/26/24 16:13 Oxygen Delivery Me thod Nasal Cannula 09/26/24 15:10 Oxygen Flow Rate 2 09/26/24 15:10 MDM - Wound/Laceration Medical Decision Making CT shows what appears to be a seroma there is a little bit of air in the room does not look infected his white count is normal lactic acid is normal he is not having sign of any imbalance obstruction there is certainly no sign of bowel entrapment it looks like the hernia repair is intact he just developed a seroma postoperatively externally the wound looks good there is no sign of infection. We did consult Dr. Tilley who is on-call for surgery he concurs does not feel any intervention is required. I discussed Dr. Schwartz did his procedure he is aware that the patient was here in our findings and I will follow-up with him as previously scheduled. Medical Records I reviewed the patient's medical records. Lab Data I reviewed the patient's lab results. 09/26/24 12:32 09/26/24 12:32 Radiology Impressions Abdomen/Pelvis CT 09/26/24 12:10 IMPRESSION: 1. Recent postoperative changes umbilical hernia repair with fluid collection in the subcutaneous soft tissues with peripheral enhancement. Associated fluid and air. Findings compatible with postoperative fluid and possibly developing abscess. Recommend correlation for infection. 2. Fluid collection appears separate from the underlying small bowel. 3. Small esophageal hiatal hernia. 4. Slightly prominent common bile duct unchanged from 2023. Recommend correlation biliary function studies. 5. No other acute findings Notified Roman Calvert DO at 09/26/2024 2:34 PM. Laboratory Results WBC 7.12 10^3/uL (3.29-11.43) 09/26/24 12:32 RBC 4.30 10^6/uL (3.85-5.65) 09/26/24 12:32 Hgb 12.60 g/dL (11.27-16.99) 09/26/24 12:32 Hct 40.6 % (37-53) 09/26/24 12:32 MCV 94.4 fl (82-101) 09/26/24 12:32 MCH 29.3 pg (27-33) 09/26/24 12:32 MCHC 31.0 g/dL (30-55) 09/26/24 12:32 RDW 13.7 % (12.1-15.1) 09/26/24 12:32 Plt Count 316 10^3/cmm (157-399) 09/26/24 12:32 MPV 10.1 fL (7.4-10.4) 09/26/24 12:32 Neut % (Auto) 70.8 % 09/26/24 12:32 Lymph % (Auto) 16.4 % 09/26/24 12:32 [place] % (Auto) 10.4 % 09/26/24 12:32 Eos % (Auto) 1.5 % 09/26/24 12:32 Baso % (Auto) 0.3 % 09/26/24 12: Neut # (Auto) 5.04 10^3/uL (1.8-7.7) 09/26/24 12:32 Lymph # (Auto) 1.2 10^3/uL (0.8-4.8) 09/26/24 12:32 [place] # (Auto) 0.7 10^3/uL (0.2-0.9) 09/26/24 12:32 Eos # (Auto) 0.1 10^3/uL (0.0-0.8) 09/26/24 12:32 Baso # (Auto) 0.0 10^3/uL (0.0-0.1) 09/26/24 12:32 Nucleated RBC % (auto) 0 % 09/26/24 12: Nucleated RBCs # 0.0 /100WBC 09/26/24 12:32 Sodium 139 mmol/L (136-145) 09/26/24 12:32 Potassium 3.2 mmol/L (3.5-5.1) L 09/26/24 12:32 Chloride 100 mmol/L (98-107) 09/26/24 12:32 Carbon Dioxide 28 mmol/L (22-29) 09/26/24 12:32 Anion Gap 14.2 (5-19) 09/26/24 12:32 BUN 9 mg/dL (8-23) 09/26/24 12:32 Creatinine 0.7 mg/dL (0.7-1.2) 09/26/24 12:32 GFR Calculation Not Reportable 09/26/24 12:32 Glucose 143 mg/dL (65-115) H 09/26/24 12:32 Calculated Osmolality 289 mOsm/kg (285-295) 09/26/24 12:32 Lactic Acid 1.3 mmol/L (0.5-2.2) 09/26/24 14:05 Calcium 8.8 mg/dL (8.5-10.5) 09/26/24 12:32 Total Bilirubin 0.6 mg/dL (0.15-1.2) 09/26/24 12:32 AST 81 U/L (0-40) H 09/26/24 12:32 ALT 47 U/L (0-41) H 09/26/24 12:32 Alkaline Phosphatase 226 U/L (40-130) H 09/26/24 12:32 Total Protein 7.8 g/dL (6.6-8.7) 09/26/24 12:32 Albumin 3.5 g/dL (3.5-5.2) 09/26/24 12:32 Globulin 4.3 g/dL (1.3-4.6) 09/26/24 12:32 All radiology interpretation(s) finalized by discharge Discharge Plan Discharge Patient Disposition: Home Clinical Impression: Umbilical hernia, Postoperative seroma Condition: Stable Prescriptions: No Action atorvastatin 40 mg tablet 40 mg PO BEDTIME tramadol 50 mg tablet 100 mg PO TID PRN (Reason: Pain) pantoprazole 40 mg tablet,delayed release (DR/EC) 40 mg PO QAM duloxetine 20 mg capsule,delayed release(DR/EC) 20 mg PO QAM acetaminophen 500 mg Tablet 1,000 mg PO Q6H PRN (Reason: pain or elevated temp) docusate sodium 100 mg Capsule 100 mg PO BID PRN (Reason: constipaton) furosemide 20 mg tablet 20 mg PO QAM melatonin 5 mg Tablet 5 mg PO BEDTIME celecoxib 200 mg capsule 200 mg PO BID PRN (Reason: pain) Qty: 1 0RF ondansetron 4 mg tablet,disintegrating 4 mg PO Q6H PRN (Reason: nausea and vomiting) Qty: 14 0RF latanoprost 0.005 % Drops 1 drp OPHTHALMIC (EYE) QPM Chloraseptic 0.5 % Aerosol,[place] 5 spray MUCOUS MEMBRANE Q2H PRN (Reason: Sore Throat) hydrocodone-acetaminophen 5-325 mg tablet 2 tab PO Q6H loperamide 2 mg Tablet 2 mg PO PRN PRN (Reason: Constipation) Rx Instructions: administer after each loose stool until symptoms controlled; do not exceed 8 mg per 24 hrs clopidogrel 75 mg tablet 75 mg PO DAILY aspirin [Aspir-81] 81 mg Tablet,Delayed Release (Dr/Ec) 81 mg PO DAILY guaifenesin [Sarika-Tussin] 100 mg/5 mL Liquid 300 mg PO Q4H PRN (Reason: Cough) acyclovir 800 mg tablet 800 mg PO DAILY nifedipine 60 mg tablet extended release 24hr 60 mg PO DAILY trazodone 100 mg tablet 100 mg PO DAILY fluticasone propion-salmeterol 500-50 mcg/dose blister with device 1 ea INHALATION BID metoprolol succinate 25 mg Tablet Extended Release 24 Hr 25 mg PO DAILY fluticasone propionate 50 mcg/actuation spray,suspension 1 spray INTRANASAL QPM loratadine [Claritin] 10 mg Tablet 10 mg PO QPM PRN (Reason: ALLERGIES) carboxymethylcellulose sodium [Refresh Liquigel] 1 % Drops, Liquid Gel 1 drp OPHTHALMIC (EYE) BID insulin glargine [Basaglar KwikPen U-100 Insulin] 100 unit/mL (3 mL) insulin pen 30 unit SUBCUT DAILY guaifenesin [Mucinex] 600 mg Tablet Extended Release 12hr 600 mg PO BID Fiasp FlexTouch U-100 Insulin 100 unit/mL (3 mL) insulin pen See Rx Instructions .ROUTE .COMPLEX Rx Instructions: per sliding scale 140-180=0 181-220=2 221-260=4 261-300=6 301-350=8 351-400=10 401-450=12 451-500=14 before meals and at bedtime Discharge Orders: Discharge ED (Routine); Ordered 09/26/24 Ordered By: Roman Calvert Referrals: Iain Nguyễn MD [Primary Care Provider] - Patient Instructions: Opioid Safety, Pain Management Activity Restrictions/Additional Instructions: Thank you for choosing [facility] for your healthcare needs today. It is very important that you follow up as instructed or that you return to the Emergency Department should you have concerns or if your condition changes or worsens in any way. You are seen in the emergency room for potential complications from your umbilical hernia repair. The umbilical hernia itself looks to be intact on the CT. The swelling looks to be caused by a fluid buildup in the old hernia defect but there is no bowel. There is no defect in the abdominal wall the hernia repair is still intact as far as we can tell on the CT. No further intervention is needed. Would apply topical antibiotic ointment to the wound twice a day until healed keep your usual follow-up with Dr. Hurtado as planned Print Language: French Coding Level of Care Code ED Dispatcher Service for Eli Mishra
[2024-09-26 12:57] LABS: Alanine Aminotransferase 47 U/L (0-41); Albumin Level 3.5 g/dL (3.5-5.2); Alkaline Phosphatase 226 U/L (40-130); Anion Gap 14.2 (5-19); Aspartate Amino Transferase 81 U/L (0-40); Blood Urea Nitrogen 9 mg/dL (8-23); Calcium 8.8 mg/dL (8.5-10.5); Carbon Dioxide 28 mmol/L (22-29); Chloride 100 mmol/L (98-107); Creatinine Clr Calc Pharmacy 112.4518; Globulin 4.3 g/dL (1.3-4.6); Glucose 143 mg/dL (65-115); Osmolality Calculated 289 mOsm/kg (285-295); Potassium 3.2 mmol/L (3.5-5.1); Sodium 139 mmol/L (136-145); Total Bilirubin 0.6 mg/dL (0.15-1.2); Total Protein 7.8 g/dL (6.6-8.7)
[2024-09-26 14:25] LABS: Lactic Sepsis W/Reflex 1.3 mmol/L (0.5-2.2)
--- NOTE | 2024-09-26 14:49 | PM.CONSULT ---
Providers/Reason For Consult Consulting Physician/Specialty*: dr nolasco general surgery Reason for Consult*: rule out surgical site infection Primary Care Provider: Iain Nguyễn MD History of Present Illness History of Present Illness Pillo Dyer Sr is a 74 year old male s/p UHR by Dr. Hurtado on 09/21/24 who presents from long term due to pain at the surgical site. Patient reports otherwise no concerns. No fevers, having bowel function, tolerating regular diet. Patient also reports that the nursing staff were concered about a surgical site infection. On exam patient has bruising around the umbilicus and some flucturance at the umbilicus. Otherwise VSS, abdomen soft, benign. No leukocytosis. CT scan shows a fluid collection at the surgical site. Medications/Allergies Home Medications ?Medication ?Instructions ?Recorded ?Confirmed ?Last Taken ?Type acetaminophen 500 mg tablet 1,000 mg PO Q6H PRN pain or 10/12/23 09/26/24 Unknown History elevated temp atorvastatin 40 mg tablet 40 mg PO BEDTIME 10/12/23 09/26/24 09/25/24 History docusate sodium 100 mg capsule 100 mg PO BID PRN constipaton 10/12/23 09/26/24 Unknown History duloxetine 20 mg capsule,delayed 20 mg PO QAM 10/12/23 09/26/24 09/26/24 History release pantoprazole 40 mg tablet,delayed 40 mg PO QAM 10/12/23 09/26/24 09/26/24 History release tramadol 50 mg tablet 100 mg PO TID PRN Pain 10/12/23 09/26/24 09/26/24 History furosemide 20 mg tablet 20 mg PO QAM 12/27/23 09/26/24 09/26/24 History melatonin 5 mg tablet 5 mg PO BEDTIME Insomnia 12/27/23 09/26/24 09/25/24 History celecoxib 200 mg capsule 200 mg PO BID PRN pain #1 cap 12/31/23 09/26/24 Unknown Rx ondansetron 4 mg disintegrating 4 mg PO Q6H PRN nausea and 03/18/24 09/26/24 Unknown Rx tablet vomiting #14 tabs acyclovir 800 mg tablet 800 mg PO DAILY 09/26/24 09/26/24 09/26/24 History aspirin 81 mg tablet,delayed 81 mg PO DAILY 09/26/24 09/26/24 09/26/24 History release carboxymethylcellulose sodium 1 % 1 drp ophthalmic (eye) BID 09/26/24 09/26/24 09/26/24 History eye liquid gel drops (Refresh Liquigel) clopidogrel 75 mg tablet 75 mg PO DAILY 09/26/24 09/26/24 09/26/24 History fluticasone 500 mcg-salmeterol 50 1 ea inhalation BID 09/26/24 09/26/24 Unknown History mcg/dose blistr powdr for inhalation fluticasone propionate 50 1 spray intranasal QPM 09/26/24 09/26/24 09/25/24 History mcg/actuation nasal spray,suspension guaifenesin 100 mg/5 mL oral 300 mg PO Q4H PRN Cough 09/26/24 09/26/24 Unknown History liquid (Sarika-Tussin) guaifenesin 600 mg tablet, 600 mg PO BID 09/26/24 09/26/24 Unknown History extended release 12 hr (Mucinex) hydrocodone 5 mg-acetaminophen 325 2 tab PO Q6H 09/26/24 09/26/24 09/26/24 History mg tablet insulin aspart See Rx Instructions .Route .COMPLEX 09/26/24 09/26/24 Unknown History (niacinamide)(U-100) 100 unit/mL(3 mL) subcutaneous pen (Fiasp FlexTouch U-100 Insulin) insulin glargine 100 unit/mL (3 30 unit SUBCUT DAILY 09/26/24 09/26/24 09/26/24 History mL) subcutaneous pen (Basaglar KwikPen U-100 Insulin) latanoprost 0.005 % eye drops 1 drp ophthalmic (eye) QPM 09/26/24 09/26/24 09/25/24 History loperamide 2 mg tablet 2 mg PO PRN PRN Constipation 09/26/24 09/26/24 Unknown History loratadine 10 mg tablet (Claritin) 10 mg PO QPM PRN ALLERGIES 09/26/24 09/26/24 09/25/24 History metoprolol succinate 25 mg 25 mg PO DAILY 09/26/24 09/26/24 09/26/24 History tablet,extended release 24 hr nifedipine 60 mg tablet,extended 60 mg PO DAILY 09/26/24 09/26/24 09/26/24 History release 24 hr phenol 0.5 % mucosal aerosol spray 5 spray mucous membrane Q2H PRN 09/26/24 09/26/24 Unknown History Sore Throat trazodone 100 mg tablet 100 mg PO DAILY 09/26/24 09/26/24 09/25/24 History Allergies Allergy/AdvReac Type Severity Reaction Status Date / Time No Known Allergies Allergy Verified 04/26/24 10:13 PFSH Acute PFSH: Medical History Atherosclerosis of [place] coronary artery without angina pectoris Insomnia GERD (gastroesophageal reflux disease) Type 2 diabetes mellitus Hyperlipidemia COPD (chronic obstructive pulmonary disease) Social History Smoking and tobacco/nicotine status: former use of tobacco/nicotine Vitals/I&O/Wt Last Vital Signs Temp 97.9 F 09/26/24 12:09 Pulse 71 09/26/24 12:20 Resp 20 H 09/26/24 12:20 BP 131/72 09/26/24 12:20 Pulse Ox 96 09/26/24 12:20 O2 Del Method Nasal Cannula 09/26/24 12:20 O2 Flow Rate 2 09/26/24 12:20 Weight last 48 hrs Weight 285 lb Physical Exam Narrative: RRR Unlabored breathing 2L NC Abdomen soft, NT, ND. Surgical site wound intact. Bruising around the umbilicus. Fluctuance at the umbilicus. No cellulitis. Data 09/26/24 12:32 09/26/24 12:32 A&P Assessment and plan (1) Postoperative seroma: (2) Umbilical hernia: Plan 74yo male s/p UHR by Dr. Hurtado who presented for pain at the surgical site. CT scan revealed a fluid collection at the umbilicus. Surgery consulted to rule out surgical site infection. Patient is afebrile, has no leukocytosis and the incision is intact. No cellulitis. The patient does have some fluctuance at the umbilicus consistent with the fluid collection on CT scan. The patient does not want surgical exploration. Findings are most consistent with a postoperative seroma, however, patient should follow up this week with Dr. Hurtado. Gave instructions to patients on reasons to come back to the ED. PDMP PDMP Reviewed: Not Reviewed Coding Level of Care Code 89933 Diagnoses Postoperative seroma Umbilical hernia K42.9 Time Spent (min) 30
[2024-09-26 15:10] VITALS: BP 145/86; PULSE 76; O2SAT 98
[2024-09-26 16:13] VITALS: BP 142/81; PULSE 77; O2SAT 96
--- NOTE | 2024-09-26 16:16 | PC.NURSE ---
PRIOR TO DISCHARGE PATIENT INFORMED THAT HE WOULD BE GOING HOME VIA MEDICAID RIDE DUE TO NEED FOR O2. PATIENT REFUSES TO WAIT FOR MEDICAID RIDE. PATIENT STATES THAT HE HAS DONE IT BEFORE AND HE WILL DO IT AGAIN. PATIENT STATES THAT HE WILL CALL HIS SISTER IN LAW AND BE DONE WITH IT. NURSE VOICES CONCERNS AND PATIENT STATES I WILL BE FINE. PATIENT REPORT CALLED TO [facility] AND THAT PATIENT REFUSED TO WAIT FOR MEDICAID RIDE OR TO WEAR OXYGEN ON RIDE HOME. NURSE AT FACILITY VERBALIZED UNDERSTANDING AND STATED THEY WOULD CHECK IT UPON ARRIVAL.
== END 2024-09-26 16:15 | disposition home or self-care (01) ==
PROVIDERS: Emergency Provider Family Medicine; PCP Internal Medicine
DX: K42.9 Umbilical hernia without obstruction or gangrene (principal); K91.872 Postprocedural seroma of a digestive system organ or structure following a digestive system procedure; Z79.02 Long term (current) use of antithrombotics/antiplatelets; Z79.82 Long term (current) use of aspirin; Z79.4 Long term (current) use of insulin; Z87.891 Personal history of nicotine dependence; E11.9 Type 2 diabetes mellitus without complications; J44.9 Chronic obstructive pulmonary disease, unspecified; E78.5 Hyperlipidemia, unspecified; I25.10 Atherosclerotic heart disease of native coronary artery without angina pectoris
CPT/HCPCS: 36415; 74177; 80053; 83605; 85025; 99284

== ENCOUNTER → 2024-10-26 09:53 | Outpatient (BNVA) | payer MEDICARE, MEDICAID, SELFPAY | PROVIDERS: PCP Internal Medicine; Visit Provider Internal Medicine Cardiovascular Disease | DX: I25.10 Atherosclerotic heart disease of native coronary artery without angina pectoris (principal); E78.2 Mixed hyperlipidemia; I10 Essential (primary) hypertension; E11.9 Type 2 diabetes mellitus without complications; R63.5 Abnormal weight gain; Z79.4 Long term (current) use of insulin; Z87.891 Personal history of nicotine dependence; Z68.38 Body mass index [BMI] 38.0-38.9, adult | CPT/HCPCS: 99214 ==

== ENCOUNTER → 2025-01-10 13:57 | Outpatient (BNVA) | payer MEDICAID, MEDICARE, SELFPAY | PROVIDERS: PCP Internal Medicine; Visit Provider Nurse Practitioner Family | DX: D18.01 Hemangioma of skin and subcutaneous tissue (principal); L57.8 Other skin changes due to chronic exposure to nonionizing radiation; L82.1 Other seborrheic keratosis; L73.8 Other specified follicular disorders; X32.XXXA Exposure to sunlight, initial encounter; L81.4 Other melanin hyperpigmentation; Z08 Encounter for follow-up examination after completed treatment for malignant neoplasm; Z85.828 Personal history of other malignant neoplasm of skin; L82.0 Inflamed seborrheic keratosis; R20.8 Other disturbances of skin sensation; R23.8 Other skin changes | CPT/HCPCS: 11102; 17000; 17110; 99203 ==

== ENCOUNTER → 2025-03-01 08:01 | Outpatient (BNVA) | payer MEDICAID, SELFPAY | PROVIDERS: PCP Internal Medicine; Visit Provider Dermatology | DX: L73.8 Other specified follicular disorders (principal); L57.8 Other skin changes due to chronic exposure to nonionizing radiation; L82.1 Other seborrheic keratosis; Z08 Encounter for follow-up examination after completed treatment for malignant neoplasm; Z85.828 Personal history of other malignant neoplasm of skin; C44.319 Basal cell carcinoma of skin of other parts of face; D48.5 Neoplasm of uncertain behavior of skin | CPT/HCPCS: 11102; 12052; 17311; 99213 ==

== ENCOUNTER → 2025-03-15 11:39 | Outpatient (BNVA) | payer MEDICAID, SELFPAY | PROVIDERS: PCP Internal Medicine; Visit Provider Dermatology | DX: C44.319 Basal cell carcinoma of skin of other parts of face (principal) | CPT/HCPCS: 99213 ==

== ENCOUNTER → 2025-04-16 09:34 | Outpatient (BNVA) | payer MEDICAID, SELFPAY | PROVIDERS: PCP Internal Medicine; Visit Provider Dermatology | DX: C44.319 Basal cell carcinoma of skin of other parts of face (principal); L21.8 Other seborrheic dermatitis; D36.14 Benign neoplasm of peripheral nerves and autonomic nervous system of thorax; D48.5 Neoplasm of uncertain behavior of skin; L57.0 Actinic keratosis | CPT/HCPCS: 11102; 17000; 99214 ==

== ENCOUNTER → 2025-05-03 11:25 | Outpatient (BNVA) | payer MEDICAID, SELFPAY | PROVIDERS: PCP Internal Medicine; Visit Provider Internal Medicine Cardiovascular Disease | DX: I25.10 Atherosclerotic heart disease of native coronary artery without angina pectoris (principal); E78.5 Hyperlipidemia, unspecified; I10 Essential (primary) hypertension; E11.9 Type 2 diabetes mellitus without complications; Z79.4 Long term (current) use of insulin; Z87.891 Personal history of nicotine dependence; R06.02 Shortness of breath | CPT/HCPCS: 36415; 80048; 83880; 99214 ==